=== PATIENT | male | born 1950 | race Caucasian/White ===

== ENCOUNTER 2023-09-11 15:00 | Outpatient (RCR) | payer MEDICARE, OTHER, SELFPAY ==
--- NOTE | 2023-07-21 16:19 | HP.PTEVAL ---
Patient's Visit Information Visit Information Visit Information: SEPIDEH GERARDO is a 72 year old M referred to Physical Therapy by Dr. Nisreen Connelly MD with a diagnosis of BACK PAIN AND LEG WEAKNESS. Date of Evaluation: 07/21/23 Physical Therapist: Amanda Majano, PT, Cert MDT Visit Plan Frequency: 2-3x /Week Duration: 4-6 Weeks Plan: *FALL RISK. WALK PATIENT IN AND OUT OF PT DEPARTMENT. GAIT AND BALANCE TRAINING. POSTURE CORRECTION/STRENGTHENING, INSTRUCTION IN APPROPRIATE BODY MECHANICS AND ACTIVITY MODIFICATIONS. DLS STARTING WITH A NEUTRAL SPINE PROGRESSING ROM TOLERATED. CLARICE LE ROM, STRETCHING AND STRENGTHENING. HEP INSTRUCTION. WORK TOWARD GYM PROGRAM AT [employer] IF SAFE/APPROPRIATE. 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 Present symptoms: CLARICE LE WEAKNESS. LOW BACK PAIN. CLARICE LE PAIN, NUMBNESS AND TINGLING. Present since: ABOUT 8-10 MONTHS Pain Scale: WORSE 3/10, LEAST 0/10 Currently: 0/10 Is it getting better, worse or staying the same: BETTER SINCE SHOT Monday07/19/23. Commenced as a result of: NO APPARENT REASON Symptoms at onset: LOW BACK PAIN Worse: STANDING UP FROM BENDING CAUSES SOME PAIN, PROLONGED STANDING, PROLONGED WALKING, SOMETIMES GETTING UP IN THE MORNING. Better: ADVIL, SITTING DOWN, LYING DOWN, RUBBING BACK Disturbed sleep: NO Previous history/Previous treatment: NO BACK SURGERY. NO PRIOR HISTORY OF BACK PROBLEMS OR TREATMENT. PATIENT REPORTS THIS IS ALL NEW TO HIM. Treatment this episode: ONE SHASHI. PATIENT REPORTS HIS SX'S HAVE NOT BEEN noticeable in his back and legs since the injection but he is still weak. Coughing/sneezing/straining: NEGATIVE Gait: CROOKED, UNBALANCED AND UNSTABLE COMPARED TO WHAT IT USE TO BE . NOT USING ANY ASSISTIVE DEVICES. PATIENT REPORTS HE STUMBLES SOMETIMES AND DOESN'T ALWAYS PICK HIS FEET UP HIGH ENOUGH. Bowel or Bladder Dysfunction: YES BUT CHRONIC AND PATIENT RELATES IT TO HIS PROSTATE ISSUES. Accidents: NO Unexplained weight loss: NO Imaging: RECENT LUMBAR X-RAYS AND MRI AT [facility] - PATIENT REPORTS THEY TOLD HIM HE HAS DDD. PMH/Recent major surgery: PROSTATE CONDITION, HEART CONDITION, CONVULSIVE DISORDER - CONTROLLED BY MEDICATION, A LOT OF SKIN CANCER, BENIGN KIDNEY TUMOR REMOVED. CHRONIC CLARICE LE EDEMA R > L. Objective Objective: Sitting/Standing Posture: POOR. DECREASED LORDOSIS BUT NO RELEVANT LATERAL SHIFT. Active Correction of posture: NE Other Observations: THIS PATIENT AMBULATES INDEP'LY INTO PT WITH UNSTEADY GAIT BUT NO LOB AND NOT USING ANY ASSISTIVE DEVICES. PATIENT IS A FALL RISK AND THIS PT RECOMMENDS AD FOR SAFETY. PATIENT IS RELUCTANT STATING HE ALWAYS HAS SOMETHING TO HOLD ON TO LIKE A GROCERY CART OR HIS WIFES W/C. THIS PT CHALLENGED HIM ABOUT TIMES THAT HE DOESN'T HAVE SOMETHING TO HOLD ON TO AND HE IS STILL RELUCTANT STATING HE DOESN'T FEEL THAT UNSTABLE LIKE HE IS GOING TO FALL. PATIENT IS UNABLE TO SLS ON EITHER LE FOR MORE THAN 1-2 SECONDS WITHOUT UE ASSIST. HE ALSO HAS DECREASED DORSIFLEXION OF CLARICE ANKLES DURING SWING PHASE OF GAIT AND TENDS TO HIKE HIS HIPS. Sensory deficit: CLARICE LE LIGHT TOUCH SENSATION GROSSLY INTACT AND SYMMETRICAL. PATIENT IS WEARING LE COMPRESSION garments AND HAS R LE EDEMA > L. ROM deficit: TIGHT CLARICE HIP FLEXORS, HS'S AND GASTROC SOLEUS COMPLEX'S. Motor deficit: CLARICE LE'S GROSSLY 5/5 WITH MMT'ING INCLUDING DORSIFLEXION IN SITTING. Reflexes: 2/2 CLARICE QUADS AND 1/2 CLARICE ACHILLES. Dural Signs: POSITIVE CLARICE LE'S. Lumbar mvmt loss: flex - MIN ext - MOD R SG - MOD L SG - MOD Core strength: POOR Palpation: MILD LOWER LUMBAR TENDERNESS. SEE STS TEST SCORE BELOW. Balance/Special Test Scores Oswestry Low Back Score: 18 30 Second Chair Rise Test Seconds: 8 Goals Goal 1:: DECREASE C/O LBP AND CLARICE LE WEAKNESS Goal Time Frame: 4-6 Weeks Goal 2:: IMPROVE LIFTING, BENDING, WALKING, SITTING, STANDING, SOCIAL LIFE AND HOMEMAKING FUNCTION. Goal Time Frame: 4-6 Weeks Goal 3:: INSTRUCT IN PROPHYLAXIS Goal Time Frame: 4-6 Weeks Anticipated Interventions Patient/Client Instruction: Educate patient on: Condition, Plan of Care and Risk Factors For the Purpose of:: To improve self management Therapeutic Exercise to Include: Strength training, Balance training, Postural training, Flexibilty training, Gait and locomotor training, Neuromotor development and Dynamic Lumbar Stabilization For the Purpose of:: To decrease pain, To increase ROM, To improve muscle performance and motor function, To increase tolerance to activity/condition/position, To improve ability of physical actions for home/community/work/leisure and To improve gait and locomotor functions Text: Thank you for the opportunity to evaluate your patient. For Medicare and Medicare HMO plans, please review the plan of care and approve it. It will need to be FAXED BACK to us at [phone] for Medicare purposes. For Medicare only, by signing this I certify the plan of care. Please let me know if there are questions or concerns regarding this plan of care. Physician Signature: Date:
--- NOTE | 2023-08-21 16:25 | HP.PTREVAL_ITS ---
Re-Evaluation Intro: Dr. Nisreen Suarez MD, It has been my pleasure to treat SEPIDEH GERARDO over the last 10 visits for BACK PAIN AND LEG WEAKNESS. Please see the progress note below for an update on the physical therapy plan of care! Subjective Subjective: PATIENT REPORTS HE IS SEEING SLOW PROGRESS WITH THERAPY IN TERMS OF PAIN, STRENGTH AND FLEXABILITY AND HE IS WORKING ON WHAT WE SHOW HIM AT HOME. HE STATES HE APPRECIATES THE EFFORT WE HAVE GIVEN TO TRY TO HELP HIM IN PHYSICAL THERAPY. 08/10/[address] SUAREZ: PATIENT REPORTS HE IS GOING TO GET AN INJECTION IN HIS UPPER BACK/NECK AREA FOR THE PAIN HE HAS HAD THERE FOR 6 MONTHS OR MORE ON MONDAY BY DR. SUAREZ. NO MORE LUMBAR INJECTIONS PLANNED YET. PATIENT REPORTS HE CAN STRETCH A LITTLE FURTHER QUICKER IN THERAPY BUT PROGRESS IS SLOW. Objective Objective/Function: PATIENT WAS SEEN TODAY FOR RE-ASSESSMENT OF PROGRESS TOWARD THE SET PT GOALS AND THE NEED FOR FURTHER PHYSICAL THERAPY VS READINESS FOR DISCHARGE. PATIENT IS A GOOD CANDIDATE TO CONTINUE PT BASED ON SLOW PROGRESS BEING MADE AND PATIENT LEARNING WHAT HE CAN DO TO HELP HIMSELF AT HOME. UPON EXAM TODAY IS BALANCE IS STILL UNSTEADY AND HE IS STILL A FALL RISK WITH AD RECOMMENDED BUT REFUSED. OBJECTIVELY WITH TESTING TODAY THERE ARE NO SIGNIFICATANT CHANGES COMPARED TO INITIAL EVAL BUT HE IS MAKING PROGRESS IN TERMS OF LEARNING A HEP AND REPORTING TEMPORARY INCREASED FLEXABILITY AND MOBILITY WITH A LITTLE CARRY OVER. Plan Plan Plan: CONTINUE PT 2-3 TMES A WK X 4-6 WKS X 10 VISITS. *FALL RISK. WALK PATIENT IN AND OUT OF PT DEPARTMENT. GAIT AND BALANCE TRAINING. POSTURE CORRECTION/STRENGTHENING, INSTRUCTION IN APPROPRIATE BODY MECHANICS AND ACTIVITY MODIFICATIONS. DLS STARTING WITH A NEUTRAL SPINE PROGRESSING ROM TOLERATED. CLARICE LE ROM, STRETCHING AND STRENGTHENING. HEP INSTRUCTION. WORK TOWARD GYM PROGRAM AT [employer] IF SAFE/APPROPRIATE. Balance/Gait/Functional tests Balance/Special Test Scores Oswestry Low Back Score: 18 30 Second Chair Rise Test Seconds: 8 Goals Goals Goal 1:: DECREASE C/O LBP AND CLARICE LE WEAKNESS Goal Time Frame: 4-6 Weeks Goal Progress: Progressing Slowly Goal 2:: IMPROVE LIFTING, BENDING, WALKING, SITTING, STANDING, SOCIAL LIFE AND HOMEMAKING FUNCTION. Goal Time Frame: 4-6 Weeks Goal 3:: INSTRUCT IN PROPHYLAXIS Goal Time Frame: 4-6 Weeks Goal Progress: Progressing Anticipated Interventions Anticipated Interventions Patient/Client Instruction: Educate patient on: Condition, Plan of Care and Risk Factors For the Purpose of:: To improve self management Therapeutic Exercise to Include: Strength training, Balance training, Postural training, Flexibilty training, Gait and locomotor training, Neuromotor development and Dynamic Lumbar Stabilization For the Purpose of:: To decrease pain, To increase ROM, To improve muscle performance and motor function, To increase tolerance to activity/condition/position, To improve ability of physical actions for home/community/work/leisure and To improve gait and locomotor functions Re-Evaluation Ending Re-evaluation ending: Please do not hesitate to contact me at [phone] by phone or if you have questions or concerns regarding this new plan of care! Sincerely, Amanda Majano, PT, Cert MDT
== END 2023-09-11 19:00 | disposition home or self-care (01) ==
LOC: PT 15:00
PROVIDERS: PCP Family Medicine Hospice and Palliative Medicine; Referring Provider Anesthesiology Pain Medicine; Visit Provider Anesthesiology Pain Medicine
DX: M54.9 Dorsalgia, unspecified (principal); R29.898 Other symptoms and signs involving the musculoskeletal system
CPT/HCPCS: 97110; 97162; 97164

== ENCOUNTER → 2024-10-01 | Outpatient (CLI) | payer MEDICARE, OTHER, SELFPAY ==
[2024-10-01 18:28] LABS: Anion Gap 6 (5-15); BUN 26 mg/dL (7-18); BUN/Creat Ratio 19.8 RATIO (10-20); Chloride 109 mmol/L (98-107); Creatinine, Serum 1.31 mg/dL (0.70-1.30); EST Glomerular Filtration Rate 57 mL/min (>60); Est Glom Filt Rate - Afr Amer 69 mL/min (>60); Glucose 108 mg/dL (74-106); Magnesium 2.2 mg/dL (1.6-2.6); Potassium 3.9 mmol/L (3.5-5.1); Sodium Level 144 mmol/L (136-145)
[2024-10-01 19:02] LABS: Hemoglobin A1c 6.7 % (3.8-5.6)
--- OUTSIDE RECORDS SUMMARY | 2024-10-01 20:09 | XMS RPT_ITS | CCD ---
Author Organization [facility]iniSyga Care Team Providers Care Embroiderer Name Role Phone STACEY SHEA Unavailable Unavailable MAXIMILIANO PASCUAL Unavailable Unavailable JOCELYNN CASTRO MD Primary Care Physician Maximiliano Pascual MD Primary Care Provider DR VINAYAK WRIGHT DO Primary Care Physician [phone] Maximiliano Pascual MD Primary Care Provider STACEY SHEA Attending Unavailable MAXIMILIANO PASCUAL Primary Care Unavailable STACEY SHEA Attending Unavailable MAXIMILIANO PASCUAL Primary Care Unavailable JAREK DUEK Attending Unavailable MAXIMILIANO PASCUAL Primary Care Unavailable THAIS NICHOLAS Referring Unavail able SELF Referring Unavailable APRIL, INDIGO Cheng Attending Unavailable MAXIMILIANO PASCUAL Primary Care Unavailable YARITZA SPENCER Attending Unavailable MAXIMILIANO PASCUAL Primary Care Unavailable YARITZA SPENCER Referring Unavailable MAXIMILIANO PASCUAL Primary Care Unavailable THAIS NICHOLAS Attending Unavail able MAXIMILIANO PASCUAL Primary Care Unavailable THAIS NICHOLAS Referring Unavail able THAIS NICHOLAS Attending Unavail able MAXIMILIANO PASCUAL Primary Care Unavailable THAIS NICHOLAS Attending Unavail able EDMUNDO PEARL Attending Unavailab le KYLE GUEVARA, DR VINAYAK Sullivan Primary Care Unavailab EDMUNDO Evangelista Attending Unavailab le KYLE GUEVARA, DR VINAYAK Sullivan Primary Care Unavailab STACEY Muller MD Attending Unavailable KYLE GUEVARA, DR VINAYAK Sullivan Primary Care Unavailab EDMUNDO Evangelista Attending Unavailab le KYLE GUEVARA, DR VINAYAK Sullivan Primary Care Unavailab le KYLE GUEVARA, DR VINAYAK Sullivan Attending Unavailab le KYLE DO, DR VINAYAK Sullivan Primary Care Unavailab trent SMITH MD, DR MYRON Hauser Attending Unavailabl e KYLE DO, DR VINAYAK Sullivan Primary Care Unavailab trent SHEA MD, STACEY Solis Attending Unavailable KYLE DO, DR VINAYAK Sullivan Primary Care Unavailab le KYLE DO, DR VINAYAK Sullivan Attending Unavailab le KYLE DO, DR VINAYAK Sullivan Primary Care Unavailab le FISH DIRECTOR OF BANDS-ADMIN ASSISTANT, EDMUNDO Attending Unavailab le KYLE DO, DR VINAYAK Sullivan Primary Care Unavailab le PLUNK DO, ELISEO Attending Unavailable KYLE DO, DR VINAYAK Sullivan Primary Care Unavailab le MIGUEL DIRECTOR OF BANDS-ADMIN ASSISTANT, MOHINI Admitting Unavail able Medications Current Medications Medication Drug Class(es) Dates Sig (Normalized) Sig (Original) acetaminophen 650 mg oral tablet (6 sources) Start: 09-26-2021 acetaminophen Dose : 650 mg = 2 tab(s), Oral, q4h, PRN Pain, scale 1-3, 0 Refill(s) Start Date: 09/26/21 Status: Ordered acetaminophen 500 mg / diphenhydrAMINE hydrochloride 25 mg oral tablet (16 sources) Histamine-1 Receptor Antagonist Start: 10-26-2021 take 1 tablet by mouth once daily at bedtime Tylenol PM Extra Strength oral tablet Dose = 1 tab(s), Oral, qHS, 0 Refill(s) Start Date: 10/26/21 Status: Ordered Alcohol Swabs (20 sources) Start: 09-20-2021 Alcohol Swabs See Instructions, 1 box, # 1 EA, 0 Refill(s), Pharmacy: [facility]/pharmacy #[id number], Prediabetes HgbA1C 6.0, 180.3, cm, 09/08/21 11:17:00 EDT, Height, 103.2, kg, 09/18/21 11:00:00 EDT, Dosing Weight Start Date: 09/20/21 Status: Ordered amiodarone hydrochloride 200 mg oral tablet (9 sources) Antiarrhythmic Start: 11-29-2021 take 1 tablet by mouth once daily amiodarone 200 mg oral tablet See Instructions, TAKE 1 TABLET BY MOUTH EVERY DAY, # 30 tab(s), 6 Refill(s), Pharmacy: [facility] STORE [id number], 180.3, cm, 11/22/21 10:48:00 EST, Height, kg, 11/22/21 10:48:00 EST, Dosing Weight Start Date: 11/29/21 Status: Ordered Start: 09-26-2021 amiodarone 200 mg oral tablet Dose : 200 mg = 1 tab(s), Oral, qDay, # 48 tab(s), 0 Refill(s), [id number], 180.3, cm, 09/08/21 11:17:00 EDT, Height, kg, 09/26/21 9:55:00 EDT, Dosing Weight Start Date: 09/26/21 Status: Ordered amLODIPine 5 mg oral tablet (6 sources) Dihydropyridine Calcium Channel Magnus Start: 07-17-2024 take 1 dose by mouth once daily amLODIPine Dose : 5 mg =, Oral, qDay, 0 Refill(s) Start Date: 07/17/24 Status: Ordered Start: 04-17-2024 amLODIPine 5 m g oral tablet Dose : 5 mg = 1 tab(s), Oral, qDay, # 30 tab(s), 5 Refill(s), [id number], 182.9, cm, 04/17/24 13:56:00 EDT, Height, kg, 04/17/24 13:56:00 EDT, Dosing Weight Start Date: 04/17/24 Status: Ordered ascorbic acid 500 mg oral tablet (1 source) Vitamin C Start: 12-02-2021 Vitamin C 500 mg oral tablet Dose : 500 mg = 1 tab(s), Oral, qDay, 0 Refill(s) Start Date: 12/02/21 Status: Ordered aspirin 81 mg delayed release oral tablet (20 sources) Platelet Aggregation Inhibitor, Nonsteroidal Anti-inflammatory Drug Start: 09-26-2021 aspirin 81 mg ora l delayed release tablet Dose : 81 mg = 1 tab(s), Oral, qDayM, 0 Refill(s) Start Date: 09/26/21 Status: Ordered Start: 09-26-2021 aspirin 81 mg oral delayed release tablet Dose : 81 mg = 1 tab(s), Oral, qDayM, 0 Refill(s) Start Date: 09/26/21 Status: Ordered Comment on above: 81 mg. Take 81 mg by mouth once daily. atorvastatin 40 mg oral tablet (20 sources) HMG-CoA Reductase Inhibitor Start: 1 End: 3 atorvastatin (LIPITOR) 40 mg tablet Take by mouth. 09/26/2021 Active Comment on above: 40 mg. Take 40 mg by mouth once daily. B Complex 50 oral tablet (20 sources) Start: 0 B Complex 50 oral tablet Oral, qDay, 0 Refill(s) Start Date: 07/31/20 Status: Ordered Blood Glucose Test Machine (20 sources) Start: 1 Blood Glucose Test Machine See Instructions, Device as determined by insurance coverage, # 1 EA, 0 Refill(s), [id number], Prediabetes HgbA1C 6.0, 180.3, cm, 09/08/21 11:17:00 EDT, Height, 103.2, kg, 09/18/21 11:00:00 EDT, Dosing Weight Start Date: 09/20/21 Status: Ordered bumetanide 1 mg oral tablet (20 sources) Loop Diuretic Start: 2 take 1 tablet by mouth once daily bumetanide 1 mg oral tablet 1 tab(s), Oral, qDay, # 90 tab(s), 3 Refill(s), [id number], 182.9, cm, 10/04/23 14:04:00 EST, Height, kg, 10/04/23 14:04:00 EST, Dosing Weight Start Date: 12/08/23 Status: Ordered Start: 02-23-2022 take 1 tablet by sherwin th once daily bumetanide 1 mg oral tablet 1 tab(s), Oral, qDay, # 90 tab(s), 1 Refill(s), Pharmacy: [facility] STORE [id number], 182.9, cm, 01/24/22 10:15:00 EST, Height, kg, 01/24/22 10:15:00 EST, Dosing Weight Start Date: 02/23/22 Status: Ordered Start: 12-02-2021 bumetanide 1 m g oral tablet Dose : 1 mg = 1 tab(s), Oral, qDay, 0 Refill(s) Start Date: 12/02/21 Status: Ordered Start: 11-29-2021 take 1 tablet by sherwin th once daily bumetanide 1 mg oral tablet See Instructions, TAKE 1 TABLET BY MOUTH EVERY DAY, # 30 tab(s), 3 Refill(s), Pharmacy: [facility] STORE [id number], 180.3, cm, 11/22/21 10:48:00 EST, Height, kg, 11/22/21 10:48:00 EST, Dosing Weight Start Date: 11/29/21 Status: Ordered Start: 10-13-2021 bumetanide 1 m g oral tablet Dose : 1 mg = 1 tab(s), Oral, Daily, # 30 tab(s), 0 Refill(s), [id number], 210.8, cm, 10/06/21 11:34:00 EST, Height, kg, 10/12/21 13:42:00 EST, Dosing Weight Start Date: 10/13/21 Status: Ordered Start: 10-06-2021 bumetanide 0.5 mg oral tablet Dose : 0.5 mg = 1 tab(s), Oral, qDay, 0 Refill(s) Start Date: 10/06/21 Status: Ordered Start: 07-30-2021 bumetanide 2 m g oral tablet Dose : 2 mg = 1 tab(s), Oral, BID, # 60 tab(s), 3 Refill(s), [id number], 180.3, cm, 07/30/21 13:26:00 EDT, Height, kg, 07/30/21 13:26:00 EDT, Dosing Weight Start Date: 07/30/21 Status: Ordered Comment on above: Take 1 mg by mouth o nce daily. carvedilol 25 mg oral tablet (20 sources) alpha-Adrenergic Magnus, beta-Adrenergic Magnus Start: 09-06-2024 carvedilol 25 mg oral tablet Dose : 25 mg = 1 tab(s), Oral, BID, # 180 tab(s), 0 Refill(s), [id number], 180.3, cm, 09/04/24 23:49:00 EDT, Height, kg, 09/04/24 23:49:00 EDT, Dosing Weight Start Date: 09/06/24 Status: Ordered Start: 10-04-2023 carvedilol 25 mg oral tablet Dose : 25 mg = 1 tab(s), Oral, BID, # 180 tab(s), 3 Refill(s), [id number], 182.9, cm, 10/04/23 14:04:00 EST, Height, kg, 10/04/23 14:04:00 EST, Dosing Weight Start Date: 10/04/23 Status: Ordered Start: 01-13-2023 take 1 tablet by sherwin th twice daily carvedilol 12.5 mg oral tablet 1 tab(s), Oral, BID, # 180 tab(s), 3 Refill(s), Pharmacy: [facility] STORE [id number], 182.9, cm, 10/13/22 10:01:00 EST, Height, kg, 10/13/22 10:01:00 EST, Dosing Weight Start Date: 01/13/23 Status: Ordered Start: 12-02-2021 take 1 tablet by sherwin th twice daily at mealtime carvedilol (COREG) 6.25 mg tablet Take 6.25 mg by mouth two times a day with meals. 12/02/2021 Active Start: 07-30-2021 carvedilol 6.2 5 mg oral tablet Dose : 6.25 mg = 1 tab(s), Oral, BIDM, # 60 tab(s), 3 Refill(s), [id number], 180.3, cm, 07/30/21 13:26:00 EDT, Height, kg, 07/30/21 13:26:00 EDT, Dosing Weight Start Date: 07/30/21 Status: Ordered Comment on above: 6.25 mg. Take 6.25 mg by mout h two times a day with meals. Centrum Silver oral tablet (20 sources) Start: 07-31-2020 take 1 tablet by mouth once daily Centrum Silver oral tablet Dose = 1 tab(s), Oral, qDay, # 30 tab(s), 0 Refill(s) Start Date: 07/31/20 Status: Ordered Cholecalciferol (20 sources) Vitamin D Start: 07-31-2020 Vitamin D (3) 45 units oral capsule qDay, 0 Refill(s) Start Date: 07/31/20 Status: Ordered take 1 capsule by mouth once areli ly Cholecalciferol, Vitamin D3, 50 mcg (2,000 unit) cap Take 1 capsule by mouth once daily. Active take 3 capsules by mouth once da misa Cholecalciferol, Vitamin D3, 50 mcg (2,000 unit) cap Take 3 capsules by mouth once daily. 0 Active Comment on above: Take 3 capsules by m outh once daily. Take 1 capsule by mo uth once daily. CYANOCOBALAMIN, VITAMIN B-12, (VITAMIN B-12 INJECTION) (20 sources) CYANOCOBALAMIN, VITAMIN B-12, (VITAMIN B-12 INJECTION) by INJECTION(UNSPECIFIED PARENTERAL ROUTES) route. Active CYANOCOBALAMIN, VITAMIN B-12, (VITAMIN B-12 INJECTION) by INJECTION(UNSPECIFIED PARENTERAL ROUTES) route. 0 Active Comment on above: by INJECTION(UNSPECI FIED PARENTERAL ROUTES) route. dexamethasone 6 mg oral tablet (1 source) Corticosteroid Start: 09-07-20 End: 09-14-20 dexAMETHasone 6 mg oral tablet Dose : 6 mg = 1 tab(s), Oral, qDay, X 7 day(s), # 7 tab(s), 0 Refill(s), 09/14/24 12:03:00 PM EDT, Pharmacy: [facility]/pharmacy #[id number], 180.3, cm, 09/04/24 23:49:00 EDT, Height, kg, 09/04/24 23:49:00 EDT, Dosing Weight Start Date: 09/07/24 Stop Date: 09/14/24 Status: Ordered ergocalciferol 0.05 mg oral capsule (1 source) Provitamin D2 Compound Start: 09-08-20 ergocalciferol 50 mcg (2000 intl units) oral capsule Dose : 50 mcg = 1 cap(s), Oral, qDay, with food Start Date: 09/08/21 Status: Ordered ezetimibe 10 mg oral tablet (7 sources) Dietary Cholesterol Absorption Inhibitor Start: 08-27-20 Zetia 10 mg oral tablet Dose : 10 mg = 1 tab(s), Oral, qDay, # 90 tab(s), 3 Refill(s), Pharmacy: [facility]/pharmacy #[id number], 180.3, cm, 07/17/24 14:43:00 EDT, Height, kg, 07/17/24 14:43:00 EDT, Dosing Weight Start Date: 08/27/24 Status: Ordered Start: 11-08-2023 Zetia 10 mg or al tablet Dose : 10 mg = 1 tab(s), Oral, qDay, # 90 tab(s), 3 Refill(s), [id number], 182.9, cm, 10/04/23 14:04:00 EST, Height, kg, 10/04/23 14:04:00 EST, Dosing Weight Start Date: 11/08/23 Status: Ordered Start: 10-04-2023 Zetia 10 mg or al tablet Dose : 10 mg = 1 tab(s), Oral, qDay, # 30 tab(s), 2 Refill(s), [id number], 182.9, cm, 10/04/23 14:04:00 EST, Height, kg, 10/04/23 14:04:00 EST, Dosing Weight Start Date: 10/04/23 Status: Ordered fluorouracil 50 mg/ml topical cream (5 sources) Nucleoside Metabolic Inhibitor Start: 04-08-2024 Fluorouracil (EFUDEX ) 5 % cream Indications: AK (actinic keratosis) Apply affected area once daily for 6 days prior to PDT 40 g 04/08/2024 Active furosemide 40 mg oral tablet (3 sources) Loop Diuretic Start: 10-15-2020 furosemide (LA SIX) 40 mg tablet 80 mg. 10/15/2020 Active End: 12-12-2022 take 1 tablet by mouth four times daily furosemide (LASIX) 40 mg tablet Take 40 mg by mouth four times daily. 0 12/12/2022 Discontinued Comment on above: Take 40 mg by mouth four times daily. gabapentin 100 mg oral capsule (7 sources) Anti-epileptic Agent Start: 2022 take 1-3 capsules by mouth three times daily as needed for pain gabapentin 100 mg oral capsule 1-3 CAPSULES THREE TIMES DAILY NEEDED FOR NERVE PAIN Start Date: 10/04/23 Status: Ordered hydroCHLOROthiazide 25 mg oral tablet (20 sources) Thiazide Diuretic Start: 2022 hydroCHLOROthiazide 25 mg oral tablet Dose : 50 mg = 2 tab(s), Oral, qDay, 0 Refill(s) Start Date: 10/04/23 Status: Ordered Start: 05-25-2023 take 2 tablets by mouth once h ydroCHLOROthiazide 25 mg tablet Take 2 tablets by mouth every afternoon. 05/25/2023 Active Comment on above: Take 2 tablets by mo [facility] every afternoon. hydrocortisone 25 mg/ml topical cream (20 sources) Corticosteroid Start: 09-13-2023 hydrocortisone 2.5 % cream Indications: Seborrheic dermatitis Apply to affected skin around nose behind ears twice weekly prn flare 28 g 2 09/13/2023 Active Start: 07-20-2017 End: 09-13-2023 hydrocortisone 2.5 % ointmen t Apply to affected area on face two times daily as needed for 1-2 weeks after PDT 30 g 0 07/20/2017 09/13/2023 Discontinued (Discontinued by Patient) Comment on above: Apply to affected ar ea on face two times daily as needed for 1-2 weeks after PDT Apply to affected sk in around nose behind ears twice weekly prn flare 24 hr isosorbide mononitrate 30 mg extended release oral tablet (15 sources) Nitrate Vasodilator Start: 09-06-2024 isosorbide mononitrate 30 mg oral tablet, extended release Dose : 30 mg = 1 tab(s), Oral, qAM, # 90 tab(s), 0 Refill(s), Pharmacy: [facility]/pharmacy #[id number], 180.3, cm, 09/04/24 23:49:00 EDT, Height, kg, 09/04/24 23:49:00 EDT, Dosing Weight Start Date: 09/06/24 Status: Ordered Start: 11-07-2023 [facility], then take 1 tablet by mouth every twenty-four hours isosorbide mononitrate ER (IMDUR) 30 mg 24 hr tablet Take 30 mg by mouth every morning. 0 12/06/2023 Active Start: 08-16-2021 isosorbide mon onitrate 30 mg oral tablet, extended release Dose : 30 mg = 1 tab(s), Oral, qAM, # 30 tab(s), 5 Refill(s), Pharmacy: [facility]/pharmacy #[id number], 180.3, cm, 07/30/21 13:26:00 EDT, Height, kg, 07/30/21 13:26:00 EDT, Dosing Weight Start Date: 08/16/21 Status: Ordered Comment on above: Take 30 mg by mouth every morning. ketoconazole 20 mg/ml medicated shampoo (20 sources) Azole Antifungal Start: 09-13-2023 ketoconazole (NIZORAL) 2 % shampoo Indications: Seborrheic dermatitis Wash scalp 3 times a week 120 mL 5 09/13/2023 Active Start: 03-01-2017 End: 09-13-2023 ketoconazole (NIZORAL) 2 % s hampoo WASH AFFECTED AREA DAILY NEEDED 120 mL 5 08/30/2019 09/13/2023 Discontinued (Discontinued by Patient) Comment on above: Wash affected area d aily as needed Wash scalp 3 times a week loratadine 10 mg oral tablet (20 sources) Start: 10-04-2023 take 1 tablet by mouth once daily as needed loratadine 10 mg oral tablet TAKE 1 TABLET BY MOUTH EVERY DAY NEEDED Start Date: 10/04/23 Status: Ordered take 1 capsule by mouth once aerli ly loratadine 10 mg cap Take 10 mg by mouth once daily. Active Comment on above: Take 10 mg by mouth once daily. Magnesium (20 sources) Start: 07-31-2020 take 1 mg by mouth once daily Magnesium 250 mg tablet mg = tab(s), Oral, qDay, 0 Refill(s) Start Date: 07/31/20 Status: Ordered take 1 tablet by mouth once florentin y Magnesium 250 mg tab Take 250 mg by mouth once daily. Active take 1 tablet by mouth once florentin y Magnesium 250 mg tab Take 250 mg by mouth once daily. 0 Active Comment on above: Take 250 mg by mouth once daily. magnesium oxide 250 mg oral tablet (16 sources) Start: 07-31-2020 take 1 mg by mouth once daily Magnesium 250 mg tablet mg = tab(s), Oral, qDay, 0 Refill(s) Start Date: 07/31/20 Status: Ordered MULTIVIT &MINERALS/FERROUS FUM (MULTI VITAMIN ORAL) (20 sources) take 1 tablet by mouth once daily MULTIVIT &MINERALS/FERROUS FUM (MULTI VITAMIN ORAL) Take 1 tablet by mouth once daily. Active take 1 tablet by mouth once florentin y MULTIVIT &MINERALS/FERROUS FUM (MULTI VITAMIN ORAL) Take 1 tablet by mouth once daily. 0 Active Comment on above: Take 1 tablet by sherwin once daily. niacinamide 500 mg oral tablet (20 sources) Start: 03-05-20 take 1 tablet by mouth twice daily at mealtime Niacinamide 500 mg tablet TAKE 1 TABLET BY MOUTH TWICE A DAY WITH MEALS 180 tablet 3 03/05/2021 Active Comment on above: TAKE 1 TABLET BY SHERWIN TH TWICE A DAY WITH MEALS nitroglycerin 0.4 mg sublingual tablet (20 sources) Nitrate Vasodilator Start: 08-16-20 nitroglycerin 0.4 mg sublingual tablet 0.4 mg Dose = 1 tab(s), Sublingual, q5min, PRN for chest pain, # 25 tab(s), 1 Refill(s), Pharmacy: [facility]/pharmacy #[id number], 182.9, cm, 10/04/23 14:04:00 EST, Height, kg, 10/04/23 14:04:00 EST, Dosing Weight Start Date: 10/04/23 Status: Ordered Comment on above: 0.4 mg. nitroglycerin 0.4 mg sublingual tablet (10 sources) Start: 08-16-20 nitroglycerin 0.4 mg sublingual tablet 0.4 mg Dose = 1 tab(s), Sublingual, q5min, PRN for chest pain, # 25 tab(s), 1 Refill(s), [id number], 180.3, cm, 07/30/21 13:26:00 EDT, Height, kg, 07/30/21 13:26:00 EDT, Dosing Weight Start Date: 08/16/21 Status: Ordered Potassium (20 sources) take 1 tablet by mouth once daily POTASSIUM (POTASSIMIN ORAL) Take 1 tablet by mouth once daily. Active take 1 tablet by mouth once florentin y POTASSIUM (POTASSIMIN ORAL) Take 1 tablet by mouth once daily. 0 Active Comment on above: Take 1 tablet by sherwin th once daily. potassium chloride 20 meq oral tablet (20 sources) Start: 09-02-2024 Potassium Chloride (Eqv-K-Tab) 20 mEq oral tablet, extended release 1 tab(s), Oral, qDay, # 90 tab(s), 1 Refill(s), Pharmacy: [facility]/pharmacy #[id number], 180.3, cm, 07/17/24 14:43:00 EDT, Height, kg, 07/17/24 14:43:00 EDT, Dosing Weight Start Date: 09/02/24 Status: Ordered Start: 09-04-2023 Potassium Chlo ride (Eqv-K-Tab) 20 mEq oral tablet, extended release 1 tab(s), Oral, qDay, # 90 tab(s), 3 Refill(s), Pharmacy: [facility] STORE [id number], 182.9, cm, 10/13/22 10:01:00 EST, Height, kg, 10/13/22 10:01:00 EST, Dosing Weight Start Date: 09/04/23 Status: Ordered Start: 08-31-2022 Potassium Chlo ride (Eqv-K-Tab) 20 mEq oral tablet, extended release 1 tab(s), Oral, qDay, # 90 tab(s), 3 Refill(s), [id number], 182.9, cm, 03/24/22 9:52:00 EDT, Height, kg, 03/24/22 9:52:00 EDT, Dosing Weight Start Date: 08/31/22 Status: Ordered Start: 05-26-2022 Potassium Chlo ride (Eqv-K-Tab) 20 mEq oral tablet, extended release 1 tab(s), Oral, qDay, # 30 tab(s), 3 Refill(s), Pharmacy: [facility] STORE [id number], 182.9, cm, 03/24/22 9:52:00 EDT, Height, kg, 03/24/22 9:52:00 EDT, Dosing Weight Start Date: 05/26/22 Status: Ordered Start: 12-02-2021 Potassium Chlo ride (Eqv-K-Tab) 20 mEq oral tablet, extended release Dose : 20 mEq = 1 tab(s), Oral, qDay, # 30 tab(s), 3 Refill(s), Pharmacy: [facility]/pharmacy #[id number], 182.9, cm, 12/02/21 13:35:00 EST, Height, kg, 12/02/21 13:35:00 EST, Dosing Weight Start Date: 12/02/21 Status: Ordered Start: 10-26-2021 Potassium Chlo ride (Eqv-K-Tab) 20 mEq oral tablet, extended release Dose : 20 mEq = 1 tab(s), Oral, qDay, # 30 tab(s), 0 Refill(s), [id number], 180.3, cm, 10/26/21 13:29:00 EST, Height, kg, 10/26/21 13:29:00 EST, Dosing Weight Start Date: 10/26/21 Status: Ordered Start: 10-13-2021 Potassium Chlo ride (Eqv-K-Tab) 20 mEq oral tablet, extended release Dose : 20 mEq = 1 tab(s), Oral, qDay, # 30 tab(s), 0 Refill(s), [id number], 210.8, cm, 10/06/21 11:34:00 EST, Height, kg, 10/12/21 13:42:00 EST, Dosing Weight Start Date: 10/13/21 Status: Ordered Start: 10-06-2021 Potassium Chlo ride (Yle-Pjca-Rxw 10) 10 mEq oral tablet, extended release Dose : 10 mEq = 1 tab(s), Oral, qDay, 0 Refill(s) Start Date: 10/06/21 Status: Ordered Start: 07-31-2020 Klor-Con M20 o ral tablet, extended release Dose : 20 mEq = 1 tab(s), Oral, qDay, # 30 tab(s), 0 Refill(s) Start Date: 07/31/20 Status: Ordered pravastatin sodium 40 mg oral tablet (1 source) HMG-CoA Reductase Inhibitor Start: 07-31-2020 pravastatin 40 mg oral tablet Dose : 40 mg = 1 tab(s), Oral, qDay, # 30 tab(s), 0 Refill(s) Start Date: 07/31/20 Status: Ordered primidone 250 mg oral tablet (20 sources) Anti-epileptic Agent Start: 07-31-2020 primidone 250 mg oral tablet Dose : 250 mg = 1 tab(s), Oral, BID, 0 Refill(s) Start Date: 07/31/20 Status: Ordered Comment on above: Take 250 mg by mouth twice daily. tamsulosin hydrochloride 0.4 mg oral capsule (2 sources) alpha-Adrenergic Magnus Start: 07-08-2024 End: 07-08-2025 take 1 capsule by mouth once daily at bedtime tamsulosin (FLOMAX) 0.4 mg Take 1 capsule by mouth daily at bedtime. 30 capsule 11 07/08/2024 07/08/2025 Active telmisartan 80 mg oral tablet (20 sources) Angiotensin 2 Receptor Magnus Start: 2021 take 0.5 tablet by mouth once daily telmisartan 80 mg oral tablet See Instructions, TAKE 1/2 TABLET ONCE DAILY, # 45 tab(s), 3 Refill(s), Pharmacy: [facility] [id number], 180.3, cm, 12/22/21 11:03:00 EST, Height, kg, 12/22/21 11:03:00 EST, Dosing Weight Start Date: 12/27/21 Status: Ordered Start: 10-12-2021 telmisartan 40 mg oral tablet Dose : 40 mg = 1 tab(s), Oral, qDay, # 30 tab(s), 0 Refill(s) Start Date: 10/12/21 Status: Ordered Start: 12-18-2020 End: 12-05-2024 telmisartan 80 mg oral table t Dose : 80 mg = 1 tab(s), Oral, qDay, X 90 day(s), # 90 tab(s), 0 Refill(s), 12/05/24 3:53:00 PM EST, [id number] 180.3, cm, 09/04/24 23:49:00 EDT, Height, kg, 09/04/24 23:49:00 EDT, Dosing Weight Start Date: 09/06/24 Stop Date: 12/05/24 Status: Ordered Comment on above: Take 80 mg by mouth once daily. 80 mg. traMADol hydrochloride 50 mg oral tablet (1 source) Opioid Agonist Start: 09-26-2021 End: 10-03-2021 traMADol 50 mg oral tablet Dose : 50 mg = 1 tab(s), Oral, q6h, PRN Pain, scale 4-10, X 7 day(s), # 24 tab(s), 0 Refill(s), 10/03/21 10:44:00 EST, Pharmacy: [facility]/pharmacy #[id number], Coronary artery disease s/p CABG x4 09/17/21 EF 60-65%, 180.3, cm, 09/08/21 11:17:00 EDT, Height, 102.... Start Date: 09/26/21 Stop Date: 10/03/21 Status: Ordered triamcinolone acetonide 0.001 mg/mg topical ointment (14 sources) Corticosteroid Start: 05-17-2024 triamcinolone acetonide (KENALOG) 0.1 % ointment Apply to red irritated areas, twice a day as needed 30 g 1 05/17/2024 Active Start: 03-30-2021 End: 09-13-2023 triamcinolone acetonide (SHARIF ALOG) 0.1 % cream Indications: Dermatitis Apply to affected skin on left wrist twice a day for 2 weeks 28.4 g 1 03/30/2021 09/13/2023 Discontinued (Discontinued by Patient) Comment on above: Apply to affected sk in on left wrist twice a day for 2 weeks Tylenol PM Extra Strength oral tablet (3 sources) Start: 10-26-2021 take 1 tablet by mouth once daily at bedtime Tylenol PM Extra Strength oral tablet Dose = 1 tab(s), Oral, qHS, 0 Refill(s) Start Date: 10/26/21 Status: Ordered VITAMIN B COMPLEX ORAL (20 sources) take 1 tablet by mouth once daily VITAMIN B COMPLEX ORAL Take 1 tablet by mouth once daily. Active take 1 tablet by mouth once florentin y VITAMIN B COMPLEX ORAL Take 1 tablet by mouth once daily. 0 Active Comment on above: Take 1 tablet by sherwin th once daily. Vitamin C 500 mg oral tablet (16 sources) Start: 12-02-2021 Vitamin C 500 mg oral tablet Dose : 500 mg = 1 tab(s), Oral, qDay, 0 Refill(s) Start Date: 12/02/21 Status: Ordered warfarin sodium 5 mg oral tablet (9 sources) Vitamin K Antagonist Start: 09-26-2021 warfarin 5 mg oral tablet Dose : 7.5 mg = 1.5 tab(s), Oral, qDay, # 30 tab(s), 1 Refill(s), Pharmacy: [facility]/pharmacy #[id number], 180.3, cm, 09/08/21 11:17:00 EDT, Height, kg, 09/26/21 9:55:00 EDT, Dosing Weight Start Date: 09/26/21 Status: Ordered Completed/Discontinued Medications Medication Drug Class(es) Dates Sig (Normalized) Sig (Original) acetaminophen 300 mg / codeine phosphate 30 mg oral tablet (11 sources) Opioid Agonist Start: 09-22-2016 End: 09-13-2023 take 1 tablet by mouth every six hours as needed acetaminophen-codein e (TYLENOL-COD #3) 300-30 mg per tablet Take 1 tablet by mouth every 6 hours as needed. 15 tablet 0 09/22/2016 09/13/2023 Discontinued (Discontinued by Patient) Comment on above: Take 1 tablet by sherwin every 6 hours as needed. aminolevulinate 200 mg/ml topical solution (3 sources) Start: 05-17-2024 End: 05-17-2024 aminolevulinic acid (LEVULAN) 20% topical solution Start: 04-06-2023 End: 05-06-2023 Aminolevulinic Acid HCl 20 % soln 2 Each benzoyl peroxide 50 mg/ml medicated liquid soap (11 sources) Start: 02-02-2016 End: 09-13-2023 Benzoyl Peroxide 5 % external wash Wash affected area one to two times daily as tolerated 1 Bottle 5 02/02/2016 09/13/2023 Discontinued (Discontinued by Patient) Comment on above: Wash affected area o ne to two times daily as tolerated clobetasol propionate 0.0005 mg/mg topical gel (20 sources) Corticosteroid Start: 03-12-2018 End: 09-13-2023 Clobetasol Propionate 0.05 % gel APPLY TO AFFECTED AREA ON SCALP 2 TIMES A DAY NEEDED USE 2 WEEKS ON AND 1 WEEK OFF 60 g 2 08/08/2018 09/13/2023 Discontinued (Discontinued by Patient) Comment on above: APPLY TO AFFECTED AR EA ON SCALP 2 TIMES A DAY NEEDED USE 2 WEEKS ON AND 1 WEEK OFF metOLazone 2.5 mg oral tablet (11 sources) Thiazide-like Diuretic End: 09-13-2023 take 1 tablet by mouth once daily metOLazone (ZAROXOLYN) 2.5 mg tablet Take 2.5 mg by mouth once daily. 0 09/13/2023 Discontinued (Discontinued by Patient) Comment on above: Take 2.5 mg by mouth once daily. mupirocin 0.02 mg/mg topical ointment (11 sources) RNA Synthetase Inhibitor Antibacterial Start: 12-09-2021 End: 09-13-2023 mupirocin (BACTROBAN) 2 % ointment Apply to affected areas twice daily for wound care 30 g 2 12/09/2021 09/13/2023 Discontinued (Discontinued by Patient) Comment on above: Apply to affected ar eas twice daily for wound care tretinoin 0.72257 mg/mg topical gel (11 sources) Retinoid Start: 04-28-2016 End: 09-13-2023 tretinoin (RETIN-A) 0.025 % gel Apply a pea size amount to affected area every other night for 2 weeks then increase to daily as tolerated 45 g 5 04/28/2016 09/13/2023 Discontinued (Discontinued by Patient) Comment on above: Apply a pea size jorge unt to affected area every other night for 2 weeks then increase to daily as tolerated Problems Active Problems Problem Classification Problem Date Documented Da te Episodic/Chronic Acute and unspecified renal failure (1 source) Acute renal failure syndrome; Translations: [Acute kidney failure, unspecified] Onset: 09-18-2021 Episodic Acute posthemorrhagic anemia (1 source) Acute posthemorrhagic anemia; Translations: [Acute posthemorrhagic anemia] Onset: 09-17-2021 Episodic Cancer of prostate (20 sources) Primary malignant neoplasm of prostate; Translations: [Malignant tumor of prostate] Onset: 10-26-2018 Chronic Cardiac and circulatory congenital anomalies (20 sources) Patent foramen ovale; Translations: [Congenital atrial septal defect] Onset: 09-08-2021 02-05-2021 Chronic Cardiac dysrhythmias (20 sources) Paroxysmal atrial fibrillation; Translations: [Atrial fibrillation] Onset: 09-20-2021 Chronic Coronary atherosclerosis and other heart disease (20 sources) Coronary atherosclerosis; Translations: [Atherosclerotic heart disease of [place] coronary artery without angina pectoris] Onset: 09-08-2021 Chronic Diabetes mellitus without complication (1 source) Prediabetes; Translations: [Prediabetes] Onset: 09-15-2021 Episodic Disorders of lipid metabolism (20 sources) Mixed hyperlipidemia; Translations: [Mixed hyperlipidemia] 07-31-2020 Chronic Epilepsy; convulsions (1 source) Epilepsy; Translations: [Epilepsy, unspecified, not intractable, without status epilepticus] Onset: 09-08-2021 Chronic Essential hypertension (20 sources) Essential hypertension; Translations: [Essential (primary) hypertension] Onset: 09-08-2021 07-31-2020 Chronic Genitourinary symptoms and ill-defined conditions (1 source) Delay when starting to pass urine; Translations: [Hesitancy of micturition] Onset: 09-19-2021 Episodic Heart valve disorders (20 sources) Mitral and aortic incompetence; Translations: [Non-rheumatic mitral regurgitation ] Onset: 09-08-2021 02-05-2021 Chronic Hyperplasia of prostate (1 source) Urinary frequency due to benign prostatic hypertrophy; Translations: [Benign prostatic hyperplasia with lower urinary tract symptoms] 07-08-2024 Chronic Malaise and fatigue (1 source) Asthenia; Translations: [Weakness] Onset: 09-05-2024 Episodic Melanomas of skin (3 sources) Malignant melanoma of skin of face; Translations: [Malignant melanoma of unspecified part of face] Onset: 09-08-2021 Chronic Melanomas of skin (3 sources) History of malignant melanoma of the skin; Translations: [Personal history of malignant melanoma of skin] Episodic Other and unspecified benign neoplasm (2 sources) Senile angioma; Translations: [Hemangioma of skin and subcutaneous tissue] Episodic Other and unspecified benign neoplasm (3 sources) Multiple benign melanocytic nevi ; Translations: [Melanocytic nevi, unspecified] Episodic Other and unspecified benign neoplasm (1 source) Skin lesion; Translations: [Hemangioma of skin and subcutaneous tissue] 07-15-2024 Episodic Other circulatory disease (1 source) History of cerebrovascular disease; Translations: [Personal history of other diseases of the circulatory system] Onset: 09-08-2021 Episodic Other connective tissue disease (16 sources) Muscle weakness of limb 12-22-2021 Episodic Other gastrointestinal disorders (1 source) Abnormal feces; Translations: [Other fecal abnormalities] Onset: 09-23-2021 Episodic Other inflammatory condition of skin (1 source) Seborrheic dermatitis; Translations: [Seborrheic dermatitis, unspecified] 09-13-2023 Episodic Other lower respiratory disease (20 sources) Dyspnea; Translations: [Other forms of dyspnea] Onset: 09-05-2024 07-30-2021 Episodic Other lower respiratory disease (14 sources) Dyspnea on exertion 10-13-2022 Episodic Other nutritional; endocrine; and metabolic disorders (1 source) Obesity; Translations: [Obesity, unspecified] Onset: 09-08-2021 Chronic Other screening for suspected conditions (not mental disorders or infectious disease) (20 sources) Cardiovascular stress test abnormal 09-02-2021 Episodic Other skin disorders (4 sources) Seborrheic keratosis; Translations: [Other seborrheic keratosis] Episodic Other skin disorders (3 sources) Lentiginosis; Translations: [Other melanin hyperpigmentation] Episodic Other skin disorders (1 source) Epidermoid cyst; Translations: [Epidermal cyst] Episodic Other skin disorders (1 source) Scar conditions and fibrosis of skin; Translations: [Scar conditions and fibrosis of skin] 04-08-2024 Episodic Peripheral and visceral atherosclerosis (20 sources) Intermittent claudication; Translations: [Peripheral vascular disease] Onset: 09-08-2021 07-30-2021 Chronic Residual codes; unclassified (20 sources) Obstructive sleep apnea syndrome; Translations: [Obstructive sleep apnea (adult) (pediatric)] Onset: 09-08-2021 07-31-2020 Chronic Residual codes; unclassified (20 sources) Bilateral lower limb edema 07-31-2020 Episodic Residual codes; unclassified (2 sources) Localized edema; Translations: [Localized edema] Onset: 09-05-2024 Episodic Residual codes; unclassified (1 source) History of atypical nevus; Translations: [Personal history of other specified conditions] 09-13-2023 Episodic Unclassified (1 source) Unknown / UNK(Unknown) Onset: 10-26-2018 Past or Other Problems Problem Classification Problem Date Documented Da te Episodic/Chronic Neoplasms of unspecified nature or uncertain behavior (5 sources) Neoplasm of skin; Translations: [Neoplasm of unspecified behavior of bone, soft tissue, and skin] Onset: 11-02-2023 Episodic Other aftercare (13 sources) Wound finding; Translations: [Encounter for other specified aftercare] Onset: 06-12-2023 06-12-2023 Episodic Other and unspecified benign neoplasm (20 sources) Melanocytic nevus of skin ; Translations: [Melanocytic nevi, unspecified] Onset: 08-04-2015 08-04-2015 Episodic Other and unspecified benign neoplasm (20 sources) Melanocytic nevus of trunk; Translations: [Melanocytic nevi of trunk] Onset: 02-02-2016 02-02-2016 Episodic Other non-epithelial cancer of skin (20 sources) History of malignant neoplasm of skin excluding melanoma; Translations: [Personal history of other malignant neoplasm of skin] Onset: 08-04-2015 08-04-2015 Episodic Other skin disorders (20 sources) Actinic keratosis; Translations: [Actinic keratosis] Onset: 02-02-2016 02-02-2016 Episodic Other skin disorders (20 sources) Acne vulgaris; Translations: [Acne vulgaris] Onset: 02-02-2016 02-02-2016 Episodic Other skin disorders (2 sources) Actinic keratosis; Translations: [Actinic keratosis] Onset: 02-02-2016 Episodic Other skin disorders (1 source) Scar conditions and fibrosis of skin; Translations: [Scar conditions and fibrosis of skin] Onset: 04-08-2024 Episodic Viral infection (1 source) Disease caused by 2019-nCoV; Translations: [COVID-19] Onset: 09-05-2024 Results Test Name Value Interpretation Reference Range Facility .Auto Diffon 09-06-2024 Basophil, Absolute 0.0 10 3/mcL Normal 0.0-0.2 [facility] Comment on above: Performed By: #### C MP, CRP, MG, CBC, GFR, ANEU, ADIFF, DIMER ####[address] [address] Basophils/100 WBC (Bld) 0.6 % Normal 0.0-2.5 [facility] Comment on above: Performed By: #### C MP, CRP, MG, CBC, GFR, ANEU, ADIFF, DIMER ####[address] [place], [place] [address] Eosinophil, Absolute 0.0 10 3/mcL Normal 0.0-0.7 [facility] Comment on above: Performed By: #### C MP, CRP, MG, CBC, GFR, ANEU, ADIFF, DIMER ####[address] [place], [place] [address] Eosinophils/100 WBC (Bld) 0.4 % Normal 0.0-7.0 [facility] Comment on above: Performed By: #### C MP, CRP, MG, CBC, GFR, ANEU, ADIFF, DIMER ####[address] [place], [place] [address] Lymphocyte, Absolute 0.8 10 3/mcL Low 0.9-4.3 [facility] Comment on above: Performed By: #### C MP, CRP, MG, CBC, GFR, ANEU, ADIFF, DIMER ####[address] [place], [place] [address] Lymphocytes/100 WBC (Bld) 13.5 % Low 20.0-40.0 [facility] Comment on above: Performed By: #### C MP, CRP, MG, CBC, GFR, ANEU, ADIFF, DIMER ####[address] [place], [place] [address] Monocyte, Absolute 0.6 10 3/mcL Normal 0.1-1.4 [facility] Comment on above: Performed By: #### C MP, CRP, MG, CBC, GFR, ANEU, ADIFF, DIMER ####[address] [address] Monocytes/100 WBC (Bld) 11.3 % Normal 2.0-13.0 [facility] Comment on above: Performed By: #### C MP, CRP, MG, CBC, GFR, ANEU, ADIFF, DIMER ####[address] [place], [place] [address] Neutrophils/100 WBC (Bld) 74.2 % Normal 50.0-75.0 [facility] Comment on above: Performed By: #### C MP, CRP, MG, CBC, GFR, ANEU, ADIFF, DIMER ####[address] [address] .GFRon 09-06-2024 GFR 61 ml/min/1.73sqm Normal [facility] Comment on above: Result Comment: GFR Population mean for , Non- Americans Ages 20-29 = 116 mL/min/1.73 sq.m. Ages 30-39 = 107 mL/min/1.73 sq.m. Ages 40-49 = 99 mL/min/1.73 sq.m. Ages 50-59 = 93 mL/min/1.73 sq.m. Ages 60-69 = 85 mL/min/1.73 sq.m. Ages 70+ = 75 mL/min/1.73 sq.m. Chronic Kidney Disease: Less than 60 mL/min/1.73 square meters End Stage Renal Disease: Less than 15 mL/min/1.73 square meters Performed By: #### C BC, GFR, MDW, MG, ADIFF, TROPHS, PBNP, BMP, ANEU #### [address] [address] GFR Non- 50 ml/min/1.73sqm Normal [facility] Comment on above: Result Comment: GFR Population mean for , Non- Americans Ages 20-29 = 116 mL/min/1.73 sq.m. Ages 30-39 = 107 mL/min/1.73 sq.m. Ages 40-49 = 99 mL/min/1.73 sq.m. Ages 50-59 = 93 mL/min/1.73 sq.m. Ages 60-69 = 85 mL/min/1.73 sq.m. Ages 70+ = 75 mL/min/1.73 sq.m. Chronic Kidney Disease: Less than 60 mL/min/1.73 square meters End Stage Renal Disease: Less than 15 mL/min/1.73 square meters Performed By: #### C BC, GFR, MDW, MG, ADIFF, TROPHS, PBNP, BMP, ANEU #### [address] [address] .NEUABSon 09-06-2024 Neutrophil, Absolute 4.2 10 3/mcL Normal 2.3-8.1 [facility] Comment on above: Performed By: #### C MP, CRP, MG, CBC, GFR, ANEU, ADIFF, DIMER ####[address] [address] CBCon 09-06-2024 Erythrocyte distribution width (RBC) [Ratio] 14.6 % Normal 11.5-15.5 [facility] Comment on above: Performed By: #### C MP, CRP, MG, CBC, GFR, ANEU, ADIFF, DIMER ####[place] [id number] [address] Hematocrit (Bld) [Volume fraction] 35.9 % Low 40.0-52.0 [facility] Comment on above: Performed By: #### C MP, CRP, MG, CBC, GFR, ANEU, ADIFF, DIMER ####[address] [place], [place] [address] Hgb 12.2 G/dL Low 13.0-17.5 [facility] Comment on above: Performed By: #### C MP, CRP, MG, CBC, GFR, ANEU, ADIFF, DIMER ####[address] [place], [place] [address] MCH (RBC) [Entitic mass] 32.0 pg Normal 27.0-33.0 [facility] Comment on above: Performed By: #### C MP, CRP, MG, CBC, GFR, ANEU, ADIFF, DIMER ####[place] [id number] MCHC 33.9 G/dL Normal 32.0-36.0 [facility] Comment on above: Performed By: #### C MP, CRP, MG, CBC, GFR, ANEU, ADIFF, DIMER ####[place] [address] [place] [id number] MCV (RBC) [Entitic vol] 94.2 fL Normal 81.0-100.0 [facility] Comment on above: Performed By: #### C MP, CRP, MG, CBC, GFR, ANEU, ADIFF, DIMER ####[address] [address] Platelet 187 10 3/mcL Normal 150-450 [facility] Comment on above: Performed By: #### C MP, CRP, MG, CBC, GFR, ANEU, ADIFF, DIMER ####[address] [place], [place] [address] Platelet mean volume (Bld) [Entitic vol] 8.7 fL Normal 6.4-10.5 [facility] Comment on above: Performed By: #### C MP, CRP, MG, CBC, GFR, ANEU, ADIFF, DIMER ####[address] [address] RBC 3.81 10 6/mcL Low 4.50-6.00 [facility] Comment on above: Performed By: #### C MP, CRP, MG, CBC, GFR, ANEU, ADIFF, DIMER ####[address] [address] WBC 5.7 10 3/mcL Normal 4.5-10.8 [facility] Comment on above: Performed By: #### C MP, CRP, MG, CBC, GFR, ANEU, ADIFF, DIMER ####[address] [address] CMPon 09-06-2024 Albumin Level 3.2 G/dL Low 3.4-4.8 [facility] Comment on above: Performed By: #### C BC, GFR, MDW, MG, ADIFF, TROPHS, PBNP, BMP, ANEU #### [address] [address] Albumin/Globulin [Mass ratio] 1.0 {ratio} Low 1.1-2.5 [facility] Comment on above: Performed By: #### C BC, GFR, MDW, MG, ADIFF, TROPHS, PBNP, BMP, ANEU #### [address] [address] ALP [Catalytic activity/Vol] 89 U/L Normal 40-135 [facility] Comment on above: Performed By: #### C BC, GFR, MDW, MG, ADIFF, TROPHS, PBNP, BMP, ANEU #### [address] [address] ALT [Catalytic activity/Vol] 26 U/L Normal 16-63 [facility] Comment on above: Performed By: #### C BC, GFR, MDW, MG, ADIFF, TROPHS, PBNP, BMP, ANEU #### [address] [address] AST [Catalytic activity/Vol] 15 U/L Normal 10-40 [facility] Comment on above: Performed By: #### C BC, GFR, MDW, MG, ADIFF, TROPHS, PBNP, BMP, ANEU #### [address] [address] Bili Total 0.4 mg/dL Normal 0.2-1.0 [facility] Comment on above: Result Comment: Use of this assay is not recommended for patients undergoing treatment with eltrombopag due to the potential for falsely elevated results. Performed By: #### C BC, GFR, MDW, MG, ADIFF, TROPHS, PBNP, BMP, ANEU #### [place] [address] BUN/Creatinine Ratio 19 ratio Normal 7-27 [facility] Comment on above: Performed By: #### C BC, GFR, MDW, MG, ADIFF, TROPHS, PBNP, BMP, ANEU #### [address] [address] Calcium [Mass/Vol] 9.1 mg/dL Normal 8.4-10.2 [facility] Comment on above: Performed By: #### C BC, GFR, MDW, MG, ADIFF, TROPHS, PBNP, BMP, ANEU #### [address] [address] Chloride [Moles/Vol] 99 mmol/L Normal 98-107 [facility] Comment on above: Performed By: #### C BC, GFR, MDW, MG, ADIFF, TROPHS, PBNP, BMP, ANEU #### [address] [address] CO2 [Moles/Vol] 36 mmol/L High 23-31 [facility] Comment on above: Performed By: #### C BC, GFR, MDW, MG, ADIFF, TROPHS, PBNP, BMP, ANEU #### [address] [address] Creatinine [Mass/Vol] 1.38 mg/dL High 0.70-1.30 [facility] Comment on above: Result Comment: Test ing performed on Siemens Dimension EXL analyzer using a modified kinetic Brandon technique. Performed By: #### C BC, GFR, MDW, MG, ADIFF, TROPHS, PBNP, BMP, ANEU #### [address] [address] Electrolyte Balance 2.0 mEq/L Low 4.0-15.0 [facility] Comment on above: Performed By: #### C BC, GFR, MDW, MG, ADIFF, TROPHS, PBNP, BMP, ANEU #### [address] [address] Globulin 3.2 G/dL Normal [facility] Comment on above: Performed By: #### C BC, GFR, MDW, MG, ADIFF, TROPHS, PBNP, BMP, ANEU #### [address] [address] Glucose [Mass/Vol] 152 mg/dL High 83-110 [facility] Comment on above: Performed By: #### C BC, GFR, MDW, MG, ADIFF, TROPHS, PBNP, BMP, ANEU #### [address] [address] Potassium [Moles/Vol] 4.1 mmol/L Normal 3.5-5.1 [facility] Comment on above: Performed By: #### C BC, GFR, MDW, MG, ADIFF, TROPHS, PBNP, BMP, ANEU #### [address] [address] Sodium [Moles/Vol] 137 mmol/L Normal 136-145 [facility] Comment on above: Performed By: #### C BC, GFR, MDW, MG, ADIFF, TROPHS, PBNP, BMP, ANEU #### [address] [address] Total Protein 6.4 G/dL Normal 6.4-8.2 [facility] Comment on above: Performed By: #### C BC, GFR, MDW, MG, ADIFF, TROPHS, PBNP, BMP, ANEU #### [place] [phone] Urea nitrogen [Mass/Vol] 26 mg/dL High 7-18 [facility] Comment on above: Performed By: #### C BC, GFR, MDW, MG, ADIFF, TROPHS, PBNP, BMP, ANEU #### [place] [id number] CRPon 09-06-2024 C-Reactive Protein 9.9 mg/dL High 0.0-0.3 [facility] Comment on above: Performed By: #### C MP, CRP, MG, CBC, GFR, ANEU, ADIFF, DIMER ####[place] [address] DIMERon 09-06-2024 D-Dimer <200 Normal 0-230 [facility] Comment on above: Result Comment: DDN: Results reported in D-DU ng/mL. Negative for D-dimer. DVT/PE is highly unlikely. Note: False negative results may be seen in patients on anticoagulant therapy. The result of the D-Dimer test should be evaluated in the context of all the clinical and laboratory data available. In those instances where the laboratory result does not agree with the clinical evaluation, additional tests should be performed accordingly. If the D-Dimer result is used to exclude DVT or PE, the recommended cutoff value is less than 230 ng/mL. The D-Dimer result should not be used alone to rule in DVT/PE, but should be used in conjunction with a clinical pretest probability (PTP)assessment model to exclude venous thromboembolism (VTE) in outpatients suspected of deep venous thrombosis (DVT) and pulmonary embolism (PE). Performed By: #### C BC, GFR, MDW, MG, ADIFF, TROPHS, PBNP, BMP, ANEU #### [place] [phone] LABORATORYOrdered By: SYSTEM SYSTEM on 09-06-2024 Albumin BCP dye [Mass/Vol] 3.2 G/dL Low 3.4 - 4.8 G/dL AO ADM SS Albumin/Globulin [Mass ratio] 1.0 {ratio} Low 1.1 - 2.5 ratio AO ADM SS ALP [Catalytic activity/Vol] 89 U/L Normal 40 - 135 U/L AO ADM SS ALT With P-5'-P [Catalytic activity/Vol] 26 U/L Normal 16 - 63 U/L AO ADM SS AST With P-5'-P [Catalytic activity/Vol] 15 U/L Normal 10 - 40 U/L AO ADM SS Basophils (Bld) [#/Vol] 0.0 103/mcL Normal 0.0 - 0.2 10^3/mcL AO Workflow SS Basophils/100 WBC (Bld) 0.6 % Normal 0.0 - 2.5 % AO Workflow SS Bilirubin [Mass/Vol] 0.4 mg/dL Normal 0.2 - 1 .0 mg/dL AO ADM SS Comment on above: Interpretive Data: U se of this assay is not recommended for patients undergoing treatment with eltrombopag due to the potential for falsely elevated results. Calcium [Mass/Vol] 9.1 mg/dL Normal 8.4 - 10. 2 mg/dL AO ADM SS Chloride [Moles/Vol] 99 mmol/L Normal 98 - 10 7 mmol/L AO ADM SS CO2 [Moles/Vol] 36 mmol/L High 23 - 31 mmol/L AO ADM SS Creatinine [Mass/Vol] 1.38 mg/dL High 0.70 - 1.30 mg/dL AO ADM SS Comment on above: Interpretive Data: T esting performed on Siemens Dimension EXL analyzer using a modified kinetic Brandon technique. CRP [Mass/Vol] 9.9 mg/dL High 0.0 - 0.3 mg/dL AO ADM SS Electrolyte Balance 2.0 mEq/L Low 4.0 - 15 .0 mEq/L AO ADM SS Eosinophil, Absolute 0.0 103/mcL Normal 0.0 - 0 .7 10^3/mcL AO Workflow SS Eosinophils/100 WBC (Bld) 0.4 % Normal 0.0 - 7.0 % AO Workflow SS Erythrocyte distribution width (RBC) [Ratio] 14.6 % Normal 11.5 - 15.5 % AO Workflow SS Fibrin D-dimer DDU (PPP) [Mass/Vol] ng/mL D-DU Normal 0 - 230 ng/mL D-DU AO [facility] SS Comment on above: Result Comment: DDN: Results reported in D-DU ng/mL. Negative for D-dimer. DVT/PE is highly unlikely. Note: False negative results may be seen in patients on anticoagulant therapy. Interpretive Data: T he result of the D-Dimer test should be evaluated in the context of all the clinical and laboratory data available. In those instances where the laboratory result does not agree with the clinical evaluation, additional tests should be performed accordingly. If the D-Dimer result is used to exclude DVT or PE, the recommended cutoff value is less than 230 ng/mL. The D-Dimer result should not be used alone to rule in DVT/PE, but should be used in conjunction with a clinical pretest probability (PTP)assessment model to exclude venous thromboembolism (VTE) in outpatients suspected of deep venous thrombosis (DVT) and pulmonary embolism (PE). GFR/1.73 sq M.predicted among blacks MDRD (S/P/Bld) [Vol rate/Area] 61 ml/min/1.73sqm Invalid Interpretation Code AO Chemistry S Comment on above: Interpretive Data: GFR Population mean for , Non- Americans Ages 20-29 = 116 mL/min/1.73 sq.m. Ages 30-39 = 107 mL/min/1.73 sq.m. Ages 40-49 = 99 mL/min/1.73 sq.m. Ages 50-59 = 93 mL/min/1.73 sq.m. Ages 60-69 = 85 mL/min/1.73 sq.m. Ages 70+ = 75 mL/min/1.73 sq.m. Chronic Kidney Disease: Less than 60 mL/min/1.73 square meters End Stage Renal Disease: Less than 15 mL/min/1.73 square meters GFR/1.73 sq M.predicted among non-blacks MDRD (S/P/Bld) [Vol rate/Area] 50 ml/min/1.73sqm Invalid Interpretation Code AO Chemistry S Comment on above: Interpretive Data: GFR Population mean for , Non- Americans Ages 20-29 = 116 mL/min/1.73 sq.m. Ages 30-39 = 107 mL/min/1.73 sq.m. Ages 40-49 = 99 mL/min/1.73 sq.m. Ages 50-59 = 93 mL/min/1.73 sq.m. Ages 60-69 = 85 mL/min/1.73 sq.m. Ages 70+ = 75 mL/min/1.73 sq.m. Chronic Kidney Disease: Less than 60 mL/min/1.73 square meters End Stage Renal Disease: Less than 15 mL/min/1.73 square meters Globulin 3.2 G/dL Invalid Interpretation Code AO ADM SS Glucose [Mass/Vol] 152 mg/dL High 83 - 110 mg/dL AO ADM SS Hematocrit (Bld) [Volume fraction] 35.9 % Low 40.0 - 52.0 % AO Workflow SS Hemoglobin (Bld) [Mass/Vol] 12.2 G/dL Low 13.0 - 17.5 G/dL AO Workflow SS Lymphocytes (Bld) [#/Vol] 0.8 103/mcL Low 0.9 - 4.3 10^3/mcL AO Workflow SS Lymphocytes/100 WBC (Bld) 13.5 % Low 20.0 - 40.0 % AO Workflow SS Magnesium [Mass/Vol] 1.9 mg/dL Normal 1.8 - 2 .4 mg/dL AO ADM SS MCH (RBC) [Entitic mass] 32.0 pg Normal 27.0 - 33.0 pg AO Workflow SS MCHC 33.9 G/dL Normal 32.0 - 36.0 G/dL AO Workflow SS MCV (RBC) [Entitic vol] 94.2 fL Normal 81.0 - 100.0 fL AO Workflow SS Monocytes (Bld) [#/Vol] 0.6 103/mcL Normal 0.1 - 1.4 10^3/mcL AO Workflow SS Monocytes/100 WBC (Bld) 11.3 % Normal 2.0 - 13.0 % AO Workflow SS Neutrophils (Bld) [#/Vol] 4.2 103/mcL Normal 2.3 - 8.1 10^3/mcL AO Workflow SS Neutrophils/100 WBC (Bld) 74.2 % Normal 50.0 - 75.0 % AO Workflow SS Platelet mean volume (Bld) [Entitic vol] 8.7 fL Normal 6.4 - 10.5 fL AO Workflow SS Platelets (Bld) [#/Vol] 187 103/mcL Normal 150 - 450 10^3/mcL AO Workflow SS Potassium [Moles/Vol] 4.1 mmol/L Normal 3.5 - 5.1 mmol/L AO ADM SS Protein [Mass/Vol] 6.4 G/dL Normal 6.4 - 8.2 G/dL AO ADM SS RBC (Bld) [#/Vol] 3.81 106/mcL Low 4.50 - 6.0 0 10^6/mcL AO Workflow SS Sodium [Moles/Vol] 137 mmol/L Normal 136 - 145 mmol/L AO ADM SS Urea nitrogen [Mass/Vol] 26 mg/dL High 7 - 18 mg/dL AO ADM SS Urea nitrogen/Creatinine [Mass ratio] 19 ratio Normal 7 - 27 ratio AO ADM SS WBC (Bld) [#/Vol] 5.7 103/mcL Normal 4.5 - 10.8 10^3/mcL AO Workflow SS MGon 09-06-2024 Magnesium [Mass/Vol] 1.9 mg/dL Normal 1.8-2.4 [facility] Comment on above: Performed By: #### C MP, CRP, MG, CBC, GFR, ANEU, ADIFF, DIMER ####[address] [address] .Auto Diffon 09-04-2024 Basophil, Absolute 0.1 10 3/mcL Normal 0.0-0.2 [facility] Comment on above: Performed By: #### C BC, GFR, MDW, MG, ADIFF, TROPHS, PBNP, BMP, ANEU #### [address] [address] Basophils/100 WBC (Bld) 0.8 % Normal 0.0-2.5 [facility] Comment on above: Performed By: #### C BC, GFR, MDW, MG, ADIFF, TROPHS, PBNP, BMP, ANEU #### [address] [address] Eosinophil, Absolute 0.2 10 3/mcL Normal 0.0-0.7 [facility] Comment on above: Performed By: #### C BC, GFR, MDW, MG, ADIFF, TROPHS, PBNP, BMP, ANEU #### [address] [address] Eosinophils/100 WBC (Bld) 3.1 % Normal 0.0-7.0 [facility] Comment on above: Performed By: #### C BC, GFR, MDW, MG, ADIFF, TROPHS, PBNP, BMP, ANEU #### [address] [address] Lymphocyte, Absolute 0.7 10 3/mcL Low 0.9-4.3 [facility] Comment on above: Performed By: #### C BC, GFR, MDW, MG, ADIFF, TROPHS, PBNP, BMP, ANEU #### [address] [address] Lymphocytes/100 WBC (Bld) 8.9 % Low 20.0-40.0 [facility] Comment on above: Performed By: #### C BC, GFR, MDW, MG, ADIFF, TROPHS, PBNP, BMP, ANEU #### [address] [address] Monocyte, Absolute 1.0 10 3/mcL Normal 0.1-1.4 [facility] Comment on above: Performed By: #### C BC, GFR, MDW, MG, ADIFF, TROPHS, PBNP, BMP, ANEU #### [address] [address] Monocytes/100 WBC (Bld) 13.5 % High 2.0-13.0 [facility] Comment on above: Performed By: #### C BC, GFR, MDW, MG, ADIFF, TROPHS, PBNP, BMP, ANEU #### [address] [address] Neutrophils/100 WBC (Bld) 73.7 % Normal 50.0-75.0 [facility] Comment on above: Performed By: #### C BC, GFR, MDW, MG, ADIFF, TROPHS, PBNP, BMP, ANEU #### [address] [address] .GFRon 09-04-2024 GFR 66 ml/min/1.73sqm Normal [facility] Comment on above: Result Comment: GFR Population mean for , Non- Americans Ages 20-29 = 116 mL/min/1.73 sq.m. Ages 30-39 = 107 mL/min/1.73 sq.m. Ages 40-49 = 99 mL/min/1.73 sq.m. Ages 50-59 = 93 mL/min/1.73 sq.m. Ages 60-69 = 85 mL/min/1.73 sq.m. Ages 70+ = 75 mL/min/1.73 sq.m. Chronic Kidney Disease: Less than 60 mL/min/1.73 square meters End Stage Renal Disease: Less than 15 mL/min/1.73 square meters Performed By: #### C BC, GFR, MDW, MG, ADIFF, TROPHS, PBNP, BMP, ANEU #### [address] [address] GFR Non- 55 ml/min/1.73sqm [facility] Comment on above: Result Comment: GFR Population mean for , Non- Americans Ages 20-29 = 116 mL/min/1.73 sq.m. Ages 30-39 = 107 mL/min/1.73 sq.m. Ages 40-49 = 99 mL/min/1.73 sq.m. Ages 50-59 = 93 mL/min/1.73 sq.m. Ages 60-69 = 85 mL/min/1.73 sq.m. Ages 70+ = 75 mL/min/1.73 sq.m. Chronic Kidney Disease: Less than 60 mL/min/1.73 square meters End Stage Renal Disease: Less than 15 mL/min/1.73 square meters Performed By: #### C BC, GFR, MDW, MG, ADIFF, TROPHS, PBNP, BMP, ANEU #### [address] [address] .MDWon 09-04-2024 Monocyte Distribution Width 23.76 High 0.00-20.00 [facility] Comment on above: Result Comment: For adults in ED, MDW>20.0 may be associated with a higher risk of sepsis during the first 12hrs of hospital admission Performed By: #### C BC, GFR, MDW, MG, ADIFF, TROPHS, PBNP, BMP, ANEU #### [facility] [address], [place] [address] .NEUABSon 09-04-2024 Neutrophil, Absolute 5.5 10 3/mcL Normal 2.3-8.1 [facility] Comment on above: Performed By: #### C BC, GFR, MDW, MG, ADIFF, TROPHS, PBNP, BMP, ANEU #### [facility] [address], [place] [address] .Urinalysis Microscopic (AO) on 09-04-2024 UA RBC 0-[address] [facility] Comment on above: Performed By: #### U AMICAO, UA ####[facility] [place] [address] UA Squam Epithelial None Seen Normal None Seen [facility] Comment on above: Performed By: #### U AMICAO, UA ####[facility] [place], [place] [address] UA WBC None Seen Normal None Seen [facility] Comment on above: Performed By: #### U AMICAO, UA ####[facility] [place], [place] [address] BGon 09-04-2024 Base excess Calc (Bld) [Moles/Vol] 3.8 mmol/L Normal [facility] Comment on above: Performed By: #### B G ####[place] [address] [place], [place] [address] CO2 [Moles/Vol] 28.8 mmol/L Normal 22.0-30.0 [facility] Comment on above: Performed By: #### B G ####[facility] [place], [place] [address] HCO3 (Bld) [Moles/Vol] 27.6 mmol/L Normal 21.0-29.0 [facility] Comment on above: Performed By: #### B G ####[facility] [place] [id number] Oxygen (Bld) [Partial pressure] 55.6 mm[Hg] Low 74.0-108.0 [facility] Comment on above: Performed By: #### B G ####[facility] [place], [place] [address] Oxygen saturation in Blood 90.9 % Low 92.0-96.0 [facility] Comment on above: Performed By: #### B G ####[facility] [place], [place] [address] pCO2 39.0 mmHg Normal 32.0-46.0 [facility] Comment on above: Performed By: #### B G ####[address] [place], [place] [address] pH (Bld) 7.468 [pH] High 7.380-7.460 [facility] Comment on above: Performed By: #### B G ####[address] [address] BMPon 09-04-2024 BUN/Creatinine Ratio 18 ratio Normal 7-27 [facility] Comment on above: Performed By: #### C BC, GFR, MDW, MG, ADIFF, TROPHS, PBNP, BMP, ANEU #### [address] [address] Calcium [Mass/Vol] 9.0 mg/dL Normal 8.4-10.2 [facility] Comment on above: Performed By: #### C BC, GFR, MDW, MG, ADIFF, TROPHS, PBNP, BMP, ANEU #### [address] [address] Chloride [Moles/Vol] 100 mmol/L Normal 98-107 [facility] Comment on above: Performed By: #### C BC, GFR, MDW, MG, ADIFF, TROPHS, PBNP, BMP, ANEU #### [address] [address] CO2 [Moles/Vol] 30 mmol/L Normal 23-31 [facility] Comment on above: Performed By: #### C BC, GFR, MDW, MG, ADIFF, TROPHS, PBNP, BMP, ANEU #### [address] [address] Creatinine [Mass/Vol] 1.28 mg/dL Normal 0.70-1.30 [facility] Comment on above: Result Comment: Test ing performed on Siemens Dimension EXL analyzer using a modified kinetic Brandon technique. Performed By: #### C BC, GFR, MDW, MG, ADIFF, TROPHS, PBNP, BMP, ANEU #### [address] [address] Electrolyte Balance 8.0 mEq/L Normal 4.0-15.0 [facility] Comment on above: Performed By: #### C BC, GFR, MDW, MG, ADIFF, TROPHS, PBNP, BMP, ANEU #### [place] [id number] Glucose [Mass/Vol] 140 mg/dL High 83-110 [facility] Comment on above: Performed By: #### C BC, GFR, MDW, MG, ADIFF, TROPHS, PBNP, BMP, ANEU #### [address] [address] Potassium [Moles/Vol] 3.7 mmol/L Normal 3.5-5.1 [facility] Comment on above: Performed By: #### C BC, GFR, MDW, MG, ADIFF, TROPHS, PBNP, BMP, ANEU #### [address] [address] Sodium [Moles/Vol] 138 mmol/L Normal 136-145 [facility] Comment on above: Performed By: #### C BC, GFR, MDW, MG, ADIFF, TROPHS, PBNP, BMP, ANEU #### [address] [address] Urea nitrogen [Mass/Vol] 23 mg/dL High 7-18 [facility] Comment on above: Performed By: #### C BC, GFR, MDW, MG, ADIFF, TROPHS, PBNP, BMP, ANEU #### [address] [address] CBCon 09-04-2024 Erythrocyte distribution width (RBC) [Ratio] 15.1 % Normal 11.5-15.5 [facility] Comment on above: Performed By: #### C BC, GFR, MDW, MG, ADIFF, TROPHS, PBNP, BMP, ANEU #### [place] [address] Hematocrit (Bld) [Volume fraction] 39.2 % Low 40.0-52.0 [facility] Comment on above: Performed By: #### C BC, GFR, MDW, MG, ADIFF, TROPHS, PBNP, BMP, ANEU #### [place] [address] Hgb 13.1 G/dL Normal 13.0-17.5 [facility] Comment on above: Performed By: #### C BC, GFR, MDW, MG, ADIFF, TROPHS, PBNP, BMP, ANEU #### [place] [address] MCH (RBC) [Entitic mass] 32.0 pg Normal 27.0-33.0 [facility] Comment on above: Performed By: #### C BC, GFR, MDW, MG, ADIFF, TROPHS, PBNP, BMP, ANEU #### [address] [address] MCHC 33.4 G/dL Normal 32.0-36.0 [facility] Comment on above: Performed By: #### C BC, GFR, MDW, MG, ADIFF, TROPHS, PBNP, BMP, ANEU #### [place] [address] MCV (RBC) [Entitic vol] 95.8 fL Normal 81.0-100.0 [facility] Comment on above: Performed By: #### C BC, GFR, MDW, MG, ADIFF, TROPHS, PBNP, BMP, ANEU #### [place] [address] Platelet 185 10 3/mcL Normal 150-450 [facility] Comment on above: Performed By: #### C BC, GFR, MDW, MG, ADIFF, TROPHS, PBNP, BMP, ANEU #### [address] [address] Platelet mean volume (Bld) [Entitic vol] 8.6 fL Normal 6.4-10.5 [facility] Comment on above: Performed By: #### C BC, GFR, MDW, MG, ADIFF, TROPHS, PBNP, BMP, ANEU #### [address] [address] RBC 4.09 10 6/mcL Low 4.50-6.00 [facility] Comment on above: Performed By: #### C BC, GFR, MDW, MG, ADIFF, TROPHS, PBNP, BMP, ANEU #### [address] [address] WBC 7.5 10 3/mcL Normal 4.5-10.8 [facility] Comment on above: Performed By: #### C BC, GFR, MDW, MG, ADIFF, TROPHS, PBNP, BMP, ANEU #### [address] [address] [address] HEAD OR BRAIN W/O CONTRAS Ton 09-04-2024 CT HEAD OR BRAIN W/O CONTRAST ORIGINAL EXAMINATION: CT OF THE HEAD WITHOUT CONTRAST 09/04/2024 9:57 pm TECHNIQUE: CT of the head was performed without the administration of intravenous contrast. Automated exposure control, iterative reconstruction, and/or weight based adjustment of the mA/kV was utilized to reduce the radiation dose to as low as reasonably achievable. COMPARISON: None. HISTORY: ORDERING SYSTEM PROVIDED HISTORY: Reason for Exam: Altered mental status FINDINGS: BRAIN/VENTRICLES: There is no acute intracranial hemorrhage, mass effect or midline shift. No abnormal extra-axial fluid collection. The coombs-white differentiation is maintained without evidence of an acute infarct. There is no evidence of hydrocephalus. There are nonspecific hypoattenuating foci in the subcortical and periventricular white matter that most likely represent chronic microangiopathic ischemic changes in a patient of this age. Parenchymal volume loss. ORBITS: The visualized portion of the orbits demonstrate no acute abnormality. SINUSES: The visualized paranasal sinuses and mastoid air cells demonstrate no acute abnormality. SOFT TISSUES/SKULL: No acute abnormality of the visualized skull. IMPRESSION: No acute intracranial abnormality. Interpreted by: Jarek Berrios Preliminary Report By: Jarek Berrios Electronically signed By Jarek Berrios Dictated Date: 09/04/2024 10:02:05 PM Prelim Date: 09/04/2024 10:08:58 PM Sign Date: 09/04/2024 10:08:58 PM Ordering Provider: OLVIN PISANO Normal [facility] CVFLURVoprasanth 09-04-2024 FLU A PCR Negative Normal Negative [facility] Comment on above: Performed By: #### C VFLURV ####[place] [address] FLU B PCR Negative Normal Negative [facility] Comment on above: Performed By: #### C VFLURV ####[place] [address] RSV PCR Negative Normal Negative [facility] Comment on above: Performed By: #### C VFLURV ####[place] [address] SARS-CoV-2 (COVID-19) RNA LUTHER+probe Ql (Unsp spec) Positive Abnormal Negative [facility] Comment on above: Result Comment: Resu lts from the Xpert Xpress CoV-2/Flu/RSV plus test should be correlated with the clinical history, epidemiological data, and other data available to the clinical evaluating the patient. Performance of the Xpert Xpress CoV-2/Flu/RSV plus test has only been established in nasopharyngeal swab specimen. Erroneous test results might occur from improper specimen collection, failure to follow the recommended sample collection, handling and storage procedures, technical error, or sample mix-up. False negative results may occur if a virus is present at a level below the analytical limit of detection. Viral nucleic acid may persist in vivo, independent of virus viability. Detection of analyte target(s) does not imply that the corresponding virus(es) are infectious or are the causative agents for clinical symptoms. Recent patient exposure to FluMist or other live attenuated influenza vaccines may cause inaccurate positive results. Performed By: #### C VFLURV ####[address] [place], [place] [address] LABORATORYOrdered By: Puja Irby on 09-04-2024 Base Excess 3.8 mmol/L Invalid Interpretation Code AO Rapid Comm SS CO2 [Moles/Vol] 28.8 mmol/L Normal 22.0 - 30.0 mmol/L AO Rapid Comm SS HCO3 (Bld) [Moles/Vol] 27.6 mmol/L Normal 21.0 - 29.0 mmol/L AO Rapid Comm SS Oxygen (Bld) [Partial pressure] 55.6 mm[Hg] Low 74.0 - 108.0 mm Hg AO Rapid Comm SS pCO2 39.0 mm[Hg] Normal 32.0 - 46.0 mm Hg AO Rapid Comm SS pH (Bld) 7.468 [pH] High 7.380 - 7.460 AO Rapid Comm SS FLUAV RNA LUTHER+probe Ql (Resp) Negative (09/04/24 9:24 PM) Normal Negative AO Auto Urine SS FLUBV RNA LUTHER+probe Ql (Resp) Negative (09/04/24 9:24 PM) Normal Negative AO Auto Urine SS RSV RNA LUTHER+probe Ql (Resp) Negative (09/04/24 9:24 PM) Normal Negative AO Auto Urine SS SARS-CoV-2 (COVID-19) RNA LUTHER+probe Ql (Resp) Positive 9 *ABN* (09/04/24 9:24 PM) Invalid Interpretation Code Negative AO Auto Urine SS Comment on above: Interpretive Data: R esults from the Xpert Xpress CoV-2/Flu/RSV plus test should be correlated with the clinical history, epidemiological data, and other data available to the clinical evaluating the patient. Performance of the Xpert Xpress CoV-2/Flu/RSV plus test has only been established in nasopharyngeal swab specimen. Erroneous test results might occur from improper specimen collection, failure to follow the recommended sample collection, handling and storage procedures, technical error, or sample mix-up. False negative results may occur if a virus is present at a level below the analytical limit of detection. Viral nucleic acid may persist in vivo, independent of virus viability. Detection of analyte target(s) does not imply that the corresponding virus(es) are infectious or are the causative agents for clinical symptoms. Recent patient exposure to FluMist or other live attenuated influenza vaccines may cause inaccurate positive results. LABORATORYOrdered By: Machelle Galvez on 09-04-2024 Appearance (U) Clear (09/04/24 9:24 PM) Normal Clear AO Auto Urine SS Bilirubin Ql (U) Negative (09/04/24 9:24 PM) Normal Negative AO Auto Urine SS Color (U) Yellow (09/04/24 9:24 PM) Normal AO Auto Urine SS Glucose Test strip (U) [Mass/Vol] Negative Normal Negative AO Auto Urine SS Hemoglobin Auto test strip (U) [Mass/Vol] Trace *ABN* (09/04/24 9:24 PM) Invalid Interpretation Code Negative AO Auto Urine SS Ketones Ql (U) Negative Normal Negative AO Auto Ur ine SS UA Leuk Est Negative (09/04/24 9:24 PM) Normal Negative AO Auto Urine SS UA Nitrite Negative (09/04/24 9:24 PM) Normal Negative AO Auto Urine SS UA pH 6.0 (09/04/24 9:24 PM) Normal 5.0 - 8.0 AO Auto Urine SS UA Protein 30 mg/dL Normal Negative AO Auto Urine SS UA RBC 0-5 /HPF Invalid Interpretation Code None Seen AO Auto Urine SS UA Spec Grav >=1.030 *ABN* (09/04/24 9:24 PM) Invalid Interpretation Code 1.015-1.025 AO Auto Urine SS UA Specimen Type Void (09/04/24 9:24 PM) Normal AO Auto Urine SS UA Squam Epithelial None Seen /HPF Normal None Seen A O Auto Urine SS UA Urobilinogen 0.2 E.U./dL Normal 0.2-1.0 AO Auto Urine SS WBC LM.HPF (Urine sed) [#/Area] None Seen /HPF Normal None Seen AO Auto Urine SS LABORATORYOrdered By: SYSTEM SYSTEM on 09-04-2024 Basophils (Bld) [#/Vol] 0.1 103/mcL Normal 0.0 - 0.2 10^3/mcL AO Workflow SS Basophils/100 WBC (Bld) 0.8 % Normal 0.0 - 2.5 % AO Workflow SS Calcium [Mass/Vol] 9.0 mg/dL Normal 8.4 - 10. 2 mg/dL AO ADM SS Chloride [Moles/Vol] 100 mmol/L Normal 98 - 10 7 mmol/L AO ADM SS CO2 [Moles/Vol] 30 mmol/L Normal 23 - 31 mmol/L AO ADM SS Creatinine [Mass/Vol] 1.28 mg/dL Normal 0.70 - 1.30 mg/dL AO ADM SS Comment on above: Interpretive Data: T esting performed on Siemens Dimension EXL analyzer using a modified kinetic Brandon technique. Electrolyte Balance 8.0 mEq/L Normal 4.0 - 15 .0 mEq/L AO ADM SS Eosinophil, Absolute 0.2 103/mcL Normal 0.0 - 0 .7 10^3/mcL AO Workflow SS Eosinophils/100 WBC (Bld) 3.1 % Normal 0.0 - 7.0 % AO Workflow SS Erythrocyte distribution width (RBC) [Ratio] 15.1 % Normal 11.5 - 15.5 % AO Workflow SS GFR/1.73 sq M.predicted among blacks MDRD (S/P/Bld) [Vol rate/Area] 66 ml/min/1.73sqm Invalid Interpretation Code AO Chemistry S Comment on above: Interpretive Data: GFR Population mean for , Non- Americans Ages 20-29 = 116 mL/min/1.73 sq.m. Ages 30-39 = 107 mL/min/1.73 sq.m. Ages 40-49 = 99 mL/min/1.73 sq.m. Ages 50-59 = 93 mL/min/1.73 sq.m. Ages 60-69 = 85 mL/min/1.73 sq.m. Ages 70+ = 75 mL/min/1.73 sq.m. Chronic Kidney Disease: Less than 60 mL/min/1.73 square meters End Stage Renal Disease: Less than 15 mL/min/1.73 square meters GFR/1.73 sq M.predicted among non-blacks MDRD (S/P/Bld) [Vol rate/Area] 55 ml/min/1.73sqm Invalid Interpretation Code AO Chemistry S Comment on above: Interpretive Data: GFR Population mean for , Non- Americans Ages 20-29 = 116 mL/min/1.73 sq.m. Ages 30-39 = 107 mL/min/1.73 sq.m. Ages 40-49 = 99 mL/min/1.73 sq.m. Ages 50-59 = 93 mL/min/1.73 sq.m. Ages 60-69 = 85 mL/min/1.73 sq.m. Ages 70+ = 75 mL/min/1.73 sq.m. Chronic Kidney Disease: Less than 60 mL/min/1.73 square meters End Stage Renal Disease: Less than 15 mL/min/1.73 square meters Glucose [Mass/Vol] 140 mg/dL High 83 - 110 mg/dL AO ADM SS Hematocrit (Bld) [Volume fraction] 39.2 % Low 40.0 - 52.0 % AO Workflow SS Hemoglobin (Bld) [Mass/Vol] 13.1 G/dL Normal 13.0 - 17.5 G/dL AO Workflow SS Lymphocytes (Bld) [#/Vol] 0.7 103/mcL Low 0.9 - 4.3 10^3/mcL AO Workflow SS Lymphocytes/100 WBC (Bld) 8.9 % Low 20.0 - 40.0 % AO Workflow SS Magnesium [Mass/Vol] 1.9 mg/dL Normal 1.8 - 2 .4 mg/dL AO ADM SS MCH (RBC) [Entitic mass] 32.0 pg Normal 27.0 - 33.0 pg AO Workflow SS MCHC 33.4 G/dL Normal 32.0 - 36.0 G/dL AO Workflow SS MCV (RBC) [Entitic vol] 95.8 fL Normal 81.0 - 100.0 fL AO Workflow SS Monocyte distribution width Auto (Bld) [Entitic vol] 23.76 1 High 0.00 - 20.00 AO Workflow SS Comment on above: Result Comment: For adults in ED, MDW>20.0 may be associated with a higher risk of sepsis during the first 12hrs of hospital admission Monocytes (Bld) [#/Vol] 1.0 103/mcL Normal 0.1 - 1.4 10^3/mcL AO Workflow SS Monocytes/100 WBC (Bld) 13.5 % High 2.0 - 13.0 % AO Workflow SS Natriuretic peptide.B prohormone N-Terminal [Mass/Vol] 823 pg/mL High 0 - 450 pg/mL AO ADM SS Comment on above: Interpretive Data: N T-proBNP results of less than 300 pg/mL effectively rules out acute congestive heart failure with 99% negative predictive value. Neutrophils (Bld) [#/Vol] 5.5 103/mcL Normal 2.3 - 8.1 10^3/mcL AO Workflow SS Neutrophils/100 WBC (Bld) 73.7 % Normal 50.0 - 75.0 % AO Workflow SS Platelet mean volume (Bld) [Entitic vol] 8.6 fL Normal 6.4 - 10.5 fL AO Workflow SS Platelets (Bld) [#/Vol] 185 103/mcL Normal 150 - 450 10^3/mcL AO Workflow SS Potassium [Moles/Vol] 3.7 mmol/L Normal 3.5 - 5.1 mmol/L AO ADM SS RBC (Bld) [#/Vol] 4.09 106/mcL Low 4.50 - 6.0 0 10^6/mcL AO Workflow SS Sodium [Moles/Vol] 138 mmol/L Normal 136 - 145 mmol/L AO ADM SS Troponin I.cardiac DL <= 0.01 ng/mL [Mass/Vol] 33 ng/L Normal 0 - 76 ng/L AO ADM SS Comment on above: Interpretive Data: H igh Sensitive Troponin I Reference Ranges: Female: 0-51 ng/L Male: 0-76 ng/L Testing performed on [employer] using a homogeneous sandwich chemiluminescent immunoassay based on Flipiture technology. Urea nitrogen [Mass/Vol] 23 mg/dL High 7 - 18 mg/dL AO ADM SS Urea nitrogen/Creatinine [Mass ratio] 18 ratio Normal 7 - 27 ratio AO ADM SS WBC (Bld) [#/Vol] 7.5 103/mcL Normal 4.5 - 10.8 10^3/mcL AO Workflow SS MGon 09-04-2024 Magnesium [Mass/Vol] 1.9 mg/dL Normal 1.8-2.4 [facility] Comment on above: Performed By: #### C BC, GFR, MDW, MG, ADIFF, TROPHS, PBNP, BMP, ANEU #### [facility] [address], [place] [address] No Panel Informationon 09-04 Microscopic examination of blood, culture Culture has been received in lab and is no growth to date. Routine cultures are held for 5 days. [facility] PBNPon 09-04-2024 Natriuretic peptide B (Bld) [Mass/Vol] 823 pg/mL High 0-450 [facility] Comment on above: Result Comment: NT-p roBNP results of less than 300 pg/mL effectively rules out acute congestive heart failure with 99% negative predictive value. Performed By: #### C ANTHONY, GFR, W, MG, ADIFF, TROPHS, PBNP, BMP, ANEU #### [address], [place] [address] TROPHSon 09-04-2024 High Sensitivity Troponin I 33 ng/L Normal 0-76 [facility] Comment on above: Result Comment: High Sensitive Troponin I Reference Ranges: Female: 0-51 ng/L Male: 0-76 ng/L Testing performed on [employer] using a homogeneous sandwich chemiluminescent immunoassay based on Flipiture technology. Performed By: #### C ANTHONY, GFR, RESHMA, MG, ADIFF, TROPHS, PBNP, BMP, ANEU ####[address] [place], [place] [address] UAon 09-04-2024 Color (U) Yellow Normal [facility] Comment on above: Performed By: #### U AMICAO, UA ####[address] [place], [place] [address] Glucose (U) [Mass/Vol] Negative Normal Negative [facility] Comment on above: Performed By: #### U AMICAO, UA ####[address] [place], [place] [address] Ketones Ql (U) Negative Normal Negative [facility] Comment on above: Performed By: #### U AMICAO, UA ####[address] [place], [place] [address] UA Appear Clear Normal Clear [facility] Comment on above: Performed By: #### U AMICAO, UA ####[address] [place], [place] [address] UA Blood Trace Abnormal Negative [facility] Comment on above: Performed By: #### U AMICAO, UA ####[address] [place], [place] [address] UA Leuk Est Negative Normal Negative [facility] Comment on above: Performed By: #### U AMICAO, UA ####[address] [place], [place] [address] UA Nitrite Negative Normal Negative [facility] Comment on above: Performed By: #### U AMICAO, UA ####[address] [place], [place] [address] UA pH 6.0 Normal 5.0 - 8.0 [facility] Comment on above: Performed By: #### U AMICAO, UA ####[address] [place] [id number] UA Protein 30 mg/dL Normal Negative [facility] Comment on above: Performed By: #### U AMICAO, UA ####[address] [place] [address] UA Spec Grav >=1.030 Abnormal 1.015-1.025 [facility] [facility] Comment on above: Performed By: #### U AMICAO, UA ####[address] [place] [address] UA Specimen Type Void Normal [facility] Comment on above: Performed By: #### U AMICAO, UA ####[address] [place] [address] UA Urobilinogen 0.2 E.U./dL Normal 0.2-1.0 [facility] Comment on above: Performed By: #### U AMICAO, UA ####[address] [place] [address] Urobilinogen (U) [Mass/Vol] Negative Normal Negative [facility] Comment on above: Performed By: #### U AMICAO, UA ####[address] [place] [id number] XR CHEST 2 VIEWSon XR CHEST 2 VIEWS ORIGINAL EXAMINATION: TWO XRAY VIEWS OF THE CHEST 09/04/2024 9:47 pm COMPARISON: Chest x-ray 12/02/2021 HISTORY: ORDERING SYSTEM PROVIDED HISTORY: Reason for Exam: SOB/Cough/Fever FINDINGS: Cardiomediastinal contours stable. Prior sternotomy. Hypoventilatory changes. Bibasilar streaky opacity/atelectasis. No pneumothorax or pleural effusion. No acute osseous abnormality. IMPRESSION: Suboptimal exam due to patient body habitus. Hypoventilatory changes. Bibasilar streaky opacity/atelectasis. I have personally reviewed the images of this examination and agree with the resident's findings and interpretation. Interpreted by: Jarek Berrios Preliminary Report By: Alex Vidal Electronically signed By Jarek Berrios Dictated Date: 09/04/2024 9:50:31 PM Prelim Date: 09/04/2024 9:52:06 PM Sign Date: 09/04/2024 10:11:42 PM Ordering Provider: OLVIN PISANO [facility] XR HIP BILATERAL W/PELVIS VA NIMUM 5 VIEWSon 07-24-2024 XR HIP BILATERAL W/PELVIS MINIMUM 5 VIEWS ORIGINAL EXAMINATION: ONE XRAY VIEW OF THE PELVIS AND TWO XRAY VIEWS OF EACH OF THE BILATERAL HIPS 07/23/2024 2:30 pm COMPARISON: Bilateral hip x-rays on 01/30/2023 HISTORY: ORDERING SYSTEM PROVIDED HISTORY: Reason for Exam: . Bilateral hip pain. Numbness in bilateral legs. FINDINGS: The pelvic ring is intact with no pelvic fracture or aggressive osseous lesion. Sacroiliac joints and pubic symphysis are normal. Both hips show mild narrowing of the joint space and mild acetabular spur formation. The femoral heads are normal in contour. There is no evidence of avascular necrosis. Trochanteric region is unremarkable. There is no fracture. IMPRESSION: Mild osteoarthritis of both hips. Interpreted by: Han Avina MD Preliminary Report By: Han Avina MD Electronically signed By Han Avina MD Dictated Date: 07/24/2024 3:22:00 AM Prelim Date: 07/24/2024 3:25:18 AM Sign Date: 07/24/2024 3:25:18 AM Ordering Provider: VINAYAK WRIGHT [facility] ([place]) CNOVon 07-15-2024 CNOV Office Visit (DERMIN ) SEPIDEH GARDINER ([id number]) 1950 M Date Time Provider Department 07/15/24 3:15 PM INDIGO YOST During your visit today, we recorded the following information about you: Cole Levin MA 07/15/2024 3:09 PM Signed Patient instructions: Avoid sun exposure Recommend protection with broad band UVA/UVB sunscreen spf 30+ daily Recommend UV protective clothing/hats Oral photoprotective antioxidants discussed if applicable ([employer]) Avoid tanning and tanning bed use Recommend UV protective sunglasses Use sunscreen on lips and ears Follow up as directed AprilIndigo APRN.CNP 07/15/2024 3:24 PM Signed EST PATIENT Last visit: 05/17/2024 Dr. Jarek Barillas Chief Complaint: 3 month s/p PDT and FBSE History of Present Ilness: Sepideh Gardiner is a 73 year old male presents today for 3 month s/p PDT and FBSE No areas of concern No other concerns today Pertinent Past Medical History: -Personal history of skin cancer: Yes. BCC: >10 at body locations: BCC Left lateral forehead 11/02/2023 BCC Left medial cheek 11/02/2023 BCC Left denominational 09/13/2023 BCC Right cheek 03/21/2023 BCC Right anterior lower neck 03/21/2023 BCC Left anterior neck 03/15/2023 BCC Right postauricular 07/23/2021 BCC Left anterior neck 07/23/2021 BCC Right mid frontal scalp 04/06/2021 BCC Right denominational 04/06/2021 BCC Right nasal ala 01/20/2020 BCC Right temporal scalp above ear 01/20/2020 BCC Left occipital scalp 01/20/2020 BCC Right temporal scalp 09/19/2019 BCC Right upper cutaneous lip 09/19/2019 BCC Nasal tip 08/29/2019 BCC Left forehead 07/11/2019 BCC Right denominational 07/11/2019 BCC Right parietal scalp 07/11/2019 BCC Left upper back 03/19/2019 BCC Left anterior temporal scalp 03/19/2019 BCC Left posterior temporal scalp 03/19/2019 BCC Central forehead 03/12/2019 BCC Left chin 03/12/2019 BCC Right cheek near ala crease 09/05/2017 BCC Right glabella 11/03/2016 BCC Left side of chin 09/22/2016 BCC Right cheek 08/30/2016 BCC Right frontal scalp 08/30/2016 BCC Left forehead 08/30/2016 BCC Left superior antihelix 08/30/2016 BCC Right conchal bowl 08/04/2015 BCC Right nasal ala 01/26/2015 BCC Right scalp s/p excision 08/08/1991 BCC Right scalp inferior s/p excision 08/08/1991 SCC: None at body locations: Melanoma: 2 at body locations: Melanoma in situ - Right chest 03/2021 Melanoma in situ- Left superior shoulder 02/2023- WLE 04/18 - Mohs Atypical moles excised: 3 ATN Left posterior shoulder (mild) 09/13/2023 ATN Right upper abdomen (mild) 09/13/2023 ATN Right chest Atypical junctional lentiginous nevus with mild melanocytic dysplasia and melanoderma. 03/15/2023 ATN Right mid back Atypical compound nevus with mild melanocytic dysplasia and melanoderma 03/15/2023 ATN Right medial heel Atypical junctional nevus with mild melanocytic dysplasia, markedly pigmented 07/23/2021 ATN Right central upper back Atypical junctional nevus with moderate melanocytic dysplasia 03/06/2018 ATN Right lower chest Atypical junctional nevus with moderate melanocytic dysplasia s/p excision 08/08/1991 -Personal history of skin disease: No -History of organ transplant/immunosuppr essed: No -History of atypical moles: Yes -Pacemaker or defibrillator: No Specialty Problems Dermatology Problems Benign nevus of skin History of Mohs micrographic surgery for skin cancer Acne vulgaris Actinic keratosis Melanocytic nevi of trunk Basal cell carcinoma (BCC) of left cheek Basal cell carcinoma (BCC) of left forehead Pertinent Family medical history: History of melanoma: No Review of Systems: Constitutional: Denies fever, chills, night sweats, unintentional weight loss. Skin per HPI. No other new/concerning skin growth. Physical Exam: General: well appearing, of stated age, in no acute distress Neurology: alert and oriented times three Psychiatry: normal affect and speech Hernandez skin type: II A skin exam was done of the scalp, face including eyelids and lips, ears, neck, chest, back, abdomen, bilateral upper extremities including digits, bilateral lower extremities and digits, buttocks, nails, except genitals Skin exam normal with the exception of: Well healed scars with no evidence of recurrence Few scattered brown stuck on papules and plaques on the head, trunk and extremities Regular and symmetric brown macules and papules on the head, trunk and extremities Scattered reticulated light bailey macules in sun distribution Scattered small easley red papules throughout Assessment and Plan: 1. History of melanoma and non non melanoma skin cancer - No evidence of recurrence on exam. Continued monitoring. Regular skin exams discussed given increased risk of subsequent cutaneous malignancies. 2. Solar lentigines, Multiple benign nevi, Easley angiomas, Seborrheic Keratoses, Reassurance o (more content not included)... Normal [facility] BLADDER SCANon 07-08-2024 7 ml [facility] UA DIP, URINE (POC)on 2023 BILIRUBIN UA (POCT) Negative Negative [facility] CLARITY UA (POCT) Clear [facility] COLOR UA (POCT) Yellow [facility] GLUCOSE UA (POCT) Negative Negative mg/dL [facility] Hemoglobin Ql (U) Negative Negative [facility] Interpretation and review of laboratory results Abnormal [facility] KETONE UA (POCT) Negative Negative mg/dL [facility] LEUKOCYTES UA (POCT) Negative Negative [facility] NITRITE UA (POCT) Negative Negative [facility] PH UA (POCT) 6.0 4.5 - 8.0 [facility] Protein Ql (U) 30 mg/dL Abnormal Negative [facility] SPECIFIC GRAVITY UA (POCT) 1.025 1.005 - 1.030 [facility] UROBILINOGEN UA (POCT) 0.2 Normal E.U./dL [facility] Location:[facility] [place], [address] [place] [address], [address] [place] [address] POINT OF CARE [facility] LABORATORYOrdered By: SYSTEM SYSTEM on 06-17-2024 Prostate specific Ag [Mass/Vol] 8.26 ng/mL High 0.00 - 4.00 ng/mL AO ADM SS PSAon 06-17-2024 Prostate Specific Antigen 8.26 ng/mL High 0.00-4.00 [facility] ([place]) Comment on above: Performed By: #### P ####[address] [place], [place] [address] CNOVon 05-17-2024 CNOV Office Visit (DERMMN ) SEPIDEH GARDINER ([id number]) 1950 M Date Time Provider Department 05/17/24 10:40 AM JAREK BARILLAS V DERMMN During your visit today, we recorded the following information about you: Jarek Barillas V, MD 05/17/2024 12:47 PM Signed PHOTODYNAMIC THERAPY CLINIC NOTE (Definition of PDT: a treatment in which a drug is used to target skin lesions, followed by activation with light) First time PDT: No Referred by: Dr. Thais Brand Chief complaint: AK Body site to be treated today: Full face and ears Type of PDT at this visit: Blue light Combination pretreatment done prior to today?s visit: Did 5-FU daily for 6 days; last application this morning at 6:30 AM Past treatments for Actinic Keratoses: Cryotherapy, 5-FU, and Blue PDT (last one in 2013) Total number of AK treatments: >10 Did you apply topical retinoid cream, or take doxycycline, in the week before this visit: No (If yes, then discuss increased risk of phototoxicity, may want to postpone) History of facial HSV: No (If yes, then prescribe Acyclovir or Valacyclovir prophylaxis) SKIN CANCER HISTORY BCC: >10 at body locations: BCC Left lateral forehead 11/02/2023 BCC Left medial cheek 11/02/2023 BCC Left denominational 09/13/2023 BCC Right cheek 03/21/2023 BCC Right anterior lower neck 03/21/2023 BCC Left anterior neck 03/15/2023 BCC Right postauricular 07/23/2021 BCC Left anterior neck 07/23/2021 BCC Right mid frontal scalp 04/06/2021 BCC Right denominational 04/06/2021 BCC Right nasal ala 01/20/2020 BCC Right temporal scalp above ear 01/20/2020 BCC Left occipital scalp 01/20/2020 BCC Right temporal scalp 09/19/2019 BCC Right upper cutaneous lip 09/19/2019 BCC Nasal tip 08/29/2019 BCC Left forehead 07/11/2019 BCC Right denominational 07/11/2019 BCC Right parietal scalp 07/11/2019 BCC Left upper back 03/19/2019 BCC Left anterior temporal scalp 03/19/2019 BCC Left posterior temporal scalp 03/19/2019 BCC Central forehead 03/12/2019 BCC Left chin 03/12/2019 BCC Right cheek near ala crease 09/05/2017 BCC Right glabella 11/03/2016 BCC Left side of chin 09/22/2016 BCC Right cheek 08/30/2016 BCC Right frontal scalp 08/30/2016 BCC Left forehead 08/30/2016 BCC Left superior antihelix 08/30/2016 BCC Right conchal bowl 08/04/2015 BCC Right nasal ala 01/26/2015 BCC Right scalp s/p excision 08/08/1991 BCC Right scalp inferior s/p excision 08/08/1991 SCC: None at body locations: Melanoma: 2 at body locations: Melanoma in situ - Right chest 03/2021 Melanoma in situ- Left superior shoulder 02/2023- WLE 04/18 - Mohs Atypical moles excised: 3 ATN Left posterior shoulder (mild) 09/13/2023 ATN Right upper abdomen (mild) 09/13/2023 ATN Right chest Atypical junctional lentiginous nevus with mild melanocytic dysplasia and melanoderma. 03/15/2023 ATN Right mid back Atypical compound nevus with mild melanocytic dysplasia and melanoderma 03/15/2023 ATN Right medial heel Atypical junctional nevus with mild melanocytic dysplasia, markedly pigmented 07/23/2021 ATN Right central upper back Atypical junctional nevus with moderate melanocytic dysplasia 03/06/2018 ATN Right lower chest Atypical junctional nevus with moderate melanocytic dysplasia s/p excision 08/08/1991 Family history of skin cancer: none SUN EXPOSURE HISTORY Brief description of sun exposure: As a child spent a lot of time in the sun; had UV light treatments for acne in the 1960's Do you currently use sunscreen: Yes History of transplantation: None Immunosuppressive and skin-cancer promoting medications being taken: None History of lymphoma in remission: No MEDICATIONS Current Outpatient Medications on File Prior to Visit Medication Sig Fluorouracil (EFUDEX) 5 % cream Apply affected area once daily for 6 days prior to PDT nitroglycerin sublingual (NITROQUICK) 0.4 mg SL tablet 0.4 mg. isosorbide mononitrate ER (IMDUR) 30 mg 24 hr tablet Take 30 mg by mouth every morning. ketoconazole (NIZORAL) 2 % shampoo Wash scalp 3 times a week hydrocortisone 2.5 % cream Apply to affected skin around nose behind ears twice weekly prn flare hydroCHLOROthiazide 25 mg tablet Take 2 tablets by mouth every afternoon. carvedilol (COREG) 6.25 mg tablet Take 6.25 mg by mouth two times a day with meals. telmisartan (MICARDIS) 80 mg tablet Take 80 mg by mouth once daily. loratadine 10 mg cap Take 10 mg by mouth once daily. aspirin, enteric coated (ASPIRIN, ENTERIC COATED) 81 mg EC tablet Take 81 mg by mouth once daily. bumetanide (BUMEX) 1 mg tablet Take 1 mg by mouth once daily. Niacinamide 500 mg tablet TAKE 1 TABLET BY MOUTH TWICE A DAY WITH MEALS CYANOCOBALAMIN, VITAMIN B-12, (VITAMIN B-12 INJECTION) by INJECTION(UNSPECIFIED PARENTERAL ROUTES) route. Cholecalciferol, Vitamin D3, 50 mcg (2,000 unit) cap Take 1 capsule by mouth once daily. Magnesium 250 mg tab Take 250 mg b (more content not included)... Normal [facility] .Auto Diffon 05-01-2024 Basophil, Absolute 0.0 10 3/mcL Normal 0.0-0.2 [facility] ([place]) Comment on above: Performed By: #### A 1C, ADIFF, CBC, CMP, LIPID, GFR, ANEU #### [place] [id number] [place], [place] [address] Basophils/100 WBC (Bld) 0.8 % Normal 0.0-2.5 [facility] ([place]) Comment on above: Performed By: #### A 1C, ADIFF, CBC, CMP, LIPID, GFR, ANEU #### [address] [address] Eosinophil, Absolute 0.6 10 3/mcL High 0.0-0.4 [facility] ([place]) Comment on above: Performed By: #### A 1C, ADIFF, CBC, CMP, LIPID, GFR, ANEU #### [address] [address] Eosinophils/100 WBC (Bld) 10.1 % High 0.0-7.0 [facility] ([place]) Comment on above: Performed By: #### A 1C, ADIFF, CBC, CMP, LIPID, GFR, ANEU #### [address] [address] Lymphocyte, Absolute 1.4 10 3/mcL Normal 0.8-3.9 [facility] ([place] Comment on above: Performed By: #### A 1C, ADIFF, CBC, CMP, LIPID, GFR, ANEU #### [address] [address] Lymphocytes/100 WBC (Bld) 23.5 % Normal 10.0-50.0 [facility] ([place]) Comment on above: Performed By: #### A 1C, ADIFF, CBC, CMP, LIPID, GFR, ANEU #### [address] [address] Monocyte, Absolute 0.6 10 3/mcL Normal 0.2-1.0 [facility] ([place]) Comment on above: Performed By: #### A 1C, ADIFF, CBC, CMP, LIPID, GFR, ANEU #### [address] [address] Monocytes/100 WBC (Bld) 9.3 % Normal 1.7-13.0 [facility] ([place]) Comment on above: Performed By: #### A 1C, ADIFF, CBC, CMP, LIPID, GFR, ANEU #### [address] [address] Neutrophils/100 WBC (Bld) 56.3 % Normal 37.0-80.0 [facility] ([place]) Comment on above: Performed By: #### A 1C, ADIFF, CBC, CMP, LIPID, GFR, ANEU #### [address] [address] .GFRon 05-01-2024 GFR 65 ml/min/1.73sqm Normal [facility] ([place]) Comment on above: Result Comment: GFR Population mean for , Non- Americans Ages 20-29 = 116 mL/min/1.73 sq.m. Ages 30-39 = 107 mL/min/1.73 sq.m. Ages 40-49 = 99 mL/min/1.73 sq.m. Ages 50-59 = 93 mL/min/1.73 sq.m. Ages 60-69 = 85 mL/min/1.73 sq.m. Ages 70+ = 75 mL/min/1.73 sq.m. Chronic Kidney Disease: Less than 60 mL/min/1.73 square meters End Stage Renal Disease: Less than 15 mL/min/1.73 square meters Performed By: #### A 1C, ADIFF, CBC, CMP, LIPID, GFR, ANEU #### [address] [address] GFR Non- 54 ml/min/1.73sqm Normal [facility] ([place]) Comment on above: Result Comment: GFR Population mean for , Non- Americans Ages 20-29 = 116 mL/min/1.73 sq.m. Ages 30-39 = 107 mL/min/1.73 sq.m. Ages 40-49 = 99 mL/min/1.73 sq.m. Ages 50-59 = 93 mL/min/1.73 sq.m. Ages 60-69 = 85 mL/min/1.73 sq.m. Ages 70+ = 75 mL/min/1.73 sq.m. Chronic Kidney Disease: Less than 60 mL/min/1.73 square meters End Stage Renal Disease: Less than 15 mL/min/1.73 square meters Performed By: #### A 1C, ADIFF, CBC, CMP, LIPID, GFR, ANEU #### [address] [address] .NEUABSon 05-01-2024 Neutrophil, Absolute 3.4 10 3/mcL Normal 2.9-6.2 [facility] ([place]) Comment on above: Performed By: #### A 1C, ADIFF, CBC, CMP, LIPID, GFR, ANEU #### [address] [address] A1Con 05-01-2024 HbA1c (Bld) [Mass fraction] 6.4 % Normal 4.3-6.4 [facility] ([place]) Comment on above: Performed By: #### A 1C, ADIFF, CBC, CMP, LIPID, GFR, ANEU #### [place] [address] CBCon 05-01-2024 Erythrocyte distribution width (RBC) [Ratio] 15.0 % High 11.5-14.5 [facility] ([place]) Comment on above: Performed By: #### A 1C, ADIFF, CBC, CMP, LIPID, GFR, ANEU #### [place] [address] Hematocrit (Bld) [Volume fraction] 37.2 % Low 42.0-52.0 [facility] ([place]) Comment on above: Performed By: #### A 1C, ADIFF, CBC, CMP, LIPID, GFR, ANEU #### [place] [address] Hgb 12.5 G/dL Low 14.0-18.0 [facility] ([place]) Comment on above: Performed By: #### A 1C, ADIFF, CBC, CMP, LIPID, GFR, ANEU #### [place] [address] MCH (RBC) [Entitic mass] 31.7 pg High 27.0-31.2 [facility] ([place]) Comment on above: Performed By: #### A 1C, ADIFF, CBC, CMP, LIPID, GFR, ANEU #### [place] [address] MCHC 33.5 G/dL Normal 31.8-35.4 [facility] ([place]) Comment on above: Performed By: #### A 1C, ADIFF, CBC, CMP, LIPID, GFR, ANEU #### [address] [address] MCV (RBC) [Entitic vol] 94.6 fL High 80.0-94.0 [facility] ([place]) Comment on above: Performed By: #### A 1C, ADIFF, CBC, CMP, LIPID, GFR, ANEU #### [address] [address] Platelet 219 10 3/mcL Normal 130-400 [facility] ([place]) Comment on above: Performed By: #### A 1C, ADIFF, CBC, CMP, LIPID, GFR, ANEU #### [address] [address] Platelet mean volume (Bld) [Entitic vol] 8.9 fL Normal 7.4-10.4 [facility] ([place]) Comment on above: Performed By: #### A 1C, ADIFF, CBC, CMP, LIPID, GFR, ANEU #### [address] [address] RBC 3.93 10 6/mcL Low 4.04-6.13 [facility] ([place]) Comment on above: Performed By: #### A 1C, ADIFF, CBC, CMP, LIPID, GFR, ANEU #### [address] [address] WBC 6.0 10 3/mcL Normal 4.6-10.8 [facility] ([place]) Comment on above: Performed By: #### A 1C, ADIFF, CBC, CMP, LIPID, GFR, ANEU #### [address] [address] CMPon 05-01-2024 Albumin Level 3.1 G/dL Low 3.4-4.8 [facility] ([place]) Comment on above: Performed By: #### A 1C, ADIFF, CBC, CMP, LIPID, GFR, ANEU #### [address] [address] Albumin/Globulin [Mass ratio] 1.0 {ratio} Low 1.1-2.5 [facility] ([place]) Comment on above: Performed By: #### A 1C, ADIFF, CBC, CMP, LIPID, GFR, ANEU #### [address] [address] ALP [Catalytic activity/Vol] 77 U/L Normal 40-135 [facility] ([place]) Comment on above: Performed By: #### A 1C, ADIFF, CBC, CMP, LIPID, GFR, ANEU #### [address] [address] ALT [Catalytic activity/Vol] 23 U/L Normal 16-63 [facility] ([place]) Comment on above: Performed By: #### A 1C, ADIFF, CBC, CMP, LIPID, GFR, ANEU #### [address] [address] AST [Catalytic activity/Vol] 11 U/L Normal 10-40 [facility] ([place]) Comment on above: Performed By: #### A 1C, ADIFF, CBC, CMP, LIPID, GFR, ANEU #### [address] [address] Bili Total 0.3 mg/dL Normal 0.2-1.0 [facility] ([place]) Comment on above: Result Comment: Use of this assay is not recommended for patients undergoing treatment with eltrombopag due to the potential for falsely elevated results. Performed By: #### A 1C, ADIFF, CBC, CMP, LIPID, GFR, ANEU #### [address] [address] BUN/Creatinine Ratio 21 ratio Normal 7-27 [facility] ([place]) Comment on above: Performed By: #### A 1C, ADIFF, CBC, CMP, LIPID, GFR, ANEU #### [address] [address] Calcium [Mass/Vol] 8.2 mg/dL Low 8.4-10.2 [facility] ([place]) Comment on above: Performed By: #### A 1C, ADIFF, CBC, CMP, LIPID, GFR, ANEU #### [address] [address] Chloride [Moles/Vol] 108 mmol/L High 98-107 [facility] ([place]) Comment on above: Performed By: #### A 1C, ADIFF, CBC, CMP, LIPID, GFR, ANEU #### [address] [address] CO2 [Moles/Vol] 32 mmol/L High 23-31 [facility] ([place]) Comment on above: Performed By: #### A 1C, ADIFF, CBC, CMP, LIPID, GFR, ANEU #### [address] [address] Creatinine [Mass/Vol] 1.30 mg/dL Normal 0.70-1.30 [facility] ([place]) Comment on above: Performed By: #### A 1C, ADIFF, CBC, CMP, LIPID, GFR, ANEU #### [address] [address] Electrolyte Balance 6.0 mEq/L Normal 4.0-15.0 [facility] ([place]) Comment on above: Performed By: #### A 1C, ADIFF, CBC, CMP, LIPID, GFR, ANEU #### [address] [address] Globulin 3.1 G/dL Normal [facility] ([place]) Comment on above: Performed By: #### A 1C, ADIFF, CBC, CMP, LIPID, GFR, ANEU #### [address] [address] Glucose [Mass/Vol] 127 mg/dL High 83-110 [facility] ([place]) Comment on above: Performed By: #### A 1C, ADIFF, CBC, CMP, LIPID, GFR, ANEU #### [address] [address] Potassium [Moles/Vol] 4.1 mmol/L Normal 3.5-5.1 [facility] ([place]) Comment on above: Performed By: #### A 1C, ADIFF, CBC, CMP, LIPID, GFR, ANEU #### [address] [address] Sodium [Moles/Vol] 146 mmol/L High 136-145 [facility] ([place]) Comment on above: Performed By: #### A 1C, ADIFF, CBC, CMP, LIPID, GFR, ANEU #### [place] [place], [place] [address] Total Protein 6.2 G/dL Low 6.4-8.2 [facility] ([place]) Comment on above: Performed By: #### A 1C, ADIFF, CBC, CMP, LIPID, GFR, ANEU #### [place] [address] [place], [place] [address] Urea nitrogen [Mass/Vol] 27 mg/dL High 7-18 [facility] ([place]) Comment on above: Performed By: #### A 1C, ADIFF, CBC, CMP, LIPID, GFR, ANEU #### [place] [place], [place] [address] LABORATORYOrdered By: SYSTEM SYSTEM on 05-01-2024 Albumin BCP dye [Mass/Vol] 3.1 G/dL Low 3.4 - 4.8 G/dL AO ADM SS Albumin/Globulin [Mass ratio] 1.0 {ratio} Low 1.1 - 2.5 ratio AO ADM SS ALP [Catalytic activity/Vol] 77 U/L Normal 40 - 135 U/L AO ADM SS ALT With P-5'-P [Catalytic activity/Vol] 23 U/L Normal 16 - 63 U/L AO ADM SS AST With P-5'-P [Catalytic activity/Vol] 11 U/L Normal 10 - 40 U/L AO ADM SS Basophil, Absolute 0.0 103/mcL Normal 0.0 - 0.2 10^3/mcL AO Workflow SS Basophils/100 WBC (Bld) 0.8 % Normal 0.0 - 2.5 % AO Workflow SS Bilirubin [Mass/Vol] 0.3 mg/dL Normal 0.2 - 1 .0 mg/dL AO ADM SS Comment on above: Interpretive Data: U se of this assay is not recommended for patients undergoing treatment with eltrombopag due to the potential for falsely elevated results. Calcium [Mass/Vol] 8.2 mg/dL Low 8.4 - 10. 2 mg/dL AO ADM SS Chloride [Moles/Vol] 108 mmol/L High 98 - 10 7 mmol/L AO ADM SS CO2 [Moles/Vol] 32 mmol/L High 23 - 31 mmol/L AO ADM SS Creatinine [Mass/Vol] 1.30 mg/dL Normal 0.70 - 1.30 mg/dL AO ADM SS Electrolyte Balance 6.0 mEq/L Normal 4.0 - 15 .0 mEq/L AO ADM SS Eosinophil, Absolute 0.6 103/mcL High 0.0 - 0 .4 10^3/mcL AO Workflow SS Eosinophils/100 WBC (Bld) 10.1 % High 0.0 - 7.0 % AO Workflow SS Erythrocyte distribution width (RBC) [Ratio] 15.0 % High 11.5 - 14.5 % AO Workflow SS GFR/1.73 sq M.predicted among blacks MDRD (S/P/Bld) [Vol rate/Area] 65 ml/min/1.73sqm Invalid Interpretation Code AO Chemistry S Comment on above: Interpretive Data: GFR Population mean for , Non- Americans Ages 20-29 = 116 mL/min/1.73 sq.m. Ages 30-39 = 107 mL/min/1.73 sq.m. Ages 40-49 = 99 mL/min/1.73 sq.m. Ages 50-59 = 93 mL/min/1.73 sq.m. Ages 60-69 = 85 mL/min/1.73 sq.m. Ages 70+ = 75 mL/min/1.73 sq.m. Chronic Kidney Disease: Less than 60 mL/min/1.73 square meters End Stage Renal Disease: Less than 15 mL/min/1.73 square meters GFR/1.73 sq M.predicted among non-blacks MDRD (S/P/Bld) [Vol rate/Area] 54 ml/min/1.73sqm Invalid Interpretation Code AO Chemistry S Comment on above: Interpretive Data: GFR Population mean for , Non- Americans Ages 20-29 = 116 mL/min/1.73 sq.m. Ages 30-39 = 107 mL/min/1.73 sq.m. Ages 40-49 = 99 mL/min/1.73 sq.m. Ages 50-59 = 93 mL/min/1.73 sq.m. Ages 60-69 = 85 mL/min/1.73 sq.m. Ages 70+ = 75 mL/min/1.73 sq.m. Chronic Kidney Disease: Less than 60 mL/min/1.73 square meters End Stage Renal Disease: Less than 15 mL/min/1.73 square meters Globulin 3.1 G/dL Invalid Interpretation Code AO ADM SS Glucose [Mass/Vol] 127 mg/dL High 83 - 110 mg/dL AO ADM SS HbA1c (Bld) [Mass fraction] 6.4 % Normal 4.3 - 6.4 % AO ADM SS Hematocrit (Bld) [Volume fraction] 37.2 % Low 42.0 - 52.0 % AO Workflow SS Hemoglobin (Bld) [Mass/Vol] 12.5 G/dL Low 14.0 - 18.0 G/dL AO Workflow SS Lymphocyte, Absolute 1.4 103/mcL Normal 0.8 - 3 .9 10^3/mcL AO Workflow SS Lymphocytes/100 WBC (Bld) 23.5 % Normal 10.0 - 50.0 % AO Workflow SS MCH (RBC) [Entitic mass] 31.7 pg High 27.0 - 31.2 pg AO Workflow SS MCHC 33.5 G/dL Normal 31.8 - 35.4 G/dL AO Workflow SS MCV (RBC) [Entitic vol] 94.6 fL High 80.0 - 94.0 fL AO Workflow SS Monocyte, Absolute 0.6 103/mcL Normal 0.2 - 1.0 10^3/mcL AO Workflow SS Monocytes/100 WBC (Bld) 9.3 % Normal 1.7 - 13.0 % AO Workflow SS Neutrophil, Absolute 3.4 103/mcL Normal 2.9 - 6 .2 10^3/mcL AO Workflow SS Neutrophils/100 WBC (Bld) 56.3 % Normal 37.0 - 80.0 % AO Workflow SS Platelet mean volume (Bld) [Entitic vol] 8.9 fL Normal 7.4 - 10.4 fL AO Workflow SS Platelets (Bld) [#/Vol] 219 103/mcL Normal 130 - 400 10^3/mcL AO Workflow SS Potassium [Moles/Vol] 4.1 mmol/L Normal 3.5 - 5.1 mmol/L AO ADM SS Protein [Mass/Vol] 6.2 G/dL Low 6.4 - 8.2 G/dL AO ADM SS RBC (Bld) [#/Vol] 3.93 106/mcL Low 4.04 - 6.1 3 10^6/mcL AO Workflow SS Sodium [Moles/Vol] 146 mmol/L High 136 - 145 mmol/L AO ADM SS Urea nitrogen [Mass/Vol] 27 mg/dL High 7 - 18 mg/dL AO ADM SS Urea nitrogen/Creatinine [Mass ratio] 21 ratio Normal 7 - 27 ratio AO ADM SS WBC (Bld) [#/Vol] 6.0 103/mcL Normal 4.6 - 10.8 10^3/mcL AO Workflow SS LABORATORYOrdered By: Cindy Avila on 05-01-2024 Cholesterol [Mass/Vol] 211 mg/dL High 0 - 200 mg/dL AO ADM SS Comment on above: Interpretive Data: C holesterol Reference Interval: Less than 200 Desirable 200-239 Borderline high risk 240 and above High risk Cholesterol in HDL [Mass/Vol] 57 mg/dL Normal 40 - 60 mg/dL AO ADM SS Cholesterol in LDL [Mass/Vol] 125 mg/dL Normal 0 - 130 mg/dL AO ADM SS Triglyceride [Mass/Vol] 146 mg/dL Normal 0 - 150 mg/dL AO ADM SS Comment on above: Interpretive Data: T riglyceride Reference Interval: Less than 150 Normal 150-199 Borderline high risk 200-499 High risk 500 or higher Very high risk LIPIDon 05-01-2024 Cholesterol [Mass/Vol] 211 mg/dL High 0-200 [facility] ([place]) Comment on above: Result Comment: Chol esterol Reference Interval: Less than 200 Desirable 200-239 Borderline high risk 240 and above High risk Performed By: #### A 1C, ADIFF, CBC, CMP, LIPID, GFR, ANEU #### [address] [place], [place] [address] Cholesterol in HDL [Mass/Vol] 57 mg/dL Normal 40-60 [facility] ([place]) Comment on above: Performed By: #### A 1C, ADIFF, CBC, CMP, LIPID, GFR, ANEU #### [id number] [place], [place] [address] Cholesterol in LDL [Mass/Vol] 125 mg/dL Normal 0-130 [facility] ([place]) Comment on above: Performed By: #### A 1C, ADIFF, CBC, CMP, LIPID, GFR, ANEU #### [address] [place], [place] [address] Triglyceride [Mass/Vol] 146 mg/dL Normal 0-150 [facility] ([place]) Comment on above: Result Comment: Trig lyceride Reference Interval: Less than 150 Normal 150-199 Borderline high risk 200-499 High risk 500 or higher Very high risk Performed By: #### A 1C, ADIFF, CBC, CMP, LIPID, GFR, ANEU #### [address] [place], [place] [address] Maynor 04-16-2024 [facility] SEPIDEH GARDINER ([id number]) 1950 M Date Time Provider Department 04/16/24 THAIS NICHOLAS During your visit today, we recorded the following information about you: Florina Morrow 04/16/2024 11:52 AM Signed Mailed pt after visit summary instructions for PDT and his upcoming appointments Allergies As of Date: 04/16/2024 (No Known Allergies) Date Reviewed: 02/26/2024 Reviewed by: Smith Elder, RN - Fully Assessed Reason for Visit: instructions for pdt /appointments [Other] Prescriptions as of 04/16/2024 - Fluorouracil (EFUDEX) 5 % cream Apply affected area once daily for 6 days prior to PDT - nitroglycerin sublingual (NITROQUICK) 0.4 mg SL tablet 0.4 mg. - isosorbide mononitrate ER (IMDUR) 30 mg 24 hr tablet Take 30 mg by mouth every morning. - ketoconazole (NIZORAL) 2 % shampoo Wash scalp 3 times a week - hydrocortisone 2.5 % cream Apply to affected skin around nose behind ears twice weekly prn flare - hydroCHLOROthiazide 25 mg tablet Take 2 tablets by mouth every afternoon. - carvedilol (COREG) 6.25 mg tablet Take 6.25 mg by mouth two times a day with meals. - telmisartan (MICARDIS) 80 mg tablet Take 80 mg by mouth once daily. - loratadine 10 mg cap Take 10 mg by mouth once daily. - aspirin, enteric coated (ASPIRIN, ENTERIC COATED) 81 mg EC tablet Take 81 mg by mouth once daily. - bumetanide (BUMEX) 1 mg tablet Take 1 mg by mouth once daily. - Niacinamide 500 mg tablet TAKE 1 TABLET BY MOUTH TWICE A DAY WITH MEALS - CYANOCOBALAMIN, VITAMIN B-12, (VITAMIN B-12 INJECTION) by INJECTION(UNSPECIFIED PARENTERAL ROUTES) route. - Cholecalciferol, Vitamin D3, 50 mcg (2,000 unit) cap Take 1 capsule by mouth once daily. - Magnesium 250 mg tab Take 250 mg by mouth once daily. - VITAMIN B COMPLEX ORAL Take 1 tablet by mouth once daily. - MULTIVIT ANDMINERALS/FERROUS FUM (MULTI VITAMIN ORAL) Take 1 tablet by mouth once daily. - telmisartan (MICARDIS) 80 mg tablet Take 80 mg by mouth once daily. - primidone (MYSOLINE) 250 mg tablet Take 250 mg by mouth twice daily. - POTASSIUM (POTASSIMIN ORAL) Take 1 tablet by mouth once daily. Problem List As Of Date 04/16/2024 Noted Resolved Benign nevus of skin [D22.9] 08/04/2015 History of Mohs micrographic surgery for skin c*08/04/2015 Actinic keratosis [L57.0] 02/02/2016 Acne vulgaris [L70.0] 02/02/2016 Melanocytic nevi of trunk [D22.5] 02/02/2016 Prostate cancer (HCC) [C61] Visit for wound check [Z51.89] 06/12/2023 Basal cell carcinoma (BCC) of left cheek [C44.3*03/01/2024 Basal cell carcinoma (BCC) of left forehead [C4*03/01/2024 Encounter Status:Closed by FLORINA MORROW on 04/16/24 [facility] CNOVon 02-26-2024 CNOV Office Visit (DERBMN ) DEXTER SEPIDEH BURCIAGA ([id number]) 1950 M Date Time Provider Department 02/26/24 11:00 AM THAIS NICHOLAS During your visit today, we recorded the following information about you: Pulse Blood pressure 67/minute 165/83 Thais Nicholas MD 03/01/2024 11:31 AM Signed MOHS MICROGRAPHIC OPERATIVE REPORT SERVICE DATE: 02/23/2024 SERVICE TIME: 1100 LOCATION: [place] [address] REFERRING PROVIDER: Thais Brand [address] [place] [address] PROCEDURE START TIME: 1100 PROCEDURE END TIME: 1405 SURGEON: Dr. Thais Porter FELLOW: Dr. Eneida Landrum REGISTERED NURSE: Rox Elder Ramsay ANTICOAGULANTS: ASA IMPLANTED DEVICES: None ANTIBIOTIC PROPHYLAXIS: Not required TRANSPLANT PATIENT: No PHOTOS: Photos taken VERIFICATION OF PROCEDURE: Procedure to be Performed: Mohs Surgery Patient Verified By: Name, Medical Record Number, and Date of Site(s) Confirmed: Patient confirmed site from image in the EMR. Patient used mirror(s) to identify site(s). Patient pointed to site(s). Patient identified site in photo(s) taken during consult or preprocedure then signed photo. Patient verbalized agreement of surgical site(s). Site(s) Marked: Provider marking the site with patient involvement. Provider physically marking the site on or near incision site, with persistent marker, and remains visible once patient prepped. Relevant documentation, images, implants or special equipment present: Yes SIGN IN COMMUNICATION: Completed Time Out: Team Confirms the Correct Patient, Correct Procedure, Correct Site(s) and Site Marked, Correct Position (if applicable). Time: 1100 Affirmation of Time Out: Yes Sign out Discussion: Completed UNIVERSAL PROTOCOL / SAFETY CHECKLIST Procedure to be Performed: MOHS SURGERY Sign In: A Moment of CARE was completed. Personnel directly involved with the procedure wore the appropriate PPE (Personal Protective Equipment). Patient/Surrogate Stated/Verified: PATIENT VERIFIED(optional for EMERGENT procedures): Patient name, Date of , Relevant allergies, and The intended procedure Time Out Communication: Intended patient and procedure match the source documents. Consent documented and matches the intended procedure. Relevant labs, photos, and/or imaging studies have been reviewed. Correct side/site marked and visible. Medications required for procedure verified. Fire risk assessed and interventions discussed. No implant(s) inserted. Sign Out: SIGN OUT (optional for EMERGENT procedures): All specimen containers correctly labeled. All instruments, equipment, possible retained foreign bodies accounted for. Post-procedure follow-up management communicated and Plan of Care Visit completed when applicable. Nafisa Taylor RN LESION #1 Preoperative Diagnosis: BCC Nodular of the left medial cheek Tumor Type: Primary Path Report Available at Bedside: Inside pathology report # [id number] Pre-op Size: 0.6 cm - 1 cm, (0.4 cm X 0.7 cm) Lymphadenopathy: None Indication for Mohs: Anatomic Location where lesion is prone to recur, Proven difficulty with skin cancers, Type of tumor, Ill-defined borders, and Prior radiated skin Location: Area H: (Mask Areas of the Face - Includes Central Face, Eyelids, Inner/Outer [place], Eyebrows, Nose, Chin, Lips, Ears, Periauricular Skin and Episcopalian) Preparation: Chlorhexidine LAYER A The patient was positioned, prepped with alcohol and draped in the usual manner. Anesthesia was obtained with local infiltration. The clinically apparent tumor was then debulked with a curette. A 1-2 mm rim of tissue was marked circumferentially around the defect. The area thus outlined was excised deep to the subcutis. Hemostasis was achieved with electrocautery. The specimen was oriented, subdivided into 2 sections, A1-A2, chromacoded and submitted for horizontal frozen sections. The patient tolerated the procedure well and no complications were noted. Upon review of the horizontal frozen sections for Layer A, residual superficial BCC was identified in pieces A1. A1 positive. Depth of Invasion:epidermis. A2 negative. SUPERFICIAL BASAL CELL CARCINOMA: Arising from the epidermis and superficial hair follicles are small, superficial, multicentric buds of basaloid keratinocytes. The cells have scant cytoplasm and round dark nuclei. Mitotic figures and apoptotic bodies are evident. The nuclei at the periphery of the islands have a palisaded arrangement. The islands are associated with a fibromyxoid stroma and there is cleft formation between some of the islands and stroma. LAYER B A 1-2 mm rim of tissue was marked to encompass the positive margins noted in the frozen section. The area (more content not included)... Normal [facility] SEPIDEH GARDINER ([id number]) 1950 M Date Time Provider Department 02/26/24 THAIS NICHOLAS During your visit today, we recorded the following information about you: Smith Elder RN 02/26/2024 3:18 PM Signed Called patient to inform of 6 week follow up visit on [facility]'s schedule on 04/08 at 1600 (virtual). Patient stated understanding and requested information of appointment sent to him. See [employer] message. Smith Elder RN February 26, 2024 3:15 PM Allergies As of Date: 02/26/2024 (No Known Allergies) Date Reviewed: 02/26/2024 Reviewed by: Smith Elder, DESIREE - Fully Assessed Prescriptions as of 02/26/2024 - nitroglycerin sublingual (NITROQUICK) 0.4 mg SL tablet 0.4 mg. - isosorbide mononitrate ER (IMDUR) 30 mg 24 hr tablet Take 30 mg by mouth every morning. - ketoconazole (NIZORAL) 2 % shampoo Wash scalp 3 times a week - hydrocortisone 2.5 % cream Apply to affected skin around nose behind ears twice weekly prn flare - hydroCHLOROthiazide 25 mg tablet Take 2 tablets by mouth every afternoon. - carvedilol (COREG) 6.25 mg tablet Take 6.25 mg by mouth two times a day with meals. - telmisartan (MICARDIS) 80 mg tablet Take 80 mg by mouth once daily. - loratadine 10 mg cap Take 10 mg by mouth once daily. - aspirin, enteric coated (ASPIRIN, ENTERIC COATED) 81 mg EC tablet Take 81 mg by mouth once daily. - bumetanide (BUMEX) 1 mg tablet Take 1 mg by mouth once daily. - Niacinamide 500 mg tablet TAKE 1 TABLET BY MOUTH TWICE A DAY WITH MEALS - CYANOCOBALAMIN, VITAMIN B-12, (VITAMIN B-12 INJECTION) by INJECTION(UNSPECIFIED PARENTERAL ROUTES) route. - Cholecalciferol, Vitamin D3, 50 mcg (2,000 unit) cap Take 1 capsule by mouth once daily. - Magnesium 250 mg tab Take 250 mg by mouth once daily. - VITAMIN B COMPLEX ORAL Take 1 tablet by mouth once daily. - MULTIVIT ANDMINERALS/FERROUS FUM (MULTI VITAMIN ORAL) Take 1 tablet by mouth once daily. - telmisartan (MICARDIS) 80 mg tablet Take 80 mg by mouth once daily. - primidone (MYSOLINE) 250 mg tablet Take 250 mg by mouth twice daily. - POTASSIUM (POTASSIMIN ORAL) Take 1 tablet by mouth once daily. Problem List As Of Date 02/26/2024 Noted Resolved Benign nevus of skin [D22.9] 08/04/2015 History of Mohs micrographic surgery for skin c*08/04/2015 Actinic keratosis [L57.0] 02/02/2016 Acne vulgaris [L70.0] 02/02/2016 Melanocytic nevi of trunk [D22.5] 02/02/2016 Prostate cancer (HCC) [C61] Visit for wound check [Z51.89] 06/12/2023 Encounter Status:Closed by SMITH ELDER on 02/26/24 [facility] Raquel 01-01-2024 VJOV Office Visit ([place] ) SEPIDEH GARDINER ([id number]) 1950 M Date Time Provider Department 01/01/24 3:30 PM STACEY SHEA During your visit today, we recorded the following information about you: Respiration Weight Height 18/minute 71.7 kg 1.829 m Stacey hSea MD 01/01/2024 3:21 PM Signed ESTABLISHED PATIENT OFFICE VISIT F/u CaP. He is having psiatic problems. Moderate LUTS (IPSS 12/3) PSA unchanged at 6.71 LAB RESULTS Creatinine Date Value Ref Range Status 06/12/2015 1.12 0.70 - 1.40 mg/dL Final No results found for: PSA , PSASC GLUCOSE UA (POCT) (mg/dL) Date Value 01/01/2024 Negative BILIRUBIN UA (POCT) (no units) Date Value 01/01/2024 Negative KETONE UA (POCT) (mg/dL) Date Value 01/01/2024 Negative SPECIFIC GRAVITY UA (POCT) (no units) Date Value 01/01/2024 1.025 HEMOGLOBIN/BLOOD UA (POCT) (no units) Date Value 01/01/2024 Negative PH UA (POCT) (no units) Date Value 01/01/2024 5.5 PROTEIN UA (POCT) (mg/dL) Date Value 01/01/2024 Negative UROBILINOGEN UA (POCT) (E.U./dL) Date Value 01/01/2024 0.2 NITRITE UA (POCT) (no units) Date Value 01/01/2024 Negative LEUKOCYTES UA (POCT) (no units) Date Value 01/01/2024 Negative COLOR UA (POCT) (no units) Date Value 01/01/2024 Yellow CLARITY UA (POCT) (no units) Date Value 01/01/2024 Clear ] ALLERGIES No Known Allergies MEDICATIONS: nitroglycerin sublingual (NITROQUICK) 0.4 mg SL tablet 0.4 mg. isosorbide mononitrate ER (IMDUR) 30 mg 24 hr tablet Take 30 mg by mouth every morning. ketoconazole (NIZORAL) 2 % shampoo Wash scalp 3 times a week hydrocortisone 2.5 % cream Apply to affected skin around nose behind ears twice weekly prn flare hydroCHLOROthiazide 25 mg tablet Take 2 tablets by mouth every afternoon. carvedilol (COREG) 6.25 mg tablet Take 6.25 mg by mouth two times a day with meals. telmisartan (MICARDIS) 80 mg tablet Take 80 mg by mouth once daily. loratadine 10 mg cap Take 10 mg by mouth once daily. aspirin, enteric coated (ASPIRIN, ENTERIC COATED) 81 mg EC tablet Take 81 mg by mouth once daily. bumetanide (BUMEX) 1 mg tablet Take 1 mg by mouth once daily. Niacinamide 500 mg tablet TAKE 1 TABLET BY MOUTH TWICE A DAY WITH MEALS CYANOCOBALAMIN, VITAMIN B-12, (VITAMIN B-12 INJECTION) by INJECTION(UNSPECIFIED PARENTERAL ROUTES) route. Cholecalciferol, Vitamin D3, 50 mcg (2,000 unit) cap Take 1 capsule by mouth once daily. Magnesium 250 mg tab Take 250 mg by mouth once daily. VITAMIN B COMPLEX ORAL Take 1 tablet by mouth once daily. MULTIVIT ANDMINERALS/FERROUS FUM (MULTI VITAMIN ORAL) Take 1 tablet by mouth once daily. telmisartan (MICARDIS) 80 mg tablet Take 80 mg by mouth once daily. primidone (MYSOLINE) 250 mg tablet Take 250 mg by mouth twice daily. POTASSIUM (POTASSIMIN ORAL) Take 1 tablet by mouth once daily. REVIEW OF SYSTEMS GENERAL:no unintentional weight loss, malaise or fevers. NEUROLOGIC: pt is alert and oriented GASTROINTESTINAL: No nausea, vomiting, or diarrhea GENITOURINARY: See HPI MUSCULOSKELETAL: see HPI SKIN: Negative for lesions, rash, and itching. ACTIVE PROBLEM LIST Benign Nevus of Skin History of Mohs Micrographic Surgery for Skin Cancer Actinic Keratosis Acne Vulgaris Melanocytic Nevi of Trunk Prostate Cancer (Hcc) Visit for Wound Check HISTORIES PAST MEDICAL HISTORY Diagnosis Date Basal cell carcinoma Convulsive disorder (HCC) Edema HTN (hypertension) Prostate cancer (HCC) PAST SURGICAL HISTORY Procedure Laterality Date OTHER MOhs for basal cell ca. TONSILLECTOMY HX No family history on file. SOCIAL HISTORY Social History Tobacco Use Smoking status: Former Packs/day: 1 Types: Cigarettes Quit date: 11/27/1978 Years since quittin.1 Smokeless tobacco: Never Substance Use Topics Alcohol use: Not Currently Drug use: Never PHYSICAL EXAMINATION General appearance: Well appearing, alert, in no acute distress, well-hydrated, well nourished Psych Alert and oriented to person, place and time Cardiac: no peripheral edema Pulmonary: normal respiratory effort Genitourinary: MALE EXAM: NO KAYLENE today ASSESSMENT/PLAN: 1. Prostate cancer (HCC) - ICD9: 185, ICD10: C61 T1C ; GG! CaP. He has been on . I will switch to watchful waiting. - BLADDER SCAN - PSA/PROSTSPECAG DIAG Stacey Shea MD Allergies As of Date: 01/01/2024 (No Known Allergies) Date Reviewed: 01/01/2024 Reviewed by: Carmen Corona LPN - Fully Assessed Reason for Visit: Prostate Cancer [590] Cmt: PSA 6.71 on 12/20/23 PVR 23 ml Currently taking prednisone Primary Visit Diagnosis:Prostate cancer (HCC) [C61] Order(s):BLADDER SCAN [3390227] Order #: [id number] UA DIP, URINE (POC) [[id number]] Order #: [id number]. #:[id number] PSA/PROSTSPECAG DIAG [SQPSA] Order #: [id number] (more content not included)... Normal [facility] LABORATORYOrdered By: SYSTEM SYSTEM on 12-20-2023 Prostate specific Ag [Mass/Vol] 6.71 ng/mL High 0.00 - 4.00 ng/mL AO ADM SS PSAon 12-20-2023 Prostate Specific Antigen 6.71 ng/mL High 0.00-4.00 [facility] ([place]) Comment on above: Performed By: #### P #### [address] [address] [facility] SEPIDEH GARDINER ([id number]) 1950 M Date Time Provider Department 11/08/23 THAIS NICHOLAS DSFREJ During your visit today, we recorded the following information about you: Thais Nicholas MD 11/08/2023 1:39 PM Signed A. Skin, left lateral forehead, shave biopsy: - Basal cell carcinoma, nodular and micronodular types. 3 points B. Skin, left medial cheek, shave biopsy: - Basal cell carcinoma, nodular type. 2 points Mohs order placed. 2 separate appointments please. Patient made aware through . MD Evette Ibanez Beverly 11/08/2023 1:42 PM Signed LV for pt to call and schedule. Mandy Alas 11/08/2023 1:48 PM Signed Sepideh is scheduled- he wanted [facility] only. Mandy Alas 01/30/2024 7:31 AM Signed LVM and sent mychart for pt to accept 02/25 for second area. Mandy Alas 01/30/2024 8:26 AM Signed Pt has a lot going on right now - his is in a fdc and about to undergo some heart surgery and he's not feeling too good-rescheduled for next available 02/25 and 03/11 at . Allergies As of Date: 11/08/2023 (No Known Allergies) Date Reviewed: 11/02/2023 Reviewed by: Jody Baca, DESIREE - Fully Assessed Primary Visit Diagnosis:Basal cell carcinoma (BCC) of skin of other part of face [C44.319] Order(s):SHELBI [[id number]] Order #: [id number]: 1 FUTURE Prescriptions as of 01/30/2024 - nitroglycerin sublingual (NITROQUICK) 0.4 mg SL tablet 0.4 mg. - isosorbide mononitrate ER (IMDUR) 30 mg 24 hr tablet Take 30 mg by mouth every morning. - ketoconazole (NIZORAL) 2 % shampoo Wash scalp 3 times a week - hydrocortisone 2.5 % cream Apply to affected skin around nose behind ears twice weekly prn flare - hydroCHLOROthiazide 25 mg tablet Take 2 tablets by mouth every afternoon. - carvedilol (COREG) 6.25 mg tablet Take 6.25 mg by mouth two times a day with meals. - telmisartan (MICARDIS) 80 mg tablet Take 80 mg by mouth once daily. - loratadine 10 mg cap Take 10 mg by mouth once daily. - aspirin, enteric coated (ASPIRIN, ENTERIC COATED) 81 mg EC tablet Take 81 mg by mouth once daily. - bumetanide (BUMEX) 1 mg tablet Take 1 mg by mouth once daily. - Niacinamide 500 mg tablet TAKE 1 TABLET BY MOUTH TWICE A DAY WITH MEALS - CYANOCOBALAMIN, VITAMIN B-12, (VITAMIN B-12 INJECTION) by INJECTION(UNSPECIFIED PARENTERAL ROUTES) route. - Cholecalciferol, Vitamin D3, 50 mcg (2,000 unit) cap Take 1 capsule by mouth once daily. - Magnesium 250 mg tab Take 250 mg by mouth once daily. - VITAMIN B COMPLEX ORAL Take 1 tablet by mouth once daily. - MULTIVIT ANDMINERALS/FERROUS FUM (MULTI VITAMIN ORAL) Take 1 tablet by mouth once daily. - telmisartan (MICARDIS) 80 mg tablet Take 80 mg by mouth once daily. - primidone (MYSOLINE) 250 mg tablet Take 250 mg by mouth twice daily. - POTASSIUM (POTASSIMIN ORAL) Take 1 tablet by mouth once daily. Problem List As Of Date 11/08/2023 Noted Resolved Benign nevus of skin [D22.9] 08/04/2015 History of Mohs micrographic surgery for skin c*08/04/2015 Actinic keratosis [L57.0] 02/02/2016 Acne vulgaris [L70.0] 02/02/2016 Melanocytic nevi of trunk [D22.5] 02/02/2016 Prostate cancer (HCC) [C61] Visit for wound check [Z51.89] 06/12/2023 Encounter Status:Closed by THAIS BRAND on 11/08/23 Normal [facility] MYOCARDIAL SPECT STRESS/R ESTon 11-07-2023 [place] MYOCARDIAL SPECT STRESS/REST ORIGINAL NM MYOCARDIAL SPECT STRESS/REST CLINICAL STATEMENT: CAD, cardiomyopathy TECHNIQUE: Lexiscan dose:0.4 mg Radiopharmaceutical (stress): Tc-99m Sestamibi Dose:30.4 mCi Radiopharmaceutical (rest): Tc-99m Sestamibi Dose:10.4 mCi SPECT acquisition and processing Reconstruction and reorientation of SPECT images into short axis, vertical and horizontal long axis planes Quantitative LVEF assessment COMPARISON:2020 REPORT: Post stress myocardial perfusion images shows moderate perfusion defect apical -mid lateral steele, mid anterior/anteroseptal steele; mild defect at inferior wall Resting images showed relatively uniform perfusion LVEF 38% with apical, inferior and septal wall hypokinesis, diffuse reduced thickening TID 1.19 IMPRESSION: Positive for moderate severity ischemia LAD territory; can not rule out inferior infarct/hibernation LVEF 38% focal wall motion abnormality dilated LV 242ml Interpreted By: Obed Carlson Preliminary Report By: Obed Carlson Electronically Signed By: Obed Carlson Dictated Date: 11/07/2023 8:46:44 AM Prelim Date: 11/07/2023 8:46:44 AM Sign Date: 11/07/2023 8:53:41 AM Ordering Provider:Edmundo Barrett [facility] ([place]) SURGICAL PATHOLOGYon Case Report Surgical Pathology Report Case: [id number] Authorizing Provider: Thais Nicholas, Collected: 11/02/2023 11:24 AM Ordering Location: Dermatology Received: 11/02/2023 08:45 PM Pathologist: Diandra Cason MD Specimens: A) - SKIN SHAVE BIOPSY, A) Left lateral forehead, r/o NMSC B) - SKIN SHAVE BIOPSY, B) Left medial cheek, r/o NMSC [facility] Clinical History n/a [facility] FINAL DIAGNOSIS A. Skin, left latera l forehead, shave biopsy: - Basal cell carcinoma, nodular and micronodular types. B. Skin, left medial cheek, shave biopsy: - Basal cell carcinoma, nodular type. MPP/BEENA/chandan 11/03/2023 [facility] Gross Description A. SKIN SHAVE BIOPSY Received in formalin is a 0.8 x 0.4 x 0.1 cm shave of skin. On the skin surface there is a 0.8 cm bailey-white to brown, slightly elevated area. The specimen is bisected. Totally submitted in one cassette. B. SKIN SHAVE BIOPSY Received in formalin is a 0.9 x 0.3 x 0.1 cm shave of skin. On the skin surface there is a 0.9 cm bailey-brown, slightly elevated area. The specimen is bisected. Totally submitted in one cassette. Gross examination performed at [facility], [address] [place], [place] [address] [address] KK November 02, 2023 11:50 PM [facility] Performing Lab Diagnostic interpretation performed at [facility], [address] [place], [place] [address]IA# [id number] Hand Potter: Reese Gaona M.D. [facility] CNOVon 11-02-2023 CNOV Office Visit (DERBMN ) SEPIDEH GARDINER ([id number]) 1950 M Date Time Provider Department 11/02/23 9:30 AM THAIS NICHOLAS During your visit today, we recorded the following information about you: Pulse Blood pressure 64/minute 163/85 Thais Nicholas MD 11/06/2023 4:00 PM Signed [facility] MICROGRAPHIC OPERATIVE REPORT SERVICE DATE: 11/02/2023 SERVICE TIME: 9:30 LOCATION: [place] [address] REFERRING PROVIDER: Yaritza Spencer (Fay) [address] [place] [address] PROCEDURE START TIME: 929 PROCEDURE END TIME: 1145 SURGEON: Dr. Thais Porter FELLOW: Dr. Jody Saunders REGISTERED NURSE: Óscar Baca Coyle ANTICOAGULANTS: None IMPLANTED DEVICES: Heart wires but not connected ANTIBIOTIC PROPHYLAXIS: Not required TRANSPLANT PATIENT: No PHOTOS: Photos taken VERIFICATION OF PROCEDURE: Procedure to be Performed: [facility] Patient Verified By: Name and Date of Site(s) Confirmed: Patient confirmed site from image in the EMR. Patient used mirror(s) to identify site(s). Patient pointed to site(s). Patient verbalized agreement of surgical site(s). Site(s) Marked: Provider marking the site with patient involvement. Provider physically marking the site on or near incision site, with persistent marker, and remains visible once patient prepped. Relevant documentation, images, implants or special equipment present: Yes SIGN IN COMMUNICATION: Completed Time Out: Team Confirms the Correct Patient, Correct Procedure, Correct Site(s) and Site Marked, Correct Position (if applicable). Time: 0945 Affirmation of Time Out: Yes Sign out Discussion: Completed UNIVERSAL PROTOCOL / SAFETY CHECKLIST Procedure to be Performed: Mohs Surgery Sign In: A Moment of CARE was completed. Personnel directly involved with the procedure wore the appropriate PPE (Personal Protective Equipment). Patient/Surrogate Stated/Verified: PATIENT VERIFIED(optional for EMERGENT procedures): Patient name, Date of , Relevant allergies, and The intended procedure Time Out Communication: Intended patient and procedure match the source documents. Consent documented and matches the intended procedure. Sign Out: SIGN OUT (optional for EMERGENT procedures): All specimen containers correctly labeled. All instruments, equipment, possible retained foreign bodies accounted for. Post-procedure follow-up management communicated and Plan of Care Visit completed when applicable. LESION #1 Preoperative Diagnosis: BCC Nodular of the left denominational Tumor Type: Primary Path Report Available at Bedside: Inside pathology report # [id number] Pre-op Size: 0.6 cm - 1 cm, (0.7 cm X 0.7 cm) Lymphadenopathy: None Indication for Mohs: Anatomic Location where lesion is prone to recur, Proven difficulty with skin cancers, Type of tumor, Age of patient, and Ill-defined borders Location: Area H: (Mask Areas of the Face - Includes Central Face, Eyelids, Inner/Outer [place], Eyebrows, Nose, Chin, Lips, Ears, Periauricular Skin and Episcopalian) Preparation: Povidone-iodine LAYER A The patient was positioned, prepped with alcohol and draped in the usual manner. Anesthesia was obtained with local infiltration. The clinically apparent tumor was then debulked with a curette. A 1-2 mm rim of tissue was marked circumferentially around the defect. The area thus outlined was excised deep to the subcutis. Hemostasis was achieved with electrocautery. The specimen was oriented, subdivided into 2 sections (A1-A2), chromacoded and submitted for horizontal frozen sections. The patient tolerated the procedure well and no complications were noted. Upon review of the horizontal frozen sections for Layer A, residual superficial BCC was identified in pieces B2. A1 negative. Depth of Invasion:epidermis Perineural invasion: No LVI: No . SUPERFICIAL BASAL CELL CARCINOMA: Arising from the epidermis and superficial hair follicles are small, superficial, multicentric buds of basaloid keratinocytes. The cells have scant cytoplasm and round dark nuclei. Mitotic figures and apoptotic bodies are evident. The nuclei at the periphery of the islands have a palisaded arrangement. The islands are associated with a fibromyxoid stroma and there is cleft formation between some of the islands and stroma. LAYER B A 1-2 mm rim of tissue was marked to encompass the positive margins noted in the frozen section. The area thus outlined was excised deep to the subcutis. Hemostasis was achieved with electrocautery. The specimen was oriented, subdivided into 1 sections (B1), chromacoded and submitted for horizontal frozen sections. The patient tolerated the procedure well and no complications were noted. Upon review of the horizonta (more content not included)... [facility] SURGICAL PATHOLOGYon 023 CASE REPORT [facility] Comment on above: Order Comment: Speci men Type: TISSUE SPECIMENOrdering Facility: [facility] Address: [address] [place] [address] Result Comment: Surg ical Pathology Report Case: [id number] Authorizing Provider: Thais Nicholas, Collected: 11/02/2023 11:24 AM Ordering Location: Dermatology Received: 11/02/2023 08:45 PM Pathologist: Diandra Cason MD Specimens: A) - SKIN SHAVE BIOPSY, A) Left lateral forehead, r/o NMSC B) - SKIN SHAVE BIOPSY, B) Left medial cheek, r/o NMSC Performed By: #### S ####[facility] LABIA [id number] [place] [address] [place] CLINICAL HISTORY n/a Normal [facility] Comment on above: Order Comment: Speci men Type: TISSUE SPECIMENOrdering Facility: [facility] Address: [address] [place] [address] Performed By: #### S ####[facility] LABCLIA [id number] [place] [address] [place] FINAL DIAGNOSIS [facility] Comment on above: Order Comment: Speci men Type: TISSUE SPECIMENOrdering Facility: [facility] Address: [address] [place] [address] Result Comment: A. S kin, left lateral forehead, shave biopsy: - Basal cell carcinoma, nodular and micronodular types. B. Skin, left medial cheek, shave biopsy: - Basal cell carcinoma, nodular type. KAUSHIK/BEENA/chandan 11/03/2023 Performed By: #### S ####[facility] LABCLIA [id number] [address] OF [facility] FINAL PERFORMING LAB Normal [facility] Comment on above: Order Comment: Speci men Type: TISSUE SPECIMENOrdering Facility: [facility] Address: [address] [place] [address] Result Comment: Diag nostic interpretation performed at [facility], [address] [place] [address] CLIA# [id number] Hand Potter: Reese Gaona M.D. Performed By: #### S ####[facility] LABCLIA [id number] [address] OF [facility] GROSS DESCRIPTION Normal [facility] Comment on above: Order Comment: Speci men Type: TISSUE SPECIMENOrdering Facility: [facility] Address: [address] [place] [address] Result Comment: A. S KIN SHAVE BIOPSY Received in formalin is a 0.8 x 0.4 x 0.1 cm shave of skin. On the skin surface there is a 0.8 cm bailey-white to brown, slightly elevated area. The specimen is bisected. Totally submitted in one cassette. B. SKIN SHAVE BIOPSY Received in formalin is a 0.9 x 0.3 x 0.1 cm shave of skin. On the skin surface there is a 0.9 cm bailey-brown, slightly elevated area. The specimen is bisected. Totally submitted in one cassette. Gross examination performed at [facility], [address] November 02, 2023 11:50 PM Performed By: #### S ####[facility] GLENN [id number] [address] [place] Maynor 09-15-2023 CNPN Telephone (DERMIN) DEXTER BURCIAGASEPIDEH R ([id number]) 1950 M Date Time Provider Department 09/15/23 YARITZA SPENCER During your visit today, we recorded the following information about you: Yaritza Spencer MD 09/15/2023 4:40 PM Signed Biopsies on left posterior shoulder and left upper abdomen were mildly atypical moles-no further treatment is recommended for these at this time Biopsy on left denominational was a BCC-patient will be referred for Mohs for this order placed please continue sun protection and monitoring MD Yaya Parra Isabel, RN 09/19/2023 12:01 PM Signed Called patient regarding biopsy results and to discuss Mohs surgery expectations/instructi ons. Patient voiced understanding and would like to proceed. Routed to Mohs schedulers to set up appointment time. Soft hold Main on 11/[address] Porter at 9:30 am. PROCEDURE AND TIME REQUIRED Mohs Micrographic surgery: AUC: 8 Mohs surgery preoperative scoring for BCC and SCC (for scheduling): Lesion 1 1. Where is the lesion located? Other location (1 points) A. Skin, left denominational, shave biopsy: - Basal cell carcinoma, nodular type. 2. Is the lesion a recurrent tumor?Unknown (0 points) 3. Does the tumor have an aggressive histologic subtype? (micronodular or infiltrative BCC, moderate or poorly differentiated SCC) No (0 points) 4. Lesion size 1 x 1 cm 1-2 cm (1 point) Total Points for Lesion: 2 If 2 lesions are close together and done on the same day add 1 point. Total points: 2 If score is 3 or higher, schedule in AM Mohs slots only If score is 5 or higher, please hold 2 Mohs surgery slots For every 4 additional points hold an additional slot If the lesion has 6 or greater number of pieces please schedule at location where 2 histotechs are located. Please include total points in the appointment visit notes. Derm time required: one slot , AM, and PM Approved by: Norma Javier RN Schedule with: First Available Location: Pt preference Photos in Get Images Allergies As of Date: 09/15/2023 (No Known Allergies) Date Reviewed: 09/13/2023 Reviewed by: Yaritza Spencer MD - Fully Assessed Reason for Visit: Pathology Report [1244] Primary Visit Diagnosis:Basal cell carcinoma of face [C44.310] Order(s):MOHS [[id number]] Order #: [id number]: 1 FUTURE Prescriptions as of 09/19/2023 - ketoconazole (NIZORAL) 2 % shampoo Wash scalp 3 times a week - hydrocortisone 2.5 % cream Apply to affected skin around nose behind ears twice weekly prn flare - hydroCHLOROthiazide 25 mg tablet Take 2 tablets by mouth every afternoon. - carvedilol (COREG) 6.25 mg tablet Take 6.25 mg by mouth two times a day with meals. - telmisartan (MICARDIS) 80 mg tablet Take 80 mg by mouth once daily. - loratadine 10 mg cap Take 10 mg by mouth once daily. - aspirin, enteric coated (ASPIRIN, ENTERIC COATED) 81 mg EC tablet Take 81 mg by mouth once daily. - bumetanide (BUMEX) 1 mg tablet Take 1 mg by mouth once daily. - Niacinamide 500 mg tablet TAKE 1 TABLET BY MOUTH TWICE A DAY WITH MEALS - CYANOCOBALAMIN, VITAMIN B-12, (VITAMIN B-12 INJECTION) by INJECTION(UNSPECIFIED PARENTERAL ROUTES) route. - Cholecalciferol, Vitamin D3, 50 mcg (2,000 unit) cap Take 1 capsule by mouth once daily. - Magnesium 250 mg tab Take 250 mg by mouth once daily. - VITAMIN B COMPLEX ORAL Take 1 tablet by mouth once daily. - MULTIVIT ANDMINERALS/FERROUS FUM (MULTI VITAMIN ORAL) Take 1 tablet by mouth once daily. - telmisartan (MICARDIS) 80 mg tablet Take 80 mg by mouth once daily. - primidone (MYSOLINE) 250 mg tablet Take 250 mg by mouth twice daily. - POTASSIUM (POTASSIMIN ORAL) Take 1 tablet by mouth once daily. Problem List As Of Date 09/15/2023 Noted Resolved Benign nevus of skin [D22.9] 08/04/2015 History of Mohs micrographic surgery for skin c*08/04/2015 Actinic keratosis [L57.0] 02/02/2016 Acne vulgaris [L70.0] 02/02/2016 Melanocytic nevi of trunk [D22.5] 02/02/2016 Prostate cancer (HCC) [C61] Visit for wound check [Z51.89] 06/12/2023 Encounter Status:Closed by YARITZA SPENCER on 09/15/23 [facility] CNOVon 09-13-2023 CNOV Office Visit (DERMIN ) SEPIDEH GARDINER ([id number]) 1950 M Date Time Provider Department 09/13/23 2:15 PM YARITZA SPENCER During your visit today, we recorded the following information about you: Yaritza Spencer MD 09/13/2023 3:39 PM Addendum CHIEF COMPLAINT: Patient presents with: Full Body Skin Check Last Dermatology Visit: [facility] - Dr Porter on REFERRAL: self RELEVANT DERMATOLOGY HISTORY: RELEVANT DERMATOLOGY HISTORY: Personal Hx of skin cancer: Yes basal cell CA/scc-- mostly bcc-right nasal ala, right temporal scalp, left occipital scalp, right upper cutaneous lip, nasal tip, left forehead, right denominational, right parietal scalp, left upper back, left anterior temporal scalp, left posterior temporal scalp, central forehead, left chin, right cheek, right glabella, left chin, right frontal scalp, left forehead, left superior helix, right conchal bowl BCC-Right denominational BCC-Right mid frontal scalp BCC-Right postauricular BCC-Left anterior neck BCC- R cheek - Mohs BCC- R anterior lower neck - Mohs Melanoma in situ - r chest 03/2021 Melanoma in situ- 02/2023- WLE 04/18 - Mohs Personal Hx of atypical moles: yes Family Hx of malignant melanoma: no Antibiotics before dental or other procedures: yes Artificial joints: no Pacemaker: no Anticoagulants: ASA DERMATOLOGY PROGRESS NOTE HISTORY: Sepideh Gardiner is a 72 year old male who presents with CC/HPI: Chief Complaint FBSE Location Whole body Duration years Timing constant Severity mild Quality As above Modifying Factors: Top of scalp bumpy and sides of face with scabing and bleeding. Pt wears a CPAP machine. 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 TONSILLECTOMY HX MEDICATIONS: Current Outpatient Medications Medication Sig hydroCHLOROthiazide 25 mg tablet Take 2 tablets by mouth every afternoon. atorvastatin (LIPITOR) 40 mg tablet 40 mg. carvedilol (COREG) 6.25 mg tablet 6.25 mg. telmisartan (MICARDIS) 80 mg tablet 80 mg. loratadine 10 mg cap Take 10 mg by mouth once daily. aspirin, enteric coated (ASPIRIN, ENTERIC COATED) 81 mg EC tablet 81 mg. bumetanide (BUMEX) 1 mg tablet mupirocin (BACTROBAN) 2 % ointment Apply to affected areas twice daily for wound care triamcinolone acetonide (KENALOG) 0.1 % cream Apply to affected skin on left wrist twice a day for 2 weeks Niacinamide 500 mg tablet TAKE 1 TABLET BY MOUTH TWICE A DAY WITH MEALS ketoconazole (NIZORAL) 2 % shampoo WASH AFFECTED AREA DAILY NEEDED Clobetasol Propionate 0.05 % gel APPLY TO AFFECTED AREA ON SCALP 2 TIMES A DAY NEEDED USE 2 WEEKS ON AND 1 WEEK OFF Clobetasol Propionate 0.05 % gel APPLY TO AFFECTED AREA ON SCALP 2 TIMES A DAY NEEDED USE 2 WEEKS ON AND 1 WEEK OFF hydrocortisone 2.5 % ointment Apply to affected area on face two times daily as needed for 1-2 weeks after PDT ketoconazole (NIZORAL) 2 % shampoo Wash affected area daily as needed (Patient not taking: Reported on 06/12/2023) acetaminophen-codeine (TYLENOL-COD #3) 300-30 mg per tablet Take 1 tablet by mouth every 6 hours as needed. (Patient not taking: Reported on 06/12/2023) tretinoin (RETIN-A) 0.025 % gel Apply a pea size amount to affected area every other night for 2 weeks then increase to daily as tolerated CYANOCOBALAMIN, VITAMIN B-12, (VITAMIN B-12 INJECTION) by INJECTION(UNSPECIFIED PARENTERAL ROUTES) route. Benzoyl Peroxide 5 % external wash Wash affected area one to two times daily as tolerated Cholecalciferol, Vitamin D3, 50 mcg (2,000 unit) cap Take 3 capsules by mouth once daily. Magnesium 250 mg tab Take 250 mg by mouth once daily. VITAMIN B COMPLEX ORAL Take 1 tablet by mouth once daily. MULTIVIT ANDMINERALS/FERROUS FUM (MULTI VITAMIN ORAL) Take 1 tablet by mouth once daily. telmisartan (MICARDIS) 80 mg tablet Take 80 mg by mouth once daily. primidone (MYSOLINE) 250 mg tablet Take 250 mg by mouth twice daily. metOLazone (ZAROXOLYN) 2.5 mg tablet Take 2.5 mg by mouth once daily. POTASSIUM (POTASSIMIN ORAL) Take 1 tablet by mouth once daily. No current facility-administered medications for this visit. ALLERGIES: reviewed Patient has no known allergies. 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 No dyspnea, chest pain, abdominal pain, dysuria. All other revi (more content not included)... [facility] SURGICAL PATHOLOGYon 023 CASE REPORT [facility] Comment on above: Order Comment: Speci men Type: TISSUE SPECIMENOrdering Facility: [facility] Address: [address] [place] [address] [place], [place] [address] Result Comment: Surg [facility] Pathology Report Case: [id number] Authorizing Provider: Yaritza Spencer MD Collected: 09/13/2023 04:19 PM Ordering Location: Dermatology Received: 09/13/2023 10:19 PM Pathologist: Bonnie Gan MD Specimens: A) - SKIN SHAVE BIOPSY, A) left denominational B) - SKIN SHAVE BIOPSY, B) left posterior shoulder C) - SKIN SHAVE BIOPSY, C) right upper abdomen Performed By: #### S ####[facility] LABCLIA [id number] [place] [address] [place] CLINICAL HISTORY A) r/o BCC B-C) r/o AN [facility] Comment on above: Order Comment: Speci men Type: TISSUE SPECIMENOrdering Facility: [facility] Address: [address] [place] [address] Performed By: #### S ####[facility] LABCLIA [id number] [address] FINAL DIAGNOSIS [facility] Comment on above: Order Comment: Speci men Type: TISSUE SPECIMENOrdering Facility: [facility] Address: [address] [place] [address] Result Comment: A. S kin, left denominational, shave biopsy: - Basal cell carcinoma, nodular type. B. Skin, left posterior shoulder, shave biopsy: - Atypical compound nevus with mild melanocytic dysplasia. C. Skin, right upper abdomen, shave biopsy: - Atypical compound nevus with mild melanocytic dysplasia. LiangK/DF/mm/09/15/2023 Performed By: #### S ####[facility] LABCLIA [id number] [address] [place] FINAL PERFORMING LAB Normal [facility] Comment on above: Order Comment: Speci men Type: TISSUE SPECIMENOrdering Facility: [facility] Address: [address] [place] [address] Result Comment: Diag nostic interpretation performed at [facility], [facility] [place] [address] CLIA# [id number] Hand Potter: Reese Gaona M.D. Performed By: #### S ####[facility] [id number] [place] [address] [place] GROSS DESCRIPTION Normal [facility] Comment on above: Order Comment: Speci men Type: TISSUE SPECIMENOrdering Facility: [facility] Address: [address] [place] [address] Result Comment: A. S KIN SHAVE BIOPSY Received in formalin is a 0.7 x 0.4 x 0.1 cm shave of skin. On the skin surface there is a 0.2 cm red-brown, slightly elevated area. The specimen is bisected. Totally submitted in one cassette. B. SKIN SHAVE BIOPSY Received in formalin is a 0.9 x 0.7 x 0.1 cm shave of skin. On the skin surface there is a 0.5 cm brown, flat area. The specimen is bisected. Totally submitted in one cassette. C. SKIN SHAVE BIOPSY Received in formalin is a 0.9 x 0.5 x 0.1 cm shave of skin. On the skin surface there is a 0.5 cm brown, flat area. The specimen is bisected. Totally submitted in one cassette. [facility] September 14, 2023 8:34 AM Gross examination performed at [facility], [facility] [place] [address] Performed By: #### S ####[facility] [id number] [place] [address] [place] XR SHOULDER MINIMUM 2 VIEWS RIGHTon 09-01-2023 XR SHOULDER MINIMUM 2 VIEWS RIGHT ORIGINAL EXAMINATION: 4 XRAY VIEWS OF THE RIGHT SHOULDER 09/01/2023 6:00 pm COMPARISON: Chest x-ray 12/02/2021 HISTORY: ORDERING SYSTEM PROVIDED HISTORY: Reason for Exam: possible FB deltoid FINDINGS: No acute fracture or dislocation. No radiopaque foreign body. Vcau-rt-[id number] degenerative changes of the chronic thickened glenohumeral joints. Right hemithorax is unremarkable. Artifact from overlying or blankets is noted. IMPRESSION: No acute osseous abnormality. No radiopaque foreign body. I have personally reviewed the images of this examination and agree with the resident's findings and interpretation. Interpreted by: Adolfo Drake Preliminary Report By: Alex Vidal Electronically signed By Adolfo Drake Dictated Date: 09/01/2023 6:17:44 PM Prelim Date: 09/01/2023 6:19:11 PM Sign Date: 09/01/2023 6:38:40 PM Ordering Provider: MYRON SMITH [facility] ([place]) LABORATORYOrdered By: SYSTEM SYSTEM on 06-07-2023 Prostate specific Ag [Mass/Vol] 6.15 ng/mL Invalid Interpretation Code 0.00 - 4.00 ng/mL AO ADM SS Calcium [Mass/Vol] 9.0 mg/dL Invalid Interpretation Code 8.4 - 10.2 mg/dL AO ADM SS Chloride [Moles/Vol] 105 mmol/L Invalid Interpretation Code 98 - 107 mmol/L AO ADM SS CO2 [Moles/Vol] 32 mmol/L Invalid Interpretation Code 23 - 31 mmol/L AO ADM SS Creatinine [Mass/Vol] 1.24 mg/dL Invalid Interpretation Code 0.70 - 1.30 mg/dL AO ADM SS Electrolyte Balance 6.0 mEq/L Invalid Interpretation Code 4.0 - 15.0 mEq/L AO ADM SS GFR/1.73 sq M.predicted among blacks MDRD (S/P/Bld) [Vol rate/Area] 69 ml/min/1.73sqm Invalid Interpretation Code AO Chemistry S GFR/1.73 sq M.predicted among non-blacks MDRD (S/P/Bld) [Vol rate/Area] 57 ml/min/1.73sqm Invalid Interpretation Code AO Chemistry S Glucose [Mass/Vol] 105 mg/dL Invalid Interpretation Code 83 - 110 mg/dL AO ADM SS Potassium [Moles/Vol] 3.7 mmol/L Invalid Interpretation Code 3.5 - 5.1 mmol/L AO ADM SS Sodium [Moles/Vol] 143 mmol/L Invalid Interpretation Code 136 - 145 mmol/L AO ADM SS Urea nitrogen [Mass/Vol] 27 mg/dL Invalid Interpretation Code 7 - 18 mg/dL AO ADM SS Urea nitrogen/Creatinine [Mass ratio] 22 ratio Invalid Interpretation Code 7 - 27 ratio AO ADM SS LABORATORYOrdered By: SYSTEM SYSTEM on 01-30-2023 Albumin BCP dye [Mass/Vol] 3.6 G/dL Invalid Interpretation Code 3.4 - 4.8 G/dL AO ADM SS Albumin/Globulin [Mass ratio] 1.2 {ratio} Invalid Interpretation Code 1.1 - 2.5 ratio AO ADM SS ALP [Catalytic activity/Vol] 74 U/L Invalid Interpretation Code 40 - 135 U/L AO ADM SS ALT With P-5'-P [Catalytic activity/Vol] 21 U/L Invalid Interpretation Code 16 - 63 U/L AO ADM SS AST With P-5'-P [Catalytic activity/Vol] 17 U/L Invalid Interpretation Code 10 - 40 U/L AO ADM SS Bilirubin [Mass/Vol] 0.2 mg/dL Invalid Interpretation Code 0.2 - 1.0 mg/dL AO ADM SS Calcium [Mass/Vol] 8.7 mg/dL Invalid Interpretation Code 8.4 - 10.2 mg/dL AO ADM SS Chloride [Moles/Vol] 106 mmol/L Invalid Interpretation Code 98 - 107 mmol/L AO ADM SS CO2 [Moles/Vol] 32 mmol/L Invalid Interpretation Code 23 - 31 mmol/L AO ADM SS Cobalamin (Vitamin B12) [Mass/Vol] 244 pg/mL Invalid Interpretation Code 211 - 911 pg/mL AH ADM SS Creatinine [Mass/Vol] 1.12 mg/dL Invalid Interpretation Code 0.70 - 1.30 mg/dL AO ADM SS Electrolyte Balance 7.0 mEq/L Invalid Interpretation Code 4.0 - 15.0 mEq/L AO ADM SS GFR 78 ml/min/1.73sqm Invalid Interpretation Code AO Chemistry S GFR Non- 64 ml/min/1.73sqm Invalid Interpretation Code AO Chemistry S Globulin 2.9 G/dL Invalid Interpretation Code AO ADM SS Glucose [Mass/Vol] 109 mg/dL Invalid Interpretation Code 83 - 110 mg/dL AO ADM SS HbA1c (Bld) [Mass fraction] 6.0 % Invalid Interpretation Code 4.3 - 6.4 % AO ADM SS Potassium [Moles/Vol] 4.4 mmol/L Invalid Interpretation Code 3.5 - 5.1 mmol/L AO ADM SS Protein [Mass/Vol] 6.5 G/dL Invalid Interpretation Code 6.4 - 8.2 G/dL AO ADM SS Sodium [Moles/Vol] 145 mmol/L Invalid Interpretation Code 136 - 145 mmol/L AO ADM SS TSH Qn 1.48 m[IU]/L Invalid Interpretation Code 0.36 - 3.74 mcIU/mL AO ADM SS Urea nitrogen [Mass/Vol] 15 mg/dL Invalid Interpretation Code 7 - 18 mg/dL AO ADM SS Urea nitrogen/Creatinine [Mass ratio] 13 ratio Invalid Interpretation Code 7 - 27 ratio AO ADM SS LABORATORYOrdered By: Cindy Avila on 01-30-2023 Basophil, Absolute 0.1 103/mcL Invalid Interpretation Code 0.0 - 0.2 10^3/mcL AO Workflow SS Basophils/100 WBC (Bld) 0.8 % Invalid Interpretation Code 0.0 - 2.5 % AO Workflow SS Eosinophil, Absolute 0.3 103/mcL Invalid Interpretation Code 0.0 - 0.4 10^3/mcL AO Workflow SS Eosinophils/100 WBC (Bld) 4.1 % Invalid Interpretation Code 0.0 - 7.0 % AO Workflow SS Erythrocyte distribution width (RBC) [Ratio] 14.6 % Invalid Interpretation Code 11.5 - 14.5 % AO Workflow SS Hematocrit (Bld) [Volume fraction] 42.4 % Invalid Interpretation Code 42.0 - 52.0 % AO Workflow SS Hemoglobin (Bld) [Mass/Vol] 14.1 G/dL Invalid Interpretation Code 14.0 - 18.0 G/dL AO Workflow SS Lymphocyte, Absolute 1.4 103/mcL Invalid Interpretation Code 0.8 - 3.9 10^3/mcL AO Workflow SS Lymphocytes/100 WBC (Bld) 18.3 % Invalid Interpretation Code 10.0 - 50.0 % AO Workflow SS MCH (RBC) [Entitic mass] 30.5 pg Invalid Interpretation Code 27.0 - 31.2 pg AO Workflow SS MCHC 33.4 G/dL Invalid Interpretation Code 31.8 - 35.4 G/dL AO Workflow SS MCV (RBC) [Entitic vol] 91.5 fL Invalid Interpretation Code 80.0 - 94.0 fL AO Workflow SS Monocyte, Absolute 0.8 103/mcL Invalid Interpretation Code 0.2 - 1.0 10^3/mcL AO Workflow SS Monocytes/100 WBC (Bld) 10.1 % Invalid Interpretation Code 1.7 - 13.0 % AO Workflow SS Neutrophil, Absolute 5.2 103/mcL Invalid Interpretation Code 2.9 - 6.2 10^3/mcL AO Workflow SS Neutrophils/100 WBC (Bld) 66.7 % Invalid Interpretation Code 37.0 - 80.0 % AO Workflow SS Platelet mean volume (Bld) [Entitic vol] 8.9 fL Invalid Interpretation Code 7.4 - 10.4 fL AO Workflow SS Platelets (Bld) [#/Vol] 235 103/mcL Invalid Interpretation Code 130 - 400 10^3/mcL AO Workflow SS RBC (Bld) [#/Vol] 4.63 106/mcL Invalid Interpretation Code 4.04 - 6.13 10^6/mcL AO Workflow SS WBC (Bld) [#/Vol] 7.8 103/mcL Invalid Interpretation Code 4.6 - 10.8 10^3/mcL AO Workflow SS LABORATORYOrdered By: Asia Desouza on 01-30-2023 Cholesterol [Mass/Vol] 238 mg/dL Invalid Interpretation Code 0 - 200 mg/dL AO ADM SS Cholesterol in HDL [Mass/Vol] 76 mg/dL Invalid Interpretation Code 40 - 60 mg/dL AO ADM SS Cholesterol in LDL [Mass/Vol] 142 mg/dL Invalid Interpretation Code 0 - 130 mg/dL AO ADM SS Triglyceride [Mass/Vol] 100 mg/dL Invalid Interpretation Code 0 - 150 mg/dL AO ADM SS UA DIP, URINE (POC)on 2022 BILIRUBIN UA (POCT) Negative Negative [facility] CLARITY UA (POCT) Clear [facility] COLOR UA (POCT) Yellow [facility] GLUCOSE UA (POCT) Negative Negative mg/dL [facility] HEMOGLOBIN/BLOOD UA (POCT) Trace-intact Abnormal Negative [facility] KETONE UA (POCT) Trace Negative mg/dL [facility] LEUKOCYTES UA (POCT) Negative Negative [facility] NITRITE UA (POCT) Negative Negative [facility] PH UA (POCT) 5.5 4.5 - 8.0 [facility] Protein Ql (U) 100 mg/dL Abnormal Negative mg/dL [facility] SPECIFIC GRAVITY UA (POCT) >=1.030 1.005 - 1.030 [facility] UROBILINOGEN UA (POCT) 0.2 E.U./dL Normal E.U./dL [facility] LABORATORYOrdered By: SYSTEM SYSTEM on 12-05-2022 Prostate specific Ag [Mass/Vol] 8.83 ng/mL Invalid Interpretation Code 0.00 - 4.00 ng/mL AO ADM SS LABORATORYOrdered By: Asia Desouza on 10-13-2022 Albumin BCP dye [Mass/Vol] 3.7 G/dL Invalid Interpretation Code 3.4 - 4.8 G/dL AO ADM SS Albumin/Globulin [Mass ratio] 1.3 {ratio} Invalid Interpretation Code 1.1 - 2.5 ratio AO ADM SS ALP [Catalytic activity/Vol] 67 U/L Invalid Interpretation Code 40 - 135 U/L AO ADM SS ALT With P-5'-P [Catalytic activity/Vol] 22 U/L Invalid Interpretation Code 16 - 63 U/L AO ADM SS AST With P-5'-P [Catalytic activity/Vol] 16 U/L Invalid Interpretation Code 10 - 40 U/L AO ADM SS Bilirubin [Mass/Vol] 0.3 mg/dL Invalid Interpretation Code 0.2 - 1.0 mg/dL AO ADM SS Calcium [Mass/Vol] 9.1 mg/dL Invalid Interpretation Code 8.4 - 10.2 mg/dL AO ADM SS Chloride [Moles/Vol] 105 mmol/L Invalid Interpretation Code 98 - 107 mmol/L AO ADM SS Cholesterol [Mass/Vol] 175 mg/dL Invalid Interpretation Code 0 - 200 mg/dL AO ADM SS Cholesterol in HDL [Mass/Vol] 77 mg/dL Invalid Interpretation Code 40 - 60 mg/dL AO ADM SS Cholesterol in LDL [Mass/Vol] 74 mg/dL Invalid Interpretation Code 0 - 130 mg/dL AO ADM SS CO2 [Moles/Vol] 31 mmol/L Invalid Interpretation Code 23 - 31 mmol/L AO ADM SS Creatinine [Mass/Vol] 1.09 mg/dL Invalid Interpretation Code 0.70 - 1.30 mg/dL AO ADM SS Electrolyte Balance 6.0 mEq/L Invalid Interpretation Code 4.0 - 15.0 mEq/L AO ADM SS Globulin 2.9 G/dL Invalid Interpretation Code AO ADM SS Glucose [Mass/Vol] 103 mg/dL Invalid Interpretation Code 83 - 110 mg/dL AO ADM SS Magnesium [Mass/Vol] 2.1 mg/dL Invalid Interpretation Code 1.8 - 2.4 mg/dL AO ADM SS Natriuretic peptide.B prohormone N-Terminal [Mass/Vol] 842 pg/mL Invalid Interpretation Code 0 - 125 pg/mL AO ADM SS Potassium [Moles/Vol] 4.4 mmol/L Invalid Interpretation Code 3.5 - 5.1 mmol/L AO ADM SS Protein [Mass/Vol] 6.6 G/dL Invalid Interpretation Code 6.4 - 8.2 G/dL AO ADM SS Sodium [Moles/Vol] 142 mmol/L Invalid Interpretation Code 136 - 145 mmol/L AO ADM SS Triglyceride [Mass/Vol] 121 mg/dL Invalid Interpretation Code 0 - 150 mg/dL AO ADM SS Urea nitrogen [Mass/Vol] 20 mg/dL Invalid Interpretation Code 7 - 18 mg/dL AO ADM SS Urea nitrogen/Creatinine [Mass ratio] 18 ratio Invalid Interpretation Code 7 - 27 ratio AO ADM SS LABORATORYOrdered By: SYSTEM SYSTEM on 10-13-2022 GFR 80 ml/min/1.73sqm Invalid Interpretation Code AO Chemistry S GFR Non- 66 ml/min/1.73sqm Invalid Interpretation Code AO Chemistry S LABORATORYOrdered By: Mily Obrien on 06-08-2022 Albumin BCP dye [Mass/Vol] 3.6 G/dL Invalid Interpretation Code 3.4 - 4.8 G/dL AO ADM SS Albumin/Globulin [Mass ratio] 1.2 {ratio} Invalid Interpretation Code 1.1 - 2.5 ratio AO ADM SS ALP [Catalytic activity/Vol] 65 U/L Invalid Interpretation Code 40 - 135 U/L AO ADM SS ALT With P-5'-P [Catalytic activity/Vol] 20 U/L Invalid Interpretation Code 16 - 63 U/L AO ADM SS AST With P-5'-P [Catalytic activity/Vol] 8 U/L Invalid Interpretation Code 10 - 40 U/L AO ADM SS Basophil, Absolute 0.1 103/mcL Invalid Interpretation Code 0.0 - 0.2 10^3/mcL AO Workflow SS Basophils/100 WBC (Bld) 0.7 % Invalid Interpretation Code 0.0 - 2.5 % AO Workflow SS Bilirubin [Mass/Vol] 0.3 mg/dL Invalid Interpretation Code 0.2 - 1.0 mg/dL AO ADM SS Calcium [Mass/Vol] 8.7 mg/dL Invalid Interpretation Code 8.4 - 10.2 mg/dL AO ADM SS Chloride [Moles/Vol] 105 mmol/L Invalid Interpretation Code 98 - 107 mmol/L AO ADM SS CO2 [Moles/Vol] 29 mmol/L Invalid Interpretation Code 23 - 31 mmol/L AO ADM SS Creatinine [Mass/Vol] 1.17 mg/dL Invalid Interpretation Code 0.70 - 1.30 mg/dL AO ADM SS Electrolyte Balance 5.0 mEq/L Invalid Interpretation Code 4.0 - 15.0 mEq/L AO ADM SS Eosinophil, Absolute 0.6 103/mcL Invalid Interpretation Code 0.0 - 0.4 10^3/mcL AO Workflow SS Eosinophils/100 WBC (Bld) 8.4 % Invalid Interpretation Code 0.0 - 7.0 % AO Workflow SS Erythrocyte distribution width (RBC) [Ratio] 15.6 % Invalid Interpretation Code 11.5 - 14.5 % AO Workflow SS Globulin 2.9 G/dL Invalid Interpretation Code AO ADM SS Glucose [Mass/Vol] 99 mg/dL Invalid Interpretation Code 83 - 110 mg/dL AO ADM SS Hematocrit (Bld) [Volume fraction] 40.0 % Invalid Interpretation Code 42.0 - 52.0 % AO Workflow SS Hemoglobin (Bld) [Mass/Vol] 13.4 G/dL Invalid Interpretation Code 14.0 - 18.0 G/dL AO Workflow SS Lymphocyte, Absolute 1.5 103/mcL Invalid Interpretation Code 0.8 - 3.9 10^3/mcL AO Workflow SS Lymphocytes/100 WBC (Bld) 20.8 % Invalid Interpretation Code 10.0 - 50.0 % AO Workflow SS MCH (RBC) [Entitic mass] 29.5 pg Invalid Interpretation Code 27.0 - 31.2 pg AO Workflow SS MCHC 33.4 G/dL Invalid Interpretation Code 31.8 - 35.4 G/dL AO Workflow SS MCV (RBC) [Entitic vol] 88.4 fL Invalid Interpretation Code 80.0 - 94.0 fL AO Workflow SS Monocyte, Absolute 0.7 103/mcL Invalid Interpretation Code 0.2 - 1.0 10^3/mcL AO Workflow SS Monocytes/100 WBC (Bld) 9.1 % Invalid Interpretation Code 1.7 - 13.0 % AO Workflow SS Neutrophil, Absolute 4.5 103/mcL Invalid Interpretation Code 2.9 - 6.2 10^3/mcL AO Workflow SS Neutrophils/100 WBC (Bld) 61.0 % Invalid Interpretation Code 37.0 - 80.0 % AO Workflow SS Platelet mean volume (Bld) [Entitic vol] 8.6 fL Invalid Interpretation Code 7.4 - 10.4 fL AO Workflow SS Platelets (Bld) [#/Vol] 231 103/mcL Invalid Interpretation Code 130 - 400 10^3/mcL AO Workflow SS Potassium [Moles/Vol] 3.9 mmol/L Invalid Interpretation Code 3.5 - 5.1 mmol/L AO ADM SS Protein [Mass/Vol] 6.5 G/dL Invalid Interpretation Code 6.4 - 8.2 G/dL AO ADM SS RBC (Bld) [#/Vol] 4.52 106/mcL Invalid Interpretation Code 4.04 - 6.13 10^6/mcL AO Workflow SS Sodium [Moles/Vol] 139 mmol/L Invalid Interpretation Code 136 - 145 mmol/L AO ADM SS TSH Qn 2.37 m[IU]/L Invalid Interpretation Code 0.36 - 3.74 mcIU/mL AO ADM SS Urea nitrogen [Mass/Vol] 13 mg/dL Invalid Interpretation Code 7 - 18 mg/dL AO ADM SS Urea nitrogen/Creatinine [Mass ratio] 11 ratio Invalid Interpretation Code 7 - 27 ratio AO ADM SS WBC 7.3 103/mcL Invalid Interpretation Code 4.6 - 10.8 10^3/mcL AO Workflow SS Prostate specific Ag [Mass/Vol] 6.18 ng/mL Invalid Interpretation Code 0.00 - 4.00 ng/mL AO ADM SS LABORATORYOrdered By: SYSTEM SYSTEM on 06-08-2022 GFR 74 ml/min/1.73sqm Invalid Interpretation Code AO Chemistry S GFR Non- 61 ml/min/1.73sqm Invalid Interpretation Code AO Chemistry S Monocyte distribution width Auto (Bld) [Entitic vol] Not Performed 1 *NA* (06/08/22 8:26 AM) Invalid Interpretation Code 0.00 - 20.00 AO Hematology S Comment on above: Result Comment: MDW testing performed only on adult ER patients between the ages of 18-89 years. LABORATORYOrdered By: Bruce Jordan on 11-30-2021 Calcium [Mass/Vol] 8.6 mg/dL Invalid Interpretation Code 8.4 - 10.2 mg/dL AO ADM SS Chloride [Moles/Vol] 109 mmol/L Invalid Interpretation Code 98 - 107 mmol/L AO ADM SS CO2 [Moles/Vol] 29 mmol/L Invalid Interpretation Code 23 - 31 mmol/L AO ADM SS Creatinine [Mass/Vol] 0.98 mg/dL Invalid Interpretation Code 0.70 - 1.30 mg/dL AO ADM SS Electrolyte Balance 9.0 mEq/L Invalid Interpretation Code AO ADM SS Glucose [Mass/Vol] 109 mg/dL Invalid Interpretation Code 83 - 110 mg/dL AO ADM SS Potassium [Moles/Vol] 4.4 mmol/L Invalid Interpretation Code 3.5 - 5.1 mmol/L AO ADM SS Sodium [Moles/Vol] 147 mmol/L Invalid Interpretation Code 136 - 145 mmol/L AO ADM SS Urea nitrogen [Mass/Vol] 18 mg/dL Invalid Interpretation Code 7 - 18 mg/dL AO ADM SS Urea nitrogen/Creatinine [Mass ratio] 18 ratio Invalid Interpretation Code 7 - 27 ratio AO ADM SS Prostate specific Ag [Mass/Vol] 8.69 ng/mL Invalid Interpretation Code 0.00 - 4.00 ng/mL AO ADM SS LABORATORYOrdered By: SYSTEM SYSTEM on 11-30-2021 GFR 91 ml/min/1.73sqm Invalid Interpretation Code AO Chemistry S GFR Non- 75 ml/min/1.73sqm Invalid Interpretation Code AO Chemistry S LABORATORYOrdered By: Mily Obrien on 10-23-2021 Basophil, Absolute 0.10 103/mcL Invalid Interpretation Code 0.00 - 0.19 10^3/mcL AO Auto Heme SS Basophils/100 WBC (Bld) 1.0 % Invalid Interpretation Code 0.0 - 2.5 % AO Auto Heme SS Calcium [Mass/Vol] 8.8 mg/dL Invalid Interpretation Code 8.4 - 10.2 mg/dL AO ADM SS Chloride [Moles/Vol] 106 mmol/L Invalid Interpretation Code 98 - 107 mmol/L AO ADM SS CO2 [Moles/Vol] 30 mmol/L Invalid Interpretation Code 23 - 31 mmol/L AO ADM SS Creatinine [Mass/Vol] 1.28 mg/dL Invalid Interpretation Code 0.70 - 1.30 mg/dL AO ADM SS Electrolyte Balance 9.0 mEq/L Invalid Interpretation Code AO ADM SS Eosinophil, Absolute 0.60 103/mcL Invalid Interpretation Code 0.00 - 0.40 10^3/mcL AO Auto Heme SS Eosinophils/100 WBC (Bld) 8.9 % Invalid Interpretation Code 0.0 - 7.0 % AO Auto Heme SS Erythrocyte distribution width (RBC) [Ratio] 15.4 % Invalid Interpretation Code 11.5 - 14.5 % AO Auto Heme SS Glucose [Mass/Vol] 128 mg/dL Invalid Interpretation Code 83 - 110 mg/dL AO ADM SS Hematocrit (Bld) [Volume fraction] 35.6 % Invalid Interpretation Code 42.0 - 52.0 % AO Auto Heme SS Hemoglobin (Bld) [Mass/Vol] 11.6 G/dL Invalid Interpretation Code 14.0 - 18.0 G/dL AO Auto Heme SS INR Coag (PPP) [Relative time] 1.3 {INR} Invalid Interpretation Code 0.9 - 1.2 ratio AO Coag SS Lymphocyte, Absolute 1.20 103/mcL Invalid Interpretation Code 0.77 - 3.85 10^3/mcL AO Auto Heme SS Lymphocytes/100 WBC (Bld) 18.3 % Invalid Interpretation Code 10.0 - 50.0 % AO Auto Heme SS MCH (RBC) [Entitic mass] 29.6 pg Invalid Interpretation Code 27.0 - 31.2 pg AO Auto Heme SS MCHC (RBC) [Mass/Vol] 32.6 G/dL Invalid Interpretation Code 31.8 - 35.4 G/dL AO Auto Heme SS MCV (RBC) [Entitic vol] 91.0 fL Invalid Interpretation Code 80.0 - 94.0 fL AO Auto Heme SS Monocyte, Absolute 0.60 103/mcL Invalid Interpretation Code 0.15 - 1.00 10^3/mcL AO Auto Heme SS Monocytes/100 WBC (Bld) 8.9 % Invalid Interpretation Code 1.7 - 13.0 % AO Auto Heme SS Neutrophil, Absolute 4.10 103/mcL Invalid Interpretation Code 2.85 - 6.16 10^3/mcL AO Auto Heme SS Neutrophils/100 WBC (Bld) 62.9 % Invalid Interpretation Code 37.0 - 80.0 % AO Auto Heme SS Platelet mean volume (Bld) [Entitic vol] 8.2 fL Invalid Interpretation Code 7.4 - 10.4 fL AO Auto Heme SS Platelets (Bld) [#/Vol] 395 103/mcL Invalid Interpretation Code 130 - 400 10^3/mcL AO Auto Heme SS Potassium [Moles/Vol] 4.2 mmol/L Invalid Interpretation Code 3.5 - 5.1 mmol/L AO ADM SS PT Coag (PPP) [Time] 14.7 s Invalid Interpretation Code 9.7 - 14.3 seconds AO Coag SS RBC (Bld) [#/Vol] 3.91 106/mcL Invalid Interpretation Code 4.04 - 6.13 10^6/mcL AO Auto Heme SS Sodium [Moles/Vol] 145 mmol/L Invalid Interpretation Code 136 - 145 mmol/L AO ADM SS Urea nitrogen [Mass/Vol] 9 mg/dL Invalid Interpretation Code 7 - 18 mg/dL AO ADM SS Urea nitrogen/Creatinine [Mass ratio] 7 ratio Invalid Interpretation Code 7 - 27 ratio AO ADM SS WBC (Bld) [#/Vol] 6.50 103/mcL Invalid Interpretation Code 4.60 - 10.80 10^3/mcL AO Auto Heme SS LABORATORYOrdered By: SYSTEM SYSTEM on 10-23-2021 GFR 67 ml/min/1.73sqm Invalid Interpretation Code AO Chemistry S GFR Non- 55 ml/min/1.73sqm Invalid Interpretation Code AO Chemistry S LABORATORYOrdered By: Bruce Jordan on 10-12-2021 Calcium [Mass/Vol] 8.9 mg/dL Invalid Interpretation Code 8.4 - 10.2 mg/dL AO ADM SS Chloride [Moles/Vol] 106 mmol/L Invalid Interpretation Code 98 - 107 mmol/L AO ADM SS CO2 [Moles/Vol] 28 mmol/L Invalid Interpretation Code 23 - 31 mmol/L AO ADM SS Creatinine [Mass/Vol] 1.16 mg/dL Invalid Interpretation Code 0.70 - 1.30 mg/dL AO ADM SS Electrolyte Balance 10.0 mEq/L Invalid Interpretation Code AO ADM SS Glucose [Mass/Vol] 98 mg/dL Invalid Interpretation Code 83 - 110 mg/dL AO ADM SS Natriuretic peptide.B prohormone N-Terminal [Mass/Vol] 446 pg/mL Invalid Interpretation Code 0 - 125 pg/mL AO ADM SS Potassium [Moles/Vol] 4.4 mmol/L Invalid Interpretation Code 3.5 - 5.1 mmol/L AO ADM SS Sodium [Moles/Vol] 144 mmol/L Invalid Interpretation Code 136 - 145 mmol/L AO ADM SS Urea nitrogen [Mass/Vol] 10 mg/dL Invalid Interpretation Code 7 - 18 mg/dL AO ADM SS Urea nitrogen/Creatinine [Mass ratio] 9 ratio Invalid Interpretation Code 7 - 27 ratio AO ADM SS LABORATORYOrdered By: [employer] SYSTEM on 11-16-2021 GFR 75 ml/min/1.73sqm Invalid Interpretation Code AO Chemistry S GFR Non- 62 ml/min/1.73sqm Invalid Interpretation Code AO Chemistry S LABORATORYOrdered By: Bruce Jordan on 10-04-2021 Calcium [Mass/Vol] 8.3 mg/dL Invalid Interpretation Code 8.4 - 10.2 mg/dL AO ADM SS Chloride [Moles/Vol] 107 mmol/L Invalid Interpretation Code 98 - 107 mmol/L AO ADM SS CO2 [Moles/Vol] 27 mmol/L Invalid Interpretation Code 23 - 31 mmol/L AO ADM SS Creatinine [Mass/Vol] 1.32 mg/dL Invalid Interpretation Code 0.70 - 1.30 mg/dL AO ADM SS Electrolyte Balance 8.0 mEq/L Invalid Interpretation Code AO ADM SS Glucose [Mass/Vol] 102 mg/dL Invalid Interpretation Code 83 - 110 mg/dL AO ADM SS Potassium [Moles/Vol] 4.3 mmol/L Invalid Interpretation Code 3.5 - 5.1 mmol/L AO ADM SS Sodium [Moles/Vol] 142 mmol/L Invalid Interpretation Code 136 - 145 mmol/L AO ADM SS Urea nitrogen [Mass/Vol] 10 mg/dL Invalid Interpretation Code 7 - 18 mg/dL AO ADM SS Urea nitrogen/Creatinine [Mass ratio] 8 ratio Invalid Interpretation Code 7 - 27 ratio AO ADM SS LABORATORYOrdered By: SYSTEM SYSTEM on 10-04-2021 GFR 65 ml/min/1.73sqm Invalid Interpretation Code AO Chemistry S GFR Non- 53 ml/min/1.73sqm Invalid Interpretation Code AO Chemistry S LABORATORYOrdered By: [employer] SYSTEM on 09-30-2021 Calcium [Mass/Vol] 8.6 mg/dL Invalid Interpretation Code 8.7 - 10.4 mg/dL AH ADM SS Chloride [Moles/Vol] 111 mmol/L Invalid Interpretation Code 98 - 110 mEq/L AH ADM SS CO2 [Moles/Vol] 28 mmol/L Invalid Interpretation Code 22 - 32 mEq/L AH ADM SS Creatinine [Mass/Vol] 1.47 mg/dL Invalid Interpretation Code 0.60 - 1.40 mg/dL AH ADM SS Electrolyte Balance 7.0 mEq/L Invalid Interpretation Code 4.0 - 15.0 mEq/L AH ADM SS GFR/1.73 sq M.predicted among blacks MDRD (S/P/Bld) [Vol rate/Area] 57 ml/min/1.73sqm Invalid Interpretation Code Chemistry S GFR/1.73 sq M.predicted among non-blacks MDRD (S/P/Bld) [Vol rate/Area] 47 ml/min/1.73sqm Invalid Interpretation Code Chemistry S Glucose [Mass/Vol] 106 mg/dL Invalid Interpretation Code 82 - 115 mg/dL ADM SS Potassium [Moles/Vol] 4.1 mmol/L Invalid Interpretation Code 3.5 - 5.0 mEq/L AH ADM SS Comment on above: Result Comment: Spec imen slightly hemolyzed. Sodium [Moles/Vol] 146 mmol/L Invalid Interpretation Code 136 - 145 mEq/L ADM SS Urea nitrogen [Mass/Vol] 18.0 mg/dL Invalid Interpretation Code 8.0 - 22.0 mg/dL ADM SS Urea nitrogen/Creatinine [Mass ratio] 12.2 ratio Invalid Interpretation Code 10.0 - 22.0 ratio ADM SS LABORATORYOrdered By: Humera Xavier on 09-26-2021 Glucose [Mass/Vol] 111 mg/dL Invalid Interpretation Code 82 - 115 mg/dL [facility] Glucose [Mass/Vol] 105 mg/dL Invalid Interpretation Code 82 - 115 mg/dL [facility] LABORATORYOrdered By: SYSTEM SYSTEM on 09-26-2021 Basophils (Bld) [#/Vol] 0.10 103/mcL Invalid Interpretation Code 0.00 - 0.27 10^3/mcL Remisol SS Basophils/100 WBC (Bld) 0.7 % Invalid Interpretation Code 0.0 - 2.5 % Remisol SS Eosinophils (Bld) [#/Vol] 0.50 103/mcL Invalid Interpretation Code 0.00 - 0.65 10^3/mcL Remisol SS Eosinophils/100 WBC (Bld) 5.9 % Invalid Interpretation Code 0.0 - 6.0 % AH Remisol SS Erythrocyte distribution width (RBC) [Ratio] 15.4 % Invalid Interpretation Code 11.5 - 15.5 % AH Remisol SS Hematocrit (Bld) [Volume fraction] 26.2 % Invalid Interpretation Code 40.0 - 52.0 % AH Remisol SS Hemoglobin (Bld) [Mass/Vol] 8.8 G/dL Invalid Interpretation Code 13.0 - 17.5 G/dL AH Remisol SS Lymphocytes (Bld) [#/Vol] 0.90 103/mcL Invalid Interpretation Code 0.90 - 4.32 10^3/mcL AH Remisol SS Lymphocytes/100 WBC (Bld) 11.2 % Invalid Interpretation Code 20.0 - 40.0 % AH Remisol SS MCH (RBC) [Entitic mass] 31.3 pg Invalid Interpretation Code 27.0 - 33.0 pg AH Remisol SS MCHC (RBC) [Mass/Vol] 33.6 G/dL Invalid Interpretation Code 32.0 - 36.0 G/dL AH Remisol SS MCV (RBC) [Entitic vol] 93.1 fL Invalid Interpretation Code 81.0 - 100.0 fL AH Remisol SS Monocytes (Bld) [#/Vol] 0.60 103/mcL Invalid Interpretation Code 0.09 - 1.40 10^3/mcL AH Remisol SS Monocytes/100 WBC (Bld) 6.9 % Invalid Interpretation Code 2.0 - 13.0 % AH Remisol SS Neutrophils (Bld) [#/Vol] 6.10 103/mcL Invalid Interpretation Code 2.25 - 8.10 10^3/mcL AH Remisol SS Neutrophils/100 WBC (Bld) 75.3 % Invalid Interpretation Code 50.0 - 75.0 % AH Remisol SS Platelet mean volume (Bld) [Entitic vol] 8.0 fL Invalid Interpretation Code 6.4 - 10.5 fL AH Remisol SS Platelets (Bld) [#/Vol] 354 103/mcL Invalid Interpretation Code 150 - 450 10^3/mcL AH Remisol SS RBC (Bld) [#/Vol] 2.81 106/mcL Invalid Interpretation Code 4.50 - 6.00 10^6/mcL AH Remisol SS WBC (Bld) [#/Vol] 8.10 103/mcL Invalid Interpretation Code 4.50 - 10.80 10^3/mcL AH Remisol SS LABORATORYOrdered By: Brandy Reece on 09-26-2021 INR Coag (PPP) [Relative time] 1.6 {INR} Invalid Interpretation Code AH Auto Coag SS PT Coag (PPP) [Time] 19.1 s Invalid Interpretation Code 9.0 - 14.8 seconds AH Auto Coag SS LABORATORYOrdered By: Pablo Ramirez on 09-25-2021 Blood Glucose Testing Reason Routine (09/25/21 9:10 PM) [facility] Glucose [Mass/Vol] 141 mg/dL Invalid Interpretation Code 82 - 115 mg/dL [facility] Blood Glucose Testing Reason Routine (09/25/21 4:32 PM) [facility] LABORATORYOrdered By: Aspen Maldonado on 09-25-2021 Blood Glucose Testing Reason Routine (09/25/21 11:30 AM) [facility] LABORATORYOrdered By: [employer] on 09-25-2021 Basophils (Bld) [#/Vol] 0.10 103/mcL Invalid Interpretation Code 0.00 - 0.27 10^3/mcL AH Remisol SS Basophils/100 WBC (Bld) 0.5 % Invalid Interpretation Code 0.0 - 2.5 % AH Remisol SS Eosinophils (Bld) [#/Vol] 0.60 103/mcL Invalid Interpretation Code 0.00 - 0.65 10^3/mcL AH Remisol SS Eosinophils/100 WBC (Bld) 6.1 % Invalid Interpretation Code 0.0 - 6.0 % AH Remisol SS Erythrocyte distribution width (RBC) [Ratio] 15.4 % Invalid Interpretation Code 11.5 - 15.5 % AH Remisol SS Hematocrit (Bld) [Volume fraction] 27.9 % Invalid Interpretation Code 40.0 - 52.0 % AH Remisol SS Hemoglobin (Bld) [Mass/Vol] 9.3 G/dL Invalid Interpretation Code 13.0 - 17.5 G/dL AH Remisol SS Lymphocytes (Bld) [#/Vol] 1.00 103/mcL Invalid Interpretation Code 0.90 - 4.32 10^3/mcL AH Remisol SS Lymphocytes/100 WBC (Bld) 9.7 % Invalid Interpretation Code 20.0 - 40.0 % AH Remisol SS MCH (RBC) [Entitic mass] 30.8 pg Invalid Interpretation Code 27.0 - 33.0 pg AH Remisol SS MCHC (RBC) [Mass/Vol] 33.3 G/dL Invalid Interpretation Code 32.0 - 36.0 G/dL AH Remisol SS MCV (RBC) [Entitic vol] 92.4 fL Invalid Interpretation Code 81.0 - 100.0 fL AH Remisol SS Monocytes (Bld) [#/Vol] 0.80 103/mcL Invalid Interpretation Code 0.09 - 1.40 10^3/mcL AH Remisol SS Monocytes/100 WBC (Bld) 7.3 % Invalid Interpretation Code 2.0 - 13.0 % AH Remisol SS Neutrophils (Bld) [#/Vol] 8.20 103/mcL Invalid Interpretation Code 2.25 - 8.10 10^3/mcL AH Remisol SS Neutrophils/100 WBC (Bld) 76.4 % Invalid Interpretation Code 50.0 - 75.0 % AH Remisol SS Platelet mean volume (Bld) [Entitic vol] 8.0 fL Invalid Interpretation Code 6.4 - 10.5 fL AH Remisol SS Platelets (Bld) [#/Vol] 384 103/mcL Invalid Interpretation Code 150 - 450 10^3/mcL AH Remisol SS RBC (Bld) [#/Vol] 3.02 106/mcL Invalid Interpretation Code 4.50 - 6.00 10^6/mcL AH Remisol SS WBC (Bld) [#/Vol] 10.70 103/mcL Invalid Interpretation Code 4.50 - 10.80 10^3/mcL AH Remisol SS LABORATORYOrdered By: Brandy Reece on 09-25-2021 INR Coag (PPP) [Relative time] 1.1 {INR} Invalid Interpretation Code AH Auto Coag SS PT Coag (PPP) [Time] 13.3 s Invalid Interpretation Code 9.0 - 14.8 seconds AH Auto Coag SS LABORATORYOrdered By: SYSTEM SYSTEM on 09-24-2021 Base excess Calc (BldMV) [Moles/Vol] 4.0 mEq/L Invalid Interpretation Code 4.0 - 15.0 mEq/L AH ADM SS Basophils (Bld) [#/Vol] 0.00 103/mcL Invalid Interpretation Code 0.00 - 0.27 10^3/mcL AH Remisol SS Basophils/100 WBC (Bld) 0.3 % Invalid Interpretation Code 0.0 - 2.5 % AH Remisol SS Calcium [Mass/Vol] 8.3 mg/dL Invalid Interpretation Code 8.4 - 10.1 mg/dL AH ADM SS Chloride [Moles/Vol] 110 mmol/L Invalid Interpretation Code 98 - 110 mEq/L AH ADM SS CO2 [Moles/Vol] 30 mmol/L Invalid Interpretation Code 22 - 32 mEq/L AH ADM SS Creatinine [Mass/Vol] 1.17 mg/dL Invalid Interpretation Code 0.60 - 1.40 mg/dL AH ADM SS Eosinophils (Bld) [#/Vol] 0.30 103/mcL Invalid Interpretation Code 0.00 - 0.65 10^3/mcL AH Remisol SS Eosinophils/100 WBC (Bld) 2.5 % Invalid Interpretation Code 0.0 - 6.0 % AH Remisol SS Erythrocyte distribution width (RBC) [Ratio] 15.4 % Invalid Interpretation Code 11.5 - 15.5 % AH Remisol SS GFR/1.73 sq M.predicted among blacks MDRD (S/P/Bld) [Vol rate/Area] ml/min/1.73sqm Invalid Interpretation Code AH ADM SS GFR/1.73 sq M.predicted among non-blacks MDRD (S/P/Bld) [Vol rate/Area] ml/min/1.73sqm Invalid Interpretation Code AH ADM SS Glucose [Mass/Vol] 138 mg/dL Invalid Interpretation Code 82 - 115 mg/dL AH ADM SS Hematocrit (Bld) [Volume fraction] 25.6 % Invalid Interpretation Code 40.0 - 52.0 % AH Remisol SS Hemoglobin (Bld) [Mass/Vol] 8.7 G/dL Invalid Interpretation Code 13.0 - 17.5 G/dL AH Remisol SS Lymphocytes (Bld) [#/Vol] 0.90 103/mcL Invalid Interpretation Code 0.90 - 4.32 10^3/mcL AH Remisol SS Lymphocytes/100 WBC (Bld) 8.0 % Invalid Interpretation Code 20.0 - 40.0 % AH Remisol SS MCH (RBC) [Entitic mass] 31.2 pg Invalid Interpretation Code 27.0 - 33.0 pg AH Remisol SS MCHC (RBC) [Mass/Vol] 34.0 G/dL Invalid Interpretation Code 32.0 - 36.0 G/dL AH Remisol SS MCV (RBC) [Entitic vol] 91.9 fL Invalid Interpretation Code 81.0 - 100.0 fL AH Remisol SS Monocytes (Bld) [#/Vol] 0.80 103/mcL Invalid Interpretation Code 0.09 - 1.40 10^3/mcL AH Remisol SS Monocytes/100 WBC (Bld) 6.9 % Invalid Interpretation Code 2.0 - 13.0 % AH Remisol SS Neutrophils (Bld) [#/Vol] 9.20 103/mcL Invalid Interpretation Code 2.25 - 8.10 10^3/mcL AH Remisol SS Neutrophils/100 WBC (Bld) 82.3 % Invalid Interpretation Code 50.0 - 75.0 % AH Remisol SS Platelet mean volume (Bld) [Entitic vol] 8.0 fL Invalid Interpretation Code 6.4 - 10.5 fL AH Remisol SS Platelets (Bld) [#/Vol] 320 103/mcL Invalid Interpretation Code 150 - 450 10^3/mcL AH Remisol SS Potassium [Moles/Vol] 3.6 mmol/L Invalid Interpretation Code 3.5 - 5.0 mEq/L AH ADM SS RBC (Bld) [#/Vol] 2.78 106/mcL Invalid Interpretation Code 4.50 - 6.00 10^6/mcL AH Remisol SS Sodium [Moles/Vol] 144 mmol/L Invalid Interpretation Code 136 - 145 mEq/L AH ADM SS Urea nitrogen [Mass/Vol] 25.0 mg/dL Invalid Interpretation Code 8.0 - 22.0 mg/dL AH ADM SS Urea nitrogen/Creatinine [Mass ratio] 21.4 ratio Invalid Interpretation Code 10.0 - 22.0 ratio AH ADM SS WBC (Bld) [#/Vol] 11.10 103/mcL Invalid Interpretation Code 4.50 - 10.80 10^3/mcL AH Remisol SS LABORATORYOrdered By: Mohini Mckenzie on 09-24-2021 INR Coag (PPP) [Relative time] 1.2 {INR} Invalid Interpretation Code AH Auto Coag SS PT Coag (PPP) [Time] 14.1 s Invalid Interpretation Code 9.0 - 14.8 seconds AH Auto Coag SS LABORATORYOrdered By: SYSTEM SYSTEM on 10-28-2021 Base excess Calc (BldMV) [Moles/Vol] 4.0 mEq/L Invalid Interpretation Code 4.0 - 15.0 mEq/L AH ADM SS Calcium [Mass/Vol] 8.7 mg/dL Invalid Interpretation Code 8.4 - 10.1 mg/dL AH ADM SS Chloride [Moles/Vol] 112 mmol/L Invalid Interpretation Code 98 - 110 mEq/L ADM SS CO2 [Moles/Vol] 29 mmol/L Invalid Interpretation Code 22 - 32 mEq/L ADM SS Creatinine [Mass/Vol] 1.31 mg/dL Invalid Interpretation Code 0.60 - 1.40 mg/dL AH ADM SS GFR/1.73 sq M.predicted among blacks MDRD (S/P/Bld) [Vol rate/Area] ml/min/1.73sqm Invalid Interpretation Code AH ADM SS GFR/1.73 sq M.predicted among non-blacks MDRD (S/P/Bld) [Vol rate/Area] 54 ml/min/1.73sqm Invalid Interpretation Code ADM SS Glucose [Mass/Vol] 128 mg/dL Invalid Interpretation Code 82 - 115 mg/dL ADM SS Potassium [Moles/Vol] 4.0 mmol/L Invalid Interpretation Code 3.5 - 5.0 mEq/L ADM SS Sodium [Moles/Vol] 145 mmol/L Invalid Interpretation Code 136 - 145 mEq/L ADM SS Urea nitrogen [Mass/Vol] 29.0 mg/dL Invalid Interpretation Code 8.0 - 22.0 mg/dL ADM SS Urea nitrogen/Creatinine [Mass ratio] 22.1 ratio Invalid Interpretation Code 10.0 - 22.0 ratio AH ADM SS LABORATORYOrdered By: SYSTEM SYSTEM on 09-22-2021 Base excess Calc (BldMV) [Moles/Vol] 4.0 mEq/L Invalid Interpretation Code 4.0 - 15.0 mEq/L ADM SS Calcium [Mass/Vol] 8.8 mg/dL Invalid Interpretation Code 8.4 - 10.1 mg/dL ADM SS Chloride [Moles/Vol] 110 mmol/L Invalid Interpretation Code 98 - 110 mEq/L ADM SS CO2 [Moles/Vol] 29 mmol/L Invalid Interpretation Code 22 - 32 mEq/L ADM SS Creatinine [Mass/Vol] 1.32 mg/dL Invalid Interpretation Code 0.60 - 1.40 mg/dL AH ADM SS GFR/1.73 sq M.predicted among blacks MDRD (S/P/Bld) [Vol rate/Area] ml/min/1.73sqm Invalid Interpretation Code AH ADM SS GFR/1.73 sq M.predicted among non-blacks MDRD (S/P/Bld) [Vol rate/Area] 53 ml/min/1.73sqm Invalid Interpretation Code AH ADM SS Glucose [Mass/Vol] 137 mg/dL Invalid Interpretation Code 82 - 115 mg/dL AH ADM SS Potassium [Moles/Vol] 4.3 mmol/L Invalid Interpretation Code 3.5 - 5.0 mEq/L AH ADM SS Sodium [Moles/Vol] 143 mmol/L Invalid Interpretation Code 136 - 145 mEq/L AH ADM SS Urea nitrogen [Mass/Vol] 32.0 mg/dL Invalid Interpretation Code 8.0 - 22.0 mg/dL AH ADM SS Urea nitrogen/Creatinine [Mass ratio] 24.2 ratio Invalid Interpretation Code 10.0 - 22.0 ratio AH ADM SS LABORATORYOrdered By: Cathryn Akers on 09-21-2021 Hemoglobin.gastrointe stinal 8th specimen Ql (Stl) Positive *ABN* (09/21/21 1:32 PM) Invalid Interpretation Code Negative AH Manual Urine SS LABORATORYOrdered By: Marleen Mcdonald on 09-20-2021 Blood Glucose Interventions Administered agent to decrease blood sugar (09/20/21 11:00 AM) [facility] LABORATORYOrdered By: Fely Payton on 09-20-2021 ABO and Rh group Nom (Bld) Blood group O Rh(D) positive Invalid Interpretation Code AH BB Auto SS Blood group antibody screen Ql NEG (09/20/21 10:14 AM) Invalid Interpretation Code AH BB Auto SS RBC Product Ready RBC Ready for Pickup (09/20/21 9:28 AM) Invalid Interpretation Code AH BB Manual SS LABORATORYOrdered By: Patreon SYSTEM on 09-18-2021 Albumin [Mass/Vol] 3.3 G/dL Invalid Interpretation Code 3.2 - 4.8 G/dL AH ADM SS Albumin/Globulin [Mass ratio] 1.5 {ratio} Invalid Interpretation Code 0.9 - 1.6 ratio AH ADM SS ALP [Catalytic activity/Vol] 41 U/L Invalid Interpretation Code 38 - 126 U/L ADM SS ALT [Catalytic activity/Vol] 26 U/L Invalid Interpretation Code 12 - 55 U/L ADM SS AST [Catalytic activity/Vol] 22 U/L Invalid Interpretation Code 8 - 34 U/L ADM SS Bilirubin [Mass/Vol] 0.3 mg/dL Invalid Interpretation Code 0.2 - 1.2 mg/dL ADM SS Globulin (S) [Mass/Vol] 2.2 G/dL Invalid Interpretation Code 1.5 - 3.8 G/dL ADM SS Protein [Mass/Vol] 5.5 G/dL Invalid Interpretation Code 6.0 - 8.5 G/dL ADM SS LABORATORYOrdered By: Lavern Savage on 09-18-2021 Barometric Pressure 711 mm[Hg] Invalid Interpretation Code Auto Chem SS Base excess Calc (Bld) [Moles/Vol] 2.0 mmol/L Invalid Interpretation Code Auto Chem SS CO2 (Bld) [Partial pressure] 38.2 mm[Hg] Invalid Interpretation Code 32.0 - 46.0 mm Hg AH Auto Chem SS CO2 [Moles/Vol] 27.2 mmol/L Invalid Interpretation Code 22.0 - 30.0 mmol/L AH Auto Chem SS HCO3 (Bld) [Moles/Vol] 26.0 mmol/L Invalid Interpretation Code 21.0 - 29.0 mmol/L AH Auto Chem SS Oxygen (Bld) [Partial pressure] 114.6 mm[Hg] Invalid Interpretation Code 74.0 - 108.0 mm Hg AH Auto Chem SS pH (Bld) 7.451 [pH] Invalid Interpretation Code 7.380 - 7.460 Auto Chem SS LABORATORYOrdered By: Bambi Farr on 09-17-2021 Barometric Pressure 732 mm[Hg] Invalid Interpretation Code AH Auto Chem SS Base excess Calc (Bld) [Moles/Vol] 1.6 mmol/L Invalid Interpretation Code AH Auto Chem SS CO2 (Bld) [Partial pressure] 41.4 mm[Hg] Invalid Interpretation Code 32.0 - 46.0 mm Hg AH Auto Chem SS CO2 [Moles/Vol] 27.5 mmol/L Invalid Interpretation Code 22.0 - 30.0 mmol/L AH Auto Chem SS HCO3 (Bld) [Moles/Vol] 26.3 mmol/L Invalid Interpretation Code 21.0 - 29.0 mmol/L AH Auto Chem SS Oxygen (Bld) [Partial pressure] 103.1 mm[Hg] Invalid Interpretation Code 74.0 - 108.0 mm Hg AH Auto Chem SS pH (Bld) 7.420 [pH] Invalid Interpretation Code 7.380 - 7.460 AH Auto Chem SS Barometric Pressure 712 mm[Hg] Invalid Interpretation Code AH Auto Chem SS Base excess Calc (Bld) [Moles/Vol] 1.8 mmol/L Invalid Interpretation Code AH Auto Chem SS CO2 (Bld) [Partial pressure] 38.3 mm[Hg] Invalid Interpretation Code 32.0 - 46.0 mm Hg AH Auto Chem SS CO2 [Moles/Vol] 27.1 mmol/L Invalid Interpretation Code 22.0 - 30.0 mmol/L AH Auto Chem SS HCO3 (Bld) [Moles/Vol] 25.9 mmol/L Invalid Interpretation Code 21.0 - 29.0 mmol/L AH Auto Chem SS Oxygen (Bld) [Partial pressure] 111.4 mm[Hg] Invalid Interpretation Code 74.0 - 108.0 mm Hg AH Auto Chem SS pH (Bld) 7.448 [pH] Invalid Interpretation Code 7.380 - 7.460 AH Auto Chem SS LABORATORYOrdered By: Marleen Mcdonald on 09-17-2021 Blood Glucose Interventions Administered agent to decrease blood sugar (09/17/21 6:00 PM) [facility] Blood Glucose Interventions Administered agent to decrease blood sugar (09/17/21 4:00 PM) [facility] LABORATORYOrdered By: Jairo Pedro on 09-17-2021 aPTT Coag (PPP) [Time] 27.7 s Invalid Interpretation Code 25.0 - 35.0 seconds AH Auto Coag SS Fibrinogen Coag (PPP) [Mass/Vol] 374 mg/dL Invalid Interpretation Code 250 - 550 mg/dL AH Auto Coag SS Heparin dose (APTT) None Invalid Interpretation Code AH Auto Coag SS LABORATORYOrdered By: Sue Ayon on 09-17-2021 Calcium.ionized (Bld) [Mass/Vol] 1.17 mmol/L Invalid Interpretation Code 1.12 - 1.32 mmol/L AH Auto Chem SS LABORATORYOrdered By: SYSTEM SYSTEM on 09-17-2021 Magnesium [Mass/Vol] 3.0 mg/dL Invalid Interpretation Code 1.6 - 2.4 mg/dL ADM SS Phosphate [Mass/Vol] 2.6 mg/dL Invalid Interpretation Code 2.4 - 5.1 mg/dL ADM SS Base excess Calc (Bld) [Moles/Vol] -0.5000 mmol/L Invalid Interpretation Code Rapid Comm SS Calcium.ionized (Bld) [Mass/Vol] 1.22 mmol/L Invalid Interpretation Code 1.12 - 1.32 mmol/L Rapid Comm SS Chloride [Moles/Vol] 101 mmol/L Invalid Interpretation Code 98 - 110 mEq/L Rapid Comm SS CO2 (Bld) [Partial pressure] 36.5 mm[Hg] Invalid Interpretation Code 32.0 - 46.0 mm Hg Rapid Comm SS CO2 [Moles/Vol] 24.6 mmol/L Invalid Interpretation Code 22.0 - 30.0 mmol/L Rapid Comm SS Glucose [Mass/Vol] 180 mg/dL Invalid Interpretation Code 82 - 115 mg/dL Rapid Comm SS HCO3 (Bld) [Moles/Vol] 23.5 mmol/L Invalid Interpretation Code 21.0 - 29.0 mmol/L Rapid Comm SS Hematocrit (Bld) [Volume fraction] 33.0 % Invalid Interpretation Code 42.0 - 52.0 % Rapid Comm SS Hemoglobin (Bld) [Mass/Vol] 11.2 G/dL Invalid Interpretation Code 13.0 - 17.5 G/dL Rapid Comm SS Oxygen (Bld) [Partial pressure] 81.4 mm[Hg] Invalid Interpretation Code 74.0 - 108.0 mm Hg Rapid Comm SS pH (Bld) 7.427 [pH] Invalid Interpretation Code 7.380 - 7.460 Rapid Comm SS Potassium [Moles/Vol] 4.2 mmol/L Invalid Interpretation Code 3.5 - 5.0 mEq/L Rapid Comm SS Sodium [Moles/Vol] 132 mmol/L Invalid Interpretation Code 136 - 145 mEq/L Rapid Comm SS Base excess Calc (Bld) [Moles/Vol] 0.4 mmol/L Invalid Interpretation Code Rapid Comm SS Calcium.ionized (Bld) [Mass/Vol] 1.03 mmol/L Invalid Interpretation Code 1.12 - 1.32 mmol/L Rapid Comm SS Chloride [Moles/Vol] 99 mmol/L Invalid Interpretation Code 98 - 110 mEq/L Rapid Comm SS CO2 (Bld) [Partial pressure] 36.6 mm[Hg] Invalid Interpretation Code 32.0 - 46.0 mm Hg Rapid Comm SS CO2 [Moles/Vol] 25.5 mmol/L Invalid Interpretation Code 22.0 - 30.0 mmol/L Rapid Comm SS Glucose [Mass/Vol] 194 mg/dL Invalid Interpretation Code 82 - 115 mg/dL Rapid Comm SS HCO3 (Bld) [Moles/Vol] 24.4 mmol/L Invalid Interpretation Code 21.0 - 29.0 mmol/L Rapid Comm SS Hematocrit (Bld) [Volume fraction] 30.0 % Invalid Interpretation Code 42.0 - 52.0 % Rapid Comm SS Hemoglobin (Bld) [Mass/Vol] 10.2 G/dL Invalid Interpretation Code 13.0 - 17.5 G/dL Rapid Comm SS Oxygen (Bld) [Partial pressure] 379.5 mm[Hg] Invalid Interpretation Code 74.0 - 108.0 mm Hg Rapid Comm SS pH (Bld) 7.441 [pH] Invalid Interpretation Code 7.380 - 7.460 Rapid Comm SS Potassium [Moles/Vol] 5.0 mmol/L Invalid Interpretation Code 3.5 - 5.0 mEq/L Rapid Comm SS Sodium [Moles/Vol] 133 mmol/L Invalid Interpretation Code 136 - 145 mEq/L Rapid Comm SS Base excess Calc (Bld) [Moles/Vol] 1.1 mmol/L Invalid Interpretation Code Rapid Comm SS Calcium.ionized (Bld) [Mass/Vol] 1.04 mmol/L Invalid Interpretation Code 1.12 - 1.32 mmol/L Rapid Comm SS Chloride [Moles/Vol] 99 mmol/L Invalid Interpretation Code 98 - 110 mEq/L Rapid Comm SS CO2 (Bld) [Partial pressure] 33.8 mm[Hg] Invalid Interpretation Code 32.0 - 46.0 mm Hg Rapid Comm SS CO2 [Moles/Vol] 25.4 mmol/L Invalid Interpretation Code 22.0 - 30.0 mmol/L Rapid Comm SS Glucose [Mass/Vol] 181 mg/dL Invalid Interpretation Code 82 - 115 mg/dL Rapid Comm SS HCO3 (Bld) [Moles/Vol] 24.4 mmol/L Invalid Interpretation Code 21.0 - 29.0 mmol/L Rapid Comm SS Hematocrit (Bld) [Volume fraction] 31.0 % Invalid Interpretation Code 42.0 - 52.0 % Rapid Comm SS Hemoglobin (Bld) [Mass/Vol] 10.4 G/dL Invalid Interpretation Code 13.0 - 17.5 G/dL Rapid Comm SS Oxygen (Bld) [Partial pressure] 257.3 mm[Hg] Invalid Interpretation Code 74.0 - 108.0 mm Hg Rapid Comm SS pH (Bld) 7.476 [pH] Invalid Interpretation Code 7.380 - 7.460 Rapid Comm SS Potassium [Moles/Vol] 4.9 mmol/L Invalid Interpretation Code 3.5 - 5.0 mEq/L Rapid Comm SS Sodium [Moles/Vol] 130 mmol/L Invalid Interpretation Code 136 - 145 mEq/L Rapid Comm SS Magnesium [Mass/Vol] 2.4 mg/dL Invalid Interpretation Code 1.6 - 2.4 mg/dL ADM SS LABORATORYOrdered By: Lo Leger on 09-17-2021 Platelet Product Ready Platelet Ready for Pickup (09/17/21 5:38 AM) Invalid Interpretation Code BB Manual SS LABORATORYOrdered By: Brandy Reece on 09-17-2021 aPTT Coag (PPP) [Time] 41.9 s Invalid Interpretation Code 25.0 - 35.0 seconds Auto Coag SS Heparin dose (APTT) Heparin IV (09/17/21 5:16 AM) Invalid Interpretation Code AH Auto Coag SS LABORATORYOrdered By: Nirav Wang on 09-16-2021 RBC Product Ready RBC Ready for Pickup (09/16/21 2:00 PM) Invalid Interpretation Code BB Manual SS LABORATORYOrdered By: Brandy Reece on 09-16-2021 aPTT Coag (PPP) [Time] 61.6 s Invalid Interpretation Code 25.0 - 35.0 seconds AH Auto Coag SS Heparin dose (APTT) Heparin IV (09/16/21 4:20 AM) Invalid Interpretation Code AH Auto Coag SS LABORATORYOrdered By: Patreon SYSTEM on 09-16-2021 Magnesium [Mass/Vol] 2.2 mg/dL Invalid Interpretation Code 1.6 - 2.4 mg/dL ADM SS LABORATORYOrdered By: mOari Bautista on 09-15-2021 ABO and Rh group Nom (Bld) Blood group O Rh(D) positive Invalid Interpretation Code AH BB Auto SS Blood group antibody screen Ql NEG (09/15/21 10:46 AM) Invalid Interpretation Code AH BB Auto SS LABORATORYOrdered By: Yaquelin Perez on 09-15-2021 RBC Product Ready RBC Ready for Pickup (09/15/21 9:34 AM) Invalid Interpretation Code AH BB Manual SS LABORATORYOrdered By: Lo Leger on 09-10-2021 Platelet Product Ready Platelet Ready for Pickup (09/10/21 5:09 AM) Invalid Interpretation Code AH BB Manual SS LABORATORYOrdered By: Nirav Wang on 09-09-2021 ABO and Rh group Nom (Bld) Blood group O Rh(D) positive Invalid Interpretation Code AH BB Auto SS Blood group antibody screen Ql NEG (09/09/21 4:48 PM) Invalid Interpretation Code AH BB Auto SS LABORATORYOrdered By: [employer] on 09-09-2021 Albumin BCP dye [Mass/Vol] 3.4 G/dL Invalid Interpretation Code 3.2 - 4.8 G/dL AH ADM SS Albumin/Globulin [Mass ratio] 1.2 {ratio} Invalid Interpretation Code 0.9 - 1.6 ratio AH ADM SS ALP [Catalytic activity/Vol] 64 U/L Invalid Interpretation Code 38 - 126 U/L AH ADM SS ALT No additional P-5'-P [Catalytic activity/Vol] 27 U/L Invalid Interpretation Code 12 - 55 U/L AH ADM SS AST [Catalytic activity/Vol] 20 U/L Invalid Interpretation Code 8 - 34 U/L AH ADM SS Bilirubin [Mass/Vol] 0.40 mg/dL Invalid Interpretation Code 0.20 - 1.20 mg/dL AH ADM SS Globulin 2.8 G/dL Invalid Interpretation Code 1.5 - 3.8 G/dL AH ADM SS HbA1c (Bld) [Mass fraction] 6.0 % Invalid Interpretation Code 4.0 - 6.0 % AH Auto Chem SS Protein [Mass/Vol] 6.2 G/dL Invalid Interpretation Code 5.7 - 8.2 G/dL AH ADM SS TSH Qn 1.253 mIU/mL Invalid Interpretation Code 0.550 - 4.780 mIU/mL AH ADM SS LABORATORYOrdered By: Carmen Rush on 09-09-2021 Cholesterol [Mass/Vol] 191 mg/dL Invalid Interpretation Code 50 - 199 mg/dL AH ADM SS Cholesterol in HDL [Mass/Vol] 47 mg/dL Invalid Interpretation Code 40 - 59 mg/dL AH ADM SS Cholesterol in LDL [Mass/Vol] 104 mg/dL Invalid Interpretation Code 0 - 129 mg/dL AH ADM SS Triglyceride [Mass/Vol] 198 mg/dL Invalid Interpretation Code 3 - 149 mg/dL AH ADM SS LABORATORYOrdered By: Asad Andrade on 09-08-2021 Appearance (U) Lucretia *ABN* (09/08/21 4:53 PM) Invalid Interpretation Code Clear AH Auto Urine SS Bacteria LM.HPF (Urine sed) [#/Area] Trace /HPF Invalid Interpretation Code Negative/HPF AH Auto Urine SS Bilirubin Ql (U) Negative (09/08/21 4:53 PM) Invalid Interpretation Code Neg-Trace AH Auto Urine SS Color (U) Yellow (09/08/21 4:53 PM) Invalid Interpretation Code AH Auto Urine SS Crystals.amorphous LM.HPF (Urine sed) [#/Area] 1 /[HPF] Invalid Interpretation Code AH Auto Urine SS Glucose Test strip (U) [Mass/Vol] Negative Invalid Interpretation Code Negativemg/d L AH Auto Urine SS Hemoglobin Auto test strip (U) [Mass/Vol] Negative (09/08/21 4:53 PM) Invalid Interpretation Code Neg-Trace AH Auto Urine SS Ketones Ql (U) Negative Invalid Interpretation Code Neg-Tracemg/ dL AH Auto Urine SS UA Leuk Est Negative (09/08/21 4:53 PM) Invalid Interpretation Code Negative AH Auto Urine SS UA Nitrite Negative (09/08/21 4:53 PM) Invalid Interpretation Code Negative AH Auto Urine SS UA pH >=8.5 *ABN* (09/08/21 4:53 PM) Invalid Interpretation Code 5.0 - 8.0 AH Auto Urine SS UA Protein Trace mg/dL Invalid Interpretation Code Negativemg/d L AH Auto Urine SS UA RBC Rare /HPF Invalid Interpretation Code 0-2/HPF AH Auto Urine SS UA Spec Grav >=1.030 *ABN* (09/08/21 4:53 PM) Invalid Interpretation Code 1.006-1.029 AH Auto Urine SS UA Specimen Type Clean Catch (09/08/21 4:53 PM) Invalid Interpretation Code AH Auto Urine SS UA Squam Epithelial Negative Invalid Interpretation Code 0-20/HPF AH Auto Urine SS UA Urobilinogen 0.2 E.U./dL Invalid Interpretation Code 0.2-1.0E.U./ dL AH Auto Urine SS WBC LM.HPF (Urine sed) [#/Area] Rare /HPF Invalid Interpretation Code 0-5/HPF AH Auto Urine SS LABORATORYOrdered By: Xochitl Prieto on 09-08-2021 Date of Onset [id number] Invalid Interpretation Code AH Auto Viro/Sero SS Employed in Healthcare No (09/08/21 4:53 PM) Invalid Interpretation Code AH Auto Viro/Sero SS First Test Yes (09/08/21 4:53 PM) Invalid Interpretation Code AH Auto Viro/Sero SS Hospitalized Yes (09/08/21 4:53 PM) Invalid Interpretation Code AH Auto Viro/Sero SS ICU No (09/08/21 4:53 PM) Invalid Interpretation Code AH Auto Viro/Sero SS Not (09/08/21 4:53 PM) Invalid Interpretation Code AH Auto Viro/Sero SS Resides in Congregate Care Setting No (09/08/21 4:53 PM) Invalid Interpretation Code AH Auto Viro/Sero SS SARS-CoV-2 (COVID-19) RNA LUTHER+probe Ql (Unsp spec) Negative 1 (09/08/21 4:53 PM) Invalid Interpretation Code Negative AH Auto Viro/Sero SS Comment on above: Result Comment: Note s [id number] Symptomatic as Defined by CDC No (09/08/21 4:53 PM) Invalid Interpretation Code AH Auto Viro/Sero SS LABORATORYOrdered By: Georgina Ramos on 09-06-2021 Basophil, Absolute 0.00 103/mcL Invalid Interpretation Code 0.00 - 0.19 10^3/mcL AO Auto Heme SS Basophils/100 WBC (Bld) 0.5 % Invalid Interpretation Code 0.0 - 2.5 % AO Auto Heme SS Eosinophil, Absolute 0.30 103/mcL Invalid Interpretation Code 0.00 - 0.40 10^3/mcL AO Auto Heme SS Eosinophils/100 WBC (Bld) 3.7 % Invalid Interpretation Code 0.0 - 7.0 % AO Auto Heme SS Erythrocyte distribution width (RBC) [Ratio] 14.5 % Invalid Interpretation Code 11.5 - 14.5 % AO Auto Heme SS Hematocrit (Bld) [Volume fraction] 39.6 % Invalid Interpretation Code 42.0 - 52.0 % AO Auto Heme SS Hemoglobin (Bld) [Mass/Vol] 13.6 G/dL Invalid Interpretation Code 14.0 - 18.0 G/dL AO Auto Heme SS Lymphocyte, Absolute 1.50 103/mcL Invalid Interpretation Code 0.77 - 3.85 10^3/mcL AO Auto Heme SS Lymphocytes/100 WBC (Bld) 21.6 % Invalid Interpretation Code 10.0 - 50.0 % AO Auto Heme SS MCH (RBC) [Entitic mass] 32.2 pg Invalid Interpretation Code 27.0 - 31.2 pg AO Auto Heme SS MCHC (RBC) [Mass/Vol] 34.3 G/dL Invalid Interpretation Code 31.8 - 35.4 G/dL AO Auto Heme SS MCV (RBC) [Entitic vol] 93.8 fL Invalid Interpretation Code 80.0 - 94.0 fL AO Auto Heme SS Monocyte, Absolute 0.60 103/mcL Invalid Interpretation Code 0.15 - 1.00 10^3/mcL AO Auto Heme SS Monocytes/100 WBC (Bld) 8.6 % Invalid Interpretation Code 1.7 - 13.0 % AO Auto Heme SS Neutrophil, Absolute 4.50 103/mcL Invalid Interpretation Code 2.85 - 6.16 10^3/mcL AO Auto Heme SS Neutrophils/100 WBC (Bld) 65.6 % Invalid Interpretation Code 37.0 - 80.0 % AO Auto Heme SS Platelet mean volume (Bld) [Entitic vol] 8.6 fL Invalid Interpretation Code 7.4 - 10.4 fL AO Auto Heme SS Platelets (Bld) [#/Vol] 273 103/mcL Invalid Interpretation Code 130 - 400 10^3/mcL AO Auto Heme SS RBC (Bld) [#/Vol] 4.22 106/mcL Invalid Interpretation Code 4.04 - 6.13 10^6/mcL AO Auto Heme SS WBC (Bld) [#/Vol] 6.80 103/mcL Invalid Interpretation Code 4.60 - 10.80 10^3/mcL AO Auto Heme SS LABORATORYOrdered By: Bruce Jordan on 09-06-2021 Calcium [Mass/Vol] 8.7 mg/dL Invalid Interpretation Code 8.4 - 10.2 mg/dL AO ADM SS Chloride [Moles/Vol] 104 mmol/L Invalid Interpretation Code 98 - 107 mmol/L AO ADM SS CO2 [Moles/Vol] 31 mmol/L Invalid Interpretation Code 23 - 31 mmol/L AO ADM SS Creatinine [Mass/Vol] 1.26 mg/dL Invalid Interpretation Code 0.70 - 1.30 mg/dL AO ADM SS Electrolyte Balance 8.0 mEq/L Invalid Interpretation Code AO ADM SS Glucose [Mass/Vol] 112 mg/dL Invalid Interpretation Code 83 - 110 mg/dL AO ADM SS INR Coag (PPP) [Relative time] 0.9 {INR} Invalid Interpretation Code 0.9 - 1.2 ratio AO Coag SS Potassium [Moles/Vol] 3.9 mmol/L Invalid Interpretation Code 3.5 - 5.1 mmol/L AO ADM SS PT Coag (PPP) [Time] 10.3 s Invalid Interpretation Code 9.7 - 14.3 seconds AO Coag SS Sodium [Moles/Vol] 143 mmol/L Invalid Interpretation Code 136 - 145 mmol/L AO ADM SS Urea nitrogen [Mass/Vol] 14 mg/dL Invalid Interpretation Code 7 - 18 mg/dL AO ADM SS Urea nitrogen/Creatinine [Mass ratio] 11 ratio Invalid Interpretation Code 7 - 27 ratio AO ADM SS LABORATORYOrdered By: SYSTEM SYSTEM on 09-06-2021 GFR 68 ml/min/1.73sqm Invalid Interpretation Code AO Chemistry S GFR Non- 56 ml/min/1.73sqm Invalid Interpretation Code AO Chemistry S MRI PELVIS W/WO CONTRASTon 1 12-26-2017 MRI PELVIS W/WO CONTRAST Performed at [facility] APPROVED BY: Matheus Chawla MD MRI PELVIS WITHOUT AND WITH CONTRAST (MULTIPARAMETRIC PROSTATE MRI): ... CLINICAL HISTORY: 67-year-old man with elevated PSA.Previous biopsy: 07/2018. PSA: Not known.Prior therapy: None. COMPARISON: None TECHNIQUE: Multiparametric MRI of the prostate and pelvis performed on a 3T ([employer]) scanner utilizing phase pelvic coil. Sequences obtained: Sagittal, axial and coronal high resolution T2-WI with small [id number];Axial diffusion weighted images with multiple B-values and creation of ADC-maps;Dynamic contrast enhanced T1-weighted images through the prostate were also obtained before, during and after the administration of intravenous gadolinium. Subsequently, larger field of view 3D T1 weighted axial images were obtained through the pelvis.Prostate dimension, volume and pharmacokinetics were obtained using a semi-automated software ([employer]). CONTRAST: IV: 18 cc of Gadolinium contrast media (Dotare[employer]). RESULT: Prostate: Dimensions: 6.2 x 6.0 x 5.2 cm corresponding to a volume of approximately 82.5 cc. Peripheral zone: No focal lesions to suggest clinically significant neoplasm. Slight scarring noted in the left posterior peripheral zone at the base. PIRADS 2 Transition zone: Hypertrophic nodularity of the transition zone impressing into the bladder base. No radiographic evidence to suggest clinically significant prostate neoplasm.PIRADS 2 Central zone: No significant additional findings. Neurovascular bundle: Intact. Seminal vesicles: Intact. Adjacent Organ Involvement: None.. Lymphadenopathy: No pelvic lymphadenopathy. Other Findings: None. IMPRESSIO N: No radiographic findings to suggest clinically significant prostate neoplasm. No lesions targeted for fusion biopsy. Number of targets created for MR/US fusion biopsy: Peripheral zone: 0Transition zone: 0Central zone: 0 Targets were numbered in order of level of suspicion for clinically significant prostate cancer ([place] score 3 + 4 or higher). PI-RADS assessment categories:PI-RADS 1: Clinically significant cancer is highly unlikelyPI-RADS 2: Clinically significant cancer is unlikelyPI-RADS 3: Clinically significant cancer is equivocalPI-RADS 4: Clinically significant cancer is likelyPI-RADS 5: Clinically significant cancer is highly likely (V.) Normal [facility] No Panel Information [facility] Vital Signs Date Time Vital Sign Value Performing Clinician Facility 09-06-2024 12:25-0400 Body temperature 98.06 [degF] MOHINI RIVERA DIRECTOR OF [employer]lexpo [facility] 09-06-2024 12:25-0400 Diastolic Blood Pressure Non-Invasive 79 mm[Hg] MOHINI RIVERA DIRECTOR OF BANDS-ADMIN ASSISTANT [facility] 09-06-2024 12:25-0400 Heart rate 76 /min MOHINI RIVERA DIRECTOR OF [employer] [facility] 09-06-2024 12:25-0400 Reason For Taking VItal Signs MOHINI RIVERA DIRECTOR OF BANDS-ADMIN ASSISTANT [facility] 09-06-2024 12:25-0400 Respiratory rate 18 /min MOHINI RIVERA DIRECTOR OF BANDS-ADMIN ASSISTANT [facility] 09-06-2024 12:25-0400 Systolic Blood Pressure Non-Invasive 156 mm[Hg] MOHINI RIVERA DIRECTOR OF BANDS-ADMIN ASSISTANT [facility] 09-06-2024 06:54-0400 Body temperature 98.06 [degF] MOHINI RIVERA DIRECTOR OF BANDS-ADMIN ASSISTANT [facility] 09-06-2024 06:54-0400 Diastolic Blood Pressure Non-Invasive 84 mm[Hg] MOHINI RIVERA DIRECTOR OF BANDS-ADMIN ASSISTANT [facility] 09-06-2024 06:54-0400 Heart rate 61 /min MOHINI RIVERA DIRECTOR OF BANDS-ADMIN ASSISTANT [facility] 09-06-2024 06:54-0400 Reason For Taking VItal Signs MOHINI RIVERA DIRECTOR OF BANDS-ADMIN ASSISTANT [facility] 09-06-2024 06:54-0400 Respiratory rate 18 /min MOHINI RIVERA DIRECTOR OF BANDS-ADMIN ASSISTANT [facility] 09-06-2024 06:54-0400 Systolic Blood Pressure Non-Invasive 181 mm[Hg] MOHINI RIVERA DIRECTOR OF BANDS-ADMIN ASSISTANT [facility] 09-06-2024 03:01-0400 Body temperature 98.06 [degF] MOHINI RIVERA DIRECTOR OF BANDS-ADMIN ASSISTANT [facility] 09-06-2024 03:01-0400 Diastolic Blood Pressure Non-Invasive 79 mm[Hg] MOHINI MIGUEL DIRECTOR OF BANDS-ADMIN ASSISTANT [facility] 09-06-2024 03:01-0400 Heart rate 65 /min MOHINI RIVERA DIRECTOR OF BANDS-ADMIN ASSISTANT [facility] 09-06-2024 03:01-0400 Reason For Taking VItal Signs MOHINI RIVERA DIRECTOR OF BANDS-ADMIN ASSISTANT [facility] 09-06-2024 03:01-0400 Respiratory rate 18 /min MOHINI RIVERA DIRECTOR OF BANDS-ADMIN ASSISTANT [facility] 09-06-2024 03:01-0400 Systolic Blood Pressure Non-Invasive 170 mm[Hg] MOHINI RIVERA DIRECTOR OF BANDS-ADMIN ASSISTANT [facility] 09-05-2024 20:57-0400 Blood Pressure Location MOHINI RIVERA DIRECTOR OF BANDS-ADMIN ASSISTANT [facility] 09-05-2024 20:57-0400 Blood Pressure Method MOHINI RIVERA DIRECTOR OF BANDS-ADMIN ASSISTANT [facility] 09-05-2024 20:50-0400 Blood Pressure Location MOHINI RIVERA DIRECTOR OF BANDS-ADMIN ASSISTANT [facility] 09-05-2024 20:50-0400 Blood Pressure Method MOHINI RIVERA DIRECTOR OF BANDS-ADMIN ASSISTANT [facility] 09-05-2024 19:13-0400 Heart rate 73 /min MOHINI RIVERA DIRECTOR OF BANDS-ADMIN ASSISTANT [facility] 09-05-2024 17:10-0400 Heart rate 75 /min MOHINI RIVERA DIRECTOR OF BANDS-ADMIN ASSISTANT [facility] 09-05-2024 11:35-0400 Heart rate 68 /min MOHINI RIVERA DIRECTOR OF BANDS-ADMIN ASSISTANT [facility] 09-04-2024 23:49-0400 Body height 180.3 cm MOHINI RIVERA DIRECTOR OF BANDS-ADMIN ASSISTANT [facility] 09-04-2024 23:49-0400 Body weight 114.8 kg MOHINI RIVERA DIRECTOR OF BANDS-ADMIN ASSISTANT [facility] 09-04-2024 23:49-0400 Body weight 35.31 kg/m2 MOHINI RIVERA DIRECTOR OF BANDS-ADMIN ASSISTANT [facility] 09-04-2024 21:26-0400 SaO2% (BldA) [Mass fraction] 90.9 % MOHINI RIVERA DIRECTOR OF BANDS-ADMIN ASSISTANT [facility] 09-04-2024 20:59-0400 Body height 180.3 cm MOHINI RIVERA APRN-ADMIN ASSISTANT [facility] 09-04-2024 20:59-0400 Body weight 113.6 kg MOHINI RIVERA APRN-ADMIN ASSISTANT [facility] 02-26-2024 10:53-0400 Diastolic blood pressure 83 mm[Hg] Thais Porter MD Work Phone: [facility] 02-26-2024 10:53-0400 Heart rate 67 /min Thais Porter MD Work Phone: [facility] 02-26-2024 10:53-0400 Systolic blood pressure 165 mm[Hg] Thais Porter MD Work Phone: [facility] 11-02-2023 09:18-0500 Diastolic blood pressure 85 mm[Hg] Thais Porter MD Work Phone: [facility] 11-02-2023 09:18-0500 Heart rate 64 /min Thais Porter MD Work Phone: [facility] 11-02-2023 09:18-0500 Systolic blood pressure 163 mm[Hg] Thais Porter MD Work Phone: [facility] 06-12-2023 13:31-0400 Body height 182.9 cm Stacey Shea MD Work Phone: [facility] 04-06-2023 08:00-0400 Diastolic blood pressure 80 mm[Hg] Thais Porter MD Work Phone: [facility] 04-06-2023 08:00-0400 Heart rate 73 /min Thais Porter MD Work Phone: [facility] 04-06-2023 08:00-0400 Systolic blood pressure 173 mm[Hg] Thais Porter MD Work Phone: [facility] 12-12-2022 08:18-0500 Body height 182.9 cm Stacey Shea MD Work Phone: [facility] 12-12-2022 08:18-0500 Body weight 108.86 kg Stacey Shea MD Work Phone: [facility] 12-12-2022 08:18-0500 Diastolic blood pressure 76 mm[Hg] Stacey Shea MD Work Phone: [facility] 12-12-2022 08:18-0500 Systolic blood pressure 134 mm[Hg] Stacey Shea MD Work Phone: [facility] 09-26-2021 11:34-0400 Body temperature 97.52 [degF] OSCAR REYES MD [facility] 09-26-2021 11:34-0400 Diastolic Blood Pressure NBP 93 1 OSCAR REYES MD [facility] 09-26-2021 11:34-0400 Heart rate 75 /min OSCAR REYES MD [facility] 09-26-2021 11:34-0400 Mean blood pressure 101 mm[Hg] OSCAR REYES MD [facility] 09-26-2021 11:34-0400 Reason For Taking VItal Signs OSCAR REYES MD [facility] 09-26-2021 11:34-0400 Respiratory rate 18 /min OSCAR REYES MD [facility] 09-26-2021 11:34-0400 Systolic Blood Pressure NBP 125 1 OSCAR REYES MD [facility] 09-26-2021 07:00-0400 Body temperature 97.88 [degF] OSCAR REYES MD [facility] 09-26-2021 07:00-0400 Body weight 102.2 kg OSCAR REYES MD [facility] 09-26-2021 07:00-0400 Diastolic Blood Pressure NBP 78 1 OSCAR REYES MD [facility] 09-26-2021 07:00-0400 Heart rate 65 /min OSCAR REYES MD [facility] 09-26-2021 07:00-0400 Mean blood pressure 93 mm[Hg] OSCAR REYES MD [facility] 09-26-2021 07:00-0400 Reason For Taking VItal Signs OSCAR REYES MD [facility] 09-26-2021 07:00-0400 Respiratory rate 16 /min OSCAR REYES MD [facility] 09-26-2021 07:00-0400 Systolic Blood Pressure NBP 131 1 OSCAR REYES MD [facility] 09-26-2021 04:00-0400 Body temperature 98.42 [degF] OSCAR REYES MD [facility] 09-26-2021 04:00-0400 Diastolic Blood Pressure NBP 72 1 OSCAR REYES MD [facility] 09-26-2021 04:00-0400 Heart rate 69 /min OSCAR REYES MD [facility] 09-26-2021 04:00-0400 Mean blood pressure 83 mm[Hg] OSCAR REYES MD [facility] 09-26-2021 04:00-0400 Reason For Taking VItal Signs OSCAR REYES MD [facility] 09-26-2021 04:00-0400 Systolic Blood Pressure NBP 120 1 OSCAR REYES MD [facility] 09-25-2021 12:33-0400 Diastolic blood pressure 62 mm[Hg] OSCAR REYES MD [facility] 09-25-2021 12:33-0400 Mean blood pressure 79 mm[Hg] OSCAR REYES MD [facility] 09-25-2021 12:33-0400 Systolic blood pressure 114 mm[Hg] OSCAR REYES MD [facility] 09-25-2021 07:34-0400 Body weight 101.3 kg OSCAR REYES MD [facility] 09-24-2021 12:43-0400 Diastolic blood pressure 71 mm[Hg] OSCAR REYES MD [facility] 09-24-2021 12:43-0400 Mean blood pressure 87 mm[Hg] OSCAR REYES MD [facility] 09-24-2021 12:43-0400 Systolic blood pressure 118 mm[Hg] OSCAR REYES MD [facility] 09-24-2021 12:05-0400 Body temperature 97.34 [degF] SOCAR REYES MD [facility] 09-24-2021 11:50-0400 Body temperature 97.52 [degF] OSCAR REYES MD [facility] 09-24-2021 08:52-0400 Diastolic blood pressure 69 mm[Hg] OSCAR REYES MD [facility] 09-24-2021 08:52-0400 Mean blood pressure 90 mm[Hg] OSCAR REYES MD [facility] 09-24-2021 08:52-0400 Systolic blood pressure 133 mm[Hg] OSCAR REYES MD [facility] 09-23-2021 12:07-0400 Heart rate 124 /min OSCAR REYES MD [facility] 09-22-2021 04:34-0400 Heart rate 136 /min OSCAR REYES MD [facility] 09-20-2021 19:48-0400 Heart rate 135 /min OSCAR REYES MD [facility] 09-20-2021 19:08-0400 Signs/Symptoms Transfusion Reaction OSCAR REYES MD [facility] 09-20-2021 18:08-0400 Heart rate 136 /min OSCAR REYES MD [facility] 09-20-2021 18:07-0400 Signs/Symptoms Transfusion Reaction No OSCAR REYES MD [facility] 09-20-2021 17:16-0400 Signs/Symptoms Transfusion Reaction OSCAR REYES MD [facility] 09-20-2021 14:48-0400 Heart rate 134 /min OSCAR REYES MD [facility] 09-18-2021 10:59-0400 Body weight 103.2 kg OSCAR REYES MD [facility] 10-23-2021 10:59-0400 Diastolic blood pressure 46 mm[Hg] OSCAR REYES MD [facility] 09-18-2021 10:59-0400 Mean blood pressure 66 mm[Hg] OSCAR REYES MD [facility] 09-18-2021 10:59-0400 Systolic blood pressure 102 mm[Hg] OSCAR REYES MD [facility] 09-18-2021 10:30-0400 Diastolic blood pressure 49 mm[Hg] OSCAR REYES MD [facility] 09-18-2021 10:30-0400 Mean blood pressure 66 mm[Hg] OSCAR REYES MD [facility] 09-18-2021 10:30-0400 Systolic blood pressure 96 mm[Hg] OSCAR REYES MD [facility] 09-18-2021 10:00-0400 Mean blood pressure 65 mm[Hg] OSCAR REYES MD [facility] 09-18-2021 10:00-0400 Systolic blood pressure 95 mm[Hg] OSCAR REYES MD [facility] 09-18-2021 03:30-0400 SaO2% (BldA) [Mass fraction] 98.5 % OSCAR REYES MD [facility] 09-17-2021 20:28-0400 SaO2% (BldA) [Mass fraction] 97.9 % OSCAR REYES MD [facility] 09-17-2021 18:39-0400 SaO2% (BldA) [Mass fraction] 98.0 % OSCAR REYES MD [facility] 09-17-2021 12:30-0400 Body temperature 99.46 [degF] OSCAR REYES MD [facility] 09-17-2021 12:25-0400 Body temperature 99.57 [degF] OSCAR REYES MD [facility] 09-17-2021 12:20-0400 Body temperature 99.64 [degF] OSCAR REYES MD [facility] 09-17-2021 12:20-0400 Body temperature 99.12 [degF] OSCAR REYES MD [facility] 09-17-2021 12:15-0400 Body temperature 99.28 [degF] OSCAR REYES MD [facility] 09-17-2021 12:10-0400 Body temperature 99.43 [degF] OSCAR REYES MD [facility] 09-17-2021 12:06-0400 SaO2% (BldA) [Mass fraction] 95.0 % OSCAR REYES MD [facility] 09-17-2021 11:28-0400 SaO2% (BldA) [Mass fraction] 98.9 % OSCAR REYES MD [facility] 09-17-2021 11:03-0400 SaO2% (BldA) [Mass fraction] 98.7 % OSCAR REYES MD [facility] 09-08-2021 22:32-0400 Body temperature 97.16 [degF] OSCAR REYES MD [facility] 09-08-2021 11:17-0400 Body height 180.3 cm OSCAR REYES MD [facility] 09-08-2021 11:17-0400 Body weight 32.3 kg/m2 OSCAR REYES MD [facility] 09-08-2021 07:10-0400 Body height 180.3 cm OSCAR REYES MD [facility] 09-08-2021 07:10-0400 Body temperature 97.16 [degF] OSCAR REYES MD [facility] 09-08-2021 07:10-0400 Body weight 32.3 kg/m2 OSCAR REYES MD [facility] 09-08-2021 07:10-0400 diastolic 92 mm[Hg] OSCAR REYES MD [facility] 09-08-2021 07:10-0400 Heart rate 64 /min OSCAR REYES MD [facility] 09-08-2021 07:10-0400 systolic 179 mm[Hg] OSCAR REYES MD [facility] Encounters Encounter Date Encounter Type Care Provider Facility Start: 09-04-2024 End: 09-06-2024 Evaluation and management of inpatient MOHINI RIVERA DIRECTOR OF BANDS-ADMIN ASSISTANT [facility] Start: 07-23-2024 End: 07-23-[address] VINAYAK WRIGHT DO Facility:[facility] Start: 07-23-2024 End: 07-23-[address] VINAYAK WRIGHT DO [facility] Start: 07-15-2024 End: 07-15-2024 ambulatory SELF Facility:[facility] Start: 07-15-2024 End: 07-15-2024 Patient encounter procedure Indigo Yost DIRECTOR OF BANDS.ADMIN ASSISTANT Work Phone: Dermatology Comment on above: Lentigines (Primary Dx); Multiple benign nevi; Angioma of skin; Seborrheic keratoses; Hx of nonmelanoma skin cancer; History of melanoma in situ Start: 07-08-2024 End: 07-08-2024 Patient encounter procedure Stacey Shea MD Work Phone: Urology Comment on above: Prostate cancer (HCC ) (Primary Dx); Benign prostatic hyperplasia with urinary frequency Start: 07-08-2024 End: 07-08-2024 ambulatory STACEY SHEA Facility:[id number] Start: 06-17-2024 End: 06-17-2024 ambulatory STACEY SHEA MD Facility:[facility] Start: 06-17-2024 End: 06-17-2024 Patient encounter procedure STACEY SHEA MD [facility] Start: 05-17-2024 End: 05-17-2024 Patient encounter procedure Jarek Barillas MD Work Phone: Dermatology Comment on above: Actinic keratosis (P rimary Dx) Start: 05-17-2024 End: 05-17-2024 ambulatory JAREK BARILLAS V Facility:[facility] Start: 05-01-2024 End: 05-01-[address] VINAYAK WRIGHT DO Facility:[facility] Start: 05-01-2024 End: 05-01-2024 Patient encounter procedure EDMUNDO BARRETT DIRECTOR OF BANDS-ADMIN ASSISTANT [facility] Start: 04-16-2024 Telephone encounter Thais Porter MD Work Phone: Dermatology Comment on above: instructions for pdt /appointments Start: 04-08-2024 End: 04-08-2024 ambulatory Thais Porter MD Work Phone: Dermatology Comment on above: AK (actinic keratosi s) (Primary Dx); Scar conditions and fibrosis of skin; Actinic keratosis Start: 04-08-2024 End: 04-08-2024 Telemedicine consultation with patient Thais Porter MD Work Phone: Dermatology Start: 04-08-2024 End: 04-08-2024 ambulatory MAXIMILIANO PASCUAL Facility:[facility] Start: 02-26-2024 E-mail encounter fro m caregiver Thais Porter MD Work Phone: [facility] Start: 02-26-2024 Follow-up encounter Thais Porter MD Work Phone: Dermatology Comment on above: 6 week virtual follo w up s/p Mohs Start: 02-26-2024 Telephone encounter Thais Porter MD Work Phone: Dermatology Start: 02-26-2024 End: 02-26-2024 Patient encounter procedure Thais Porter MD Work Phone: Dermatology Comment on above: Basal cell carcinoma (BCC) of left cheek (Primary Dx); Basal cell carcinoma (BCC) of left forehead Start: 02-26-2024 End: 02-26-2024 ambulatory MAXIMILIANO PASCUAL Facility:[facility] Start: 01-01-2024 End: 01-01-2024 ambulatory STACEY SHEA Facility:[id number] Start: 12-20-2023 End: 12-20-2023 ambulatory STACEY SHEA MD Facility:[facility] Start: 12-20-2023 End: 12-20-2023 Patient encounter procedure STACEY SHEA MD [facility] Start: 11-08-2023 Telephone encounter Thais Porter MD Work Phone: Dermatology Start: 11-06-2023 End: 11-06-2023 ambulatory EDMUNDO BARRETT DIRECTOR OF BANDS-ADMIN ASSISTANT Facility:[facility] Start: 11-06-2023 End: 11-06-2023 Patient encounter procedure EDMUNDO BARRETT DIRECTOR OF BANDS-ADMIN ASSISTANT [facility] Start: 11-02-2023 End: 11-02-2023 Patient encounter procedure Thais Porter MD Work Phone: Dermatology Comment on above: Basal cell carcinoma of left denominational region (Primary Dx); Neoplasm of uncertain behavior of skin Start: 11-02-2023 End: 11-02-2023 ambulatory YARITZA SPENCER Facility:[facility] Start: 10-23-2023 ambulatory EDMUNDO BARRETT DIRECTOR OF BANDS-ADMIN ASSISTANT F acility:A Start: 10-11-2023 End: 10-11-2023 ambulatory EDMUNDO BARRETT DIRECTOR OF BANDS-ADMIN ASSISTANT Facility:[facility] Start: 09-15-2023 Telephone encounter Yaritza Spencer MD Work Phone: Dermatology Comment on above: Pathology Report Start: 09-13-2023 End: 09-13-2023 ambulatory YARITZA SPENCER Facility:[facility] Start: 09-13-2023 End: 09-13-2023 Patient encounter procedure Yaritza Spencer MD Work Phone: Dermatology Comment on above: Seborrheic dermatiti s (Primary Dx); Skin neoplasm; Seborrheic keratosis; Easley angioma; Lentigines; Multiple benign nevi; Hx of malignant melanoma; Hx of nonmelanoma skin cancer; Hx of atypical nevus Start: 09-01-2023 End: 09-01-2023 Emergency department patient visit DR MYRON SMITH MD Facility:[facility] Start: 06-12-2023 End: 06-12-2023 Patient encounter procedure Stacey Shea MD Work Phone: Urology Comment on above: Prostate cancer (HCC ) (Primary Dx) Start: 06-09-2023 End: 06-09-[address] VINAYAK WRIGHT DO [facility] Start: 06-07-2023 End: 06-07-2023 Patient encounter procedure STACEY SHEA MD [facility] Start: 06-06-2023 Telephone encounter Stacey Shea MD Work Phone: Urology Comment on above: Orders Start: 04-06-2023 End: 04-06-2023 Patient encounter procedure Thais Porter MD Work Phone: Dermatology Comment on above: 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); Basal cell carcinoma (BCC) of left side of neck; Basal cell carcinoma (BCC) of right side of neck; Actinic keratosis; Seborrheic keratosis Start: 03-23-2023 Telephone encounter Yaritza Spencer MD Work Phone: Dermatology Comment on above: SKIN CANCER (And yayo anoma) Opened In Error Start: 03-21-2023 End: 03-21-2023 Patient encounter procedure Yaritza Spencer MD Work Phone: Dermatology Comment on above: EIC (epidermal inclu elisabeth cyst) (Primary Dx); Skin neoplasm; Basal cell carcinoma (BCC) of skin of neck Start: 03-20-2023 Telephone encounter Yaritza Spencer MD Work Phone: Dermatology Comment on above: Pathology Report SKIN CANCER Start: 03-15-2023 End: 03-15-2023 Patient encounter procedure Yaritza Spencer MD Work Phone: Dermatology Comment on above: Seborrheic keratosis (Primary Dx); Eas[place] angioma; Lentigines; Multiple benign nevi; Actinic keratosis; Skin neoplasm; Personal history of skin cancer; Personal history of malignant melanoma of skin Start: 03-06-2023 End: 03-06-[address] VINAYAK WRIGHT [facility] Start: 01-30-2023 End: 01-30-[address] VINAYAK WRIGHT [facility] Start: 12-12-2022 End: 12-12-2022 Patient encounter procedure Stacey Shea MD Work Phone: Urology Comment on above: Prostate cancer (HCC ) (Primary Dx) Start: 12-05-2022 End: 12-05-2022 Patient encounter procedure STACEY SHEA MD [facility] Start: 10-13-2022 End: 10-13-2022 Patient encounter procedure MODESTA MONTGOMERY DIRECTOR OF BANDS-ADMIN ASSISTANT [facility] Start: 06-08-2022 End: 06-08-2022 Patient encounter procedure JOCELYNN CASTRO MD [facility] Start: 12-02-2021 End: 12-02-2021 Patient encounter procedure KAITLIN MENDENHALL DIRECTOR OF BANDS-ADMIN ASSISTANT [facility] Start: 11-30-2021 End: 11-30-2021 Patient encounter procedure KAITLIN MENDENHALL DIRECTOR OF BANDS-ADMIN ASSISTANT [facility] Start: 10-23-2021 End: 10-23-2021 Patient encounter procedure EDMUNDO BARRETT DIRECTOR OF BANDS-ADMIN ASSISTANT [facility] Start: 10-12-2021 End: 10-12-2021 Patient encounter procedure EDMUNDO BARRETT DIRECTOR OF BANDS-ADMIN ASSISTANT [facility] Start: 10-04-2021 End: 10-04-2021 Patient encounter procedure KAITLIN MENDENHALL DIRECTOR OF BANDS-ADMIN ASSISTANT [facility] Start: 09-30-2021 End: 09-30-2021 Patient encounter procedure KAITLIN MENDENHALL DIRECTOR OF BANDS-ADMIN ASSISTANT [facility] Start: 09-30-2021 End: 09-30-2021 Patient encounter procedure KAITLIN MENDENHALL DIRECTOR OF BANDS-ADMIN ASSISTANT [facility] Start: 09-08-2021 End: 09-26-2021 Evaluation and management of inpatient OSCAR REYES MD [facility] Start: 09-06-2021 End: 09-06-2021 Patient encounter procedure EDMUNDO BARRETT DIRECTOR OF BANDS-ADMIN ASSISTANT [facility] Start: 10-26-2018 End: 10-27-2018 Patient encounter procedure STACEY SHEA Facility:[facility] Procedures Date Procedure Procedure Detail Performing Clinician Start: 07-08-2024 Urnls dip stick/tabl et rgnt auto w/o microscopy Stacey Shea MD Work Phone: Start: 07-08-2024 BLADDER SCAN Stacey Shea MD Work Phone: Start: 11-02-2023 SURGICAL PATHOLOGY Augustinei kailash Porter MD Work Phone: Start: 06-12-2023 BLADDER SCAN Stacey Shea MD Work Phone: Start: 12-12-2022 BLADDER SCAN Stacey Shea MD Work Phone: Start: 12-12-2022 Urnls dip stick/tabl et rgnt auto w/o microscopy Stacey Shea MD Work Phone: Start: 09-24-2021 [facility] Stacey bloom MD Work Phone: Start: 09-16-2021 Transesophageal echocardiography KAITLIN MENDENHALL DIRECTOR OF [employer] Comment on above: Summary: 1. Left ventricle: The cavity size is normal. Wall thickness is normal. Systolic function is normal. The estimated ejection fraction is 60-65%. 2. Aortic valve: There is mild to moderate, 1-2+ regurgitation, with a single jet directed eccentrically in the LVOT and towards the mitral anterior leaflet. 3. Systemic arteries: Mild atherosclerosis of the descending aorta. 4. Mitral valve: There is mild, 1+ regurgitation, directed centrally. 5. Ascending aorta: The ascending aorta is mildly dilated and 40.0 mm diameter. 6. Aortic root: The aortic root is mildly dilated and 37.0 mm diameter. 7. Left atrium: The atrium is mildly dilated. There is no evidence of a thrombus in the atrial cavity or appendage. No spontaneous echo contrast is observed. 8. Right atrium: There is no evidence of a thrombus in the atrial cavity or appendage. 9. Atrial septum: No defect or patent foramen ovale is identified. Start: 09-09-2021 Echocardiography KAITLIN FONSECA [facility]oggie Security SystemsADMIN ASSISTANT Comment on above: Summary: 1. Procedure narrative: Image quality was poor. The study was technically limited due to poor acoustic window availability and body habitus. Intravenous contrast Definity was administered to opacify the LV. 2. Left ventricle: The cavity size is normal. Wall thickness is mildly increased. Systolic function is normal. The estimated ejection fraction is 55-60%. Dyskinesis of the distal septal myocardium. Grade I diastolic dysfunction. 3. Aortic valve: The valve is trileaflet. The leaflets are mildly thickened. There is mild to moderate, 1-2+ regurgitation. 4. Mitral valve: There is mild, 1+ regurgitation. 5. Left atrium: The atrium is mildly dilated. 6. Pulmonic valve: There is trivial regurgitation. 7. Tricuspid valve: There is trivial regurgitation. Start: 09-08-2021 Cardiac catheterization OSCAR REYES MD Start: 08-27-2021 Coronary artery bypa ss graft operation planned EDMUNDO BARRETT DIRECTOR OF BANDS-ADMIN ASSISTANT Kidney structure (sharlene dy structure) EDMUNDO BARRETT DIRECTOR OF BANDS-ADMIN ASSISTANT Skin structure (body structure) EDMUNDO BARRETT DIRECTOR OF BANDS-ADMIN ASSISTANT Comment on above: basil cell skin surg jenifer Plan of Treatment Date Care Activity Detail Author Start: 01-20-2025 End: 01-20-2025 Patient encounter procedure 01/20/2025 3:30 PM EST Office Visit Urology [address] [place] [address] Stacey Shea MD [address] [place] [address] 6 month follow up - PSA prior Urology Comment on above: 6 month follow up - PSA prior Start: 01-08-2025 End: 04-09-2025 Prostate specific Ag [Mass/volume] in Serum or Plasma PROSTATE-SPECIFIC ANTIGEN DIAGNOSTIC Lab Routine Prostate cancer (HCC) Expected: 01/08/2025 (Approximate), Expires: 04/09/2025 [facility] Work Phone: Comment on above: Expected: 01/08/2025 (Approximate), Expires: 04/09/2025 Start: 10-18-2024 End: 10-18-2024 Patient encounter procedure 10/18/2024 2:45 PM EST Office Visit Dermatology [address] [place] [address] April, Indigo Cheng APRN.ADMIN ASSISTANT [address] [place] [address] Follow-Up Dermatology Comment on above: Follow-Up Start: 07-28-2024 Influenza vaccination C [facility] Start: 07-15-2024 End: 07-15-2024 Patient encounter procedure Dermatology Comment on above: 3 month s/p PDT Start: 07-08-2024 End: 07-08-2024 Patient encounter procedure 07/08/2024 3:30 PM EDT Office Visit Urology [address] [place] [address] Stacey Shea MD [address] [place] [address] 6 month follow up - PSA prior Urology Comment on above: 6 month follow up - PSA prior Start: 05-06-2024 End: 05-06-2024 Patient encounter procedure 05/06/2024 10:00 AM EDT Office Visit Dermatology [address] [address] Jarek Barillas V, MD [address] [place] [address] Blue (Painless) PDT: will require a single 60 minute time slot. Dermatology Comment on above: Blue (Painless) PDT: will require a single 60 minute time slot. Start: 12-13-2023 End: 02-12-2024 Prostate specific Ag [Mass/volume] in Serum or Plasma PSA/PROSTSPECAG DIAG Lab Routine Prostate cancer (HCC) Expected: 12/13/2023, Expires: 02/12/2024 [facility] Work Phone: Comment on above: Expected: 12/13/2023 , Expires: 02/12/2024 Start: 11-27-2023 Advance Directive Discussion Advance Directive Discussion [facility] Start: 11-27-2023 Behavioral Health Screening Behavioral Health Screening [facility] Start: 11-27-2023 Depression Assessment Depression Ass essment [facility] Start: 07-28-2023 Covid-19 Vaccine () Covid-19 Vaccine () [facility] Start: 07-28-2023 Influenza vaccination C [facility] Start: 06-06-2023 End: 08-06-2023 Prostate specific Ag [Mass/volume] in Serum or Plasma PSA/PROSTSPECAG DIAG Lab Routine Prostate cancer (HCC) Expected: 06/06/2023, Expires: 08/06/2023 [facility] Work Phone: Comment on above: Expected: 06/06/2023 , Expires: 08/06/2023 Start: 12-12-2022 End: 02-11-2023 Prostate specific Ag [Mass/volume] in Serum or Plasma PSA/PROSTSPECAG DIAG Lab Routine Prostate cancer (HCC) Expected: 12/12/2022, Expires: 02/11/2023 [facility] Work Phone: Comment on above: Expected: 12/12/2022 , Expires: 02/11/2023 Start: 11-27-2022 ADVANCE DIRECTIVE DISCUSSION ADVANCE DIRECTIVE DISCUSSION [facility] Start: 11-27-2022 DEPRESSION ASSESSMENT DEPRESSION ASS ESSMENT [facility] Start: 09-24-2022 Colonoscopy COLONOSCOPY [facility] Start: 09-24-2022 COLORECTAL CANCER SCREENING COLORECTAL CANCER SCREENING [facility] Start: 07-28-2022 Influenza vaccination INFLUENZA (#1) [facility] Start: 04-26-2021 COVID-19 VACCINE (3 - Booster for Moderna series) COVID-19 VACCINE (3 - Booster for Moderna series) [facility] Start: 04-26-2021 COVID-19 VACCINE (3 - Moderna series) COVID-19 VACCINE (3 - Moderna series) [facility] Start: 06-12-2018 DIABETES SCREEN DIABETES SCREEN [facility] Start: 06-12-2018 Diabetes Screening Diabetes Screenin g [facility] Start: 2013 Pneumococcal Vaccine : 65+ (1 - PCV) Pneumococcal Vaccine: 65+ (1 - PCV) [facility] Start: 2013 Pneumococcal Vaccine : 65+ (1 of 1 - PCV) Pneumococcal Vaccine: 65+ (1 of 1 - PCV) [facility] Start: 2013 PNEUMOCOCCAL: 65+ (1 - PCV) PNEUMOCOCCAL: 65+ (1 - PCV) [facility] Start: 2008 RSV Vaccine (1 - 1-d ose 60+ series) RSV Vaccine (1 - 1-dose 60+ series) [facility] Start: 1998 SHINGRIX VACCINE (1 of 2) SHINGRIX VACCINE (1 of 2) [facility] Start: 1993 COLOGUARD (FIT-DNA) COLOGUARD (FIT-D NA) [facility] Start: 1993 Colonoscopy COLONOSCOPY [facility] Start: 1993 COLORECTAL CANCER SCREENING COLORECTAL CANCER SCREENING [facility] Start: [address] [facility]: 1993 FECAL OCCULT BLOOD FECAL OCCULT BLOO D [facility] Start: 1993 Screening for malign ant neoplasm of colon [facility] Start: 1993 SIGMOIDOSCOPY SIGMOIDOSCOPY [facility] Start: 1983 Lipid 1996 panel - Serum or Plasma Lipid Screening [facility] Start: 1983 Lipid panel Lipid Screening [facility] Start: 1983 LIPID SCREEN LIPID SCREEN [facility] Start: 1967 Urine microalbumin profile [facility] Start: 1966 Anxiety Screening Anxiety Screening [facility] Start: 1966 Depression Screening Depression Scre ening [facility] Start: 1966 HEPATITIS C SCREENING HEPATITIS C [facility] Start: 1966 Hepatitis C screening Hepatitis C [facility] Start: 1948 ABDOMINAL AORTIC ANEURYSM SCREENING ABDOMINAL AORTIC ANEURYSM SCREENING [facility] Start: 1948 Abdominal aortic aneurysm screening Abdominal Aortic Aneurysm Screening [facility] Pdt dstr prmlg les s kn illum/activj per day PHOTODYNAMIC TX SKIN LESION Procedures Routine Actinic keratosis Ordered: 04/06/2023 [facility] Work Phone: Comment on above: Ordered: 04/06/2023 PHOTODYNAMIC THERAPY PHOTODYNAMI C THERAPY Procedures Routine AK (actinic keratosis) Ordered: 04/08/2024 [facility] Work Phone: Comment on above: Ordered: 04/08/2024 SURGICAL PATHOLOGY SURGICAL PATH OLOGY Lab Routine Skin neoplasm 03/15/2023 4:13 PM EDT [facility] Work Phone: SURGICAL PATHOLOGY SURGICAL PATH OLOGY Lab Routine Skin neoplasm 03/21/2023 3:18 PM EDT [facility] Work Phone: SURGICAL PATHOLOGY SURGICAL PATH OLOGY Lab Routine 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) 04/06/2023 9:14 AM EDT [facility] Work Phone: SURGICAL PATHOLOGY SURGICAL PATH OLOGY Lab Routine Skin neoplasm 09/13/2023 4:19 PM EDT [facility] Work Phone: [facility] Immunizations Immunization Date Immunization Notes Care Provider Fa cility 03-01-2021 COVID-19, mRNA, LNP- S, PF, 100 mcg/ 0.5 mL dose; Translations: [Moderna COVID-19 Vaccine] EDMUNDO BARRETT DIRECTOR OF BANDS-ADMIN ASSISTANT [facility] 02-01-2021 COVID-19, mRNA, LNP- S, PF, 100 mcg/ 0.5 mL dose; Translations: [Moderna COVID-19 Vaccine] EDMUNDO BARRETT DIRECTOR OF BANDS-ADMIN ASSISTANT [facility] Payers Date Payer Category Payer Unknown MMO MMO MEDICARE SUPPLEMENT [id number] 2022-Present [phone] [address] [place] [address] Indemnity [id number] 2022 Medicare [id number] 2015 Medicare MEDICARE MEDICAR E A AND B [id number] 2015-Present [phone] [address] [address] [place] [address] Medicare [id number] 2015 Medicare [id number] 1948 Unknown [id number] 1948 Unknown [id number] 1948 Unknown [id number] 1948 Unknown [id number] 1948 Unknown [id number] 1948 Unknown [id number] 1948 Unknown [id number] 1948 Unknown [id number] 1948 Unknown [id number] 1948 Unknown [id number] 1948 Unknown [id number] Unknown [id number] Social History Date Type Detail Facility Start: 07-31-2020 End: 12-12-2022 Ex-smoker (finding) [facility] Sex Assigned At [facility] End: 11-27-1978 History of tobacco use Current smoker [facility] End: 11-27-1978 History of tobacco use Cigarette Smoker [facility] Start: 12-12-2022 End: 04-06-2023 Cigarettes smoked current (pack per day) - Reported 1 [facility] Start: 12-12-2022 Tobacco use and exposure Smokeless tobacco non-user [facility] Start: 12-12-2022 End: 04-13-2023 Alcohol intake Not Asked [facility] Start: 1950 Sex Assigned At Not on file C [facility] Start: 04-06-2023 End: 04-13-2023 Tobacco use panel [facility] National Score (1-10 0), lower number is lower risk 64 [facility] Start: 06-12-2023 End: 02-26-2024 Alcohol intake Ex-drinker (finding) [facility] Medical Equipment Procedure Code Equipment Code Equipment Origin al Text Equipment Identifier Dates Blood Glucose Te st Strips Start: 09-20-2021 Lancets Start: 09-20-[address] Start: 09-20-2021 Lancets Start: 09-20-[address] Start: 09-20-2021 Lancets Start: 09-20-[address]ps Start: 09-20-2021 Lancets Start: 09-20-[address]ps Start: 09-20-2021 Lancets Start: 09-20-[address]ps Start: 09-20-2021 Lancets Start: 09-20-[address]ps Start: 09-20-2021 Lancets Start: 09-20-[address]ps Start: 09-20-2021 Lancets Start: 09-20-[address] Start: 09-20-2021 Lancets Start: 09-20-2021 See Instructions , Testing blood glucose QD and PRN. 1 bottle of 100 strips, # 1 EA, 0 Refill(s), Pharmacy: [facility]/pharmacy #[id number], Prediabetes HgbA1C 6.0, 180.3, cm, 09/08/21 11:17:00 EDT, Height, 103.2, kg, 09/18/21 11:00:00 EDT, Dosing Weight Start: 09-20-2021 See Instructions , Testing blood glucose QD and PRN.1 box, # 1 EA, 0 Refill(s), Pharmacy: [facility]/pharmacy #[id number], Prediabetes HgbA1C 6.0, 180.3, cm, 09/08/21 11:17:00 EDT, Height, 103.2, kg, 09/18/21 11:00:00 EDT, Dosing Weight Start: 09-20-2021 See Instructions , Testing blood glucose QD and PRN. 1 bottle of 100 strips, # 1 EA, 0 Refill(s), Pharmacy: [facility]/pharmacy #[id number], Prediabetes HgbA1C 6.0, 180.3, cm, 09/08/21 11:17:00 EDT, Height, 103.2, kg, 09/18/21 11:00:00 EDT, Dosing Weight Start: 09-20-2021 See Instructions , Testing blood glucose QD and PRN.1 box, # 1 EA, 0 Refill(s), Pharmacy: [facility]/pharmacy #[id number], Prediabetes HgbA1C 6.0, 180.3, cm, 09/08/21 11:17:00 EDT, Height, 103.2, kg, 09/18/21 11:00:00 EDT, Dosing Weight Start: 09-20-2021 See Instructions , Testing blood glucose QD and PRN. 1 bottle of 100 strips, # 1 EA, 0 Refill(s), Pharmacy: [facility]/pharmacy #[id number], Prediabetes HgbA1C 6.0, 180.3, cm, 09/08/21 11:17:00 EDT, Height, 103.2, kg, 09/18/21 11:00:00 EDT, Dosing Weight Start: 09-20-2021 See Instructions , Testing blood glucose QD and PRN.1 box, # 1 EA, 0 Refill(s), Pharmacy: [facility]/pharmacy #[id number], Prediabetes HgbA1C 6.0, 180.3, cm, 09/08/21 11:17:00 EDT, Height, 103.2, kg, 09/18/21 11:00:00 EDT, Dosing Weight Start: 09-20-2021 See Instructions , Testing blood glucose QD and PRN. 1 bottle of 100 strips, # 1 EA, 0 Refill(s), Pharmacy: [facility]/pharmacy #[id number], Prediabetes HgbA1C 6.0, 180.3, cm, 09/08/21 11:17:00 EDT, Height, 103.2, kg, 09/18/21 11:00:00 EDT, Dosing Weight Start: 09-20-2021 See Instructions , Testing blood glucose QD and PRN.1 box, # 1 EA, 0 Refill(s), Pharmacy: [facility]/pharmacy #[id number], Prediabetes HgbA1C 6.0, 180.3, cm, 09/08/21 11:17:00 EDT, Height, 103.2, kg, 09/18/21 11:00:00 EDT, Dosing Weight Start: 09-20-2021 See Instructions , Testing blood glucose QD and PRN. 1 bottle of 100 strips, # 1 EA, 0 Refill(s), Pharmacy: [facility]/pharmacy #[id number], Prediabetes HgbA1C 6.0, 180.3, cm, 09/08/21 11:17:00 EDT, Height, 103.2, kg, 09/18/21 11:00:00 EDT, Dosing Weight Start: 09-20-2021 See Instructions , Testing blood glucose QD and PRN.1 box, # 1 EA, 0 Refill(s), [id number] Prediabetes HgbA1C 6.0, 180.3, cm, 09/08/21 11:17:00 EDT, Height, 103.2, kg, 09/18/21 11:00:00 EDT, Dosing Weight Start: 09-20-2021 See Instructions , Testing blood glucose QD and PRN. 1 bottle of 100 strips, # 1 EA, 0 Refill(s), [id number] Prediabetes HgbA1C 6.0, 180.3, cm, 09/08/21 11:17:00 EDT, Height, 103.2, kg, 09/18/21 11:00:00 EDT, Dosing Weight Start: 09-20-2021 See Instructions , Testing blood glucose QD and PRN.1 box, # 1 EA, 0 Refill(s), Pharmacy: [facility]/pharmacy #[id number], Prediabetes HgbA1C 6.0, 180.3, cm, 09/08/21 11:17:00 EDT, Height, 103.2, kg, 09/18/21 11:00:00 EDT, Dosing Weight Start: 09-20-2021 See Instructions , Testing blood glucose QD and PRN. 1 bottle of 100 strips, # 1 EA, 0 Refill(s), [id number], Prediabetes HgbA1C 6.0, 180.3, cm, 09/08/21 11:17:00 EDT, Height, 103.2, kg, 09/18/21 11:00:00 EDT, Dosing Weight Start: 09-20-2021 See Instructions , Testing blood glucose QD and PRN.1 box, # 1 EA, 0 Refill(s), Pharmacy: [facility]/pharmacy #[id number], Prediabetes HgbA1C 6.0, 180.3, cm, 09/08/21 11:17:00 EDT, Height, 103.2, kg, 09/18/21 11:00:00 EDT, Dosing Weight Start: 09-20-2021 See Instructions , Testing blood glucose QD and PRN. 1 bottle of 100 strips, # 1 EA, 0 Refill(s), Pharmacy: [facility]/pharmacy #[id number], Prediabetes HgbA1C 6.0, 180.3, cm, 09/08/21 11:17:00 EDT, Height, 103.2, kg, 09/18/21 11:00:00 EDT, Dosing Weight Start: 09-20-2021 See Instructions , Testing blood glucose QD and PRN.1 box, # 1 EA, 0 Refill(s), Pharmacy: [facility]/pharmacy #[id number], Prediabetes HgbA1C 6.0, 180.3, cm, 09/08/21 11:17:00 EDT, Height, 103.2, kg, 09/18/21 11:00:00 EDT, Dosing Weight Start: 09-20-2021 See Instructions , Testing blood glucose QD and PRN. 1 bottle of 100 strips, # 1 EA, 0 Refill(s), Pharmacy: [facility]/pharmacy #[id number], Prediabetes HgbA1C 6.0, 180.3, cm, 09/08/21 11:17:00 EDT, Height, 103.2, kg, 09/18/21 11:00:00 EDT, Dosing Weight Start: 09-20-2021 See Instructions , Testing blood glucose QD and PRN.1 box, # 1 EA, 0 Refill(s), Pharmacy: [facility]/pharmacy #[id number], Prediabetes HgbA1C 6.0, 180.3, cm, 09/08/21 11:17:00 EDT, Height, 103.2, kg, 09/18/21 11:00:00 EDT, Dosing Weight Start: 09-20-2021 See Instructions , Testing blood glucose QD and PRN. 1 bottle of 100 strips, # 1 EA, 0 Refill(s), Pharmacy: [facility]/pharmacy #[id number], Prediabetes HgbA1C 6.0, 180.3, cm, 09/08/21 11:17:00 EDT, Height, 103.2, kg, 09/18/21 11:00:00 EDT, Dosing Weight Start: 09-20-2021 See Instructions , Testing blood glucose QD and PRN.1 box, # 1 EA, 0 Refill(s), Pharmacy: [facility]/pharmacy #[id number], Prediabetes HgbA1C 6.0, 180.3, cm, 09/08/21 11:17:00 EDT, Height, 103.2, kg, 09/18/21 11:00:00 EDT, Dosing Weight Start: 09-20-2021 See Instructions , Testing blood glucose QD and PRN. 1 bottle of 100 strips, # 1 EA, 0 Refill(s), Pharmacy: [facility]/pharmacy #4605, Prediabetes HgbA1C 6.0, 180.3, cm, 09/08/21 11:17:00 EDT, Height, 103.2, kg, 09/18/21 11:00:00 EDT, Dosing Weight Start: 09-20-2021 See Instructions , Testing blood glucose QD and PRN.1 box, # 1 EA, 0 Refill(s), Pharmacy: [facility]/pharmacy #[id number], Prediabetes HgbA1C 6.0, 180.3, cm, 09/08/21 11:17:00 EDT, Height, 103.2, kg, 09/18/21 11:00:00 EDT, Dosing Weight Start: 09-20-2021 See Instructions , Testing blood glucose QD and PRN. 1 bottle of 100 strips, # 1 EA, 0 Refill(s), Pharmacy: [facility]/pharmacy #4605, Prediabetes HgbA1C 6.0, 180.3, cm, 09/08/21 11:17:00 EDT, Height, 103.2, kg, 09/18/21 11:00:00 EDT, Dosing Weight Start: 09-20-2021 See Instructions , Testing blood glucose QD and PRN.1 box, # 1 EA, 0 Refill(s), Pharmacy: [facility]/pharmacy #[id number], Prediabetes HgbA1C 6.0, 180.3, cm, 09/08/21 11:17:00 EDT, Height, 103.2, kg, 09/18/21 11:00:00 EDT, Dosing Weight Start: 09-20-2021 See Instructions , Testing blood glucose QD and PRN. 1 bottle of 100 strips, # 1 EA, 0 Refill(s), Pharmacy: [facility]/pharmacy #4605, Prediabetes HgbA1C 6.0, 180.3, cm, 09/08/21 11:17:00 EDT, Height, 103.2, kg, 09/18/21 11:00:00 EDT, Dosing Weight Start: 09-20-2021 See Instructions , Testing blood glucose QD and PRN.1 box, # 1 EA, 0 Refill(s), Pharmacy: [facility]/pharmacy #[id number], Prediabetes HgbA1C 6.0, 180.3, cm, 09/08/21 11:17:00 EDT, Height, 103.2, kg, 09/18/21 11:00:00 EDT, Dosing Weight Start: 09-20-2021 See Instructions , Testing blood glucose QD and PRN. 1 bottle of 100 strips, # 1 EA, 0 Refill(s), Pharmacy: [facility]/pharmacy #[id number], Prediabetes HgbA1C 6.0, 180.3, cm, 09/08/21 11:17:00 EDT, Height, 103.2, kg, 09/18/21 11:00:00 EDT, Dosing Weight Start: 09-20-2021 See Instructions , Testing blood glucose QD and PRN.1 box, # 1 EA, 0 Refill(s), Pharmacy: [facility]/pharmacy #[id number], Prediabetes HgbA1C 6.0, 180.3, cm, 09/08/21 11:17:00 EDT, Height, 103.2, kg, 09/18/21 11:00:00 EDT, Dosing Weight Start: 09-20-2021 See Instructions , Testing blood glucose QD and PRN. 1 bottle of 100 strips, # 1 EA, 0 Refill(s), Pharmacy: [facility]/pharmacy #[id number], Prediabetes HgbA1C 6.0, 180.3, cm, 09/08/21 11:17:00 EDT, Height, 103.2, kg, 09/18/21 11:00:00 EDT, Dosing Weight Start: 09-20-2021 See Instructions , Testing blood glucose QD and PRN.1 box, # 1 EA, 0 Refill(s), Pharmacy: [facility]/pharmacy #[id number], Prediabetes HgbA1C 6.0, 180.3, cm, 09/08/21 11:17:00 EDT, Height, 103.2, kg, 09/18/21 11:00:00 EDT, Dosing Weight Start: 09-20-2021 See Instructions , Testing blood glucose QD and PRN. 1 bottle of 100 strips, # 1 EA, 0 Refill(s), Pharmacy: [facility]/pharmacy #[id number], Prediabetes HgbA1C 6.0, 180.3, cm, 09/08/21 11:17:00 EDT, Height, 103.2, kg, 09/18/21 11:00:00 EDT, Dosing Weight Start: 09-20-2021 See Instructions , Testing blood glucose QD and PRN.1 box, # 1 EA, 0 Refill(s), Pharmacy: [facility]/pharmacy #[id number], Prediabetes HgbA1C 6.0, 180.3, cm, 09/08/21 11:17:00 EDT, Height, 103.2, kg, 09/18/21 11:00:00 EDT, Dosing Weight Start: 09-20-2021 Functional Status Date Assessment Result Facility 09-06-2024 Functional Status Sequential Com pression Device bilateral knee high applied/on [facility] 09-06-2024 Functional Status Single level home [facility] 09-06-2024 Functional Status [facility] 09-06-2024 Functional Status Repositions self [facility] 09-06-2024 Functional Status [facility] 09-06-2024 Functional Status [facility] 09-06-2024 Functional Status Room check performed [facility] 09-05-2024 [facility] Functional Status IND [facility] 09-05-2024 Functional Status [facility] Status [facility] 09-04-2024 Functional Status Other: padded o2 tubing [facility] 09-04-2024 Functional Status [facility] Mental Status Date Assessment Result Facility 09-06-2024 Mental Status Oriented x 4 [facility] 09-05-2024 Mental Status [facility] 09-05-2024 Mental Status [facility] Clinical Notes 09-08-2021 to 09-10-2024 Note Date & Type Note Facility 09-10-2024 Note . MICRO - Microbiology PROCEDURE: Blood Culture (bacterial) [*1] SOURCE: Blood BODY SITE: COLLECTED DATE/TIME: 09/04/2024 21:24 EDT RECEIVED DATE/TIME: 09/05/2024 14:39 EDT START DATE/TIME: 09/05/2024 14:39 EDT FREE TEXT SOURCE: FINAL REPORTS Final Report [] Verified Date/Time/Personnel: 09/10/2024 14:59 EDT Blood Culture: No Growth at 5 days. PRELIMINARY REPORTS Preliminary Report [] Verified Date/Time/Personnel: 09/05/2024 16:00 EDT Culture has been received in lab and is no growth to date. Routine cultures are held for 5 days. Performing Locations *1: This test was performed at: [facility], [address] [place] [address], [id number] , [facility] 09-10-2024 Note . MICRO - Microbiology PROCEDURE: Blood Culture (bacterial) [*1] SOURCE: Blood BODY SITE: COLLECTED DATE/TIME: 09/04/2024 21:24 EDT RECEIVED DATE/TIME: 09/05/2024 14:39 EDT START DATE/TIME: 09/05/2024 14:39 EDT FREE TEXT SOURCE: FINAL REPORTS Final Report [] Verified Date/Time/Personnel: 09/10/2024 14:59 EDT Blood Culture: No Growth at 5 days. PRELIMINARY REPORTS Preliminary Report [] Verified Date/Time/Personnel: 09/05/2024 16:00 EDT Culture has been received in lab and is no growth to date. Routine cultures are held for 5 days. Performing Locations *1: This test was performed at: [facility], [address] [place] [address], [facility] , [facility] 09-06-2024 Hospital Discharge instructions Patient Education 09/06/2024 14:17:49 Weakness Weakness Weakness is a lack of strength. You may feel weak all over your body (generalized), or you may feel weak in one specific part of your body (focal). Common causes of weakness include: Infection and immune system disorders. Physical exhaustion. Internal bleeding or other blood loss that results in a lack of red blood cells (anemia). Dehydration. An imbalance in mineral (electrolyte) levels, such as potassium. Heart disease, circulation problems, or stroke. Other causes include: Some medicines or cancer treatment. Stress, anxiety, or depression. Nervous system disorders. Thyroid disorders. Loss of muscle strength because of age or inactivity. Poor sleep quality or sleep disorders. The cause of your weakness may not be known. Some causes of weakness can be serious, so it is important to see your health care provider. Follow these instructions at home: Activity Rest as needed. Try to get enough sleep. Most adults need 7 8 hours of quality sleep each night. Talk to your health care provider about how much sleep you need each night. Do exercises, such as arm curls and leg raises, for 30 minutes at least 2 days a week or as told by your health care provider. This helps build muscle strength. Consider working with a physical therapist or seeing eye dog trainer who can develop an exercise plan to help you gain muscle strength. General instructions Take psex-yaj-ncmkgut and prescription medicines only as told by your health care provider. Eat a healthy, well-balanced diet. This includes: ?Proteins to build muscles, such as lean meats and fish. ?Fresh fruits and vegetables. ?Carbohydrates to boost energy, such as whole grains. Drink enough fluid to keep your urine pale yellow. Keep all follow-up visits as told by your health care provider. This is important. Contact a health care provider if your weakness: Does not improve or gets worse. Affects your ability to think clearly. Affects your ability to do your normal daily activities. Get help right away if you: Develop sudden weakness, especially on one side of your face or body. Have chest pain. Have trouble breathing or shortness of breath. Have problems with your vision. Have trouble talking or swallowing. Have trouble standing or walking. Are light-headed or lose consciousness. Summary Weakness is a lack of strength. You may feel weak all over your body or just in one specific part of your body. Weakness can be caused by a variety of things. In some cases, the cause may be unknown. Rest as needed, and try to get enough sleep. Most adults need 7 8 hours of quality sleep each night. Eat a healthy, well-balanced diet. This information is not intended to replace advice given to you by your health care provider. Make sure you discuss any questions you have with your health care provider. Document Released: 11/13/2006 Document Revised: 06/19/2019 Document Reviewed: 06/19/2019 [employer] Patient Education 2020 [employer]. 09/06/2024 14:17:32 COVID-19 Frequently Asked Questions COVID-19 Frequently Asked Questions COVID-19 (coronavirus disease) is an infection that is caused by a large family of viruses. Some viruses cause illness in people and others cause illness in animals like camels, cats, and bats. In some cases, the viruses that cause illness in animals can spread to humans. Where did the coronavirus come from? In October 2019, [place] told the World Health Organization (WHO) of several cases of lung disease (human respiratory illness). These cases were linked to an open seafood and livestock market in the city of [facility]. The link to the seafood and livestock market suggests that the virus may have spread from animals to humans. However, since that first outbreak in October, the virus has also been shown to spread from person to person. What is the name of the disease and the virus? Disease name Early on, this disease was called novel coronavirus. This is because scientists determined that the disease was caused by a new (novel) respiratory virus. The World Health Organization (WHO) has now named the disease COVID-19, or coronavirus disease. Virus name The virus that causes the disease is called severe acute respiratory syndrome coronavirus 2 (SARS-CoV-2). More information on disease and virus naming World Health Organization (WHO): www.who.int/emergencies/diseases/n ehuv-ghofwzykdlx-6221/technical-gu idance/uypedb-twv-aftpytssqnw-dise ase-(covid-2019)-ieg-rje-rshrk-misael t-causes-it Who is at risk for complications from coronavirus disease? Some people may be at higher risk for complications from coronavirus disease. This includes older adults and people who have chronic diseases, such as heart disease, diabetes, and lung disease. If you are at higher risk for complications, take these extra precautions: Avoid close contact with people who are sick or have a fever or cough. Stay at least 3 6 ft (1 2 m) away from them, if possible. Wash your hands often with soap and water for at least 20 seconds. Avoid touching your face, mouth, nose, or eyes. Keep supplies on hand at home, such as food, medicine, and cleaning supplies. Stay home as much as possible. Avoid social gatherings and travel. How does coronavirus disease spread? The virus that causes coronavirus disease spreads easily from person to person (is contagious). There are also cases of community-spread disease. This means the disease has spread to: People who have no known contact with other infected people. People who have not traveled to areas where there are known cases. It appears to spread from one person to another through droplets from coughing or sneezing. Can I get the virus from touching surfaces or objects? There is still a lot that we do not know about the virus that causes coronavirus disease. Scientists are basing a lot of information on what they know about similar viruses, such as: Viruses cannot generally survive on surfaces for long. They need a human body (host) to survive. It is more likely that the virus is spread by close contact with people who are sick (direct contact), such as through: ?Shaking hands or hugging. ?Breathing in respiratory droplets that travel through the air. This can happen when an infected person coughs or sneezes on or near other people. It is less likely that the virus is spread when a person touches a surface or object that has the virus on it (indirect contact). The virus may be able to enter the body if the person touches a surface or object and then touches his or her face, eyes, nose, or mouth. Can a person spread the virus without having symptoms of the disease? It may be possible for the virus to spread before a person has symptoms of the disease, but this is most likely not the main way the virus is spreading. It is more likely for the virus to spread by being in close contact with people who are sick and breathing in the respiratory droplets of a sick person's cough or sneeze. What are the symptoms of coronavirus disease? Symptoms vary from person to person and can range from mild to severe. Symptoms may include: Fever. Cough. Tiredness, weakness, or fatigue. Fast breathing or feeling short of breath. These symptoms can appear anywhere from 2 to 14 days after you have been exposed to the virus. If you develop symptoms, call your health care provider. People with severe symptoms may need hospital care. If I am exposed to the virus, how long does it take before symptoms start? Symptoms of coronavirus disease may appear anywhere from 2 to 14 days after a person has been exposed to the virus. If you develop symptoms, call your health care provider. Should I be tested for this virus? Your health care provider will decide whether to test you based on your symptoms, history of exposure, and your risk factors. How does a health care provider test for this virus? Health care providers will collect samples to send for testing. Samples may include: Taking a swab of fluid from the nose. Taking fluid from the lungs by having you cough up mucus (sputum) into a sterile cup. Taking a blood sample. Taking a stool or urine sample. Is there a treatment or vaccine for this virus? Currently, there is no vaccine to prevent coronavirus disease. Also, there are no medicines like antibiotics or antivirals to treat the virus. A person who becomes sick is given supportive care, which means rest and fluids. A person may also relieve his or her symptoms by using frek-qrw-qdhrpfa medicines that treat sneezing, coughing, and runny nose. These are the same medicines that a person takes for the common cold. If you develop symptoms, call your health care provider. People with severe symptoms may need hospital care. What can I do to protect myself and my family from this virus? You can protect yourself and your family by taking the same actions that you would take to prevent the spread of other viruses. Take the following actions: Wash your hands often with soap and water for at least 20 seconds. If soap and water are not available, use alcohol-based hand livestock rancher. Avoid touching your face, mouth, nose, or eyes. Cough or sneeze into a tissue, sleeve, or elbow. Do not cough or sneeze into your hand or the air. ?If you cough or sneeze into a tissue, throw it away immediately and wash your hands. Disinfect objects and surfaces that you frequently touch every day. Avoid close contact with people who are sick or have a fever or cough. Stay at least 3 6 ft (1 2 m) away from them, if possible. Stay home if you are sick, except to get medical care. Call your health care provider before you get medical care. Make sure your vaccines are up to date. Ask your health care provider what vaccines you need. What should I do if I need to travel? Follow travel recommendations from your local health authority, the CDC, and WHO. Travel information and advice Centers for Disease Control and Prevention (CDC): www.cdc.gov/coronavirus/2019-ncov/ travelers/index.html World Health Organization (WHO): www.who.int/emergencies/diseases/n bfde-hrohbuecgwo-6382/travel-advic e Know the risks and take action to protect your health You are at higher risk of getting coronavirus disease if you are traveling to areas with an outbreak or if you are exposed to travelers from areas with an outbreak. Wash your hands often and practice good hygiene to lower the risk of catching or spreading the virus. What should I do if I am sick? General instructions to stop the spread of infection Wash your hands often with soap and water for at least 20 seconds. If soap and water are not available, use alcohol-based hand livestock rancher. Cough or sneeze into a tissue, sleeve, or elbow. Do not cough or sneeze into your hand or the air. If you cough or sneeze into a tissue, throw it away immediately and wash your hands. Stay home unless you must get medical care. Call your health care provider or local health authority before you get medical care. Avoid public areas. Do not take public transportation, if possible. If you can, wear a mask if you must go out of the house or if you are in close contact with someone who is not sick. Keep your home clean Disinfect objects and surfaces that are frequently touched every day. This may include: ?Counters and tables. ?Doorknobs and light switches. ?Sinks and faucets. ?Electronics such as phones, remote controls, keyboards, computers, and tablets. Wash dishes in hot, soapy water or use a factory worker. Air-dry your dishes. Wash laundry in hot water. Prevent infecting other household members Let healthy household members care for children and pets, if possible. If you have to care for children or pets, wash your hands often and wear a mask. Sleep in a different bedroom or bed, if possible. Do not share personal items, such as razors, toothbrushes, deodorant, tai, brushes, towels, and washcloths. Where to find more information Centers for Disease Control and Prevention (CDC) Information and news updates: www.cdc.gov/coronavirus/2019-ncov World Health Organization (WHO) Information and news updates: www.who.int/emergencies/diseases/n asfh-cccnnmlkwgh-6185 Coronavirus health topic: www.who.int/health-topics/coronavi fabi Questions and answers on COVID-19: www.who.int/news-room/q-a-detail/q -a-coronaviruses Global tracker: who.[employer] (AAP) Information for families: www.healthychildren.org/Liberian/he alth-issues/conditions/chest-lungs /Pages/1022-Nsvyh-Jllzslvcbbp.aspx The coronavirus situation is changing rapidly. Check your local health authority website or the CDC and WHO websites for updates and news. When should I contact a health care provider? Contact your health care provider if you have symptoms of an infection, such as fever or cough, and you: ?Have been near anyone who is known to have coronavirus disease. ?Have come into contact with a person who is suspected to have coronavirus disease. ?Have traveled outside of the country. When should I get emergency medical care? Get help right away by calling your local emergency services (911 in the [place] if you have: ?Trouble breathing. ?Pain or pressure in your chest. ?Confusion. ?Blue-tinged lips and fingernails. ?Difficulty waking from sleep. ?Symptoms that get worse. Let the emergency medical personnel know if you think you have coronavirus disease. Summary A new respiratory virus is spreading from person to person and causing COVID-19 (coronavirus disease). The virus that causes COVID-19 appears to spread easily. It spreads from one person to another through droplets from coughing or sneezing. Older adults and those with chronic diseases are at higher risk of disease. If you are at higher risk for complications, take extra precautions. There is currently no vaccine to prevent coronavirus disease. There are no medicines, such as antibiotics or antivirals, to treat the virus. You can protect yourself and your family by washing your hands often, avoiding touching your face, and covering your coughs and sneezes. This information is not intended to replace advice given to you by your health care provider. Make sure you discuss any questions you have with your health care provider. Document Released: 03/10/2020 Document Revised: 03/10/2020 Document Reviewed: 03/10/2020 [employer] Patient Education 2020 [employer] 09/06/2024 14:17:31 COVID-19 COVID-19 COVID-19 is a respiratory infection that is caused by a virus called severe acute respiratory syndrome coronavirus 2 (SARS-CoV-2). The disease is also known as coronavirus disease or novel coronavirus. In some people, the virus may not cause any symptoms. In others, it may cause a serious infection. The infection can get worse quickly and can lead to complications, such as: Pneumonia, or infection of the lungs. Acute respiratory distress syndrome or ARDS. This is fluid build-up in the lungs. Acute respiratory failure. This is a condition in which there is not enough oxygen passing from the lungs to the body. Sepsis or septic shock. This is a serious bodily reaction to an infection. Blood clotting problems. Secondary infections due to bacteria or fungus. The virus that causes COVID-19 is contagious. This means that it can spread from person to person through droplets from coughs and sneezes (respiratory secretions). What are the causes? This illness is caused by a virus. You may catch the virus by: Breathing in droplets from an infected person's cough or sneeze. Touching something, like a table or a doorknob, that was exposed to the virus (contaminated) and then touching your mouth, nose, or eyes. What increases the risk? Risk for infection You are more likely to be infected with this virus if you: Live in or travel to an area with a COVID-19 outbreak. Come in contact with a sick person who recently traveled to an area with a COVID-19 outbreak. Provide care for or live with a person who is infected with COVID-19. Risk for serious illness You are more likely to become seriously ill from the virus if you: Are 65 years of age or older. Have a long-term disease that lowers your body's ability to fight infection (immunocompromised). Live in a fdc or long-term care facility. Have a long-term (chronic) disease such as: ?Chronic lung disease, including chronic obstructive pulmonary disease or asthma ?Heart disease. ?Diabetes. ?Chronic kidney disease. ?Liver disease. Are obese. What are the signs or symptoms? Symptoms of this condition can range from mild to severe. Symptoms may appear any time from 2 to 14 days after being exposed to the virus. They include: A fever. A cough. Difficulty breathing. Chills. Muscle pains. A sore throat. Loss of taste or smell. Some people may also have stomach problems, such as nausea, vomiting, or diarrhea. Other people may not have any symptoms of COVID-19. How is this diagnosed? This condition may be diagnosed based on: Your signs and symptoms, especially if: ?You live in an area with a COVID-19 outbreak. ?You recently traveled to or from an area where the virus is common. ?You provide care for or live with a person who was diagnosed with COVID-19. A physical exam. Lab tests, which may include: ?A nasal swab to take a sample of fluid from your nose. ?A throat swab to take a sample of fluid from your throat. ?A sample of mucus from your lungs (sputum). ?Blood tests. Imaging tests, which may include, X-rays, CT scan, or ultrasound. How is this treated? At present, there is no medicine to treat COVID-19. Medicines that treat other diseases are being used on a trial basis to see if they are effective against COVID-19. Your health care provider will talk with you about ways to treat your symptoms. For most people, the infection is mild and can be managed at home with rest, fluids, and mmcf-nsv-mpguygo medicines. Treatment for a serious infection usually takes places in a hospital intensive care unit (ICU). It may include one or more of the following treatments. These treatments are given until your symptoms improve. Receiving fluids and medicines through an IV. Supplemental oxygen. Extra oxygen is given through a tube in the nose, a face mask, or a pinedo. Positioning you to lie on your stomach (prone position). This makes it easier for oxygen to get into the lungs. Continuous positive airway pressure (CPAP) or bi-level positive airway pressure (BPAP) machine. This treatment uses mild air pressure to keep the airways open. A tube that is connected to a motor delivers oxygen to the body. Ventilator. This treatment moves air into and out of the lungs by using a tube that is placed in your windpipe. Tracheostomy. This is a procedure to create a hole in the neck so that a breathing tube can be inserted. Extracorporeal membrane oxygenation (ECMO). This procedure gives the lungs a chance to recover by taking over the functions of the heart and lungs. It supplies oxygen to the body and removes carbon dioxide. Follow these instructions at home: Lifestyle If you are sick, stay home except to get medical care. Your health care provider will tell you how long to stay home. Call your health care provider before you go for medical care. Rest at home as told by your health care provider. Do not use any products that contain nicotine or tobacco, such as cigarettes, e-cigarettes, and chewing tobacco. If you need help quitting, ask your health care provider. Return to your normal activities as told by your health care provider. Ask your health care provider what activities are safe for you. General instructions Take vtgk-uus-nubhppx and prescription medicines only as told by your health care provider. Drink enough fluid to keep your urine pale yellow. Keep all follow-up visits as told by your health care provider. This is important. How is this prevented? There is no vaccine to help prevent COVID-19 infection. However, there are steps you can take to protect yourself and others from this virus. To protect yourself: Do not travel to areas where COVID-19 is a risk. The areas where COVID-19 is reported change often. To identify high-risk areas and travel restrictions, check the [facility] travel website: wwwnc.cdc.gov/travel/notices If you live in, or must travel to, an area where COVID-19 is a risk, take precautions to avoid infection. ?Stay away from people who are sick. ?Wash your hands often with soap and water for 20 seconds. If soap and water are not available, use an alcohol-based hand livestock rancher. ?Avoid touching your mouth, face, eyes, or nose. ?Avoid going out in public, follow guidance from your state and local health authorities. ?If you must go out in public, wear a cloth face covering or face mask. ?Disinfect objects and surfaces that are frequently touched every day. This may include: ?Counters and tables. ?Doorknobs and light switches. ?Sinks and faucets. ?Electronics, such as phones, remote controls, keyboards, computers, and tablets. To protect others: If you have symptoms of COVID-19, take steps to prevent the virus from spreading to others. If you think you have a COVID-19 infection, contact your health care provider right away. Tell your health care team that you think you may have a COVID-19 infection. Stay home. Leave your house only to seek medical care. Do not use public transport. Do not travel while you are sick. Wash your hands often with soap and water for 20 seconds. If soap and water are not available, use alcohol-based hand livestock rancher. Stay away from other members of your household. Let healthy household members care for children and pets, if possible. If you have to care for children or pets, wash your hands often and wear a mask. If possible, stay in your own room, separate from others. Use a different bathroom. Make sure that all people in your household wash their hands well and often. Cough or sneeze into a tissue or your sleeve or elbow. Do not cough or sneeze into your hand or into the air. Wear a cloth face covering or face mask. Where to find more information Centers for Disease Control and Prevention: www.cdc.gov/coronavirus/2019-ncov/ index.html World Health Organization: www.who.int/health-topics/coronavi fabi Contact a health care provider if: You live in or have traveled to an area where COVID-19 is a risk and you have symptoms of the infection. You have had contact with someone who has COVID-19 and you have symptoms of the infection. Get help right away if: You have trouble breathing. You have pain or pressure in your chest. You have confusion. You have bluish lips and fingernails. You have difficulty waking from sleep. You have symptoms that get worse. These symptoms may represent a serious problem that is an emergency. Do not wait to see if the symptoms will go away. Get medical help right away. Call your local emergency services (911 in the [place] Do not drive yourself to the hospital. Let the emergency medical personnel know if you think you have COVID-19. Summary COVID-19 is a respiratory infection that is caused by a virus. It is also known as coronavirus disease or novel coronavirus. It can cause serious infections, such as pneumonia, acute respiratory distress syndrome, acute respiratory failure, or sepsis. The virus that causes COVID-19 is contagious. This means that it can spread from person to person through droplets from coughs and sneezes. You are more likely to develop a serious illness if you are 65 years of age or older, have a weak immunity, live in a fdc, or have chronic disease. There is no medicine to treat COVID-19. Your health care provider will talk with you about ways to treat your symptoms. Take steps to protect yourself and others from infection. Wash your hands often and disinfect objects and surfaces that are frequently touched every day. Stay away from people who are sick and wear a mask if you are sick. This information is not intended to replace advice given to you by your health care provider. Make sure you discuss any questions you have with your health care provider. Document Released: 12/19/2019 Document Revised: 04/09/2020 Document Reviewed: 12/19/2019 Elsevier Patient Education 2020 [employer] Follow Up Care 09/04/2024 20:43:13 With:VINAYAK WRIGHT DO Address: [address] [place] [id number]- When:3-5 days Comments:Please call to schedule your post-hospital follow-up appointment. [facility] 09-06-2024 Note Discharge Instructions Thank you for allowing [facility] to assist you with your healthcare needs. The following is important discharge information regarding your hospital visit. Your Care Team VINAYAK WRIGHT RACHEL APRN-CNP Your Diagnosis Coronary artery disease s/p CABG x3 09/17/21 COVID-19 Edema of both lower extremities Essential hypertension Exertional dyspnea Weakness What to do next Instructions From Your Doctor You were admitted for COVID 19 infection. You were treated with an antiviral medication called remdesivir. You are also treated with a steroid called dexamethasone. You will continue to take dexamethasone for an additional 6 days starting on 09/07/2024. This has been called to your pharmacy. You had a little bit of an alteration in your kidney function. Your diuretics were held today. You may resume those tomorrow. Please plan to have your labs checked within the next 4 to 5 days. Please plan to follow-up with your PCP. Scheduled Follow-Up Appointments Appointment Type When With Where Contact Information StatusCV OV 01/28/2025 02:30 PM EST EDMUNDO BARRETT [facility] Confirmed Follow Up Appointments Follow Up with VINAYAK WRIGHT DO When:Within 3-5 days Where:[address] [place] [address]- Additional Information: Please call to schedule your post-hospital follow-up appointment. The Following Activity and Diet Have Been Ordered for You Discharge Activity - Ordered -- Resume your pre-hospitalization activity, 09/06/24 12:09:00 EDT Discharge Diet - Ordered -- No changes were made to your diet during your hospital stay. Please resume your pre hospitalization diet on discharge., 09/06/24 12:09:00 EDT The Following Treatments Have Been Ordered for You Discharge Labs Discharge Outpatient Labwork - Ordered -- BMP, Mild renal insufficency, 09/06/24 12:09:00 EDT Discharge Radiology No qualifying data available. Other Therapies No qualifying data available. Post Acute Orders No qualifying data available. Someone Will Contact You Regarding These Home Health Referrals No home referrals have been ordered for you. No one will call you. Allergies NKA Medications Please ask your primary doctor or pharmacist before taking any other medication not listed, including over the counter drugs, herbal medications, vitamins and or supplements as they may interact with your home medications. What How Much When Why Instructions Last Dose New dexAMETHasone (dexAMETHasone 6 mg oral tablet) 1 tab(s) by mouth Once a day Duration: 7 Days Pickup at [facility]/pharmacy #[id number] Unchanged acetaminophen-diphenhydramine (Tylenol PM Extra Strength oral tablet) 1 tab(s) by mouth Daily at bedtime Unchanged ascorbic acid (Vitamin C 500 mg oral tablet) 1 tab(s) by mouth Once a day Unchanged aspirin (aspirin 81 mg oral delayed release tablet) 1 tab(s) by mouth Once a day with a meal Unchanged bumetanide (bumetanide 1 mg oral tablet) 1 tab(s) by mouth Once a day Unchanged carvedilol (carvedilol 25 mg oral tablet) 1 tab(s) by mouth Two (2) times a day Unchanged cholecalciferol (Vitamin D (3) 45 units oral capsule) Once a day Unchanged DME (Alcohol Swabs) See instructions Prediabetes HgbA1C 6.0 1 box Unchanged DME (Blood Glucose Test Machine) See instructions Prediabetes HgbA1C 6.0 Device as determined by insurance coverage Unchanged DME (Blood Glucose Test Strips) See instructions Prediabetes HgbA1C 6.0 Testing blood glucose QD and PRN. 1 bottle of 100 strips Unchanged DME (Lancets) See instructions Prediabetes HgbA1C 6.0 Testing blood glucose QD and PRN.1 box Unchanged ezetimibe (Zetia 10 mg oral tablet) 1 tab(s) by mouth Once a day Unchanged gabapentin (gabapentin 100 mg oral capsule) 1-3 CAPSULES THREE TIMES DAILY NEEDED FOR NERVE PAIN Unchanged hydroCHLOROthiazide (hydroCHLOROthiazide 25 mg oral tablet) 2 tab(s) by mouth Once a day Unchanged isosorbide mononitrate (isosorbide mononitrate 30 mg oral tablet, extended release) 1 tab(s) by mouth Once a day (in the morning) Unchanged loratadine (loratadine 10 mg oral tablet) TAKE 1 TABLET BY MOUTH EVERY DAY NEEDED Unchanged magnesium oxide (Magnesium 250 mg tablet) by mouth Once a day Unchanged multivitamin (B Complex 50 oral tablet) by mouth Once a day Unchanged multivitamin with minerals (Centrum Silver oral tablet) 1 tab(s) by mouth Once a day Unchanged nitroGLYcerin (nitroglycerin 0.4 mg sublingual tablet) 1 tab(s) under the tongue Every 5 minutes as needed for for chest pain Unchanged potassium chloride (Potassium Chloride (Eqv-K-Tab) 20 mEq oral tablet, extended release) 1 tab(s) by mouth Once a day Unchanged primidone (primidone 250 mg oral tablet) 1 tab(s) by mouth Two (2) times a day Unchanged telmisartan (telmisartan 80 mg oral tablet) 1 tab(s) by mouth Once a day Duration: 90 Days Pharmacy Information [facility]/pharmacy #[id number]: [address], [place] [id number] [phone] What How Much When Comments Stop Taking amLODIPine 5 Milligram by mouth Once a day Please take this list to your next doctor s visit. Bring all medications you take, including over the counter medications, herbals and other supplements with you to your doctor s visit. Patients and families are reminded to discard old lists and to update any records with all medication providers or retail pharmacies. Medication Leaflets dexamethasone (oral) (dex a METH a sone) Dexabliss 11-Day Dose Pack, DexAMETHasone Intensol, Dxevo 11-Day Dose Pack, Hemady, HiDex 6-Day Taper Package, TaperDex 12-Day, TaperDex 6-Day, TaperDex 7-Day, Zcort 7-Day What is the most important information I should know about dexamethasone? You should not use this medicine if you have a fungal infection anywhere in your body. Tell your doctor about all your medical conditions, and all the medicines you are using. There are many other diseases that can be affected by steroid use, and many other medicines that can interact with steroids. What is dexamethasone? There are many brands and forms of dexamethasone available. Not all brands are listed on this leaflet. Dexamethasone is a steroid that prevents the release of substances in the body that cause inflammation. Dexamethasone is used to treat many different conditions such as allergic disorders, skin conditions, ulcerative colitis, arthritis, lupus, psoriasis, or breathing disorders. Dexamethasone may also be used for purposes not listed in this medication guide. What should I discuss with my healthcare provider before taking dexamethasone? You should not use dexamethasone if you are allergic to it, or if you have: a fungal infection anywhere in your body. Tell your doctor if you have ever had: liver disease (such as cirrhosis); kidney disease; a thyroid disorder; malaria; tuberculosis; osteoporosis; a muscle disorder such as myasthenia gravis; diabetes (steroid medicine may increase glucose levels in your blood or urine); glaucoma or cataracts; herpes infection of the eyes; stomach ulcers, ulcerative colitis, diverticulitis, inflammatory bowel disease; depression or mental illness; congestive heart failure; or high blood pressure. Steroid medication affects your immune system. You may get infections more easily. Steroids can also worsen or reactivate an infection you've already had. Tell your doctor about any illness or infection you have had within the past several weeks. It is not known whether this medicine will harm an unborn baby. Tell your doctor if you are . You should not breastfeed while using dexamethasone. How should I take dexamethasone? Follow all directions on your prescription label and read all medication guides or instruction sheets. Your doctor may occasionally change your dose. Use the medicine exactly as directed. Your dose needs may change due to surgery, illness, stress, or a medical emergency. Tell your doctor about any such situation that affects you. This medicine can affect the results of certain medical tests. Tell any doctor who treats you that you are using dexamethasone. Do not stop using dexamethasone suddenly, or you could have unpleasant withdrawal symptoms. Ask your doctor how to safely stop using this medicine. In case of emergency, wear or carry medical identification to let others know you use dexamethasone. Store at room temperature away from moisture and heat. What happens if I miss a dose? Call your doctor for instructions if you miss a dose of dexamethasone. What happens if I overdose? Seek emergency medical attention or call the Poison Help line at . An overdose of dexamethasone is not expected to produce life threatening symptoms. long-term use of high doses can lead to thinning skin, easy bruising, changes in body fat (especially in your face, neck, back, and waist), increased acne or facial hair, menstrual problems, impotence, or loss of interest in sex. What should I avoid while taking dexamethasone? Avoid being near people who are sick or have infections. Call your doctor for preventive treatment if you are exposed to chickenpox or measles. These conditions can be serious or even fatal in people who are using steroid medicine. Avoid drinking alcohol while you are taking dexamethasone. Do not receive a 'live' vaccine while using dexamethasone. The vaccine may not work as well during this time, and may not fully protect you from disease. Live vaccines include measles, mumps, rubella (MMR), polio, rotavirus, typhoid, yellow fever, varicella (chickenpox), and zoster (shingles). What are the possible side effects of dexamethasone? Get emergency medical help if you have signs of an allergic reaction: hives; difficulty breathing; swelling of your face, lips, tongue, or throat. Call your doctor at once if you have: muscle tightness, weakness, or limp feeling; blurred vision, tunnel vision, eye pain, or seeing halos around lights; shortness of breath (even with mild exertion), swelling, rapid weight gain; severe depression, unusual thoughts or behavior; a seizure (convulsions); bloody or tarry stools, coughing up blood; fast or slow heart rate, weak pulse; pancreatitis--severe pain in your upper stomach spreading to your back, nausea and vomiting; low potassium level--leg cramps, constipation, irregular heartbeats, fluttering in your chest, increased thirst or urination, numbness or tingling; or increased blood pressure--severe headache, blurred vision, pounding in your neck or ears, anxiety, nosebleed. Dexamethasone can affect growth in children. Tell your doctor if your child is not growing at a normal rate while using this medicine. Common side effects may include: fluid retention (swelling in your hands or ankles); increased appetite; mood changes, trouble sleeping; skin rash, bruising or discoloration; acne, increased sweating, increased hair growth; headache, dizziness; nausea, vomiting, upset stomach; changes in your menstrual periods; or changes in the shape or location of body fat (especially in your arms, legs, face, neck, breasts, and waist). This is not a complete list of side effects and others may occur. Call your doctor for medical advice about side effects. You may report side effects to FDA at 3-520-GTV-8486. What other drugs will affect dexamethasone? Sometimes it is not safe to use certain medications at the same time. Some drugs can affect your blood levels of other drugs you take, which may increase side effects or make the medications less effective. Tell your doctor about all your current medicines. Many drugs can affect dexamethasone, especially: an antibiotic or antifungal medicine; control pills or hormone replacement therapy; insulin or diabetes medications you take by mouth; medicine to treat dementia or Parkinson's disease; a blood thinner--warfarin, Coumadin, Jantoven; or NSAIDs (nonsteroidal anti-inflammatory drugs)--aspirin, ibuprofen (Advil, Motrin), naproxen (Aleve), celecoxib, diclofenac, indomethacin, meloxicam, and others. This list is not complete and many other drugs may affect dexamethasone. This includes prescription and vcxa-qtn-isnayny medicines, vitamins, and herbal products. Not all possible drug interactions are listed here. Where can I get more information? Your pharmacist can provide more information about dexamethasone. Remember, keep this and all other medicines out of the reach of children, never share your medicines with others, and use this medication only for the indication prescribed. Every effort has been made to ensure that the information provided by [employer]') is accurate, up-to-date, and complete, but no guarantee is made to that effect. Drug information contained herein may be time sensitive. [employer] information has been compiled for use by healthcare practitioners and consumers in the [place] and therefore [employer] does not warrant that uses outside of the [place] are appropriate, unless specifically indicated otherwise. [employer] drug information does not endorse drugs, diagnose patients or recommend therapy. [employer] drug information is an informational resource designed to assist licensed healthcare practitioners in caring for their patients and/or to serve consumers viewing this service as a supplement to, and not a substitute for, the expertise, skill, knowledge and judgment of healthcare practitioners. The absence of a warning for a given drug or drug combination in no way should be construed to indicate that the drug or drug combination is safe, effective or appropriate for any given patient. [employer] does not assume any responsibility for any aspect of healthcare administered with the aid of information [employer] provides. The information contained herein is not intended to cover all possible uses, directions, precautions, warnings, drug interactions, allergic reactions, or adverse effects. If you have questions about the drugs you are taking, check with your doctor, nurse or pharmacist. Copyright 0729-3694 [employer] Version: 10.. Revision Date: 06/30/2023. Education Materials Weakness Weakness is a lack of strength. You may feel weak all over your body (generalized), or you may feel weak in one specific part of your body (focal). Common causes of weakness include: Infection and immune system disorders. Physical exhaustion. Internal bleeding or other blood loss that results in a lack of red blood cells (anemia). Dehydration. An imbalance in mineral (electrolyte) levels, such as potassium. Heart disease, circulation problems, or stroke. Other causes include: Some medicines or cancer treatment. Stress, anxiety, or depression. Nervous system disorders. Thyroid disorders. Loss of muscle strength because of age or inactivity. Poor sleep quality or sleep disorders. The cause of your weakness may not be known. Some causes of weakness can be serious, so it is important to see your health care provider. Follow these instructions at home: Activity Rest as needed. Try to get enough sleep. Most adults need 7 8 hours of quality sleep each night. Talk to your health care provider about how much sleep you need each night. Do exercises, such as arm curls and leg raises, for 30 minutes at least 2 days a week or as told by your health care provider. This helps build muscle strength. Consider working with a physical therapist or seeing eye dog trainer who can develop an exercise plan to help you gain muscle strength. General instructions Take rxpa-jer-jbuymrl and prescription medicines only as told by your health care provider. Eat a healthy, well-balanced diet. This includes: ? Proteins to build muscles, such as lean meats and fish. ? Fresh fruits and vegetables. ? Carbohydrates to boost energy, such as whole grains. Drink enough fluid to keep your urine pale yellow. Keep all follow-up visits as told by your health care provider. This is important. Contact a health care provider if your weakness: Does not improve or gets worse. Affects your ability to think clearly. Affects your ability to do your normal daily activities. Get help right away if you: Develop sudden weakness, especially on one side of your face or body. Have chest pain. Have trouble breathing or shortness of breath. Have problems with your vision. Have trouble talking or swallowing. Have trouble standing or walking. Are light-headed or lose consciousness. Summary Weakness is a lack of strength. You may feel weak all over your body or just in one specific part of your body. Weakness can be caused by a variety of things. In some cases, the cause may be unknown. Rest as needed, and try to get enough sleep. Most adults need 7 8 hours of quality sleep each night. Eat a healthy, well-balanced diet. This information is not intended to replace advice given to you by your health care provider. Make sure you discuss any questions you have with your health care provider. Document Released: 11/13/2006 Document Revised: 06/19/2019 Document Reviewed: 06/19/2019 [employer] Patient Education 2020 [employer]. COVID-19 Frequently Asked Questions COVID-19 (coronavirus disease) is an infection that is caused by a large family of viruses. Some viruses cause illness in people and others cause illness in animals like camels, cats, and bats. In some cases, the viruses that cause illness in animals can spread to humans. Where did the coronavirus come from? In October 2019, [place] told the World Health Organization (WHO) of several cases of lung disease (human respiratory illness). These cases were linked to an open seafood and livestock market in the [facility]. The link to the seafood and livestock market suggests that the virus may have spread from animals to humans. However, since that first outbreak in October, the virus has also been shown to spread from person to person. What is the name of the disease and the virus? Disease name Early on, this disease was called novel coronavirus. This is because scientists determined that the disease was caused by a new (novel) respiratory virus. The World Health Organization (WHO) has now named the disease COVID-19, or coronavirus disease. Virus name The virus that causes the disease is called severe acute respiratory syndrome coronavirus 2 (SARS-CoV-2). More information on disease and virus naming World Health Organization (WHO): www.who.int/emergencies/diseases/n rqhj-zrtzejdajrv-6195/technical-gu idance/zjgvyo-mah-cvxxrujmpnk-dise ase-(covid-2019)-wdl-iox-uibub-misael t-causes-it Who is at risk for complications from coronavirus disease? Some people may be at higher risk for complications from coronavirus disease. This includes older adults and people who have chronic diseases, such as heart disease, diabetes, and lung disease. If you are at higher risk for complications, take these extra precautions: Avoid close contact with people who are sick or have a fever or cough. Stay at least 3 6 ft (1 2 m) away from them, if possible. Wash your hands often with soap and water for at least 20 seconds. Avoid touching your face, mouth, nose, or eyes. Keep supplies on hand at home, such as food, medicine, and cleaning supplies. Stay home as much as possible. Avoid social gatherings and travel. How does coronavirus disease spread? The virus that causes coronavirus disease spreads easily from person to person (is contagious). There are also cases of community-spread disease. This means the disease has spread to: People who have no known contact with other infected people. People who have not traveled to areas where there are known cases. It appears to spread from one person to another through droplets from coughing or sneezing. Can I get the virus from touching surfaces or objects? There is still a lot that we do not know about the virus that causes coronavirus disease. Scientists are basing a lot of information on what they know about similar viruses, such as: Viruses cannot generally survive on surfaces for long. They need a human body (host) to survive. It is more likely that the virus is spread by close contact with people who are sick (direct contact), such as through: ? Shaking hands or hugging. ? Breathing in respiratory droplets that travel through the air. This can happen when an infected person coughs or sneezes on or near other people. It is less likely that the virus is spread when a person touches a surface or object that has the virus on it (indirect contact). The virus may be able to enter the body if the person touches a surface or object and then touches his or her face, eyes, nose, or mouth. Can a person spread the virus without having symptoms of the disease? It may be possible for the virus to spread before a person has symptoms of the disease, but this is most likely not the main way the virus is spreading. It is more likely for the virus to spread by being in close contact with people who are sick and breathing in the respiratory droplets of a sick person's cough or sneeze. What are the symptoms of coronavirus disease? Symptoms vary from person to person and can range from mild to severe. Symptoms may include: Fever. Cough. Tiredness, weakness, or fatigue. Fast breathing or feeling short of breath. These symptoms can appear anywhere from 2 to 14 days after you have been exposed to the virus. If you develop symptoms, call your health care provider. People with severe symptoms may need hospital care. If I am exposed to the virus, how long does it take before symptoms start? Symptoms of coronavirus disease may appear anywhere from 2 to 14 days after a person has been exposed to the virus. If you develop symptoms, call your health care provider. Should I be tested for this virus? Your health care provider will decide whether to test you based on your symptoms, history of exposure, and your risk factors. How does a health care provider test for this virus? Health care providers will collect samples to send for testing. Samples may include: Taking a swab of fluid from the nose. Taking fluid from the lungs by having you cough up mucus (sputum) into a sterile cup. Taking a blood sample. Taking a stool or urine sample. Is there a treatment or vaccine for this virus? Currently, there is no vaccine to prevent coronavirus disease. Also, there are no medicines like antibiotics or antivirals to treat the virus. A person who becomes sick is given supportive care, which means rest and fluids. A person may also relieve his or her symptoms by using rjlj-mgd-jdxcixa medicines that treat sneezing, coughing, and runny nose. These are the same medicines that a person takes for the common cold. If you develop symptoms, call your health care provider. People with severe symptoms may need hospital care. What can I do to protect myself and my family from this virus? You can protect yourself and your family by taking the same actions that you would take to prevent the spread of other viruses. Take the following actions: Wash your hands often with soap and water for at least 20 seconds. If soap and water are not available, use alcohol-based hand livestock rancher. Avoid touching your face, mouth, nose, or eyes. Cough or sneeze into a tissue, sleeve, or elbow. Do not cough or sneeze into your hand or the air. ? If you cough or sneeze into a tissue, throw it away immediately and wash your hands. Disinfect objects and surfaces that you frequently touch every day. Avoid close contact with people who are sick or have a fever or cough. Stay at least 3 6 ft (1 2 m) away from them, if possible. Stay home if you are sick, except to get medical care. Call your health care provider before you get medical care. Make sure your vaccines are up to date. Ask your health care provider what vaccines you need. What should I do if I need to travel? Follow travel recommendations from your local health authority, the CDC, and WHO. Travel information and advice Centers for Disease Control and Prevention (CDC): www.cdc.gov/coronavirus/2019-ncov/ travelers/index.html World Health Organization (WHO): www.who.int/emergencies/diseases/n lyio-arlmtcpuflx-9323/travel-advic e Know the risks and take action to protect your health You are at higher risk of getting coronavirus disease if you are traveling to areas with an outbreak or if you are exposed to travelers from areas with an outbreak. Wash your hands often and practice good hygiene to lower the risk of catching or spreading the virus. What should I do if I am sick? General instructions to stop the spread of infection Wash your hands often with soap and water for at least 20 seconds. If soap and water are not available, use alcohol-based hand livestock rancher. Cough or sneeze into a tissue, sleeve, or elbow. Do not cough or sneeze into your hand or the air. If you cough or sneeze into a tissue, throw it away immediately and wash your hands. Stay home unless you must get medical care. Call your health care provider or local health authority before you get medical care. Avoid public areas. Do not take public transportation, if possible. If you can, wear a mask if you must go out of the house or if you are in close contact with someone who is not sick. Keep your home clean Disinfect objects and surfaces that are frequently touched every day. This may include: ? Counters and tables. ? Doorknobs and light switches. ? Sinks and faucets. ? Electronics such as phones, remote controls, keyboards, computers, and tablets. Wash dishes in hot, soapy water or use a factory worker. Air-dry your dishes. Wash laundry in hot water. Prevent infecting other household members Let healthy household members care for children and pets, if possible. If you have to care for children or pets, wash your hands often and wear a mask. Sleep in a different bedroom or bed, if possible. Do not share personal items, such as razors, toothbrushes, deodorant, tai, brushes, towels, and washcloths. Where to find more information Centers for Disease Control and Prevention (CDC) Information and news updates: www.cdc.gov/coronavirus/2019-ncov World Health Organization (WHO) Information and news updates: www.who.int/emergencies/diseases/n eyci-xrpltyrbprz-1635 Coronavirus health topic: www.who.int/health-topics/coronavi fabi Questions and answers on COVID-19: www.who.int/news-room/q-a-detail/q -a-coronaviruses Global tracker: [employer] (AAP) Information for families: www.healthychildren.org/Liberian/he alth-issues/conditions/chest-lungs /Pages/1553-Myuid-Aenllcmnnhm.aspx The coronavirus situation is changing rapidly. Check your local health authority website or the CDC and WHO websites for updates and news. When should I contact a health care provider? Contact your health care provider if you have symptoms of an infection, such as fever or cough, and you: ? Have been near anyone who is known to have coronavirus disease. ? Have come into contact with a person who is suspected to have coronavirus disease. ? Have traveled outside of the country. When should I get emergency medical care? Get help right away by calling your local emergency services (911 in the [place] if you have: ? Trouble breathing. ? Pain or pressure in your chest. ? Confusion. ? Blue-tinged lips and fingernails. ? Difficulty waking from sleep. ? Symptoms that get worse. Let the emergency medical personnel know if you think you have coronavirus disease. Summary A new respiratory virus is spreading from person to person and causing COVID-19 (coronavirus disease). The virus that causes COVID-19 appears to spread easily. It spreads from one person to another through droplets from coughing or sneezing. Older adults and those with chronic diseases are at higher risk of disease. If you are at higher risk for complications, take extra precautions. There is currently no vaccine to prevent coronavirus disease. There are no medicines, such as antibiotics or antivirals, to treat the virus. You can protect yourself and your family by washing your hands often, avoiding touching your face, and covering your coughs and sneezes. This information is not intended to replace advice given to you by your health care provider. Make sure you discuss any questions you have with your health care provider. Document Released: 03/10/2020 Document Revised: 03/10/2020 Document Reviewed: 03/10/2020 [employer] Patient Education 2019 [employer]. COVID-19 COVID-19 is a respiratory infection that is caused by a virus called severe acute respiratory syndrome coronavirus 2 (SARS-CoV-2). The disease is also known as coronavirus disease or novel coronavirus. In some people, the virus may not cause any symptoms. In others, it may cause a serious infection. The infection can get worse quickly and can lead to complications, such as: Pneumonia, or infection of the lungs. Acute respiratory distress syndrome or ARDS. This is fluid build-up in the lungs. Acute respiratory failure. This is a condition in which there is not enough oxygen passing from the lungs to the body. Sepsis or septic shock. This is a serious bodily reaction to an infection. Blood clotting problems. Secondary infections due to bacteria or fungus. The virus that causes COVID-19 is contagious. This means that it can spread from person to person through droplets from coughs and sneezes (respiratory secretions). What are the causes? This illness is caused by a virus. You may catch the virus by: Breathing in droplets from an infected person's cough or sneeze. Touching something, like a table or a doorknob, that was exposed to the virus (contaminated) and then touching your mouth, nose, or eyes. What increases the risk? Risk for infection You are more likely to be infected with this virus if you: Live in or travel to an area with a COVID-19 outbreak. Come in contact with a sick person who recently traveled to an area with a COVID-19 outbreak. Provide care for or live with a person who is infected with COVID-19. Risk for serious illness You are more likely to become seriously ill from the virus if you: Are 65 years of age or older. Have a long-term disease that lowers your body's ability to fight infection (immunocompromised). Live in a fdc or long-term care facility. Have a long-term (chronic) disease such as: ? Chronic lung disease, including chronic obstructive pulmonary disease or asthma ? Heart disease. ? Diabetes. ? Chronic kidney disease. ? Liver disease. Are obese. What are the signs or symptoms? Symptoms of this condition can range from mild to severe. Symptoms may appear any time from 2 to 14 days after being exposed to the virus. They include: A fever. A cough. Difficulty breathing. Chills. Muscle pains. A sore throat. Loss of taste or smell. Some people may also have stomach problems, such as nausea, vomiting, or diarrhea. Other people may not have any symptoms of COVID-19. How is this diagnosed? This condition may be diagnosed based on: Your signs and symptoms, especially if: ? You live in an area with a COVID-19 outbreak. ? You recently traveled to or from an area where the virus is common. ? You provide care for or live with a person who was diagnosed with COVID-19. A physical exam. Lab tests, which may include: ? A nasal swab to take a sample of fluid from your nose. ? A throat swab to take a sample of fluid from your throat. ? A sample of mucus from your lungs (sputum). ? Blood tests. Imaging tests, which may include, X-rays, CT scan, or ultrasound. How is this treated? At present, there is no medicine to treat COVID-19. Medicines that treat other diseases are being used on a trial basis to see if they are effective against COVID-19. Your health care provider will talk with you about ways to treat your symptoms. For most people, the infection is mild and can be managed at home with rest, fluids, and aedc-oak-lfdmpie medicines. Treatment for a serious infection usually takes places in a hospital intensive care unit (ICU). It may include one or more of the following treatments. These treatments are given until your symptoms improve. Receiving fluids and medicines through an IV. Supplemental oxygen. Extra oxygen is given through a tube in the nose, a face mask, or a pinedo. Positioning you to lie on your stomach (prone position). This makes it easier for oxygen to get into the lungs. Continuous positive airway pressure (CPAP) or bi-level positive airway pressure (BPAP) machine. This treatment uses mild air pressure to keep the airways open. A tube that is connected to a motor delivers oxygen to the body. Ventilator. This treatment moves air into and out of the lungs by using a tube that is placed in your windpipe. Tracheostomy. This is a procedure to create a hole in the neck so that a breathing tube can be inserted. Extracorporeal membrane oxygenation (ECMO). This procedure gives the lungs a chance to recover by taking over the functions of the heart and lungs. It supplies oxygen to the body and removes carbon dioxide. Follow these instructions at home: Lifestyle If you are sick, stay home except to get medical care. Your health care provider will tell you how long to stay home. Call your health care provider before you go for medical care. Rest at home as told by your health care provider. Do not use any products that contain nicotine or tobacco, such as cigarettes, e-cigarettes, and chewing tobacco. If you need help quitting, ask your health care provider. Return to your normal activities as told by your health care provider. Ask your health care provider what activities are safe for you. General instructions Take dxww-yck-hmqckja and prescription medicines only as told by your health care provider. Drink enough fluid to keep your urine pale yellow. Keep all follow-up visits as told by your health care provider. This is important. How is this prevented? There is no vaccine to help prevent COVID-19 infection. However, there are steps you can take to protect yourself and others from this virus. To protect yourself: Do not travel to areas where COVID-19 is a risk. The areas where COVID-19 is reported change often. To identify high-risk areas and travel restrictions, check the CDC travel website: wwwnc.cdc.gov/travel/notices If you live in, or must travel to, an area where COVID-19 is a risk, take precautions to avoid infection. ? Stay away from people who are sick. ? Wash your hands often with soap and water for 20 seconds. If soap and water are not available, use an alcohol-based hand livestock rancher. ? Avoid touching your mouth, face, eyes, or nose. ? Avoid going out in public, follow guidance from your state and local health authorities. ? If you must go out in public, wear a cloth face covering or face mask. ? Disinfect objects and surfaces that are frequently touched every day. This may include: ? Counters and tables. ? Doorknobs and light switches. ? Sinks and faucets. ? Electronics, such as phones, remote controls, keyboards, computers, and tablets. To protect others: If you have symptoms of COVID-19, take steps to prevent the virus from spreading to others. If you think you have a COVID-19 infection, contact your health care provider right away. Tell your health care team that you think you may have a COVID-19 infection. Stay home. Leave your house only to seek medical care. Do not use public transport. Do not travel while you are sick. Wash your hands often with soap and water for 20 seconds. If soap and water are not available, use alcohol-based hand livestock rancher. Stay away from other members of your household. Let healthy household members care for children and pets, if possible. If you have to care for children or pets, wash your hands often and wear a mask. If possible, stay in your own room, separate from others. Use a different bathroom. Make sure that all people in your household wash their hands well and often. Cough or sneeze into a tissue or your sleeve or elbow. Do not cough or sneeze into your hand or into the air. Wear a cloth face covering or face mask. Where to find more information Centers for Disease Control and Prevention: www.cdc.gov/coronavirus/2019-ncov/ index.html World Health Organization: www.who.int/health-topics/coronavi fabi Contact a health care provider if: You live in or have traveled to an area where COVID-19 is a risk and you have symptoms of the infection. You have had contact with someone who has COVID-19 and you have symptoms of the infection. Get help right away if: You have trouble breathing. You have pain or pressure in your chest. You have confusion. You have bluish lips and fingernails. You have difficulty waking from sleep. You have symptoms that get worse. These symptoms may represent a serious problem that is an emergency. Do not wait to see if the symptoms will go away. Get medical help right away. Call your local emergency services (911 in the [place] Do not drive yourself to the hospital. Let the emergency medical personnel know if you think you have COVID-19. Summary COVID-19 is a respiratory infection that is caused by a virus. It is also known as coronavirus disease or novel coronavirus. It can cause serious infections, such as pneumonia, acute respiratory distress syndrome, acute respiratory failure, or sepsis. The virus that causes COVID-19 is contagious. This means that it can spread from person to person through droplets from coughs and sneezes. You are more likely to develop a serious illness if you are 65 years of age or older, have a weak immunity, live in a fdc, or have chronic disease. There is no medicine to treat COVID-19. Your health care provider will talk with you about ways to treat your symptoms. Take steps to protect yourself and others from infection. Wash your hands often and disinfect objects and surfaces that are frequently touched every day. Stay away from people who are sick and wear a mask if you are sick. This information is not intended to replace advice given to you by your health care provider. Make sure you discuss any questions you have with your health care provider. Document Released: 12/19/2019 Document Revised: 04/09/2020 Document Reviewed: 12/19/2019 [employer] Patient Education 2020 [employer]. Additional Information VACCINATE! IT SAVES LIVES! Members of the community who have not yet received the COVID-19 vaccine and would like to receive it can visit one of [facility] vaccine clinics. There are many vaccine clinic locations within the [facility]. For locations and available times, please visit https://gettheshot.coronavirus.[place].gov/. It is important to note that some COVID mobile vaccine clinics are held outdoors and may be canceled in rainy or stormy conditions. To learn more about pediatric vaccinations (ages 5-11), we invite you to visit the [facility] webpage. https://www.[facility].org/pag es/2844-Wsiwo-Dyxkzdhxvje-Frequent qw-Gbblr-Sufhqxmfi.html To learn more about the COVID-19 vaccine, we invite you to visit the CDC website for a list of frequently asked questions.https://www.cdc.gov/yoly navirus/2019-ncov/vaccines/faq.htm [employer] Patient Portal Access Instructions: Stay connected with your healthcare team and access your personal medical information anytime with the [employer] Patient Portal. Please follow the directions below to create your [facility] account: 1.Access the email account you provided upon registration to the hospital/physician off (more content not included)... [facility] 09-05-2024 manager information Note Made several attempts to assess patient via phone (due to COVID isolation precautions); no answer. Will attempt to follow-up tomorrow. Digitally Signed by Deepak Montes on 09/05/2024 03:20 PM [facility] 09-05-2024 Note Date of Service 09/05/2024 Chief Complaint sudden onset weakness and dfficulty breathing, per EMS pts family said his pulse ox was 88% on room air at home, pt wears 2L O2 at home at night time they applied 2L O2 and pulse ox was up tp 94% when squad arrived, fell today onto hands and knees, History of Present Illness 73-year-old male with past medical history significant for hypertension, CAD s/p CABG x 3, HLD, MV/AV regurgitation, BRENT on CPAP, HFmrEF(40-45%), seizure disorder, prostate cancer, arthritis, obesity, weakness BLE, frequent falls. Patient presented to [facility] emergency department on 09/04/2024 via EMS for dyspnea, generalized weakness. In the emergency department he had a low-grade temperature, hypertensive with adequate oxygenation on room air. He does use oxygen as needed at home up to 2 L via nasal cannula. No leukocytosis. ABG unremarkable. Specific gravity greater than 1.030. BMP unremarkable. BNP 823. COVID-positive. X-ray chest shows hypoventilatory changes. Streaky bibasilar opacities/atelectasis. CT head showed no acute abnormality. He was given Lasix 40 mg IV as well as remdesivir and subsequently admitted. Overnight he continued to have fevers. This morning he is febrile at 38.3. Vital signs stable. On exam today, No dizziness. Admits headache. Denies chest pain, palpitations. Admits cough with sputum production. Denies N/V/D/C. No melena/hematochezia. No dysuria or hematuria. No new paresthesias. Review of Systems GEN: Appears chronically ill EYES: No conjunctival erythema, drainage. EOMI EARS: Hearing grossly intact. NOSE: No nasal discharge. THROAT: Oral cavity and pharynx pink and moist. CHEST: Normal S1 and S2. Rhythm is regular. Diminished ABD: Positive bowel sounds x 4 quads. Soft, nondistended, nontender. EXT: No significant deformity or joint abnormality. Peripheral pulses intact. NEURO: Sensation grossly intact SKIN: Skin color normal PSYCH: The mental examination revealed the patient was alert and oriented x 4 Physical Exam Vitals and Measurements T: 38.3 C (Oral) TMIN: 36.4 C (Oral) TMAX: 38.3 C (Oral) HR: 82 (Monitored) RR: 16 BP: 157/94 SpO2: 94% HT: 180.3 cm WT: 114.8 kg BMI: 35.31 Weight Dosing Weight: 114.8 kg (09/04/24) Dosing Weight: 113.6 kg (09/04/24) Lab Results 09/04 21:24 WBC: 7.5 Hgb: 13.1 Hct: 39.2 L Platelet: 185 Neutrophil %: 73.7 Glucose Level: 140 H Sodium Level: 138 Potassium Level: 3.7 BUN: 23 H Creatinine Lvl (s): 1.28 Imaging Results and Diagnostics CT Head or Brain w/o Contrast Result Date: September 04, 2024 Verified By: JAREK BERRIOS MD CLINICAL STATEMENT: IMPRESSION: No acute intracranial abnormality. XR Chest 2 Views Result Date: September 04, 2024 Verified By: JAREK BERRIOS MD CLINICAL STATEMENT: IMPRESSION: Suboptimal exam due to patient body habitus. Hypoventilatory changes.Bibasilar streaky opacity/atelectasis. I have personally reviewed the images of this examination and agree with theresident's findings and interpretation. Assessment/Plan 1. COVID-19 2. Weakness 3. Essential hypertension 4. Exertional dyspnea 5. Coronary artery disease s/p CABG x3 09/17/21 6. Edema of both lower extremities COVID 19 remdesivir and dexamethasone. Attempt to wean to room air when able. Encourage incentive spirometer hourly. Patient is clearing secretions. Weakness there is an element of chronicity. Consult PT and OT. HTN- SBP goal 140 or less. Continue home antihypertensives. Exertional dyspnea chronic. Patient uses as needed oxygen. CAD continue aspirin, statin, beta-magnus BLE edema chronic. DVT prophylaxis: Subcutaneous heparin Code Status: Full code Plan of care discussed with patient. All questions answered. Patient verbalizes understanding is agreeable to plan of care. This dictation was performed using voice recognition software and may include grammatical and/or spelling errors. Problem List/Past Medical History Ongoing Abnormal stress test Afib Claudication Coronary artery disease s/p CABG x3 09/17/21 Edema of both lower extremities Essential hypertension Exertional dyspnea Hyperlipemia, mixed Leg weakness Mitral and aortic valve regurgitation BRENT (obstructive sleep apnea) PFO (patent foramen ovale) SOB (shortness of breath) Procedure/Surgical History CABG (Coronary artery bypass grafting) planned: 08/2021 Transesophageal echocardiography: 09/16/21 Echocardiogram: 09/09/21 Cardiac catheterization: 09/08/21 Kidney Skin Medications Home Medications (23) Active Alcohol Swabs See Instructions amLODIPine 5 mg, Oral, qDay aspirin 81 mg oral delayed release tablet 81 mg = 1 tab(s), Oral, qDayM B Complex 50 oral tablet , Oral, qDay Blood Glucose Test Machine See Instructions Blood Glucose Test Strips See Instructions bumetanide 1 mg oral tablet 1 tab(s), Oral, qDay carvedilol 25 mg oral tablet 25 mg = 1 tab(s), Oral, BID Centrum Silver oral tablet 1 tab(s), Oral, qDay gabapentin 100 mg oral capsule hydroCHLOROthiazide 25 mg oral tablet 50 mg = 2 tab(s), Oral, qDay isosorbide mononitrate 30 mg oral tablet, extended release 30 mg = 1 tab(s), Oral, qAM Lancets See Instructions loratadine 10 mg oral tablet Magnesium 250 mg tablet , Oral, qDay nitroglycerin 0.4 mg sublingual tablet 0.4 mg = 1 tab(s), PRN, Sublingual, q5min Potassium Chloride (Eqv-K-Tab) 20 mEq oral tablet, extended release 1 tab(s), Oral, qDay primidone 250 mg oral tablet 250 mg = 1 tab(s), Oral, BID telmisartan 80 mg oral tablet 80 mg = 1 tab(s), Oral, qDay Tylenol PM Extra Strength oral tablet 1 tab(s), Oral, qHS Vitamin C 500 mg oral tablet 500 mg = 1 tab(s), Oral, qDay Vitamin D (3) 45 units oral capsule , qDay Zetia 10 mg oral tablet 10 mg = 1 tab(s), Oral, qDay Allergies NKA Social History Alcohol Use: Never., 07/31/2020 Employment/School Status: Employed., 11/22/2021 Home/Environment Living situation: Home/Independent., 09/08/2021 Nutrition/Health Caffeine intake amount: None., 07/31/2020 Sexual Self described orientation: Straight or heterosexual., 09/08/2021 Substance Abuse Use: Never., 09/08/2021 Tobacco Nicotine Use: Former smoker, quit more than 30 days ago., 07/31/2020 Family History Cancer: Mother and Father. Health Status Family Member(s) Immunizations SARS-CoV-2 (COVID-19) mRNA-1273 vaccine: 100 mcg (03/01/21) SARS-CoV-2 (COVID-19) mRNA-1273 vaccine: 100 mcg (02/01/21) Code Status Code Status - Ordered -- 09/04/24 22:33:00 EDT, Full Code, Constant Order Digitally Signed by DEEPAK GOLDBERG on 09/05/2024 02:01 PM [facility] 09-05-2024 Evaluation + Plan note Extrac mayela from: Title:History and Physical Author:DEEPAK GOLDBERG Date:09/05/24 1. COVID-19 2. Weakness 3. Essential hypertension 4. Exertional dyspnea 5. Coronary artery disease s/p CABG x3 09/17/21 6. Edema of both lower extremities COVID 19 remdesivir and dexamethasone. Attempt to wean to room air when able. Encourage incentive spirometer hourly. Patient is clearing secretions. Weakness there is an element of chronicity. Consult PT and OT. HTN- SBP goal 140 or less. Continue home antihypertensives. Exertional dyspnea chronic. Patient uses as needed oxygen. CAD continue aspirin, statin, beta-magnus BLE edema chronic. DVT prophylaxis: Subcutaneous heparin Code Status: Full code Plan of care discussed with patient. All questions answered. Patient verbalizes understanding is agreeable to plan of care. This dictation was performed using voice recognition software and may include grammatical and/or spelling errors. Future Appointments Appointment Date:01/28/2025 02:30:00 PM Scheduled Provider:EDMUNDO BARRETT Location:[facility] Appointment Type:CV OV Future Scheduled Tests Laboratory* Complete Blood Count 04/17/24 * Lipid Profile 04/17/24 * Complete Metabolic Panel 04/17/24 [facility] 10-09-2024 Note ORIGINAL EXAMINATION: CT OF THE HEAD WITHOUT CONTRAST 09/04/2024 9:57 pm TECHNIQUE: CT of the head was performed without the administration of intravenous contrast. Automated exposure control, iterative reconstruction, and/or weight based adjustment of the mA/kV was utilized to reduce the radiation dose to as low as reasonably achievable. COMPARISON: None. HISTORY: ORDERING SYSTEM PROVIDED HISTORY: Reason for Exam: Altered mental status FINDINGS: BRAIN/VENTRICLES: There is no acute intracranial hemorrhage, mass effect or midline shift. No abnormal extra-axial fluid collection. The coombs-white differentiation is maintained without evidence of an acute infarct. There is no evidence of hydrocephalus. There are nonspecific hypoattenuating foci in the subcortical and periventricular white matter that most likely represent chronic microangiopathic ischemic changes in a patient of this age. Parenchymal volume loss. ORBITS: The visualized portion of the orbits demonstrate no acute abnormality. SINUSES: The visualized paranasal sinuses and mastoid air cells demonstrate no acute abnormality. SOFT TISSUES/SKULL: No acute abnormality of the visualized skull. IMPRESSION: No acute intracranial abnormality. Interpreted by: Jarek Berrios Preliminary Report By: Jarek Berrios Electronically signed By Jarek Berrios Dictated Date: 09/04/2024 10:02:05 PM Prelim Date: 09/04/2024 10:08:58 PM Sign Date: 09/04/2024 10:08:58 PM Ordering Provider: [facility]10-09-2024 Note ORIGINAL EXAMINATION: TWO XRAY VIEWS OF THE CHEST 09/04/2024 9:47 pm COMPARISON: Chest x-ray 12/02/2021 HISTORY: ORDERING SYSTEM PROVIDED HISTORY: Reason for Exam: SOB/Cough/Fever FINDINGS: Cardiomediastinal contours stable. Prior sternotomy. Hypoventilatory changes. Bibasilar streaky opacity/atelectasis. No pneumothorax or pleural effusion. No acute osseous abnormality. IMPRESSION: Suboptimal exam due to patient body habitus. Hypoventilatory changes. Bibasilar streaky opacity/atelectasis. I have personally reviewed the images of this examination and agree with the resident's findings and interpretation. Interpreted by: Jarek Berrios Preliminary Report By: Alex Vidal Electronically signed By Jarek Berrios Dictated Date: 09/04/2024 9:50:31 PM Prelim Date: 09/04/2024 9:52:06 PM Sign Date: 09/04/2024 10:11:42 PM [facility] NoteSinus rhythm Probable left atrial enlargement Left bundle branch block Electronic Signature: MD OLVIN PISANO MD 09/04/2024 21:37:40[facility] 08-19-2024 NoteHNO ID: [id number] Author: INDIGO YOST APRN.ADMIN ASSISTANT Service: ? Author Type: Nurse Practitioner Type: Progress Notes Filed: 07/15/2024 15:24 Note Text: EST PATIENT Last visit: 05/17/2024 Dr. Jarek Barillas Chief Complaint: 3 month s/p PDT and FBSE History of Present Ilness: Sepideh Gardiner is a 73 year old male presents today for 3 month s/p PDT and FBSE No areas of concern No other concerns today Pertinent Past Medical History: -Personal history of skin cancer: Yes. BCC: >10 at body locations: BCC Left lateral forehead 11/02/2023 BCC Left medial cheek 11/02/2023 BCC Left denominational 09/13/2023 BCC Right cheek 03/21/2023 BCC Right anterior lower neck 03/21/2023 BCC Left anterior neck 03/15/2023 BCC Right postauricular 07/23/2021 BCC Left anterior neck 07/23/2021 BCC Right mid frontal scalp 04/06/2021 BCC Right denominational 04/06/2021 BCC Right nasal ala 01/20/2020 BCC Right temporal scalp above ear 01/20/2020 BCC Left occipital scalp 01/20/2020 BCC Right temporal scalp 09/19/2019 BCC Right upper cutaneous lip 09/19/2019 BCC Nasal tip 08/29/2019 BCC Left forehead 07/11/2019 BCC Right denominational 07/11/2019 BCC Right parietal scalp 07/11/2019 BCC Left upper back 03/19/2019 BCC Left anterior temporal scalp 03/19/2019 BCC Left posterior temporal scalp 03/19/2019 BCC Central forehead 03/12/2019 BCC Left chin 03/12/2019 BCC Right cheek near ala crease 09/05/2017 BCC Right glabella 11/03/2016 BCC Left side of chin 09/22/2016 BCC Right cheek 08/30/2016 BCC Right frontal scalp 08/30/2016 BCC Left forehead 08/30/2016 BCC Left superior antihelix 08/30/2016 BCC Right conchal bowl 08/04/2015 BCC Right nasal ala 01/26/2015 BCC Right scalp s/p excision 08/08/1991 BCC Right scalp inferior s/p excision 08/08/1991 SCC: None at body locations: Melanoma: 2 at body locations: Melanoma in situ - Right chest 03/2021 Melanoma in situ- Left superior shoulder 02/2023- WLE 04/18 - Mohs Atypical moles excised: 3 ATN Left posterior shoulder (mild) 09/13/2023 ATN Right upper abdomen (mild) 09/13/2023 ATN Right chest Atypical junctional lentiginous nevus with mild melanocytic dysplasia and melanoderma. 03/15/2023 ATN Right mid back Atypical compound nevus with mild melanocytic dysplasia and melanoderma 03/15/2023 ATN Right medial heel Atypical junctional nevus with mild melanocytic dysplasia, markedly pigmented 07/23/2021 ATN Right central upper back Atypical junctional nevus with moderate melanocytic dysplasia 03/06/2018 ATN Right lower chest Atypical junctional nevus with moderate melanocytic dysplasia s/p excision 08/08/1991 -Personal history of skin disease: No -History of organ transplant/immunosuppressed: No -History of atypical moles: Yes -Pacemaker or defibrillator: No Specialty Problems Dermatology Problems Benign nevus of skin History of Mohs micrographic surgery for skin cancer Acne vulgaris Actinic keratosis Melanocytic nevi of trunk Basal cell carcinoma (BCC) of left cheek Basal cell carcinoma (BCC) of left forehead Pertinent Family medical history: History of melanoma: No Review of Systems: Constitutional: Denies fever, chills, night sweats, unintentional weight loss. Skin per HPI. No other new/concerning skin growth. Physical Exam: General: well appearing, of stated age, in no acute distress Neurology: alert and oriented times three Psychiatry: normal affect and speech Hernandez skin type: II A skin exam was done of the scalp, face including eyelids and lips, ears, neck, chest, back, abdomen, bilateral upper extremities including digits, bilateral lower extremities and digits, buttocks, nails, except genitals Skin exam normal with the exception of: Well healed scars with no evidence of recurrence Few scattered brown stuck on papules and plaques on the head, trunk and extremities Regular and symmetric brown macules and papules on the head, trunk and extremities Scattered reticulated light bailey macules in sun distribution Scattered small easley red papules throughout Assessment and Plan: 1. History of melanoma and non non melanoma skin cancer - No evidence of recurrence on exam. Continued monitoring. Regular skin exams discussed given increased risk of subsequent cutaneous malignancies. 2. Solar lentigines, Multiple benign nevi, Easley angiomas, Seborrheic Keratoses, Reassurance on benign nature of lesions and recommend routine self-examinations. Recommend observation and encouraged to notify office of changes. Sunscreen (SPF 30 or higher). Sun protective clothing can be used in lieu of sunscreen but must be worn the entire time you are exposed to the sun's rays The ABCDEs of melanoma were reviewed with the patient and the importance of routine self-examination of moles was emphasized. Should any areas change in size, shape or color, bleed or become tender, the patient will contact the office for evaluation sooner than their interval appointment (more content not included)...[facility]08-19-2024 Instructions* Patient Instructions* Cole Levin MA - 07/15/2024 3:09 PM EDT Patient instructions: Avoid sun exposure Recommend protection with broad band UVA/UVB sunscreen spf 30+ daily Recommend UV protective clothing/hats Oral photoprotective antioxidants discussed if applicable ([employer]) Avoid tanning and tanning bed use Recommend UV protective sunglasses Use sunscreen on lips and ears Follow up as directed [facility] History of Present illness Narrative* Stacey Shea MD - 07/08/2024 3:38 PM EDT ESTABLISHED PATIENT OFFICE VISIT F/u CaP on WW. He reports bothersome LUTS increased over the past 6 months. IPSS is 12/2. PVR is 7 cc PSA unchanged at 8.26 LAB RESULTS Creatinine Date Value Ref Range Status 06/12/2015 1.12 0.70 - 1.40 mg/dL Final No results found for: PSA , PSASC GLUCOSE UA (POCT) (mg/dL) Date Value 07/08/2024 Negative BILIRUBIN UA (POCT) (no units) Date Value 07/08/2024 Negative KETONE UA (POCT) (mg/dL) Date Value 07/08/2024 Negative SPECIFIC GRAVITY UA (POCT) (no units) Date Value 07/08/2024 1.025 HEMOGLOBIN/BLOOD UA (POCT) (no units) Date Value 07/08/2024 Negative PH UA (POCT) (no units) Date Value 07/08/2024 6.0 PROTEIN UA (POCT) (mg/dL) Date Value 07/08/2024 30 (A) UROBILINOGEN UA (POCT) (E.U./dL) Date Value 07/08/2024 0.2 NITRITE UA (POCT) (no units) Date Value 07/08/2024 Negative LEUKOCYTES UA (POCT) (no units) Date Value 07/08/2024 Negative COLOR UA (POCT) (no units) Date Value 07/08/2024 Yellow CLARITY UA (POCT) (no units) Date Value 07/08/2024 Clear ] ALLERGIES No Known Allergies MEDICATIONS: furosemide (LASIX) 40 mg tablet 80 mg. atorvastatin (LIPITOR) 40 mg tablet Take by mouth. amLODIPine (NORVASC) 5 mg tablet Take 5 mg by mouth once daily. tamsulosin (FLOMAX) 0.4 mg Take 1 capsule by mouth daily at bedtime. triamcinolone acetonide (KENALOG) 0.1 % ointment Apply to red irritated areas, twice a day as needed Fluorouracil (EFUDEX) 5 % cream Apply affected area once daily for 6 days prior to PDT nitroglycerin sublingual (NITROQUICK) 0.4 mg SL tablet 0.4 mg. isosorbide mononitrate ER (IMDUR) 30 mg 24 hr tablet Take 30 mg by mouth every morning. ketoconazole (NIZORAL) 2 % shampoo Wash scalp 3 times a week hydrocortisone 2.5 % cream Apply to affected skin around nose behind ears twice weekly prn flare hydroCHLOROthiazide 25 mg tablet Take 2 tablets by mouth every afternoon. carvedilol (COREG) 6.25 mg tablet Take 6.25 mg by mouth two times a day with meals. telmisartan (MICARDIS) 80 mg tablet Take 80 mg by mouth once daily. loratadine 10 mg cap Take 10 mg by mouth once daily. aspirin, enteric coated (ASPIRIN, ENTERIC COATED) 81 mg EC tablet Take 81 mg by mouth once daily. bumetanide (BUMEX) 1 mg tablet Take 1 mg by mouth once daily. Niacinamide 500 mg tablet TAKE 1 TABLET BY MOUTH TWICE A DAY WITH MEALS CYANOCOBALAMIN, VITAMIN B-12, (VITAMIN B-12 INJECTION) by INJECTION(UNSPECIFIED PARENTERAL ROUTES) route. Cholecalciferol, Vitamin D3, 50 mcg (2,000 unit) cap Take 1 capsule by mouth once daily. Magnesium 250 mg tab Take 250 mg by mouth once daily. VITAMIN B COMPLEX ORAL Take 1 tablet by mouth once daily. MULTIVIT &MINERALS/FERROUS FUM (MULTI VITAMIN ORAL) Take 1 tablet by mouth once daily. telmisartan (MICARDIS) 80 mg tablet Take 80 mg by mouth once daily. primidone (MYSOLINE) 250 mg tablet Take 250 mg by mouth twice daily. POTASSIUM (POTASSIMIN ORAL) Take 1 tablet by mouth once daily. REVIEW OF SYSTEMS GENERAL:no unintentional weight loss, malaise or fevers. NEUROLOGIC: pt is alert and oriented GASTROINTESTINAL: No nausea, vomiting, or diarrhea GENITOURINARY: See HPI MUSCULOSKELETAL: (+) back and leg pain SKIN: Negative for lesions, rash, and itching. ACTIVE PROBLEM LIST Benign Nevus of Skin History of Mohs Micrographic Surgery for Skin Cancer Actinic Keratosis Acne Vulgaris Melanocytic Nevi of Trunk Prostate Cancer (Hcc) Visit for Wound Check Basal Cell Carcinoma (Bcc) of Left Cheek Basal Cell Carcinoma (Bcc) of Left Forehead HISTORIES PAST MEDICAL HISTORY No date: Basal cell carcinoma No date: Convulsive disorder (HCC) No date: Edema No date: HTN (hypertension) No date: Prostate cancer (HCC) PAST SURGICAL HISTORY No date: OTHER Comment: MOhs for basal cell ca. No date: TONSILLECTOMY HX No family history on file. SOCIAL HISTORY Social History Tobacco Use Smoking status: Former Packs/day: 1 Types: Cigarettes Quit date: 11/27/1978 Years since quittin.6 Smokeless tobacco: Never Substance Use Topics Alcohol use: Not Currently Drug use: Never PHYSICAL EXAMINATION General appearance: Well appearing, alert, in no acute distress, well-hydrated, well nourished Psych Alert and oriented to person, place and time Cardiac: no peripheral edema Pulmonary: normal respiratory effort Genitourinary: MALE EXAM: NO KAYLENE this visit ASSESSMENT/PLAN: 1. Prostate cancer (HCC) - ICD9: 185, ICD10: C61 (primary diagnosis) T1c; GG1 CaP Cont WW Check PSA in 6 months - BLADDER SCAN - PROSTATE-SPECIFIC ANTIGEN DIAGNOSTIC 2. Benign prostatic hyperplasia with urinary frequency - ICD9: 600.01, 788.41, ICD10: N40.1, R35.0 Trial tamsulosin Stacey Shea MD documented in this encounter[facility] History of Present illness Narrative* Jarek Barillas V, MD - 05/17/2024 10:40 AM EDT PHOTODYNAMIC THERAPY CLINIC NOTE (Definition of PDT: a treatment in which a drug is used to target skin lesions, followed by activation with light) First time PDT: No Referred by: Dr. Thais Brand Chief complaint: AK Body site to be treated today: Full face and ears Type of PDT at this visit: Blue light Combination pretreatment done prior to today s visit: Did 5-FU daily for 6 days; last application this morning at 6:30 AM Past treatments for Actinic Keratoses: Cryotherapy, 5-FU, and Blue PDT (last one in 2013) Total number of AK treatments: >10 Did you apply topical retinoid cream, or take doxycycline, in the week before this visit: No (If yes, then discuss increased risk of phototoxicity, may want to postpone) History of facial HSV: No (If yes, then prescribe Acyclovir or Valacyclovir prophylaxis) SKIN CANCER HISTORY BCC: >10 at body locations: BCC Left lateral forehead 11/02/2023 BCC Left medial cheek 11/02/2023 BCC Left denominational 09/13/2023 BCC Right cheek 03/21/2023 BCC Right anterior lower neck 03/21/2023 BCC Left anterior neck 03/15/2023 BCC Right postauricular 07/23/2021 BCC Left anterior neck 07/23/2021 BCC Right mid frontal scalp 04/06/2021 BCC Right denominational 04/06/2021 BCC Right nasal ala 01/20/2020 BCC Right temporal scalp above ear 01/20/2020 BCC Left occipital scalp 01/20/2020 BCC Right temporal scalp 09/19/2019 BCC Right upper cutaneous lip 09/19/2019 BCC Nasal tip 08/29/2019 BCC Left forehead 07/11/2019 BCC Right denominational 07/11/2019 BCC Right parietal scalp 07/11/2019 BCC Left upper back 03/19/2019 BCC Left anterior temporal scalp 03/19/2019 BCC Left posterior temporal scalp 03/19/2019 BCC Central forehead 03/12/2019 BCC Left chin 03/12/2019 BCC Right cheek near ala crease 09/05/2017 BCC Right glabella 11/03/2016 BCC Left side of chin 09/22/2016 BCC Right cheek 08/30/2016 BCC Right frontal scalp 08/30/2016 BCC Left forehead 08/30/2016 BCC Left superior antihelix 08/30/2016 BCC Right conchal bowl 08/04/2015 BCC Right nasal ala 01/26/2015 BCC Right scalp s/p excision 08/08/1991 BCC Right scalp inferior s/p excision 08/08/1991 SCC: None at body locations: Melanoma: 2 at body locations: Melanoma in situ - Right chest 03/2021 Melanoma in situ- Left superior shoulder 02/2023- WLE 04/18 - Mohs Atypical moles excised: 3 ATN Left posterior shoulder (mild) 09/13/2023 ATN Right upper abdomen (mild) 09/13/2023 ATN Right chest Atypical junctional lentiginous nevus with mild melanocytic dysplasia and melanoderma. 03/15/2023 ATN Right mid back Atypical compound nevus with mild melanocytic dysplasia and melanoderma 03/15/2023 ATN Right medial heel Atypical junctional nevus with mild melanocytic dysplasia, markedly pigmented07/23/2021 ATN Right central upper back Atypical junctional nevus with moderate melanocytic dysplasia 03/06/2018 ATN Right lower chest Atypical junctional nevus with moderate melanocytic dysplasia s/p excision 08/08/1991 Family history of skin cancer: none SUN EXPOSURE HISTORY Brief description of sun exposure: As a child spent a lot of time in the sun; had UV light treatments for acne in the s Do you currently use sunscreen: Yes History of transplantation: None Immunosuppressive and skin-cancer promoting medications being taken: None History of lymphoma in remission: No MEDICATIONS Current Outpatient Medications on File Prior to Visit Medication Sig Fluorouracil (EFUDEX) 5 % cream Apply affected area once daily for 6 days prior to PDT nitroglycerin sublingual (NITROQUICK) 0.4 mg SL tablet 0.4 mg. isosorbide mononitrate ER (IMDUR) 30 mg 24 hr tablet Take 30 mg by mouth every morning. ketoconazole (NIZORAL) 2 % shampoo Wash scalp 3 times a week hydrocortisone 2.5 % cream Apply to affected skin around nose behind ears twice weekly prn flare hydroCHLOROthiazide 25 mg tablet Take 2 tablets by mouth every afternoon. carvedilol (COREG) 6.25 mg tablet Take 6.25 mg by mouth two times a day with meals. telmisartan (MICARDIS) 80 mg tablet Take 80 mg by mouth once daily. loratadine 10 mg cap Take 10 mg by mouth once daily. aspirin, enteric coated (ASPIRIN, ENTERIC COATED) 81 mg EC tablet Take 81 mg by mouth once daily. bumetanide (BUMEX) 1 mg tablet Take 1 mg by mouth once daily. Niacinamide 500 mg tablet TAKE 1 TABLET BY MOUTH TWICE A DAY WITH MEALS CYANOCOBALAMIN, VITAMIN B-12, (VITAMIN B-12 INJECTION) by INJECTION(UNSPECIFIED PARENTERAL ROUTES) route. Cholecalciferol, Vitamin D3, 50 mcg (2,000 unit) cap Take 1 capsule by mouth once daily. Magnesium 250 mg tab Take 250 mg by mouth once daily. VITAMIN B COMPLEX ORAL Take 1 tablet by mouth once daily. MULTIVIT &MINERALS/FERROUS FUM (MULTI VITAMIN ORAL) Take 1 tablet by mouth once daily. telmisartan (MICARDIS) 80 mg tablet Take 80 mg by mouth once daily. primidone (MYSOLINE) 250 mg tablet Take 250 mg by mouth twice daily. POTASSIUM (POTASSIMIN ORAL) Take 1 tablet by mouth once daily. No current facility-administered medications on file prior to visit. PAST MEDICAL HISTORY PAST MEDICAL HISTORY Diagnosis Date Basal cell carcinoma Convulsive disorder (HCC) Edema HTN (hypertension) Prostate cancer (HCC) ROS: Feels well, weight stable, no fever; skin as per HPI SKIN EXAM (for AKs and other relevant findings) Hernandez skin type: II Eye color: Brown Hair (scalp) coverage: 25-50% bald Rough gritty papules on : Scalp: 1-4; multiple surgical scars Forehead: 1-4 Temples: 1-4, both sides Cheeks: 1-4, both sides Supralabial: Moustache Nose: 1-4 Ears: None ASSESSMENT/PLAN (1) Nonhypertrophic Actinic Keratoses Treatment with PDT is recommended. Procedure, risks and benefits explained to patient, and patient agrees to proceed. LEVULAN APPLICATION Pretreatment of lesions: Curettage Number of Kerasticks used: 1 Time of application: 11:13 AM Sites painted with Levulan: Scalp, Face, and Ears Length of incubation before starting light (hours): 0 PDT LIGHT Type of light source: Blue light Light dose: Continuous blue (30 minutes) Pain level on a 0-10 scale: During Treatment: 0 Post Treatment: 0 Pain alleviating measures used: None Aftercare medications prescribed Steroid ointment: Yes Acyclovir or Valacyclovir: No Follow up visit recommended with: Dr. Porter When: Annual Jarek Barillas MD documented in this encounter[facility] NoteHNO ID: [id number] Author: JAREK BARILLAS MD Service: ? Author Type: Physician Type: Progress Notes Filed: 05/17/2024 12:47 Note Text: PHOTODYNAMIC THERAPY CLINIC NOTE (Definition of PDT: a treatment in which a drug is used to target skin lesions, followed by activation with light) First time PDT: No Referred by: Dr. Thais Brand Chief complaint: AK Body site to be treated today: Full face and ears Type of PDT at this visit: Blue light Combination pretreatment done prior to today?s visit: Did 5-FU daily for 6 days; last application this morning at 6:30 AM Past treatments for Actinic Keratoses: Cryotherapy, 5-FU, and Blue PDT (last one in 2013) Total number of AK treatments: >10 Did you apply topical retinoid cream, or take doxycycline, in the week before this visit: No (If yes, then discuss increased risk of phototoxicity, may want to postpone) History of facial HSV: No (If yes, then prescribe Acyclovir or Valacyclovir prophylaxis) SKIN CANCER HISTORY BCC: >10 at body locations: BCC Left lateral forehead 11/02/2023 BCC Left medial cheek 11/02/2023 BCC Left denominational 09/13/2023 BCC Right cheek 03/21/2023 BCC Right anterior lower neck 03/21/2023 BCC Left anterior neck 03/15/2023 BCC Right postauricular 07/23/2021 BCC Left anterior neck 07/23/2021 BCC Right mid frontal scalp 04/06/2021 BCC Right denominational 04/06/2021 BCC Right nasal ala 01/20/2020 BCC Right temporal scalp above ear 01/20/2020 BCC Left occipital scalp 01/20/2020 BCC Right temporal scalp 09/19/2019 BCC Right upper cutaneous lip 09/19/2019 BCC Nasal tip 08/29/2019 BCC Left forehead 07/11/2019 BCC Right denominational 07/11/2019 BCC Right parietal scalp 07/11/2019 BCC Left upper back 03/19/2019 BCC Left anterior temporal scalp 03/19/2019 BCC Left posterior temporal scalp 03/19/2019 BCC Central forehead 03/12/2019 BCC Left chin 03/12/2019 BCC Right cheek near ala crease 09/05/2017 BCC Right glabella 11/03/2016 BCC Left side of chin 09/22/2016 BCC Right cheek 08/30/2016 BCC Right frontal scalp 08/30/2016 BCC Left forehead 08/30/2016 BCC Left superior antihelix 08/30/2016 BCC Right conchal bowl 08/04/2015 BCC Right nasal ala 01/26/2015 BCC Right scalp s/p excision 08/08/1991 BCC Right scalp inferior s/p excision 08/08/1991 SCC: None at body locations: Melanoma: 2 at body locations: Melanoma in situ - Right chest 03/2021 Melanoma in situ- Left superior shoulder 02/2023- WLE 04/18 - Mohs Atypical moles excised: 3 ATN Left posterior shoulder (mild) 09/13/2023 ATN Right upper abdomen (mild) 09/13/2023 ATN Right chest Atypical junctional lentiginous nevus with mild melanocytic dysplasia and melanoderma. 03/15/2023 ATN Right mid back Atypical compound nevus with mild melanocytic dysplasia and melanoderma 03/15/2023 ATN Right medial heel Atypical junctional nevus with mild melanocytic dysplasia, markedly pigmented 07/23/2021 ATN Right central upper back Atypical junctional nevus with moderate melanocytic dysplasia 03/06/2018 ATN Right lower chest Atypical junctional nevus with moderate melanocytic dysplasia s/p excision 08/08/1991 Family history of skin cancer: none SUN EXPOSURE HISTORY Brief description of sun exposure: As a child spent a lot of time in the sun; had UV light treatments for acne in the s Do you currently use sunscreen: Yes History of transplantation: None Immunosuppressive and skin-cancer promoting medications being taken: None History of lymphoma in remission: No MEDICATIONS Current Outpatient Medications on File Prior to Visit Medication Sig Fluorouracil (EFUDEX) 5 % cream Apply affected area once daily for 6 days prior to PDT nitroglycerin sublingual (NITROQUICK) 0.4 mg SL tablet 0.4 mg. isosorbide mononitrate ER (IMDUR) 30 mg 24 hr tablet Take 30 mg by mouth every morning. ketoconazole (NIZORAL) 2 % shampoo Wash scalp 3 times a week hydrocortisone 2.5 % cream Apply to affected skin around nose behind ears twice weekly prn flare hydroCHLOROthiazide 25 mg tablet Take 2 tablets by mouth every afternoon. carvedilol (COREG) 6.25 mg tablet Take 6.25 mg by mouth two times a day with meals. telmisartan (MICARDIS) 80 mg tablet Take 80 mg by mouth once daily. loratadine 10 mg cap Take 10 mg by mouth once daily. aspirin, enteric coated (ASPIRIN, ENTERIC COATED) 81 mg EC tablet Take 81 mg by mouth once daily. bumetanide (BUMEX) 1 mg tablet Take 1 mg by mouth once daily. Niacinamide 500 mg tablet TAKE 1 TABLET BY MOUTH TWICE A DAY WITH MEALS CYANOCOBALAMIN, VITAMIN B-12, (VITAMIN B-12 INJECTION) by INJECTION(UNSPECIFIED PARENTERAL ROUTES) route. Cholecalciferol, Vitamin D3, 50 mcg (2,000 unit) cap Take 1 capsule by mouth once daily. Magnesium 250 mg tab Take 250 mg by mouth once daily. VITAMIN B COMPLEX ORAL Take 1 tablet by mouth once daily. MULTIVIT ANDMINERALS/FERROUS FUM (MULTI VITAMIN ORAL) Take 1 tablet by mouth once daily. telmisartan (MICARDIS) 80 m (more content not included)...[facility]06-01-2024 History of Present illness Narrative* April, Indigo Cheng APRN.ADMIN ASSISTANT - 07/15/2024 3:15 PM EDT EST PATIENT Last visit: 05/17/2024 Dr. Jarek Barillas Chief Complaint: 3 month s/p PDT and FBSE History of Present Ilness: Sepideh Gardiner is a 73 year old male presents today for 3 month s/p PDT and FBSE No areas of concern No other concerns today Pertinent Past Medical History: -Personal history of skin cancer: Yes. BCC: >10 at body locations: BCC Left lateral forehead 11/02/2023 BCC Left medial cheek 11/02/2023 BCC Left denominational 09/13/2023 BCC Right cheek 03/21/2023 BCC Right anterior lower neck 03/21/2023 BCC Left anterior neck 03/15/2023 BCC Right postauricular 07/23/2021 BCC Left anterior neck 07/23/2021 BCC Right mid frontal scalp 04/06/2021 BCC Right denominational 04/06/2021 BCC Right nasal ala 01/20/2020 BCC Right temporal scalp above ear 01/20/2020 BCC Left occipital scalp 01/20/2020 BCC Right temporal scalp 09/19/2019 BCC Right upper cutaneous lip 09/19/2019 BCC Nasal tip 08/29/2019 BCC Left forehead 07/11/2019 BCC Right denominational 07/11/2019 BCC Right parietal scalp 07/11/2019 BCC Left upper back 03/19/2019 BCC Left anterior temporal scalp 03/19/2019 BCC Left posterior temporal scalp 03/19/2019 BCC Central forehead 03/12/2019 BCC Left chin 03/12/2019 BCC Right cheek near ala crease 09/05/2017 BCC Right glabella 11/03/2016 BCC Left side of chin 09/22/2016 BCC Right cheek 08/30/2016 BCC Right frontal scalp 08/30/2016 BCC Left forehead 08/30/2016 BCC Left superior antihelix 08/30/2016 BCC Right conchal bowl 08/04/2015 BCC Right nasal ala 01/26/2015 BCC Right scalp s/p excision 08/08/1991 BCC Right scalp inferior s/p excision 08/08/1991 SCC: None at body locations: Melanoma: 2 at body locations: Melanoma in situ - Right chest 03/2021 Melanoma in situ- Left superior shoulder 02/2023- WLE 04/18 - Mohs Atypical moles excised: 3 ATN Left posterior shoulder (mild) 09/13/2023 ATN Right upper abdomen (mild) 09/13/2023 ATN Right chest Atypical junctional lentiginous nevus with mild melanocytic dysplasia and melanoderma. 03/15/2023 ATN Right mid back Atypical compound nevus with mild melanocytic dysplasia and melanoderma 03/15/2023 ATN Right medial heel Atypical junctional nevus with mild melanocytic dysplasia, markedly pigmented07/23/2021 ATN Right central upper back Atypical junctional nevus with moderate melanocytic dysplasia 03/06/2018 ATN Right lower chest Atypical junctional nevus with moderate melanocytic dysplasia s/p excision 08/08/1991 -Personal history of skin disease: No -History of organ transplant/immunosuppressed: No -History of atypical moles: Yes -Pacemaker or defibrillator: No Specialty Problems Dermatology Problems Benign nevus of skin History of Mohs micrographic surgery for skin cancer Acne vulgaris Actinic keratosis Melanocytic nevi of trunk Basal cell carcinoma (BCC) of left cheek Basal cell carcinoma (BCC) of left forehead Pertinent Family medical history: History of melanoma: No Review of Systems: Constitutional: Denies fever, chills, night sweats, unintentional weight loss. Skin per HPI. No other new/concerning skin growth. Physical Exam: General: well appearing, of stated age, in no acute distress Neurology: alert and oriented times three Psychiatry: normal affect and speech Hernandez skin type: II A skin exam was done of the scalp, face including eyelids and lips, ears, neck, chest, back, abdomen, bilateral upper extremities including digits, bilateral lower extremities and digits, buttocks, nails, except genitals Skin exam normal with the exception of: Well healed scars with no evidence of recurrence Few scattered brown stuck on papules and plaques on the head, trunk and extremities Regular and symmetric brown macules and papules on the head, trunk and extremities Scattered reticulated light bailey macules in sun distribution Scattered small easley red papules throughout Assessment and Plan: 1. History of melanoma and non non melanoma skin cancer - No evidence of recurrence on exam. Continued monitoring. Regular skin exams discussed given increased risk of subsequent cutaneous malignancies. 2. Solar lentigines, Multiple benign nevi, Easley angiomas, Seborrheic Keratoses, Reassurance on benign nature of lesions and recommend routine self-examinations. Recommend observation and encouraged to notify office of changes. Sunscreen (SPF 30 or higher). Sun protective clothing can be used in lieu of sunscreen but must be worn the entire time you are exposed to the sun's rays The ABCDEs of melanoma were reviewed with the patient and the importance of routine self-examination of moles was emphasized. Should any areas change in size, shape or color, bleed or become tender, the patient will contact the office for evaluation sooner than their interval appointment. Patient verbalizes understanding and agrees with treatment plan. Follow up: 3 months or sooner if something concerning arises. The documentation for this note was completed by Gilma Heard MA acting as scribe for Indigo Lua APRN.CNP. July 15, 2024 7:01 AM. Gilma Heard MA I agree with the Chief Complaint, ROS, and Past Histories independently gathered by the clinical cad application support specialist and the remaining scribed note accurately describes my personal service to the patient. Indigo Yost APRN.CNP [facility] Telephone encounter Note * Telephone Encounter - Florina Morrow - 04/16/2024 11:50 AM EDT Mailed pt after visit summary instructions for PDT and his upcoming appointments [facility] Work Phone: [phone] Miscellaneous Notes* Telephone Encounter - Florina Morrow - 04/16/2024 11:50 AM EDT Mailed pt after visit summary instructions for PDT and his upcoming appointments documented [facility] encounter[facility] Instructions* Patient Instructions* Thais Nicholas MD - 04/08/2024 3:30 PM EDT PATIENT INSTRUCTIONS: BLUE LIGHT PHOTODYNAMIC THERAPY (PDT) What is PDT? How do conventional PDT and Painless PDT differ? Photodynamic Therapy (PDT) is a procedure for treating Actinic Keratoses (AK) on the face, ears or scalp. AKs are precancerous lesions that occur mostly in sun- exposed areas of the skin. During PDT, a topical drug called Levulan is applied to the skin, and the patient then sits under a blue light to activate the medication and destroy precancer cells. In conventional PDT, Levulan is applied to the skin and left to incubate for ~90-120 minutes before the light is turned on. With that regimen, most patients experience stinging pain during illumination that can sometimes be severe. In the new Painless PDT regimen, Levulan is left on for a very brief time (5 to 15 min) prior to starting the light. The patient feels no pain. Despite this gentler approach, the desired result (gradual inflammation followed by clearance of the precancer lesions) is still achieved. The new regimen was validated in a clinical trial performed at the [facility] [1]. [1] Yung U, Jade M, Minna T, Anirudh L, Ramon M, Rigoberto A, Octavio B, Jimbo CB, Tri EV. A regimento minimize pain during blue light photodynamic therapy of actinic keratoses: bilaterally controlled, randomized trial of simultaneous versus conventional illumination. Journal of [place] [employer] ofDermatology 2019; 82(4):862-868. What to expect during the treatment? The doctor or nurse will prepare the skin with an alcohol wipe to remove any make-up or residual oil. Levulan will be applied to the entire skin of the face or scalp, not just to visible lesions, so that all precancer cells within the sun-damaged area take up the medication and become selectively targeted by the light. You will be given dark eye goggles to wear as you sit in front of the blue light (for ~17 minutes with conventional PDT, or 30 minutes with Painless PDT). During conventional PDT, a fan and ice water may be used to relieve stinging during illumination, whereas during Painless PDT you may experience warmth or tingling but no pain. What to expect after the treatment? By the evening on the day of PDT, there will be some [id number] redness of the treated areas.By the next day you will develop more intense redness which typically lasts for 3-4 days, along with a stretchy feeling followed by some mild peeling, similar to how a sunburn heals. All of these changes are expected to settle down in a week to ten days. Your caregiver can prescribe a medium strength topical steroid, such as triamcinolone, for you to use in the first few days after PDT. This willreduce unnecessary inflammation and will not decrease effectiveness of the therapy. You will also be given a sheet with more detailed aftercare instructions. How long will the visit last? The time you spend in clinic will be different, depending upon whether you are scheduled for painless PDT or for conventional PDT. For the Painless treatment, the visit will take ~1 hour. For conventional PDT, the visit will require ~3 hours. Can I shave before the treatment? Facial hair can interfere with PDT, so we recommend shaving on the morning of your treatment. Aftertreatment, shaving in treated facial areas should be delayed for two or three days until redness subsides. Should I stop taking any medications prior to the treatment? Retinoid-containing creams, and tetracycline antibiotics (such as doxycycline or minocycline) should be stopped 2 weeks before the treatment, since they can make your skin more sensitive to the light. Can PDT cause a flare of cold sores? Occasionally, there might be a flare up of Herpes Simplex infection after PDT. If you have a history of herpes simplex cold sores , please let us know and we can prescribe an oral medication (valacyclovir) for you to take to prevent this. What precautions should I take after the treatment? The most important precaution is that you MUST stay out of direct sunlight, and strong commercial lighting, for 48 hours after the treatment. After you finish the treatment, you will be given an informational flyer which contains detailed aftercare instructions. When should I follow up with dermatology? Your lesions will definitely be improved after PDT. However, lesions may begin to return 6-9 monthsafter PDT, so that people with numerous actinic keratoses may require a second treatment to achievean optimal response. We recommend scheduling a follow-up with your regular inventory control associate at 6-12 months after PDT to assess how well your lesions have responded, and to see whether a repeat treatmentis necessary. Is PDT safe? PDT is generally very safe. It is one of the most popular non-invasive treatments for precancerous lesions. The only major risk is severe sunburn if patients fail to completely avoid any sun exposurefor 48 hours after PDT. We very strongly emphasize sun avoidance. Should I bring anything to my visit? You should bring a broad brim hat to protect your face and scalp from the sun. To listen to music on your smartphone during the treatment, please bring earbuds that will not interfere with the light. Do I need to do anything to prepare my skin for PDT? Sometimes, your provider may recommend a pretreatment to improve the outcome of the PDT treatment. These include: A short course of Efudex (fluorouracil) cream for 7 days immediately prior to PDT. High-dose oral Vitamin D (10,000 units/day) for 7 days immediately prior to PDT. What s new in PDT? We have an active research program on improving PDT treatments for skin cancer. If you are interested in learning more, you can e-mail a request for more information to: Information prepared by Dr. Barillas [facility] Department of Dermatology 04/05/2023 HOME CARE INSTRUCTIONS AFTER PHOTODYNAMIC THERAPY Avoid direct sunlight for 48 hours. The reason is that additional sun exposure will lead to more redness and burning on your skin. (Specifically, stay indoors during the day. If you must go outside briefly, wear a broad brim hat that casts your face in shadow. But once again, it is better to just stay inside). Gently wash the area twice a day with a mild cleanser such as Cetaphil. Do not scrub! After cleansing, gently pat dry with a towel and apply a thin layer of Aquaphor ointment twice daily to keep the area moist and free of crust. Alternatively, petroleum jelly (Vaseline) can be used. If needed for relief of inflammation, redness, and discomfort, you can apply a topical steroid ointment (either triamcinolone 0.1% by prescription, or 1% hydrocortisone [id number]) to the entire treated area. You can do this twice daily for 1-2 weeks, if needed. Apply a very thin layer of thesteroid before applying Aquaphor. Be careful to keep the steroid away from the eyes. Apply cool compresses for comfort, as needed, during the first few days. After day 3, gently exfoliate with a soft washcloth and warm water twice a day. Then apply Aquaphor. If a sunscreen is needed, use any sensitive skin (chemical free) sunscreen with SPF 30 or other titanium-dioxide type of sunscreen since chemical sunscreens may be too irritating. Ibuprofen may be taken for any inflammation, swelling, pain, and discomfort. Over the counter Claritin (loratadine) 10 mg taken in the morning and Benadryl (diphenhydramine) 25-50 mg taken nightly (which may cause drowsiness) can relieve symptoms of itchiness. Please call the office if you have any questions or problems during the healing process. Photodynamic Therapy is available in these locations [facility] * [phone], option 1 [facility] [phone] Emely Ramon [phone] [facility] [phone] [facility] [phone] [place] [phone] [place] [phone] [facility]* [phone] [place] [phone] * Red light available documented in this encounter[facility]-13-2024 NoteHNO ID: [id number] Author: THAIS NICHOLAS MD Service: ? Author Type: Physician Type: Progress Notes Filed: 04/08/2024 15:51 Note Text: VIRTUAL VISIT PROGRESS NOTE This is a virtual visit using Non-Supported Video Platform . It required patient-provider interaction for the medical decision making as documented below. I have communicated my name and active licensure. The patient's identity and physical location were verified at the time of this visit. Either the patient or their legal sales representative [employer] has been informed of the risks and benefits of -- and alternatives to -- treatment through a remote evaluation and consents to proceed with the evaluation remotely. Sepideh Gardiner is a 73 year old male seen for MOHS SURGERY FOLLOW UP VISIT RETURNS FOR: Post op wound check PROCEDURE: s/p Mohs surgery DIAGNOSIS: Basal cell carcinoma x 2 LOCATION: L lateral forehead and L medial cheek DATE OF PROCEDURE: 11/02/24 REPAIR: 2nd intention healing PHOTO TAKEN: yes (with my cellphone) - will send to photo for uploading to [employer]. Pt reports: healing well Particular concerns: Pain: none Scar appearance: not concerned Numbness: none . HISTORY REVIEWED (electronic chart updated): PAST MEDICAL HISTORY Diagnosis Date Basal cell carcinoma Convulsive disorder (HCC) Edema HTN (hypertension) Prostate cancer (HCC) PAST SURGICAL HISTORY Procedure Laterality Date OTHER MOhs for basal cell ca. TONSILLECTOMY HX No family history on file. Social History Tobacco Use Smoking status: Former Packs/day: 1 Types: Cigarettes Quit date: 11/27/1978 Years since quittin.3 Smokeless tobacco: Never Substance Use Topics Alcohol use: Not Currently Drug use: Never Current Outpatient Medications Medication Sig nitroglycerin sublingual (NITROQUICK) 0.4 mg SL tablet 0.4 mg. isosorbide mononitrate ER (IMDUR) 30 mg 24 hr tablet Take 30 mg by mouth every morning. ketoconazole (NIZORAL) 2 % shampoo Wash scalp 3 times a week hydrocortisone 2.5 % cream Apply to affected skin around nose behind ears twice weekly prn flare hydroCHLOROthiazide 25 mg tablet Take 2 tablets by mouth every afternoon. carvedilol (COREG) 6.25 mg tablet Take 6.25 mg by mouth two times a day with meals. telmisartan (MICARDIS) 80 mg tablet Take 80 mg by mouth once daily. loratadine 10 mg cap Take 10 mg by mouth once daily. aspirin, enteric coated (ASPIRIN, ENTERIC COATED) 81 mg EC tablet Take 81 mg by mouth once daily. bumetanide (BUMEX) 1 mg tablet Take 1 mg by mouth once daily. Niacinamide 500 mg tablet TAKE 1 TABLET BY MOUTH TWICE A DAY WITH MEALS CYANOCOBALAMIN, VITAMIN B-12, (VITAMIN B-12 INJECTION) by INJECTION(UNSPECIFIED PARENTERAL ROUTES) route. Cholecalciferol, Vitamin D3, 50 mcg (2,000 unit) cap Take 1 capsule by mouth once daily. Magnesium 250 mg tab Take 250 mg by mouth once daily. VITAMIN B COMPLEX ORAL Take 1 tablet by mouth once daily. MULTIVIT ANDMINERALS/FERROUS FUM (MULTI VITAMIN ORAL) Take 1 tablet by mouth once daily. telmisartan (MICARDIS) 80 mg tablet Take 80 mg by mouth once daily. primidone (MYSOLINE) 250 mg tablet Take 250 mg by mouth twice daily. POTASSIUM (POTASSIMIN ORAL) Take 1 tablet by mouth once daily. No current facility-administered medications for this visit. ALLERGIES No Known Allergies 1. AK (actinic keratosis) Related Procedures PHOTODYNAMIC THERAPY Related Medications Fluorouracil (EFUDEX) 5 % cream Apply affected area once daily for 6 days prior to PDT 2. Scar conditions and fibrosis of skin (2) Left Forehead [place] shiny linear plaque Left Buccal Cheek Depressed oval plaque S/p Mohs surgery for Basal cell carcinoma x 2 - doing well Follow up with Dr Ochoa for routine skin care every 6 months. Continue to stress sun protection. Instructed to RETURN TO CLINIC sooner should they have any particular new concerns. 3. Actinic keratosis Mid Forehead Red papules with gritty adherent scale. Actinic keratosis - Discussed premalignant etiology - Discussed risks and benefits of treatment options including cryotherapy vs Efudex 5% vs. Efudex 5% + calcipotriene vs. Photodynamic Therapy (PDT). - Given diffuse involvement and recommend field therapy with either of the above options. - Patient elects for treatment with PDT: Procedure expectations were discussed with the patient. Risks, benefits, alternatives, complications, and personnel required for PDT were reviewed with the patient. Specifically, the risks of permanent scarring, loss or darkening of skin color, blister, incomplete treatment, and need for future treatments were discussed. The patient will schedule this summer: Blue light - painless with pretreatment. Order placed. FOLLOW UP with Dr Ochoa 3 months after PDT. There are no Patient Instructions on file for this visit. I spent a total of 20 minutes on the date of the service which included preparin (more content not included)...[facility]05-13-2024 History of Present illness Narrative* Thais Nicholas MD - 04/08/2024 3:21 PM EDT VIRTUAL VISIT PROGRESS NOTE This is a virtual visit using Non-Supported Video Platform . It required patient-provider interaction for the medical decision making as documented below. I have communicated my name and active licensure. The patient's identity and physical location wereverified at the time of this visit. Either the patient or their legal sales representative [employer] has been informed of the risks and benefits of -- and alternatives to -- treatment through a remote evaluation andconsents to proceed with the evaluation remotely. Sepideh Gardiner is a 73 year old male seen for MOHS SURGERY FOLLOW UP VISIT RETURNS FOR: Post op wound check PROCEDURE: s/p Mohs surgery DIAGNOSIS: Basal cell carcinoma x 2 LOCATION: L lateral forehead and L medial cheek DATE OF PROCEDURE: 11/02/24 REPAIR: 2nd intention healing PHOTO TAKEN: yes (with my cellphone) - will send to photo for uploading to [employer]. Pt reports: healing well Particular concerns: Pain: none Scar appearance: not concerned Numbness: none . HISTORY REVIEWED (electronic chart updated): PAST MEDICAL HISTORY Diagnosis Date Basal cell carcinoma Convulsive disorder (HCC) Edema HTN (hypertension) Prostate cancer (HCC) PAST SURGICAL HISTORY Procedure Laterality Date OTHER MOhs for basal cell ca. TONSILLECTOMY HX No family history on file. Social History Tobacco Use Smoking status: Former Packs/day: 1 Types: Cigarettes Quit date: 11/27/1978 Years since quittin.3 Smokeless tobacco: Never Substance Use Topics Alcohol use: Not Currently Drug use: Never Current Outpatient Medications Medication Sig nitroglycerin sublingual (NITROQUICK) 0.4 mg SL tablet 0.4 mg. isosorbide mononitrate ER (IMDUR) 30 mg 24 hr tablet Take 30 mg by mouth every morning. ketoconazole (NIZORAL) 2 % shampoo Wash scalp 3 times a week hydrocortisone 2.5 % cream Apply to affected skin around nose behind ears twice weekly prn flare hydroCHLOROthiazide 25 mg tablet Take 2 tablets by mouth every afternoon. carvedilol (COREG) 6.25 mg tablet Take 6.25 mg by mouth two times a day with meals. telmisartan (MICARDIS) 80 mg tablet Take 80 mg by mouth once daily. loratadine 10 mg cap Take 10 mg by mouth once daily. aspirin, enteric coated (ASPIRIN, ENTERIC COATED) 81 mg EC tablet Take 81 mg by mouth once daily. bumetanide (BUMEX) 1 mg tablet Take 1 mg by mouth once daily. Niacinamide 500 mg tablet TAKE 1 TABLET BY MOUTH TWICE A DAY WITH MEALS CYANOCOBALAMIN, VITAMIN B-12, (VITAMIN B-12 INJECTION) by INJECTION(UNSPECIFIED PARENTERAL ROUTES) route. Cholecalciferol, Vitamin D3, 50 mcg (2,000 unit) cap Take 1 capsule by mouth once daily. Magnesium 250 mg tab Take 250 mg by mouth once daily. VITAMIN B COMPLEX ORAL Take 1 tablet by mouth once daily. MULTIVIT &MINERALS/FERROUS FUM (MULTI VITAMIN ORAL) Take 1 tablet by mouth once daily. telmisartan (MICARDIS) 80 mg tablet Take 80 mg by mouth once daily. primidone (MYSOLINE) 250 mg tablet Take 250 mg by mouth twice daily. POTASSIUM (POTASSIMIN ORAL) Take 1 tablet by mouth once daily. No current facility-administered medications for this visit. ALLERGIES No Known Allergies 1. AK (actinic keratosis) Related Procedures PHOTODYNAMIC THERAPY Related Medications Fluorouracil (EFUDEX) 5 % cream Apply affected area once daily for 6 days prior to PDT 2. Scar conditions and fibrosis of skin (2) Left Forehead [place] shiny linear plaque Left Buccal Cheek Depressed oval plaque S/p Mohs surgery for Basal cell carcinoma x 2 - doing well Follow up with Dr Ochoa for routine skin care every 6 months. Continue to stress sun protection. Instructed to RETURN TO CLINIC sooner should they have any particular new concerns. 3. Actinic keratosis Mid Forehead Red papules with gritty adherent scale. Actinic keratosis - Discussed premalignant etiology - Discussed risks and benefits of treatment options including cryotherapy vs Efudex 5% vs. Efudex 5% + calcipotriene vs. Photodynamic Therapy (PDT). - Given diffuse involvement and recommend field therapy with either of the above options. - Patient elects for treatment with PDT: Procedure expectations were discussed with the patient. Risks, benefits, alternatives, complications, and personnel required for PDT were reviewed with the patient. Specifically, the risks of permanent scarring, loss or darkening of skin color, blister, incomplete treatment, and need for future treatments were discussed. The patient will schedule this summer: Blue light - painless with pretreatment. Order placed. FOLLOW UP with Dr Ochoa 3 months after PDT. There are no Patient Instructions on file for this visit. I spent a total of 20 minutes on the date of the service which included preparing to see the patient, [id number] patient care, completing clinical documentation, obtaining and/or reviewing separately obtained history, performing a medically appropriate examination, counseling and educating the pat ient/family/caregiver, and ordering medications, tests, or procedures Thais Brand MD documented in this encounterSelect [facility]24 Miscellaneous Notes* Telephone Encounter - Smith Elder RN - 02/26/2024 3:16 PM EDT Sent [employer] message about appointment specifics per patient request. Smith Elder RN February 26, 2024 3:18 PM documented in this encounterSelect [facility]04-01-2024 Miscellaneous Notes* Telephone Encounter - Smith Elder RN - 02/26/2024 3:14 PM EDT Called patient to inform of 6 week follow up visit on [facility]'s schedule on 04/08 at 1600 (virtual). Patient stated understanding and requested information of appointment sent to him. See MyChart message. Smith Elder RN February 26, 2024 3:15 PM documented in this encounterSelect [facility]04-01-2024 Instructions* Patient Instructions* Smith Elder RN - 02/26/2024 1:58 PM EDT WOUND CARE INSTRUCTIONS FOR SECONDARY INTENTION HEALING WOUND CARE: The dressing you have been sent home with is called a pressure dressing. It should remain in place for 48 hours. To care for the wound: Remove pressure dressing after 48 hours. Tip: wet dressing in the shower to assist with adhesive removal. You can remove adhesive with soap,water, or alcohol pad. Clean with soap and water twice daily. After wound is thoroughly cleansed and dried, apply a thick layer of Vaseline or Aquaphor around the edge and in the wound. Do NOT use polysporin or neosporin Cover surgical site until healed with a bandage For legs and scalps, this may be 8 weeks or longer A type of packing called Gelfoam may be placed in the wound before you go home if so: Please leave the packing in place. Continue to do wound care above packing. The Gelfoam will dissolve and fall out over the course of a few days. Signs and symptoms of infection: Redness streaking away from the wound, swelling, new onset of pain, foul smelling drainage, pus, and generalized fevers/chills BLEEDING: Careful attention has been given to your wound to prevent bleeding. The initial dressing you have on is a pressure dressing to also help prevent bleeding. You may notice a small amount of blood on the edges of the dressing the first day; this is normal. In case of persistent bleeding: Apply firm, steady pressure over the dressing with gauze for 20 minutes. If bleeding persists, please apply pressure for another 30 minutes. Tip #1: use a timer to record the time of pressure held Tip #2: do not peek at wound until time is completed- this will disrupt clotting time of vessel Tip #3: you may also use ice, as this may aid in slowing any bleeding. 2. If bleeding persists, please call the office using the numbers below. We will instruct you on how to proceed. 3. The wound may drain heavily during the first few days. If so, please change the dressing more frequently. If the wound becomes inflamed, painful, or has a foul odor, please contact the Dermatology Department immediately PAIN: What pain can I expect after surgery? You can expect to have some pain after surgery. This is normal. The pain is typically worse for a day or two after surgery, and quickly begins to get better. Most patients are able to manage their pain after surgery with Skmp-xlv-Zeylrys (OTC) medications such as Tylenol (acetaminophen) and Motrin/A dvil (ibuprofen). If you have a condition that does not allow you to take either of these medications, please notify us immediately. How will I manage my pain? The best strategy for controlling your pain after surgery is around the clock pain control with Tylenol (acetaminophen) and Motrin/Advil (ibuprofen). Alternating these medications with each other allows you to maximize your pain control. In addition to Tylenol and Motrin, you can use ice packs on your incisions for 20 minutes each hour for the first two days after surgery to help reduce your painand swelling. After the first two days, you may use a heating pad or warm compress on your incisions and surrounding area. If you have received a graft, please *DO NOT* apply ice directly onto the graft site. How will I alternate my regular strength puek-xse-wmqkmlb pain medication? You will take a dose of pain medication every four hours while you're awake. Start by taking 200-400 mg of Motrin/Advil (ibuprofen) (1-2 pills of 200 mg) 4 hours later, take 500-1000 mg of Tylenol (acetaminophen) (1-2 pills of 500 mg) 4 hours later, take 200-400 mg of Motrin/Advil (ibuprofen) (1-2 pills of 200 mg) 4 hours later, take 500-1000 mg of Tylenol (acetaminophen) (1-2 pills of 500 mg) 4 hours later, take 200-400 mg of Motrin/Advil (ibuprofen) (1-2 pills of 200 mg) We recommend that you follow this schedule ovgduw-jkv-rfqbi for at least 3 days after surgery, or until you feel that it is no longer needed. As an alternative, you can purchase OTC Advil Dual Action, which is a combined pill containing Acetaminophen 250mg and Ibuprofen 125mg. IMPORTANT: Do not take more than 3000mg of Tylenol (acetaminophen) or 3200mg of Motrin/Advil (ibuprofen) in a 24-hour period. Be aware that some chronic pain medications as well as over the counter cold and flu remedies may also contain acetaminophen. Take this into consideration to avoid exceeding the maximum daily dose. Limit alcohol intake. It is recommended to avoid heavy alcohol intake (more than two standard drinks per day for men and one standard drink for women) after surgery and while taking acetaminophen. Drinking alcohol causes the liver to convert more of the acetaminophen you take into toxic byproducts.Alcohol also acts as a blood thinner and can increase your risk for post-operative bleeding. Continue to take all of your prescribed medication. SWELLING: Swelling after surgery is normal and can peak at 48hr after surgery Suggestion: sleep on 1-2 pillows post procedure for 2-3 days to minimize swelling You can do this if you had a procedure on your face, top of head, ears, jaw, eyes, nose, cheeks, etc. Elevate arms and legs at rest to decrease swelling You can wrap your affected extremity by using DONI wrap, coban wrap, or compression stockings to also minimize swelling Please also use ice to decrease swelling. Can use approximately 20 minutes each hour. NOTES: You may have a low-grade fever (99-100 degrees F) for which Tylenol may be used. You may shower regularly after your initial surgery dressing is removed. Continue daily wound care. Return to referring inventory control associate for skin checks every 6 months PHONE NUMBERS: [facility] nurses station: [phone] (Monday-Monday, 8am-5pm) For emergencies only: On-call number: [phone] and ask for the communications operator dermatology surgery fellow documented in this encounterSelect [facility]04-01-2024 History of Present illness Narrative* Thais Nicholas MD - 02/26/2024 11:00 AM EDT MOHS MICROGRAPHIC OPERATIVE REPORT SERVICE DATE: 02/23/2024 SERVICE TIME: 1100 LOCATION: [place] [address] REFERRING PROVIDER: Thais Brand [address] [place] [address] PROCEDURE START TIME: 1100 PROCEDURE END TIME: 1405 SURGEON: Dr. Thais Porter FELLOW: Dr. Eneida Landrum REGISTERED NURSE: Rox Elder Ramsay ANTICOAGULANTS: ASA IMPLANTED DEVICES: None ANTIBIOTIC PROPHYLAXIS: Not required TRANSPLANT PATIENT: No PHOTOS: Photos taken VERIFICATION OF PROCEDURE: Procedure to be Performed: Mohs Surgery Patient Verified By: Name, Medical Record Number, and Date of Site(s) Confirmed: Patient confirmed site from image in the EMR. Patient used mirror(s) to identifysite(s). Patient pointed to site(s). Patient identified site in photo(s) taken during consult or preprocedure then signed photo. Patient verbalized agreement of surgical site(s). Site(s) Marked: Provider marking the site with patient involvement. Provider physically marking the site on or near incision site, with persistent marker, and remains visible once patient prepped. Relevant documentation, images, implants or special equipment present: Yes SIGN IN COMMUNICATION: Completed Time Out: Team Confirms the Correct Patient, Correct Procedure, Correct Site(s) and Site Marked, Correct Position (if applicable). Time: 1100 Affirmation of Time Out: Yes Sign out Discussion: Completed UNIVERSAL PROTOCOL / SAFETY CHECKLIST Procedure to be Performed: MOHS SURGERY Sign In: A Moment of CARE was completed. Personnel directly involved with the procedure wore the appropriate PPE (Personal Protective Equipment). Patient/Surrogate Stated/Verified: PATIENT VERIFIED(optional for EMERGENT procedures): Patient name, Date of , Relevant allergies, and The intended procedure Time Out Communication: Intended patient and procedure match the source documents. Consent documented and matches the intended procedure. Relevant labs, photos, and/or imaging studies have been reviewed. Correct side/site marked and visible. Medications required for procedure verified. Fire risk assessed and interventions discussed. No implant(s) inserted. Sign Out: SIGN OUT (optional for EMERGENT procedures): All specimen containers correctly labeled. All instruments, equipment, possible retained foreign bodies accounted for. Post-procedure follow-up management communicated and Plan of Care Visit completed when applicable. Nafisa Taylor RN LESION #1 Preoperative Diagnosis: BCC Nodular of the left medial cheek Tumor Type: Primary Path Report Available at Bedside: Inside pathology report # [id number] Pre-op Size: 0.6 cm - 1 cm, (0.4 cm X 0.7 cm) Lymphadenopathy: None Indication for Mohs: Anatomic Location where lesion is prone to recur, Proven difficulty with skin cancers, Type of tumor, Ill-defined borders, and Prior radiated skin Location: Area H: (Mask Areas of the Face - Includes Central Face, Eyelids, Inner/Outer [place]hi, Eyebrows, Nose, Chin, Lips, Ears, Periauricular Skin and Episcopalian) Preparation: Chlorhexidine LAYER A The patient was positioned, prepped with alcohol and draped in the usual manner. Anesthesia was obtained with local infiltration. The clinically apparent tumor was then debulked with a curette. A 1-2mm rim of tissue was marked circumferentially around the defect. The area thus outlined was exciseddeep to the subcutis. Hemostasis was achieved with electrocautery. The specimen was oriented, subdivided into 2 sections, A1-A2, chromacoded and submitted for horizontal frozen sections. The patient tolerated the procedure well and no complications were noted. Upon review of the horizontal frozen sections for Layer A, residual superficial BCC was identified in pieces A1. A1 positive. Depth of Invasion:epidermis. A2 negative. SUPERFICIAL BASAL CELL CARCINOMA: Arising from the epidermis and superficial hair follicles are small, superficial, multicentric buds of basaloid keratinocytes. The cells have scant cytoplasm and round dark nuclei. Mitotic figures and apoptotic bodies are evident. The nuclei at the periphery of the islands have a palisaded arrangement. The islands are associated with a fibromyxoid stroma and there is cleft formation between some of the islands and stroma. LAYER B A 1-2 mm rim of tissue was marked to encompass the positive margins noted in the frozen section. The area thus outlined was excised deep to the subcutis. Hemostasis was achieved with electrocautery. The specimen was oriented, subdivided into 1 sections (B1), chromacoded and submitted for horizontalfrozen sections. The patient tolerated the procedure well and no complications were noted. Upon review of the horizontal frozen sections for Layer B, no residual tumor was identified . B1 isnegative. CLOSURE Rationale for Second Intention Healing: Given the patient's preference, the defect was allowed to heal by secondary intent. Diagnosis: Surgical defect secondary to Mohs micrographic surgery on a Primary tumor type from leftmedial cheek (location of tumor). Post-op Defect Size: 1.0 x 0.8 cm SECONDARY INTENTION HEALING CLOSURE: Given the lack of redundant tissue surrounding the defect, thewound was allowed to heal by secondary intention. Final Size: 1.0 x 0.8 cm LESION #2 Preoperative Diagnosis: BCC Nodular and Micronodular of the left lateral forehead Tumor Type: Primary Path Report Available at Bedside: Inside pathology report # [id number] Pre-op Size: 0.6 cm - 1 cm, (0.5 cm X 0.7 cm) Lymphadenopathy: None Indication for Mohs: Anatomic Location where lesion is prone to recur, Proven difficulty with skin cancers, Type of tumor, Size, Ill-defined borders, and Prior radiated skin Location: Area H: (Mask Areas of the Face - Includes Central Face, Eyelids, Inner/Outer [place]hi, Eyebrows, Nose, Chin, Lips, Ears, Periauricular Skin and Episcopalian) Preparation: Chlorhexidine LAYER A The patient was positioned, prepped with alcohol and draped in the usual manner. Anesthesia was obtained with local infiltration. The clinically apparent tumor was then debulked with a curette. A 1-2mm rim of tissue was marked circumferentially around the defect. The area thus outlined was exciseddeep to the subcutis. Hemostasis was achieved with electrocautery. The specimen was oriented, subdivided into 2 sections, A3-A4, chromacoded and submitted for horizontal frozen sections. The patient tolerated the procedure well and no complications were noted. Upon review of the horizontal frozen sections for Layer A, residual BCC - superficial was identified in pieces A3 and A4. A3 and A4 positive. Depth of Invasion:epidermis. SUPERFICIAL BASAL CELL CARCINOMA: Arising from the epidermis and superficial hair follicles are small, superficial, multicentric buds of basaloid keratinocytes. The cells have scant cytoplasm and round dark nuclei. Mitotic figures and apoptotic bodies are evident. The nuclei at the periphery of the islands have a palisaded arrangement. The islands are associated with a fibromyxoid stroma and there is cleft formation between some of the islands and stroma. LAYER B A 1-2 mm rim of tissue was marked to encompass the positive margins noted in the frozen section. The area thus outlined was excised deep to the subcutis. Hemostasis was achieved with electrocautery. The specimen was oriented, subdivided into 1 section, B2, chromacoded and submitted for horizontal frozen sections. The patient tolerated the procedure well and no complications were noted. Upon review of the horizontal frozen sections for Layer B, residual superficial BCC was identified in pieces B2. B2 positive. Depth of Invasion:epidermis. LAYER C A 1-2 mm rim of tissue was marked to encompass the positive margins noted in the frozen section. The area thus outlined was excised deep to the subcutis. Hemostasis was achieved with electrocautery. The specimen was oriented, subdivided into 1 section, C1, chromacoded and submitted for horizontal frozen sections. The patient tolerated the procedure well and no complications were noted. Upon review of the horizontal frozen sections for Layer C, residual BCC - superficial was identified in pieces C1. C1 positive. Depth of Invasion:epidermis Perineural invasion: No LVI: No . LAYER D A 1-2 mm rim of tissue was marked to encompass the positive margins noted in the frozen section. The area thus outlined was excised deep to the subcutis. Hemostasis was achieved with electrocautery. The specimen was oriented, subdivided into 1 section, D1, chromacoded and submitted for horizontal frozen sections. The patient tolerated the procedure well and no complications were noted. Upon review of the horizontal frozen sections for Layer D, no residual tumor was identified . D1 negative. CLOSURE Rationale for Second Intention Healing: Given the superficial nature of the defect, the defect was allowed to heal by secondary intent. Diagnosis: Surgical defect secondary to Mohs micrographic surgery on a Primary tumor type from leftlateral forehead (location of tumor). Post-op Defect Size: 1.8 x 1.4 cm SECONDARY INTENTION HEALING CLOSURE: Given the lack of redundant tissue surrounding the defect, thewound was allowed to heal by secondary intention. Final Size: 1.8 x 1.4 cm LOCAL ANESTHETIC: 7cc 1% Lidocaine HCl with Epinephrine 1:100,000 ESTIMATED BLOOD LOSS: Less Than Minimal Unless Noted Here. COMPLICATIONS: None, patient tolerated procedure well. TOTAL OPERATIVE TIME: 185 Minutes POST OP MEDS: Tylenol 1000 mg every 6-8 hours as needed for pain relief POST OP CARE: Pressure Dressing applied consisting of Contact Layer: Petrolatum ointment, Non stickTelfa pad, and GelFoam Absorbent Layer: Gauze pad Outer Layer: Hypafix MOHS POST OP INSTRUCTIONS GIVEN WITH VERBAL UNDERSTANDING: Yes PATIENT DISCHARGED TO DEVIL DOG/NAME: Self FOLLOW UP: Return for wound care check in 6 weeks I/primary surgeon/proceduralist performed the procedure with assistance. I have seen and examined Speideh Gardiner. I have discussed the case and the management of this patient's care with the Nurse. I also have reviewed and agree with the assessment and plan as stated above and agree with all of its relevant components. I performed the procedures as documented above by the Nurse. I was physically present during the critical portion(s) of this procedure. I agree with the operative note independently gathered by the clinical cad application support specialist and the remaining scribed note accurately describes my personal service to the patient. I/primary surgeon/proceduralist reviewed the specimen(s) and worked as the pathologist. Thais Brand MD March 01, 2024 documented in this encounterSelect Medical [facility]04-01-2024 NoteHNO ID: [id number] Author: THAIS NICHOLAS MD Service: ? Author Type: Physician Type: Progress Notes Filed: 03/01/2024 11:31 Note Text: MOHS MICROGRAPHIC OPERATIVE REPORT SERVICE DATE: 02/23/2024 SERVICE TIME: 1100 LOCATION: [place] [address] REFERRING PROVIDER: Thais Brand [address] [place] [address] PROCEDURE START TIME: 1100 PROCEDURE END TIME: 1405 SURGEON: Dr. Thais Porter FELLOW: Dr. Eneida Landrum REGISTERED NURSE: Rox Elder Ramsay ANTICOAGULANTS: ASA IMPLANTED DEVICES: None ANTIBIOTIC PROPHYLAXIS: Not required TRANSPLANT PATIENT: No PHOTOS: Photos taken VERIFICATION OF PROCEDURE: Procedure to be Performed: Mohs Surgery Patient Verified By: Name, Medical Record Number, and Date of Site(s) Confirmed: Patient confirmed site from image in the EMR. Patient used mirror(s) to identify site(s). Patient pointed to site(s). Patient identified site in photo(s) taken during consult or preprocedure then signed photo. Patient verbalized agreement of surgical site(s). Site(s) Marked: Provider marking the site with patient involvement. Provider physically marking the site on or near incision site, with persistent marker, and remains visible once patient prepped. Relevant documentation, images, implants or special equipment present: Yes SIGN IN COMMUNICATION: Completed Time Out: Team Confirms the Correct Patient, Correct Procedure, Correct Site(s) and Site Marked, Correct Position (if applicable). Time: 1100 Affirmation of Time Out: Yes Sign out Discussion: Completed UNIVERSAL PROTOCOL / SAFETY CHECKLIST Procedure to be Performed: MOHS SURGERY Sign In: A Moment of CARE was completed. Personnel directly involved with the procedure wore the appropriate PPE (Personal Protective Equipment). Patient/Surrogate Stated/Verified: PATIENT VERIFIED(optional for EMERGENT procedures): Patient name, Date of , Relevant allergies, and The intended procedure Time Out Communication: Intended patient and procedure match the source documents. Consent documented and matches the intended procedure. Relevant labs, photos, and/or imaging studies have been reviewed. Correct side/site marked and visible. Medications required for procedure verified. Fire risk assessed and interventions discussed. No implant(s) inserted. Sign Out: SIGN OUT (optional for EMERGENT procedures): All specimen containers correctly labeled. All instruments, equipment, possible retained foreign bodies accounted for. Post-procedure follow-up management communicated and Plan of Care Visit completed when applicable. Nafisa Taylor RN LESION #1 Preoperative Diagnosis: BCC Nodular of the left medial cheek Tumor Type: Primary Path Report Available at Bedside: Inside pathology report # [id number] Pre-op Size: 0.6 cm - 1 cm, (0.4 cm X 0.7 cm) Lymphadenopathy: None Indication for Mohs: Anatomic Location where lesion is prone to recur, Proven difficulty with skin cancers, Type of tumor, Ill-defined borders, and Prior radiated skin Location: Area H: (Mask Areas of the Face - Includes Central Face, Eyelids, Inner/Outer [place]hi, Eyebrows, Nose, Chin, Lips, Ears, Periauricular Skin and Episcopalian) Preparation: Chlorhexidine LAYER A The patient was positioned, prepped with alcohol and draped in the usual manner. Anesthesia was obtained with local infiltration. The clinically apparent tumor was then debulked with a curette. A 1-2 mm rim of tissue was marked circumferentially around the defect. The area thus outlined was excised deep to the subcutis. Hemostasis was achieved with electrocautery. The specimen was oriented, subdivided into 2 sections, A1-A2, chromacoded and submitted for horizontal frozen sections. The patient tolerated the procedure well and no complications were noted. Upon review of the horizontal frozen sections for Layer A, residual superficial BCC was identified in pieces A1. A1 positive. Depth of Invasion:epidermis. A2 negative. SUPERFICIAL BASAL CELL CARCINOMA: Arising from the epidermis and superficial hair follicles are small, superficial, multicentric buds of basaloid keratinocytes. The cells have scant cytoplasm and round dark nuclei. Mitotic figures and apoptotic bodies are evident. The nuclei at the periphery of the islands have a palisaded arrangement. The islands are associated with a fibromyxoid stroma and there is cleft formation between some of the islands and stroma. LAYER B A 1-2 mm rim of tissue was marked to encompass the positive margins noted in the frozen section. The area thus outlined was excised deep to the subcutis. Hemostasis was achieved with electrocautery. The specimen was oriented, subdivided into 1 sections (B1), chromacoded and submitted for horizontal frozen sections. The patient tolerated the pro (more content not included)...[facility]02-05-2024 NoteHNO ID: [id number] Author: STACEY SHEA MD Service: ? Author Type: Physician Type: Progress Notes Filed: 01/01/2024 15:21 Note Text: ESTABLISHED PATIENT OFFICE VISIT F/u CaP. He is having psiatic problems. Moderate LUTS (IPSS 12/3) PSA unchanged at 6.71 LAB RESULTS Creatinine Date Value Ref Range Status 06/12/2015 1.12 0.70 - 1.40 mg/dL Final No results found for: PSA , PSASC GLUCOSE UA (POCT) (mg/dL) Date Value 01/01/2024 Negative BILIRUBIN UA (POCT) (no units) Date Value 01/01/2024 Negative KETONE UA (POCT) (mg/dL) Date Value 01/01/2024 Negative SPECIFIC GRAVITY UA (POCT) (no units) Date Value 01/01/2024 1.025 HEMOGLOBIN/BLOOD UA (POCT) (no units) Date Value 01/01/2024 Negative PH UA (POCT) (no units) Date Value 01/01/2024 5.5 PROTEIN UA (POCT) (mg/dL) Date Value 01/01/2024 Negative UROBILINOGEN UA (POCT) (E.U./dL) Date Value 01/01/2024 0.2 NITRITE UA (POCT) (no units) Date Value 01/01/2024 Negative LEUKOCYTES UA (POCT) (no units) Date Value 01/01/2024 Negative COLOR UA (POCT) (no units) Date Value 01/01/2024 Yellow CLARITY UA (POCT) (no units) Date Value 01/01/2024 Clear ] ALLERGIES No Known Allergies MEDICATIONS: nitroglycerin sublingual (NITROQUICK) 0.4 mg SL tablet 0.4 mg. isosorbide mononitrate ER (IMDUR) 30 mg 24 hr tablet Take 30 mg by mouth every morning. ketoconazole (NIZORAL) 2 % shampoo Wash scalp 3 times a week hydrocortisone 2.5 % cream Apply to affected skin around nose behind ears twice weekly prn flare hydroCHLOROthiazide 25 mg tablet Take 2 tablets by mouth every afternoon. carvedilol (COREG) 6.25 mg tablet Take 6.25 mg by mouth two times a day with meals. telmisartan (MICARDIS) 80 mg tablet Take 80 mg by mouth once daily. loratadine 10 mg cap Take 10 mg by mouth once daily. aspirin, enteric coated (ASPIRIN, ENTERIC COATED) 81 mg EC tablet Take 81 mg by mouth once daily. bumetanide (BUMEX) 1 mg tablet Take 1 mg by mouth once daily. Niacinamide 500 mg tablet TAKE 1 TABLET BY MOUTH TWICE A DAY WITH MEALS CYANOCOBALAMIN, VITAMIN B-12, (VITAMIN B-12 INJECTION) by INJECTION(UNSPECIFIED PARENTERAL ROUTES) route. Cholecalciferol, Vitamin D3, 50 mcg (2,000 unit) cap Take 1 capsule by mouth once daily. Magnesium 250 mg tab Take 250 mg by mouth once daily. VITAMIN B COMPLEX ORAL Take 1 tablet by mouth once daily. MULTIVIT ANDMINERALS/FERROUS FUM (MULTI VITAMIN ORAL) Take 1 tablet by mouth once daily. telmisartan (MICARDIS) 80 mg tablet Take 80 mg by mouth once daily. primidone (MYSOLINE) 250 mg tablet Take 250 mg by mouth twice daily. POTASSIUM (POTASSIMIN ORAL) Take 1 tablet by mouth once daily. REVIEW OF SYSTEMS GENERAL:no unintentional weight loss, malaise or fevers. NEUROLOGIC: pt is alert and oriented GASTROINTESTINAL: No nausea, vomiting, or diarrhea GENITOURINARY: See HPI MUSCULOSKELETAL: see HPI SKIN: Negative for lesions, rash, and itching. ACTIVE PROBLEM LIST Benign Nevus of Skin History of Mohs Micrographic Surgery for Skin Cancer Actinic Keratosis Acne Vulgaris Melanocytic Nevi of Trunk Prostate Cancer (Hcc) Visit for Wound Check HISTORIES PAST MEDICAL HISTORY Diagnosis Date Basal cell carcinoma Convulsive disorder (HCC) Edema HTN (hypertension) Prostate cancer (HCC) PAST SURGICAL HISTORY Procedure Laterality Date OTHER MOhs for basal cell ca. TONSILLECTOMY HX No family history on file. SOCIAL HISTORY Social History Tobacco Use Smoking status: Former Packs/day: 1 Types: Cigarettes Quit date: 11/27/1978 Years since quittin.1 Smokeless tobacco: Never Substance Use Topics Alcohol use: Not Currently Drug use: Never PHYSICAL EXAMINATION General appearance: Well appearing, alert, in no acute distress, well-hydrated, well nourished Psych Alert and oriented to person, place and time Cardiac: no peripheral edema Pulmonary: normal respiratory effort Genitourinary: MALE EXAM: NO KAYLENE today ASSESSMENT/PLAN: 1. Prostate cancer (HCC) - ICD9: 185, ICD10: C61 T1C ; GG! CaP. He has been on . I will switch to watchful waiting. - BLADDER SCAN - PSA/PROSTSPECAG DOLORES Shea, [facility]12-13-2023 Miscellaneous Notes* Telephone Encounter - Mandy Alas - 11/08/2023 1:48 PM EST Sepideh is scheduled- he wanted only. * Telephone Encounter - Mandy Alas - 11/08/2023 1:42 PM EST LVM for pt to call and schedule. * Telephone Encounter - Thais Nicholas MD - 11/08/2023 1:36 PM EST A. Skin, left lateral forehead, shave biopsy: - Basal cell carcinoma, nodular and micronodular types. 3 points B. Skin, left medial cheek, shave biopsy: - Basal cell carcinoma, nodular type. 2 points Mohs order placed. 2 separate appointments please. Patient made aware through . Thais Brand MD documented in [facility] encounter[facility] Instructions* Patient Instructions* Jackeline Lau RN - 11/02/2023 11:26 AM EST CARE FOR YOUR SHAVE BIOPSY SITE Please follow these instructions for daily wound care: 1. Wash the area every day with gentle soap and water. 2. Apply a thin layer of Vaseline or Aquaphor to the wound site to keep the area slightly greasy atall time (this helps to prevent scabbing). Please do not use an old tub of ointment as this can introduce germs into your wound and cause infection. 3. Cover with a bandage and continue this daily process until the wound is healed. Do not leave a soiled or wet bandage on the wound. -Keep the area clean and dry with the bandage in place the day of surgery. -If you experience any bleeding, please apply pressure to the area for approximately 10 minutes. -You may shower, but do not soak in a bathtub, hot tub, pool, reina, etc until after the wound has healed. -DO NOT USE NEOSPORIN OR BACITRACIN as there is a fairly high incidence of allergic response to these products. -You may experience some mild discomfort, redness, swelling, and/or a clear discharge from the wound after your procedure. Severe pain, worsening swelling, and foul-smelling discharge from the site are NOT to be expected. If you have concerns about how your wounds are healing, please send your provider a [employer] message or call . WOUND CARE INSTRUCTIONS WITH DISSOLVABLE SUTURES WOUND CARE: The dressing you have been sent home with is called a pressure dressing. It should remain in place for 48 hours. To care for the wound: Remove pressure dressing after 48 hours. Tip: wet dressing in the shower to assist with adhesive removal. You can remove adhesive with soap,water, or alcohol pad. Clean with gentle soap and water twice daily. Example of gentle soap: Dove, Dial, CeraVe, Cetaphil, Aveeno, or any non-scented bar of soap After wound is thoroughly cleansed and dried, apply a thick layer of Vaseline or Aquaphor to the suture line. Do NOT use polysporin or neosporin on your wound After 72 hours, may leave uncovered as long as it is kept greasy and won t interfere with clothing. You may notice redness along the suture line as the wound heals This is normal- it is your body trying to break down the sutures If redness persists and continues to grow, please call us Signs and symptoms of infection: Redness streaking away from the wound, swelling, new onset of pain, foul smelling drainage, pus, and generalized fevers/chills BLEEDING: Careful attention has been given to your wound to prevent bleeding. The initial dressing you have on is a pressure dressing to also help prevent bleeding. You may notice a small amount of blood on the edges of the dressing the first day; this is normal. In case of persistent bleeding: Apply firm, steady pressure over the dressing with gauze for 20 minutes. If bleeding persists, please apply firm pressure for another 30 minutes. Tip #1: use a timer to record the time of pressure held Tip #2: do not peek at wound until time is completed- this will disrupt clotting time of vessel Tip #3: you may also use ice, as this may aid in slowing any bleeding. 2. If bleeding persists, please call the office using the numbers below. We will instruct you on how to proceed. PAIN: What pain can I expect after surgery? You can expect to have some pain after surgery. This is normal. The pain is typically worse for a day or two after surgery, and quickly begins to get better. Most patients are able to manage their pain after surgery with Ayyk-hlu-Ynjlwuh (OTC) medications such as Tylenol (acetaminophen) and Motrin/A dvil (ibuprofen). If you have a condition that does not allow you to take either of these medications, please notify us immediately. How will I manage my pain? The best strategy for controlling your pain after surgery is around the clock pain control with Tylenol (acetaminophen) and Motrin/Advil (ibuprofen). Alternating these medications with each other allows you to maximize your pain control. In addition to Tylenol and Motrin, you can use ice packs on your incisions for 20 minutes each hour for the first two days after surgery to help reduce your painand swelling. After the first two days, you may use a heating pad or warm compress on your incisions and surrounding area. If you have received a graft, please *DO NOT* apply ice directly onto the graft site. How will I alternate my regular strength dmcv-vun-rmzalfu pain medication? You will take a dose of pain medication every four hours while you're awake. Start by taking 200-400 mg of Motrin/Advil (ibuprofen) (1-2 pills of 200 mg) 4 hours later, take 500-1000 mg of Tylenol (acetaminophen) (1-2 pills of 500 mg) 4 hours later, take 200-400 mg of Motrin/Advil (ibuprofen) (1-2 pills of 200 mg) 4 hours later, take 500-1000 mg of Tylenol (acetaminophen) (1-2 pills of 500 mg) 4 hours later, take 200-400 mg of Motrin/Advil (ibuprofen) (1-2 pills of 200 mg) We recommend that you follow this schedule bxpeve-lux-fvnlf for at least 3 days after surgery, or until you feel that it is no longer needed. As an alternative, you can purchase OTC Advil Dual Action, which is a combined pill containing Acetaminophen 250mg and Ibuprofen 125mg. IMPORTANT: Do not take more than 3000mg of Tylenol (acetaminophen) or 3200mg of Motrin/Advil (ibuprofen) in a 24-hour period. Be aware that some chronic pain medications as well as over the counter cold and flu remedies may also contain acetaminophen. Take this into consideration to avoid exceeding the maximum daily dose. Limit alcohol intake. It is recommended to avoid heavy alcohol intake (more than two standard drinks per day for men and one standard drink for women) after surgery and while taking acetaminophen. Drinking alcohol causes the liver to convert more of the acetaminophen you take into toxic byproducts.Alcohol also acts as a blood thinner and can increase your risk for post-operative bleeding. Continue to take all of your prescribed medication. SWELLING: Swelling after surgery is normal and can peak at 48hr after surgery Suggestion: sleep on 1-2 pillows post procedure for 2-3 days to minimize swelling You can do this if you had a procedure on your face, top of head, ears, jaw, eyes, nose, cheeks, etc. Elevate arms and legs at rest to decrease swelling You can wrap your affected extremity by using DONI wrap, coban wrap, or compression stockings to also minimize swelling Please also use ice to decrease swelling. Can use approximately 20 minutes each hour. NOTES: You may shower regularly after your initial surgery dressing is removed Avoid increasing heart rate or blood pressure for the first 72 hours following surgery (increases bleeding risk) Avoid heavy lifting and strenuous activity for 72 hours following surgery Return to referring inventory control associate for skin checks every 6 months Wear sunscreen PHONE NUMBERS: [facility] nurses station: [phone] (Monday-Monday, 8am-5pm) For emergencies only: On-call number: [phone] and ask for the communications operator dermatology surgery fellow documented in this encounterSelect [facility]12[facility] History of Present illness Narrative* Thais Nicholas MD - 11/02/2023 9:30 AM EST MOHS MICROGRAPHIC OPERATIVE REPORT SERVICE DATE: 11/02/2023 SERVICE TIME: 9:30 LOCATION: [place] [address] REFERRING PROVIDER: Yaritza Spencer ([facility]) [address] [facility] [address] PROCEDURE START TIME: 929 PROCEDURE END TIME: 1144 SURGEON: Dr. Thais Porter FELLOW: Dr. Jody Saunders REGISTERED NURSE: Óscar Baca Coyle ANTICOAGULANTS: None IMPLANTED DEVICES: Heart wires but not connected ANTIBIOTIC PROPHYLAXIS: Not required TRANSPLANT PATIENT: No PHOTOS: Photos taken VERIFICATION OF PROCEDURE: Procedure to be Performed: Mohs Surgery Patient Verified By: Name and Date of Site(s) Confirmed: Patient confirmed site from image in the EMR. Patient used mirror(s) to identifysite(s). Patient pointed to site(s). Patient verbalized agreement of surgical site(s). Site(s) Marked: Provider marking the site with patient involvement. Provider physically marking the site on or near incision site, with persistent marker, and remains visible once patient prepped. Relevant documentation, images, implants or special equipment present: Yes SIGN IN COMMUNICATION: Completed Time Out: Team Confirms the Correct Patient, Correct Procedure, Correct Site(s) and Site Marked, Correct Position (if applicable). Time: 944 Affirmation of Time Out: Yes Sign out Discussion: Completed UNIVERSAL PROTOCOL / SAFETY CHECKLIST Procedure to be Performed: Mohs Surgery Sign In: A Moment of CARE was completed. Personnel directly involved with the procedure wore the appropriate PPE (Personal Protective Equipment). Patient/Surrogate Stated/Verified: PATIENT VERIFIED(optional for EMERGENT procedures): Patient name, Date of , Relevant allergies, and The intended procedure Time Out Communication: Intended patient and procedure match the source documents. Consent documented and matches the intended procedure. Sign Out: SIGN OUT (optional for EMERGENT procedures): All specimen containers correctly labeled. All instruments, equipment, possible retained foreign bodies accounted for. Post-procedure follow-up management communicated and Plan of Care Visit completed when applicable. LESION #1 Preoperative Diagnosis: BCC Nodular of the left denominational Tumor Type: Primary Path Report Available at Bedside: Inside pathology report # [id number] Pre-op Size: 0.6 cm - 1 cm, (0.7 cm X 0.7 cm) Lymphadenopathy: None Indication for Mohs: Anatomic Location where lesion is prone to recur, Proven difficulty with skin cancers, Type of tumor, Age of patient, and Ill-defined borders Location: Area H: (Mask Areas of the Face - Includes Central Face, Eyelids, Inner/Outer Canthi, Eyebrows, Nose, Chin, Lips, Ears, Periauricular Skin and Episcopalian) Preparation: Povidone-iodine LAYER A The patient was positioned, prepped with alcohol and draped in the usual manner. Anesthesia was obtained with local infiltration. The clinically apparent tumor was then debulked with a curette. A 1-2mm rim of tissue was marked circumferentially around the defect. The area thus outlined was exciseddeep to the subcutis. Hemostasis was achieved with electrocautery. The specimen was oriented, subdivided into 2 sections (A1-A2), chromacoded and submitted for horizontal frozen sections. The patienttolerated the procedure well and no complications were noted. Upon review of the horizontal frozen sections for Layer A, residual superficial BCC was identified in pieces B2. A1 negative. Depth of Invasion:epidermis Perineural invasion: No LVI: No . SUPERFICIAL BASAL CELL CARCINOMA: Arising from the epidermis and superficial hair follicles are small, superficial, multicentric buds of basaloid keratinocytes. The cells have scant cytoplasm and round dark nuclei. Mitotic figures and apoptotic bodies are evident. The nuclei at the periphery of the islands have a palisaded arrangement. The islands are associated with a fibromyxoid stroma and there is cleft formation between some of the islands and stroma. LAYER B A 1-2 mm rim of tissue was marked to encompass the positive margins noted in the frozen section. The area thus outlined was excised deep to the subcutis. Hemostasis was achieved with electrocautery. The specimen was oriented, subdivided into 1 sections (B1), chromacoded and submitted for horizontalfrozen sections. The patient tolerated the procedure well and no complications were noted. Upon review of the horizontal frozen sections for Layer B, no residual tumor was identified . B1 negative. CLOSURE Rationale for Primary Closure: Given the location and size of the defect and in order to minimize the pain, bleeding, and infection associated with second intention healing, the wound was closed witha primary linear closure. Diagnosis: Surgical defect secondary to Mohs micrographic surgery on a Primary tumor type from the left denominational (location of tumor). Post-op Defect Size: 1.4 x 1.5 cm INTERMEDIATE CLOSURE: Requiring skin and subcutaneous fat. The beveled edge of the Mohs defect was surgically removed. The wound edges were undermined in all directions to decrease the tension of thewound and facilitate skin edge apposition. Meticulous hemostasis was achieved with electrocautery. Redundant standing cones were removed to allow the wound to be closed without distortion. The deep tissue were opposed with 5-0 Monocryl Absorbant sutures. The epidermal edges were opposed with 5-0 Fast Absorbing sutures. The surgical site was cleansed with saline and covered with a bandage as below. The patient tolerated the procedure well and no complications were noted. Final Size: Linear closure - 3.5 cm SCC Staging N/A N/A LOCAL ANESTHETIC: 8cc 1% Lidocaine HCl with Epinephrine 1:100,000 ESTIMATED BLOOD LOSS: Less Than Minimal Unless Noted Here. COMPLICATIONS: None, patient tolerated procedure well. TOTAL OPERATIVE TIME: 135 Minutes POST OP MEDS: Tylenol 1000 mg every 6 hours as needed for pain relief POST OP CARE: Pressure Dressing applied consisting of Contact Layer: Petrolatum ointment and Non stick Telfa pad Absorbent Layer: Gauze pad Outer Layer: Hypafix MOHS POST OP INSTRUCTIONS GIVEN WITH VERBAL UNDERSTANDING: Yes PATIENT DISCHARGED TO DEVIL DOG/NAME: Self FOLLOW UP: routine full body skin exams, pending pathology Neoplasm of unspecified behavior of skin -Recommend shave biopsy to confirm diagnosis Shave biopsy of lesion to establish and confirm diagnosis: Photo taken: Yes Risks, benefits, alternatives and personnel required for shave biopsy reviewed with patient. Patient and provider agree as to site(s) to be biopsied. Patient verbalizes understanding and wishes to proceed. Site(s) prepped with alcohol and anesthetized with 1% lidocaine with epinephrine. Shave biopsy of lesion(s) performed to the level of the dermis/epidermis The following was sent for histologic evaluation: LESION #1 R/O: NMSC LOC OF LESION: left lateral forhead SIZE: 0.5 x 0.7 CM LESION #2 R/O NMSC LOC OF LESION: left medial cheek SIZE: 1.1 x 0.9 CM EBL: scant 50% ALCL and bandaging applied. Written and verbal wound care instructions provided to patient, understanding verbalized. OK to call with results and OK to release to [facility] The documentation for this note was completed by Jody Baca RN acting as scribe for MD Farhana. November 02, 2023 9:13 AM. Jody Saunders MD served as fellow surgeon and participated in procurement of layer(s) and in the final repair. Fellow took the layer(s), under direct supervision and the remainder of the procedure was performedby the primary surgeon/proceduralist with assistance. I have seen and examined Sepideh Gardiner. I have discussed the case and the management of this patient's care with the Fellow. I also have reviewed and agree with the assessment and plan as statedabove and agree with all of its relevant components. I was present for and supervised the procedures as documented above by the Fellow. I was physically present during the critical portion(s) of this procedure. I agree with the operative note independently gathered by the clinical cad application support specialist and the remaining scribed note accurately describes my personal service to the patient. I/primary surgeon/proceduralist reviewed the specimen(s) and worked as the pathologist. Thais Brand MD November 06, 2023 documented in this encounterSelect Medical [facility]12-07-[facility]23 NoteHNO ID: [id number] Author: Thais Nicholas MD Service: ? Author Type: Physician Type: Progress Notes Filed: 11/06/2023 4:00 PM Note Text: MOHS MICROGRAPHIC OPERATIVE REPORT SERVICE DATE: 11/02/2023 SERVICE TIME: 9:30 LOCATION: [place] [address] REFERRING PROVIDER: Yaritza Spencer ([facility]) [address] [place] [address] PROCEDURE START TIME: 929 PROCEDURE END TIME: 1145 SURGEON: Dr. Thais Porter FELLOW: Dr. Jody Saunders REGISTERED NURSE: Óscar Baca Coyle ANTICOAGULANTS: None IMPLANTED DEVICES: Heart wires but not connected ANTIBIOTIC PROPHYLAXIS: Not required TRANSPLANT PATIENT: No PHOTOS: Photos taken VERIFICATION OF PROCEDURE: Procedure to be Performed: Mohs Surgery Patient Verified By: Name and Date of Site(s) Confirmed: Patient confirmed site from image in the EMR. Patient used mirror(s) to identify site(s). Patient pointed to site(s). Patient verbalized agreement of surgical site(s). Site(s) Marked: Provider marking the site with patient involvement. Provider physically marking the site on or near incision site, with persistent marker, and remains visible once patient prepped. Relevant documentation, images, implants or special equipment present: Yes SIGN IN COMMUNICATION: Completed Time Out: Team Confirms the Correct Patient, Correct Procedure, Correct Site(s) and Site Marked, Correct Position (if applicable). Time: 944 Affirmation of Time Out: Yes Sign out Discussion: Completed UNIVERSAL PROTOCOL / SAFETY CHECKLIST Procedure to be Performed: Mohs Surgery Sign In: A Moment of CARE was completed. Personnel directly involved with the procedure wore the appropriate PPE (Personal Protective Equipment). Patient/Surrogate Stated/Verified: PATIENT VERIFIED(optional for EMERGENT procedures): Patient name, Date of , Relevant allergies, and The intended procedure Time Out Communication: Intended patient and procedure match the source documents. Consent documented and matches the intended procedure. Sign Out: SIGN OUT (optional for EMERGENT procedures): All specimen containers correctly labeled. All instruments, equipment, possible retained foreign bodies accounted for. Post-procedure follow-up management communicated and Plan of Care Visit completed when applicable. LESION #1 Preoperative Diagnosis: BCC Nodular of the left denominational Tumor Type: Primary Path Report Available at Bedside: Inside pathology report # [id number] Pre-op Size: 0.6 cm - 1 cm, (0.7 cm X 0.7 cm) Lymphadenopathy: None Indication for Mohs: Anatomic Location where lesion is prone to recur, Proven difficulty with skin cancers, Type of tumor, Age of patient, and Ill-defined borders Location: Area H: (Mask Areas of the Face - Includes Central Face, Eyelids, Inner/Outer Canthi, Eyebrows, Nose, Chin, Lips, Ears, Periauricular Skin and Episcopalian) Preparation: Povidone-iodine LAYER A The patient was positioned, prepped with alcohol and draped in the usual manner. Anesthesia was obtained with local infiltration. The clinically apparent tumor was then debulked with a curette. A 1-2 mm rim of tissue was marked circumferentially around the defect. The area thus outlined was excised deep to the subcutis. Hemostasis was achieved with electrocautery. The specimen was oriented, subdivided into 2 sections (A1-A2), chromacoded and submitted for horizontal frozen sections. The patient tolerated the procedure well and no complications were noted. Upon review of the horizontal frozen sections for Layer A, residual superficial BCC was identified in pieces B2. A1 negative. Depth of Invasion:epidermis Perineural invasion: No LVI: No . SUPERFICIAL BASAL CELL CARCINOMA: Arising from the epidermis and superficial hair follicles are small, superficial, multicentric buds of basaloid keratinocytes. The cells have scant cytoplasm and round dark nuclei. Mitotic figures and apoptotic bodies are evident. The nuclei at the periphery of the islands have a palisaded arrangement. The islands are associated with a fibromyxoid stroma and there is cleft formation between some of the islands and stroma. LAYER B A 1-2 mm rim of tissue was marked to encompass the positive margins noted in the frozen section. The area thus outlined was excised deep to the subcutis. Hemostasis was achieved with electrocautery. The specimen was oriented, subdivided into 1 sections (B1), chromacoded and submitted for horizontal frozen sections. The patient tolerated the procedure well and no complications were noted. Upon review of the horizontal frozen sections for Layer B, no residual tumor was identified . B1 negative. CLOSURE Rationale for Primary Closure: Given the location and size of the defect and in order to minimize the pain, bleeding, and infection associated with (more content not included)...[facility]10-20-2023 Miscellaneous Notes* Telephone Encounter - Yaritza Spencer MD - 09/15/2023 4:39 PM EDT Biopsies on left posterior shoulder and left upper abdomen were mildly atypical moles-no further treatment is recommended for these at this time Biopsy on left denominational was a BCC-patient will be referred for Mohs for this order placed please continue sun protection and monitoring Yaritza Spencer MD documented in this encounterSelect Medical [facility]10-18-2023 Miscellaneous Notes* Addendum Note - Norma Galdamez LPN - 09/13/2023 4:20 PM EDTAddended by: NORMA GALDAMEZ LPN on: 09/13/2023 04:20 PM Modules accepted: Orders * Addendum Note - Norma Galdamez LPN - 09/13/2023 3:56 PM EDTAddended by: NORMA GALDAMEZ LPN on: 09/13/2023 03:56 PM Modules accepted: Orders documented in this encounterSelect [facility]23 Instructions* Patient Instructions* Norma Galdamez LPN - 09/13/2023 3:08 PM EDT Patient instructions: Avoid sun exposure Recommend protection with broad band UVA/UVB sunscreen spf 30+ daily Recommend UV protective clothing/hats Oral photoprotective antioxidants discussed if applicable ([employer]) Avoid tanning and tanning bed use Recommend UV protective sunglasses Use sunscreen on lips and ears Follow up as directed CARE INSTRUCTIONS AFTER BIOPSY WITHOUT SUTURES 1.) Keep the area clean and dry with the band-aid in place the day of surgery. 2.) The next day you may bathe or shower as usual. Do not wear a wet band-aid on the wound. 3.) Remove the band-aid daily. Wash gently with soap and water and pat dry. Apply vaseline and cover with a band-aid for 5 days. 4.) Then leave the wound open to air, but continue to apply Vaseline for the next few days or untilcompletely healed (could take 2-3 weeks depending on the size of the biopsy site). 5.) DO NOT USE NEOSPORIN as there is a fairly high incidence of allergic response to this product.. documented in this encounterSelect [facility]10-18-[facility]23 History of Present illness Narrative* Yaritza Spencer MD - 09/13/2023 2:15 PM EDT CHIEF COMPLAINT: Patient presents with: Full Body Skin Check Last Dermatology Visit: [facility] - Dr Porter on REFERRAL: self RELEVANT DERMATOLOGY HISTORY: RELEVANT DERMATOLOGY HISTORY: Personal Hx of skin cancer: Yes basal cell CA/scc-- mostly bcc-right nasal ala, right temporal scalp, left occipital scalp, right upper cutaneous lip, nasal tip, left forehead, right denominational, right parietal scalp, left upper back, left anterior temporal scalp, left posterior temporal scalp, central forehead, left chin, right cheek, right glabella, left chin, right frontal scalp, left forehead, left superior helix, right conchal bowl BCC-Right denominational BCC-Right mid frontal scalp BCC-Right postauricular BCC-Left anterior neck BCC- R cheek - Mohs BCC- R anterior lower neck - Mohs Melanoma in situ - r chest 03/2021 Melanoma in situ- 02/2023- WLE 04/18 - Mohs Personal Hx of atypical moles: yes Family Hx of malignant melanoma: no Antibiotics before dental or other procedures: yes Artificial joints: no Pacemaker: no Anticoagulants: ASA DERMATOLOGY PROGRESS NOTE HISTORY: Sepideh Gardiner is a 72 year old male who presents with CC/HPI: Chief Complaint FBSE Location Whole body Duration years Timing constant Severity mild Quality As above Modifying Factors: Top of scalp bumpy and sides of face with scabing and bleeding. Pt wears a CPAP machine. 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 TONSILLECTOMY HX MEDICATIONS: Current Outpatient Medications Medication Sig hydroCHLOROthiazide 25 mg tablet Take 2 tablets by mouth every afternoon. atorvastatin (LIPITOR) 40 mg tablet 40 mg. carvedilol (COREG) 6.25 mg tablet 6.25 mg. telmisartan (MICARDIS) 80 mg tablet 80 mg. loratadine 10 mg cap Take 10 mg by mouth once daily. aspirin, enteric coated (ASPIRIN, ENTERIC COATED) 81 mg EC tablet 81 mg. bumetanide (BUMEX) 1 mg tablet mupirocin (BACTROBAN) 2 % ointment Apply to affected areas twice daily for wound care triamcinolone acetonide (KENALOG) 0.1 % cream Apply to affected skin on left wrist twice a day for 2 weeks Niacinamide 500 mg tablet TAKE 1 TABLET BY MOUTH TWICE A DAY WITH MEALS ketoconazole (NIZORAL) 2 % shampoo WASH AFFECTED AREA DAILY NEEDED Clobetasol Propionate 0.05 % gel APPLY TO AFFECTED AREA ON SCALP 2 TIMES A DAY NEEDED USE 2 WEEKS ON AND 1 WEEK OFF Clobetasol Propionate 0.05 % gel APPLY TO AFFECTED AREA ON SCALP 2 TIMES A DAY NEEDED USE 2 WEEKS ON AND 1 WEEK OFF hydrocortisone 2.5 % ointment Apply to affected area on face two times daily as needed for 1-2 weeks after PDT ketoconazole (NIZORAL) 2 % shampoo Wash affected area daily as needed (Patient not taking: Reportedon 06/12/2023) acetaminophen-codeine (TYLENOL-COD #3) 300-30 mg per tablet Take 1 tablet by mouth every 6 hours asneeded. (Patient not taking: Reported on 06/12/2023) tretinoin (RETIN-A) 0.025 % gel Apply a pea size amount to affected area every other night for 2 weeks then increase to daily as tolerated CYANOCOBALAMIN, VITAMIN B-12, (VITAMIN B-12 INJECTION) by INJECTION(UNSPECIFIED PARENTERAL ROUTES) route. Benzoyl Peroxide 5 % external wash Wash affected area one to two times daily as tolerated Cholecalciferol, Vitamin D3, 50 mcg (2,000 unit) cap Take 3 capsules by mouth once daily. Magnesium 250 mg tab Take 250 mg by mouth once daily. VITAMIN B COMPLEX ORAL Take 1 tablet by mouth once daily. MULTIVIT &MINERALS/FERROUS FUM (MULTI VITAMIN ORAL) Take 1 tablet by mouth once daily. telmisartan (MICARDIS) 80 mg tablet Take 80 mg by mouth once daily. primidone (MYSOLINE) 250 mg tablet Take 250 mg by mouth twice daily. metOLazone (ZAROXOLYN) 2.5 mg tablet Take 2.5 mg by mouth once daily. POTASSIUM (POTASSIMIN ORAL) Take 1 tablet by mouth once daily. No current facility-administered medications for this visit. ALLERGIES: reviewed Patient has no known allergies. 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 No dyspnea, chest pain, abdominal pain, dysuria. All other review of systems is negative FAMILY MEDICAL HISTORY: No family history on file. SOCIAL HISTORY: Social History Tobacco Use Smoking status: Former Packs/day: 1 Types: Cigarettes Quit date: 11/27/1978 Years since quittin.8 Smokeless tobacco: Never Substance Use Topics Alcohol use: Not Currently Drug use: Never PHYSICAL EXAMINATION: GENERAL: Patient is a well appearing, well nourished, and pleasant, male alert and oriented, NAD. SKIN: A full skin exam was performed including the scalp, face, lips, neck, chest, abdomen, back, buttocks, arms and legs. Clear of dermatitis on scalp today very mild greasy scale around nose bilateral postauricular Eroded erythematous pearly papule on left denominational 1 x 1 cm Irregularly pigmented papule left posterior shoulder 0.7 x 0.7 cm Irregularly pigmented papule right upper abdomen 0.5 x 0.5 cm Brown waxy warty stuck on papules on head trunk and extremities Easley red vascular papules on trunk Light brown macules in sun distribution on upper body Multiple symmetric pigmented macules with benign features on trunk extremities No recurrence on previous melanoma and skin cancer sites ASSESSMENT/PLAN: 1. Seborrheic dermatitis - ICD9: 690.10, ICD10: L21.9 (primary diagnosis) - mild - dx rx proper use of medications discussed - KETOCONAZOLE 2 % SHAMPOO - HYDROCORTISONE 2.5 % TOPICAL CREAM twice weekly prn flare 2. Skin neoplasm - ICD9: 239.2, ICD10: D49.2 - bx today as below 3. Seborrheic keratosis - ICD9: 702.19, ICD10: L82.1 - dx reviewed - observe 4. 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 Lentigines - ICD9: 709.09, ICD10: L81.4 -Sun protection 6. Multiple benign nevi - ICD9: 216.9, ICD10: D22.9 -Sun protection and monitoring 7. Hx of malignant melanoma - ICD9: V10.82, ICD10: Z85.820 - Mole/melanoma/dysplastic nevus/skin cancer education given - Recommend sun protection with broad spectrum UVA UVB coverage, spf 30+ every day, reapply every 2-3 hours, use higher SPF 50+ for extended sun activities - Monitoring 8. Hx of nonmelanoma skin cancer - ICD9: V10.83, ICD10: Z85.828 -Continue sun protection and monitoring 9. Hx of atypical nevus - ICD9: V13.89, ICD10: Z87.898 -as above in 8 Yaritza Spencer MD Patient presents with: Full Body Skin Check Sepideh Hauser Dexter Burciaga Medical Record: [id number] Procedure: Shave biopsy Patient is alert oriented 3, not in apparent distress The risks, benefits and anticipated outcomes of the procedure, the risks and benefits of the alternatives to the procedure, and the roles and tasks of the personnel to be involved were discussed withthe patient who consents to the procedure and agrees to proceed. I verify that I personally obtained Sepideh Gardiner's consent. Yaritza Spencer MD DEPARTMENT OF DERMATOLOGY UNIVERSAL PROTOCOL / SAFETY CHECKLIST Procedure to be Performed: shave biopsy Sign In: A Moment of CARE was completed. Personnel directly involved with the procedure wore the appropriate PPE (Personal Protective Equipment). No special equipment needed. Patient/Surrogate Stated/Verified: PATIENT VERIFIED (optional for EMERGENT procedures): Patient name, Date of , Relevant allergies and The intended procedure Time Out Communication: Intended patient and procedure match the source documents. Consent documented and matches the intended procedure. No relevant labs, photos, and/or imaging studies were applicable for review. Correct side/site marked and visible. Medications required for procedure is verified. No fire risk assessment and interventions applicable. No implant(s) inserted. Sign Out: SIGN OUT (optional for EMERGENT procedures): All specimen containers correctly labeled. No instruments, equipment or retained foreign bodies applicable. Post-procedure follow-up management communicated and Plan of Care Visit completed when applicable. Yaritza Spencer MD Discussed with patient the procedure and risks which include bleeding, infection and scarring. The area(s) was/were identified, prepped with alcohol and anesthetized with 1% Lidocaine with epinephrine, total amount of 1.5 ml. A sterile # 15 blade was used to remove a sales representative canvas products portion of the lesion. Hemostasis was achieved with aluminum chloride, the site(s) was(were) dressed with an adhesive dressing. Size of biopsy site was approximately 0.5 cm in diameter each. EBL: none Biopsy site(s): left denominational, left posterior shoulder, right upper abdomen DDx: Rule out BCC for left denominational rule out atypical nevus for left posterior shoulder and right upper abdomen Photo(s) taken with patient's/guardian's permission. Patient tolerated procedure well, without complications and post care instructions were given. Pt will be notified with pathology results. Yaritza Spencer MD RTC pending path The documentation for this note was partially completed by Norma Galdamez LPN acting as scribe Kailey Spencer MD. September 13, 2023 1:20 PM. I agree with the Chief Complaint, ROS, and Past Histories independently gathered by the clinical cad application support specialist and the remaining scribed note accurately describes my personal service to the patient. Norma Spencer MD Return to clinic ppath or fbse q 3-6 months documented in this encounterSelect [facility]-18-[facility]23 NoteHNO ID: [id number] Author: Yaritza Spencer MD Service: ? Author Type: Physician Type: Progress Notes Filed: 09/13/2023 4:22 PM Note Text: CHIEF COMPLAINT: Patient presents with: Full Body Skin Check Last Dermatology Visit: [facility] - Dr Porter on REFERRAL: self RELEVANT DERMATOLOGY HISTORY: RELEVANT DERMATOLOGY HISTORY: Personal Hx of skin cancer: Yes basal cell CA/scc-- mostly bcc-right nasal ala, right temporal scalp, left occipital scalp, right upper cutaneous lip, nasal tip, left forehead, right denominational, right parietal scalp, left upper back, left anterior temporal scalp, left posterior temporal scalp, central forehead, left chin, right cheek, right glabella, left chin, right frontal scalp, left forehead, left superior helix, right conchal bowl BCC-Right denominational BCC-Right mid frontal scalp BCC-Right postauricular BCC-Left anterior neck BCC- R cheek - Mohs BCC- R anterior lower neck - Mohs Melanoma in situ - r chest 03/2021 Melanoma in situ- 02/2023- WLE 04/18 - Mohs Personal Hx of atypical moles: yes Family Hx of malignant melanoma: no Antibiotics before dental or other procedures: yes Artificial joints: no Pacemaker: no Anticoagulants: ASA DERMATOLOGY PROGRESS NOTE HISTORY: Sepideh Gardiner is a 72 year old male who presents with CC/HPI: Chief Complaint FBSE Location Whole body Duration years Timing constant Severity mild Quality As above Modifying Factors: Top of scalp bumpy and sides of face with scabing and bleeding. Pt wears a CPAP machine. 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 TONSILLECTOMY HX MEDICATIONS: Current Outpatient Medications Medication Sig hydroCHLOROthiazide 25 mg tablet Take 2 tablets by mouth every afternoon. atorvastatin (LIPITOR) 40 mg tablet 40 mg. carvedilol (COREG) 6.25 mg tablet 6.25 mg. telmisartan (MICARDIS) 80 mg tablet 80 mg. loratadine 10 mg cap Take 10 mg by mouth once daily. aspirin, enteric coated (ASPIRIN, ENTERIC COATED) 81 mg EC tablet 81 mg. bumetanide (BUMEX) 1 mg tablet mupirocin (BACTROBAN) 2 % ointment Apply to affected areas twice daily for wound care triamcinolone acetonide (KENALOG) 0.1 % cream Apply to affected skin on left wrist twice a day for 2 weeks Niacinamide 500 mg tablet TAKE 1 TABLET BY MOUTH TWICE A DAY WITH MEALS ketoconazole (NIZORAL) 2 % shampoo WASH AFFECTED AREA DAILY NEEDED Clobetasol Propionate 0.05 % gel APPLY TO AFFECTED AREA ON SCALP 2 TIMES A DAY NEEDED USE 2 WEEKS ON AND 1 WEEK OFF Clobetasol Propionate 0.05 % gel APPLY TO AFFECTED AREA ON SCALP 2 TIMES A DAY NEEDED USE 2 WEEKS ON AND 1 WEEK OFF hydrocortisone 2.5 % ointment Apply to affected area on face two times daily as needed for 1-2 weeks after PDT ketoconazole (NIZORAL) 2 % shampoo Wash affected area daily as needed (Patient not taking: Reported on 06/12/2023) acetaminophen-codeine (TYLENOL-COD #3) 300-30 mg per tablet Take 1 tablet by mouth every 6 hours as needed. (Patient not taking: Reported on 06/12/2023) tretinoin (RETIN-A) 0.025 % gel Apply a pea size amount to affected area every other night for 2 weeks then increase to daily as tolerated CYANOCOBALAMIN, VITAMIN B-12, (VITAMIN B-12 INJECTION) by INJECTION(UNSPECIFIED PARENTERAL ROUTES) route. Benzoyl Peroxide 5 % external wash Wash affected area one to two times daily as tolerated Cholecalciferol, Vitamin D3, 50 mcg (2,000 unit) cap Take 3 capsules by mouth once daily. Magnesium 250 mg tab Take 250 mg by mouth once daily. VITAMIN B COMPLEX ORAL Take 1 tablet by mouth once daily. MULTIVIT ANDMINERALS/FERROUS FUM (MULTI VITAMIN ORAL) Take 1 tablet by mouth once daily. telmisartan (MICARDIS) 80 mg tablet Take 80 mg by mouth once daily. primidone (MYSOLINE) 250 mg tablet Take 250 mg by mouth twice daily. metOLazone (ZAROXOLYN) 2.5 mg tablet Take 2.5 mg by mouth once daily. POTASSIUM (POTASSIMIN ORAL) Take 1 tablet by mouth once daily. No current facility-administered medications for this visit. ALLERGIES: reviewed Patient has no known allergies. 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 No dyspnea, chest pain, abdominal pain, dysuria. All other review of systems is negative FAMILY MEDICAL HISTORY: No family history on file. SOCIAL HISTORY: Social History Tobacco Use Smoking status: Former Packs/day: 1 Types: Cigarettes Quit da (more content not included)...[facility]07-17-2023 History of Present illness Narrative* Stacey Shea MD - 06/12/2023 2:02 PM EDT ESTABLISHED PATIENT OFFICE VISIT F/u CaP. He has been under evaluation for dizzieness. He has some bothersome LUTS (urge and frequency). LAB RESULTS Creatinine Date Value Ref Range Status 06/12/2015 1.12 0.70 - 1.40 mg/dL Final No results found for: PSA , PSASC GLUCOSE UA (POCT) (mg/dL) Date Value 06/12/2023 Negative BILIRUBIN UA (POCT) (no units) Date Value 06/12/2023 Negative KETONE UA (POCT) (mg/dL) Date Value 06/12/2023 Negative SPECIFIC GRAVITY UA (POCT) (no units) Date Value 06/12/2023 1.020 HEMOGLOBIN/BLOOD UA (POCT) (no units) Date Value 06/12/2023 Negative PH UA (POCT) (no units) Date Value 06/12/2023 5.5 PROTEIN UA (POCT) (mg/dL) Date Value 06/12/2023 Negative UROBILINOGEN UA (POCT) (E.U./dL) Date Value 06/12/2023 0.2 NITRITE UA (POCT) (no units) Date Value 06/12/2023 Negative LEUKOCYTES UA (POCT) (no units) Date Value 06/12/2023 Negative COLOR UA (POCT) (no units) Date Value 06/12/2023 Yellow CLARITY UA (POCT) (no units) Date Value 06/12/2023 Clear ] ALLERGIES No Known Allergies MEDICATIONS: hydroCHLOROthiazide 25 mg tablet Take 2 tablets by mouth every afternoon. atorvastatin (LIPITOR) 40 mg tablet 40 mg. carvedilol (COREG) 6.25 mg tablet 6.25 mg. loratadine 10 mg cap Take 10 mg by mouth once daily. aspirin, enteric coated (ASPIRIN, ENTERIC COATED) 81 mg EC tablet 81 mg. bumetanide (BUMEX) 1 mg tablet mupirocin (BACTROBAN) 2 % ointment Apply to affected areas twice daily for wound care triamcinolone acetonide (KENALOG) 0.1 % cream Apply to affected skin on left wrist twice a day for 2 weeks Niacinamide 500 mg tablet TAKE 1 TABLET BY MOUTH TWICE A DAY WITH MEALS ketoconazole (NIZORAL) 2 % shampoo WASH AFFECTED AREA DAILY NEEDED Clobetasol Propionate 0.05 % gel APPLY TO AFFECTED AREA ON SCALP 2 TIMES A DAY NEEDED USE 2 WEEKS ON AND 1 WEEK OFF Clobetasol Propionate 0.05 % gel APPLY TO AFFECTED AREA ON SCALP 2 TIMES A DAY NEEDED USE 2 WEEKS ON AND 1 WEEK OFF hydrocortisone 2.5 % ointment Apply to affected area on face two times daily as needed for 1-2 weeks after PDT tretinoin (RETIN-A) 0.025 % gel Apply a pea size amount to affected area every other night for 2 weeks then increase to daily as tolerated CYANOCOBALAMIN, VITAMIN B-12, (VITAMIN B-12 INJECTION) by INJECTION(UNSPECIFIED PARENTERAL ROUTES) route. Benzoyl Peroxide 5 % external wash Wash affected area one to two times daily as tolerated Cholecalciferol, Vitamin D3, 50 mcg (2,000 unit) cap Take 3 capsules by mouth once daily. Magnesium 250 mg tab Take 250 mg by mouth once daily. VITAMIN B COMPLEX ORAL Take 1 tablet by mouth once daily. MULTIVIT &MINERALS/FERROUS FUM (MULTI VITAMIN ORAL) Take 1 tablet by mouth once daily. telmisartan (MICARDIS) 80 mg tablet Take 80 mg by mouth once daily. primidone (MYSOLINE) 250 mg tablet Take 250 mg by mouth twice daily. metOLazone (ZAROXOLYN) 2.5 mg tablet Take 2.5 mg by mouth once daily. POTASSIUM (POTASSIMIN ORAL) Take 1 tablet by mouth once daily. telmisartan (MICARDIS) 80 mg tablet 80 mg. ketoconazole (NIZORAL) 2 % shampoo Wash affected area daily as needed (Patient not taking: Reportedon 06/12/2023) acetaminophen-codeine (TYLENOL-COD #3) 300-30 mg per tablet Take 1 tablet by mouth every 6 hours asneeded. (Patient not taking: Reported on 06/12/2023) REVIEW OF SYSTEMS GENERAL:no unintentional weight loss, malaise or fevers. NEUROLOGIC: pt is alert and oriented GASTROINTESTINAL: No nausea, vomiting, or diarrhea GENITOURINARY: No history of dysuria, frequency or incontinence MUSCULOSKELETAL: Negative for joint pain or swelling, back pain or muscle pain SKIN: Negative for lesions, rash, and itching. ACTIVE PROBLEM LIST Benign Nevus of Skin History of Mohs Micrographic Surgery for Skin Cancer Actinic Keratosis Acne Vulgaris Melanocytic Nevi of Trunk Prostate Cancer (Hcc) Visit for Wound Check HISTORIES PAST MEDICAL HISTORY Diagnosis Date Basal cell carcinoma Convulsive disorder (HCC) Edema HTN (hypertension) Prostate cancer (HCC) History reviewed. No pertinent family history. PAST SURGICAL HISTORY Procedure Laterality Date OTHER MOhs for basal cell ca. TONSILLECTOMY HX SOCIAL HISTORY Social History Tobacco Use Smoking status: Former Packs/day: 1.00 Types: Cigarettes Quit date: 11/27/1978 Years since quittin.5 Smokeless tobacco: Never Substance Use Topics Alcohol use: Not Currently Drug use: Never PHYSICAL EXAMINATION General appearance: Well appearing, alert, in no acute distress, well-hydrated, well nourished Psych Alert and oriented to person, place and time Genitourinary: MALE EXAM: Exam NOT Indicated ASSESSMENT/PLAN: 1. Prostate cancer (HCC) - ICD9: 185, ICD10: C61 Doing well. Cont Check Psa in 6 month 2. BPH with frequency- He wants to observe - BLADDER SCAN - PSA/PROSTSPECAG DIAG Stacey Shea MD documented in this encounterSelect [facility] Miscellaneous Notes* Telephone Encounter - Irlanda Mari - 06/06/2023 1:32 PM EDT faxed * Telephone Encounter - Beata Faith APRN.CNP - 06/06/2023 10:54 AM EDT Done. Thanks, Beata Faith APRN.ILA * Telephone Encounter - KamaljitIrlanda - 06/06/2023 10:42 AM EDT Pt needs PSA placed in chart. Then I will fax to [facility] FAX [phone]. Irlanda Kamaljit documented in this encounterSelect [facility]05-11-[facility]23 Instructions* Patient Instructions* Thais Porter MD - 04/06/2023 9:22 AM EDT WOUND CARE INSTRUCTIONS WITH REMOVABLE SUTURES WOUND CARE: The dressing you have been sent home with is called a pressure dressing. It should remain in place for 48 hours. To care for the wound: Remove pressure dressing after 48 hours. Tip: wet dressing in the shower to assist with adhesive removal. You can remove adhesive with soap,water, or alcohol pad. Clean with gentle soap and water twice daily. If you notice dried blood or scab, please use a small amount of hydrogen peroxide along the suture line Your main form of cleaning will be with soap and water Example of gentle soap: Dove, Dial, CeraVe, Cetaphil, Aveeno, or any non-scented bar of soap After wound is thoroughly cleansed and dried, apply a thick layer of Vaseline or Aquaphor to the suture line. Do NOT use polysporin or neosporin on your wound After 72 hours, may leave uncovered as long as it is kept greasy and won t interfere with clothing. If you need to have stitches removed, please make an appointment to return to the office in [address] Porter will remove stitches in left neck at your appointment next week and evaluate the site onleft shoulder. This will be with a nurse only, unless you have been informed otherwise. Signs and symptoms of infection: Redness streaking away from the wound, swelling, new onset of pain, foul smelling drainage, pus, and generalized fevers/chills BLEEDING: Careful attention has been given to your wound to prevent bleeding. The initial dressing you have on is a pressure dressing to also help prevent bleeding. You may notice a small amount of blood on the edges of the dressing the first day; this is normal. In case of persistent bleeding: Apply firm, steady pressure over the dressing with gauze for 20 minutes. If bleeding persists, please apply firm pressure for another 30 minutes. Tip #1: use a timer to record the time of pressure held Tip #2: do not peek at wound until time is completed- this will disrupt clotting time of vessel Tip #3: you may also use ice, as this may aid in slowing any bleeding. If bleeding persists, please call the office using the numbers below. We will instruct you on how to proceed. PAIN: What pain can I expect after surgery? You can expect to have some pain after surgery. This is normal. The pain is typically worse for a day or two after surgery, and quickly begins to get better. Most patients are able to manage their pain after surgery with Nwow-tai-Jkgurqt (OTC) medications such as Tylenol (acetaminophen) and Motrin/A dvil (ibuprofen). If you have a condition that does not allow you to take either of these medications, please notify us immediately. How will I manage my pain? The best strategy for controlling your pain after surgery is around the clock pain control with Tylenol (acetaminophen) and Motrin/Advil (ibuprofen). Alternating these medications with each other allows you to maximize your pain control. In addition to Tylenol and Motrin, you can use ice packs on your incisions for 20 minutes each hour for the first two days after surgery to help reduce your painand swelling. After the first two days, you may use a heating pad or warm compress on your incisions and surrounding area. If you have received a graft, please *DO NOT* apply ice directly onto the graft site. How will I alternate my regular strength tagn-act-tgeunpw pain medication? You will take a dose of pain medication every four hours while you're awake. Start by taking 200-400 mg of Motrin/Advil (ibuprofen) (1-2 pills of 200 mg) 4 hours later, take 500-1000 mg of Tylenol (acetaminophen) (1-2 pills of 500 mg) 4 hours later, take 200-400 mg of Motrin/Advil (ibuprofen) (1-2 pills of 200 mg) 4 hours later, take 500-1000 mg of Tylenol (acetaminophen) (1-2 pills of 500 mg) 4 hours later, take 200-400 mg of Motrin/Advil (ibuprofen) (1-2 pills of 200 mg) We recommend that you follow this schedule clsifu-ppa-kzyrc for at least 3 days after surgery, or until you feel that it is no longer needed. As an alternative, you can purchase OTC Advil Dual Action, which is a combined pill containing Acetaminophen 250mg and Ibuprofen 125mg. IMPORTANT: Do not take more than 3000mg of Tylenol (acetaminophen) or 3200mg of Motrin/Advil (ibuprofen) in a 24-hour period. Be aware that some chronic pain medications as well as over the counter cold and flu remedies may also contain acetaminophen. Take this into consideration to avoid exceeding the maximum daily dose. Easy on the alcohol. It is recommended to avoid heavy alcohol intake (more than two standard drinksper day for men and one standard drink for women) after surgery and while taking acetaminophen. Drinking alcohol causes the liver to convert more of the acetaminophen you take into toxic byproducts. Alcohol also acts as a blood thinner and can increase your risk for post-operative bleeding. Continue to take all of your prescribed medication. SWELLING: Swelling after surgery is normal and can peak at 48hr after surgery Suggestion: sleep on 1-2 pillows post procedure for 2-3 days to minimize swelling You can do this if you had a procedure on your face, top of head, ears, jaw, eyes, nose, cheeks, etc. Elevate arms and legs at rest to decrease swelling You can wrap your affected extremity by using DONI wrap, coban wrap, or compression stockings to also minimize swelling Please also use ice packs to decrease swelling. Can use approximately 20 minutes each hour. NOTES: You may shower regularly after your initial surgery dressing is removed Avoid increasing heart rate or blood pressure for the first 72 hours following surgery (increases bleeding risk) Avoid heavy lifting and strenuous activity for 72 hours following surgery Return to referring inventory control associate for skin checks every 6 months Wear sunscreen PHONE NUMBERS: (Monday-Monday, 8am-5pm) For emergencies only: On-call number: [phone] and ask for the communications operator dermatology surgery fellow PAINLESS PHOTODYNAMIC THERAPY (Painless PDT) What is Painless PDT? Painless PDT is a procedure for treating Actinic Keratosis (AK) on the face or scalp. AK are precancerous lesions that occur mostly in sun-exposed areas of the skin. A medicated solution called Levulan is applied, and the patient is placed under a blue light to activate the medication and destroy precancer cells. In traditional PDT, Levulan is applied to the skin to incubate for ~1 - 3 hours before the light is turned on; with that regimen, most patients experience stinging pain during illumination which can sometimes be severe. In our new painless regimen, Levulan is only left on for ~15 minprior to starting the light. The patient feels no pain, only a slight warmth. Despite this gentle ap proach, the desired result (gradual inflammation followed by clearance of the precancer lesions) isstill achieved. The new regimen was created and validated in a clinical trial performed by our teamat the [facility] [1]. [1] Yung U, Jade M, Minna T, Anirudh L, Ramon M, Rigoberto A, Octavio B, Jimbo CB, Tri EV. A regimento minimize pain during blue light photodynamic therapy of actinic keratoses: bilaterally controlled, randomized trial of simultaneous versus conventional illumination. Journal of [place] [employer] of[employer]ermatology 2020 February; 82(4):862-868. What to expect during the treatment? The doctor or nurse will prepare the skin with an alcohol swipe to wipe away any make-up or residual oil. Levulan will be painted onto the face or scalp. Levulan is applied to the entire area of skin, not just visible lesions, because precancer cells absorb the drug whereas normal cells do not; this provides a selective (targeted) treatment. After 15 minutes of Levulan incubation, the blue light is turned on and your skin is illuminated for 30 minutes. While the light is on you may experience warmth or tingling in the treatment area, but no pain. No fans nor ice water are needed, unlike with traditional PDT. What to expect after the treatment? By the evening on the day of PDT, there may be some pjub-zh-uxytyqbl redness of the treated areas. A day later, however, you will probably develop more intense redness. This will remain for 3-4 days,along with a stretchy feeling and some mild peeling, similar to a healing sunburn reaction. All of these changes are expected to settle down in a week to ten days. Your caregiver can prescribe a medium strength topical steroid, such as triamcinolone, for you to use in the first few days after PDT. This will reduce unnecessary inflammation and will not decrease effectiveness of the therapy. How long will the visit last? The visit will last between 45 minutes to 1 hour. Can I shave before the treatment? Facial hair can interfere with PDT, so we recommend shaving on the morning of your treatment. Aftertreatment, shaving in treated facial areas should be delayed for two or three days until redness subsides. Should I stop any medications prior to the treatment? Retinoid-containing creams, and tetracycline antibiotics (such as doxycycline or minocycline) should be stopped 2 weeks before the treatment, since they can make your skin more sensitive to the light. Can PDT cause a flare of cold sores? Occasionally, there might be a flare up of Herpes Simplex infection after PDT. If you have a history of herpes simplex cold sores , please let us know and we can prescribe an oral medication (valacyclovir) for you to take to prevent this. What precautions should I take after the treatment? The most important precaution is that you MUST stay out of direct sunlight, and strong commercial lighting, for 48 hours after the treatment. After you finish the treatment, you will be given an informational flyer which contains detailed aftercare instructions. When to follow up with dermatology? Your lesions will definitely be improved several months after PDT. However, many people require a second treatment to achieve an optimal response. We recommend scheduling a clinic appointment with usat ~3-6 months after the treatment to assess how well your actinic keratoses have responded. Is PDT safe? PDT is generally very safe. It is one of the most popular non-invasive treatments for precancerous lesions. Very rarely one might get some tiny blisters on the treated area. Should I bring anything to my visit? You should bring a broad-brim hat to protect your face and scalp from the sun. To listen to music on your smartphone during the treatment, please bring earbuds that will not interfere with the light. What s new in PDT? We have an active research program on improving PDT treatments for skin cancer. If you are interested in learning more, you can e-mail Marky Gabrielle, email address [email or web address], phone number , or Devorah Sanford R.N. at email address [email or web address] for more information. Information prepared by Jimbo Camacho and Tri [facility] Department of Dermatology 04/02/2020 documented in this [facility] History of Present illness Narrative* Thais Porter MD - 04/06/2023 7:30 AM EDT MOHS MICROGRAPHIC OPERATIVE REPORT SERVICE DATE: 04/06/2023 SERVICE TIME: 729 LOCATION: [place] [address] REFERRING PROVIDER: Yaritza Spencer (Fay) [address] [place] [address] PROCEDURE START TIME: 0800 PROCEDURE END TIME: 1030 SURGEON: Dr. Thais Porter FELLOW: Dr. Harsha Lang REGISTERED NURSE: Kristi Nuno Sanchez, [place] ANTICOAGULANTS: ASA IMPLANTED DEVICES: heart wires but not connected ANTIBIOTIC PROPHYLAXIS: unsure if needed TRANSPLANT PATIENT: No PHOTOS: Photos taken VERIFICATION OF PROCEDURE: Procedure to be Performed: Mohs Surgery Patient Verified By: Name and Date of Site(s) Confirmed: Patient confirmed site from image in the EMR. Patient used mirror(s) to identifysite(s). Patient pointed to site(s). Patient identified site in photo(s) taken during consult or preprocedure then signed photo. Patient verbalized agreement of surgical site(s). Site(s) Marked: Provider marking the site with patient involvement. Relevant documentation, images, implants or special equipment present: Yes SIGN IN COMMUNICATION: Completed Time Out: Team Confirms the Correct Patient, Correct Procedure, Correct Site(s) and Site Marked, Correct Position (if applicable). Time: 0815 Affirmation of Time Out: Yes Sign out Discussion: Completed UNIVERSAL PROTOCOL / SAFETY CHECKLIST Procedure to be Performed: Mohs Micrographic Surgery Sign In: A Moment of CARE was completed. Personnel directly involved with the procedure wore the appropriate PPE (Personal Protective Equipment). Patient/Surrogate Stated/Verified: PATIENT VERIFIED(optional for EMERGENT procedures): Patient name, Date of , Relevant allergies, and The intended procedure Time Out Communication: Intended patient and procedure match the source documents. Consent documented and matches the intended procedure. Correct side/site marked and visible. Medications required for procedure verified. Fire risk assessed and interventions discussed. Sign Out: SIGN OUT (optional for EMERGENT procedures): All specimen containers correctly labeled. All instruments, equipment, possible retained foreign bodies accounted for. Post-procedure follow-up management communicated and Plan of Care Visit completed when applicable. Lavell Nuno RN LESION #1 Preoperative Diagnosis: BCC Nodular, Superficial, and Multifocal of the left anterior neck Tumor Type: Primary Path Report Available at Bedside: Inside pathology report # [id number] Pre-op Size: 1.1 cm - 2 cm, (1.1cm X 1.1cm) Lymphadenopathy: None Indication for Mohs: Anatomic Location where lesion is prone to recur, Proven difficulty with skin cancers, Type of tumor, Age of patient, Size, and Ill- defined borders Location: Area M: (Includes Cheeks, Forehead, Scalp, Neck, Jawline and Pretibial Surface) Preparation: Chlorhexidine LAYER A The patient was positioned, prepped with alcohol and draped in the usual manner. Anesthesia was obtained with local infiltration. The clinically apparent tumor was then debulked with a curette. A 1-2mm rim of tissue was marked circumferentially around the defect. The area thus outlined was exciseddeep to the subcutis. Hemostasis was achieved with electrocautery. The specimen was oriented, subdivided into 2 sections, A1 and A2 chromacoded and submitted for horizontal frozen sections. The patient tolerated the procedure well and no complications were noted. Upon review of the horizontal frozen sections for Layer A, residual BCC, superficial was identifiedin pieces A2. Depth of Invasion:epidermis. SUPERFICIAL BASAL CELL CARCINOMA: Arising from the epidermis and superficial hair follicles are small, superficial, multicentric buds of basaloid keratinocytes. The cells have scant cytoplasm and round dark nuclei. Mitotic figures and apoptotic bodies are evident. The nuclei at the periphery of the islands have a palisaded arrangement. The islands are associated with a fibromyxoid stroma and there is cleft formation between some of the islands and stroma. LAYER B A 1-2 mm rim of tissue was marked to encompass the positive margins noted in the frozen section. The area thus outlined was excised deep to the subcutis. Hemostasis was achieved with electrocautery. The specimen was oriented, subdivided into 1 sections, B1 chromacoded and submitted for horizontal frozen sections. The patient tolerated the procedure well and no complications were noted. Upon review of the horizontal frozen sections for Layer B, no residual tumor was identified . CLOSURE Rationale for Primary Closure: Given the location and size of the defect and in order to minimize the pain, bleeding, and infection associated with second intention healing, the wound was closed witha primary linear closure. Diagnosis: Surgical defect secondary to Mohs micrographic surgery on a Primary tumor type from leftanterior neck (location of tumor). Post-op Defect Size: 1.2 X 2.2cm INTERMEDIATE CLOSURE: Requiring skin and subcutaneous fat. The beveled edge of the Mohs defect was surgically removed. The wound edges were undermined in all directions to decrease the tension of thewound and facilitate skin edge apposition. Meticulous hemostasis was achieved with electrocautery. Redundant standing cones were removed to allow the wound to be closed without distortion. The deep tissue were opposed with 5-0 Monocryl Absorbant sutures. The epidermal edges were opposed with 5-0 Prolene sutures. The surgical site was cleansed with saline and covered with a bandage as below. The patient tolerated the procedure well and no complications were noted. Final Size: Linear closure - 3.6 cm SCC Staging N/A N/A LOCAL ANESTHETIC: 11cc 1% Lidocaine HCl with Epinephrine 1:100,000 ESTIMATED BLOOD LOSS: Less Than Minimal Unless Noted Here. COMPLICATIONS: None, patient tolerated procedure well. TOTAL OPERATIVE TIME: 150 Minutes POST OP MEDS: Tylenol 1000 mg every 6 hours as needed for pain relief POST OP CARE: Pressure Dressing applied consisting of Contact Layer: Petrolatum ointment and Non stick Telfa pad Absorbent Layer: Gauze pad Outer Layer: Hypafix [facility] POST OP INSTRUCTIONS GIVEN WITH VERBAL UNDERSTANDING: Yes ANTIGOAGULANTS: Aspirin PACEMAKER: NO ANTIBIOTIC PROPHYLAXIS: unsure SURGERY ROOM:[facility] ([id number]) Dr. Thais Qureshi RN Pre photos taken with consent PROCEDURE NOTES EXCISION WITH CLOSURE UNIVERSAL PROTOCOL / SAFETY CHECKLIST Procedure to be Performed: Excision with Closure Sign In: A Moment of CARE was completed. Personnel directly involved with the procedure wore the appropriate PPE (Personal Protective Equipment). Patient/Surrogate Stated/Verified: PATIENT VERIFIED(optional for EMERGENT procedures): Patient name, Date of , Relevant allergies, and The intended procedure Time Out Communication: Intended patient and procedure match the source documents. Consent documented and matches the intended procedure. Correct side/site marked and visible. Medications required for procedure verified. Fire risk assessed and interventions discussed. Sign Out: SIGN OUT (optional for EMERGENT procedures): All specimen containers correctly labeled. All instruments, equipment, possible retained foreign bodies accounted for. Post-procedure follow-up management communicated and Plan of Care Visit completed when applicable. Lavell Nuno RN Antibiotics Administered if Applicable Safety Precautions Based on Patient History or Medication n/a LOCAL ANESTHETIC: 1% Lidocaine HCl with Epinephrine 1:100,000 A full-thickness excision of the lesion(s) was performed to the level of: Subcutaneous fat LESION # 1 DX: Melanoma In SITU Wide Local Excision for Primary Cutaneous Melanoma - Excision 1 (Shoulder - Left) Operation performed with curative intent Yes Original Breslow thickness of the lesion Melanoma in situ (MIS) Clinical margin width (measured from the edge of the lesion or the prior excision scar) 1 cm Depth of excision Only skin and superficial subcutaneous fat (melanoma in situ) LOC OF LESION: Left superior shoulder, path # [id number] PRE-OP SIZE: 0.9 x 0.5 CM MARGIN: 1.0 CM LYMPHADENOPATHY: None Description: PRIMARY INTERMEDIATE requiring a layered closure of the following; skin and deeper subcutaneous fat CLOSURE: Primary intermediate: Requiring closure of skin and deeper subcutaneous fat. Undermining was performed in all directions at the dermal subcutaneous layer to decrease the tension of the woundand facilitate skin edge apposition. Meticulous hemostasis was achieved with electrocautery. The deeper tissues were apposed with 4-0 Monocryl sutures. The epidermal edges were apposed with 4-0 Prolene sutures. The surgical site was cleansed with saline and covered with a bandage as below. The patient tolerated the procedure well and no complications were noted. Final Size: Linear closure - 5.6 cm COMPLICATIONS: None, patient tolerated procedure well. POST OP MEDS: Tylenol 1000 mg every 8 hours as needed for pain relief POST OP CARE:Pressure Dressing applied consisting of Contact Layer: Petrolatum ointment and Non stick Telfa pad Absorbent Layer: Gauze pad Outer Layer: Hypafix POST OP INSTRUCTIONS GIVEN: Surgical Wound Care COMMENTS: None, patient tolerated procedure well CHARGE CODE: E bill to insurance PATIENT DISCHARGED TO [facility]IL [facility]/NAME: Self FOLLOW UP: Return for suture removal in 7 days for left neck. 14 days for left shoulder (unless otherwise specified by Dr. Porter at appointment in 1 week). ADDENDUM - Patient notes many scaly, crusted areas on the scalp Exam of the scalp notable for: - Many scattered brown waxy stuck on papules and plaques c/w seborrheic keratoses - Multiple gritty pink papules c/w actinic keratoses ASSESSMENT & PLAN: Actinic keratosis Mid Frontal Scalp - Discussed premalignant etiology - Discussed risks and benefits of treatment options including cryotherapy vs Efudex 5% vs. Efudex 5% + calcipotriene vs. Photodynamic Therapy (PDT). - Given diffuse involvement and recommend field therapy with either of the above options. - Patient elects for treatment with PDT: Procedure expectations were discussed with the patient. Risks, benefits, alternatives, complications, and personnel required for PDT were reviewed with the patient. Specifically, the risks of permanent scarring, loss or darkening of skin color, blister, incomplete treatment, and need for future treatments were discussed. The patient will schedule in the fall/winter: Blue light. Related Procedures Painless PDT Order Related Medications Aminolevulinic Acid HCl 20 % soln 2 Each Seborrheic keratosis Mid Frontal Scalp Reassured re: benign nature of lesions. - Discussed treatment options including topical efudex cream vs photodynamic therapy as well as therisks and benefits associated - Patient prefers to treat with PDT Harsha Lang MD served as fellow surgeon in procurement of layer(s) and in the final repair. Fellow took the layer(s), under direct supervision and the remainder of the procedure was performedby the primary surgeon/proceduralist with assistance. EVENT SET UP SPECIALIST: Yulia Qureshi RN and Mary Berry RN I have seen and examined Sepideh Gardiner. I have discussed the case and the management of this patient's care with the Fellow. I also have reviewed and agree with the assessment and plan as statedabove and agree with all of its relevant components. I was present for and supervised the procedures as documented above by the Fellow. I was physically present during the critical portion(s) of this procedure. I agree with the operative note independently gathered by the clinical cad application support specialist and the remaining scribed note accurately describes my personal service to the patient. I/primary surgeon/proceduralist reviewed the specimen(s) and worked as the pathologist. Thais Brand MD April 06, 2023 documented in this encounter[facility] Miscellaneous Notes* Telephone Encounter - Yaritza Spencer MD - 03/23/2023 5:57 PM EDT I personally called patient regarding pathology reports Excoriation on left upper arm He verbalized an understanding of BCC on right cheek right anterior lower neck (pathology needs to be corrected) Melanoma in situ on left superior shoulder He verbalizes an understanding of need for further treatment of melanoma on left superior shoulder and BCCs Referral placed for Mohs for BCC's and excision for melanoma Recommend daily sun protection full-body skin exam every 3 months for the next 2 years then every 6months for 5 years then annually thereafter Yaritza Spencer MD documented in this encounter[facility] Miscellaneous Notes* Addendum Note - Ting Oliver LPN - 03/21/2023 3:19 PM EDTAddended by: TING OLIVER on: 03/21/2023 03:19 PM Modules accepted: Orders documented in this encounterSelect [facility]23 Instructions* Patient Instructions* Yaritza Spencer MD - 03/21/2023 2:48 PM EDT CARE INSTRUCTIONS AFTER BIOPSY WITHOUT SUTURES 1.) Keep the area clean and dry with the band-aid in place the day of surgery. 2.) The next day you may bathe or shower as usual. Do not wear a wet band-aid on the wound. 3.) Remove the band-aid daily. Wash gently with soap and water and pat dry. Apply vaseline and cover with a band-aid for 5 days. 4.) Then leave the wound open to air, but continue to apply Vaseline for the next few days or untilcompletely healed (could take 2-3 weeks depending on the size of the biopsy site). 5.) DO NOT USE NEOSPORIN as there is a fairly high incidence of allergic response to this product.. documented in this encounterSelect [facility] History of Present illness Narrative* Yaritza Spencer MD - 03/21/2023 2:30 PM EDT To be biopsied: right cheek, left upper arm, right anterior lower neck. Patient presents with: Biopsy DERMATOLOGY CLINIC HISTORY: Sepideh Gardiner is a 72 year old male who presents for CC/HPI: Chief Complaint lesion Location L upper arm Duration months Timing constant Severity mild Quality asymptomatic Modifying Factors: Bump no prior tx Not red Here for bxs as well PAST MEDICAL HISTORY: PAST MEDICAL HISTORY Diagnosis Date Basal cell carcinoma Convulsive disorder (HCC) Edema HTN (hypertension) Prostate cancer (HCC) ACTIVE PROBLEM LIST Benign Nevus of Skin Hx of Nonmelanoma Skin Cancer Actinic Keratosis Acne Vulgaris Melanocytic Nevi of Trunk Prostate Cancer (Hcc) PAST SURGICAL HISTORY Procedure Laterality Date OTHER MOhs for basal cell ca. TONSILLECTOMY HX MEDICATIONS: Current Outpatient Medications Medication Sig Dispense Refill aspirin, enteric coated (ASPIRIN, ENTERIC COATED) 81 mg EC tablet 81 mg. bumetanide (BUMEX) 1 mg tablet mupirocin (BACTROBAN) 2 % ointment Apply to affected areas twice daily for wound care 30 g 2 triamcinolone acetonide (KENALOG) 0.1 % cream Apply to affected skin on left wrist twice a day for 2 weeks 28.4 g 1 Niacinamide 500 mg tablet TAKE 1 TABLET BY MOUTH TWICE A DAY WITH MEALS 180 tablet 3 ketoconazole (NIZORAL) 2 % shampoo WASH AFFECTED AREA DAILY NEEDED 120 mL 5 Clobetasol Propionate 0.05 % gel APPLY TO AFFECTED AREA ON SCALP 2 TIMES A DAY NEEDED USE 2 WEEKS ON AND 1 WEEK OFF 60 g 2 Clobetasol Propionate 0.05 % gel APPLY TO AFFECTED AREA ON SCALP 2 TIMES A DAY NEEDED USE 2 WEEKS ON AND 1 WEEK OFF 60 g 2 hydrocortisone 2.5 % ointment Apply to affected area on face two times daily as needed for 1-2 weeks after PDT 30 g 0 ketoconazole (NIZORAL) 2 % shampoo Wash affected area daily as needed 120 mL 5 acetaminophen-codeine (TYLENOL-COD #3) 300-30 mg per tablet Take 1 tablet by mouth every 6 hours asneeded. 15 tablet 0 tretinoin (RETIN-A) 0.025 % gel Apply a pea size amount to affected area every other night for 2 weeks then increase to daily as tolerated 45 g 5 CYANOCOBALAMIN, VITAMIN B-12, (VITAMIN B-12 INJECTION) by INJECTION(UNSPECIFIED PARENTERAL ROUTES) route. Benzoyl Peroxide 5 % external wash Wash affected area one to two times daily as tolerated 1 Bottle 5 Cholecalciferol, Vitamin D3, 50 mcg (2,000 unit) cap Take 3 capsules by mouth once daily. Magnesium 250 mg tab Take 250 mg by mouth once daily. VITAMIN B COMPLEX ORAL Take 1 tablet by mouth once daily. MULTIVIT &MINERALS/FERROUS FUM (MULTI VITAMIN ORAL) Take 1 tablet by mouth once daily. telmisartan (MICARDIS) 80 mg tablet Take 80 mg by mouth once daily. primidone (MYSOLINE) 250 mg tablet Take 250 mg by mouth twice daily. metOLazone (ZAROXOLYN) 2.5 mg tablet Take 2.5 mg by mouth once daily. POTASSIUM (POTASSIMIN ORAL) Take 1 tablet by mouth once daily. No current facility-administered medications for this visit. ALLERGIES: Patient has no known allergies. REVIEW OF SYSTEMS: Patient feels well and denies any recent fevers, chills, or night sweats PHYSICAL EXAMINATION: GENERAL: Patient is a well appearing, well appearing, well nourished, and pleasant and pleasant, male alert and oriented, NAD. SKIN: Skin exam was performed including the scalp, face, neck, chest, abdomen, back, arms Cutaneous freely movable nontender nodule around 2 x 2 centimeter with central punctum no erythema no pain Erythematous scaly papule on right cheek 1 x 1 cm ill-defined erythematous scaly patch on left upper arm 2.5 x 1 cm slightly pigmented scaly patch on right anterior lower neck 1.7 x 1 cm Irregularly pigmented macule on left superior shoulder 0.5 x 0.5 cm New diagnosis of basal cell on left anterior neck ASSESSMENT/PLAN: 1. EIC (epidermal inclusion cyst) - ICD9: 706.2, ICD10: L72.0 (primary diagnosis) -dx treatment options discussed - observe 2. Skin neoplasm - ICD9: 239.2, ICD10: D49.2 Patient presents with: Biopsy Sepideh Gardiner Medical Record: [id number] Procedure: Shave biopsy Patient is alert oriented 3, not in apparent distress The risks, benefits and anticipated outcomes of the procedure, the risks and benefits of the alternatives to the procedure, and the roles and tasks of the personnel to be involved were discussed withthe patient who consents to the procedure and agrees to proceed. I verify that I personally obtained Sepideh Gardiner's consent. Yaritza Spencer MD DEPARTMENT OF DERMATOLOGY UNIVERSAL PROTOCOL / SAFETY CHECKLIST Procedure to be Performed: shave biopsy Sign In: A Moment of CARE was completed. Personnel directly involved with the procedure wore the appropriate PPE (Personal Protective Equipment). No special equipment needed. Patient/Surrogate Stated/Verified: PATIENT VERIFIED (optional for EMERGENT procedures): Patient name, Date of , Relevant allergies and The intended procedure Time Out Communication: Intended patient and procedure match the source documents. Consent documented and matches the intended procedure. No relevant labs, photos, and/or imaging studies were applicable for review. Correct side/site marked and visible. Medications required for procedure is verified. No fire risk assessment and interventions applicable. No implant(s) inserted. Sign Out: SIGN OUT (optional for EMERGENT procedures): All specimen containers correctly labeled. No instruments, equipment or retained foreign bodies applicable. Post-procedure follow-up management communicated and Plan of Care Visit completed when applicable. Yaritza Spencer MD Discussed with patient the procedure and risks which include bleeding, infection and scarring. The area(s) was/were identified, prepped with alcohol and anesthetized with 1% Lidocaine with epinephrine, total amount of 1.5 ml. A sterile # 15 blade was used to remove a sales representative canvas products portion of the lesion. Hemostasis was achieved with aluminum chloride, the site(s) was(were) dressed with an adhesive dressing. Size of biopsy site was approximately 0.5 cm in diameter each. EBL: none Biopsy site(s): Right cheek, left upper arm, right anterior lower neck, left superior shoulder DDx: r/o nmsc for right cheek, left upper arm, right anterior lower neck, rule out atypical nevus for left superior shoulder Photo(s) taken with patient's/guardian's permission. Patient tolerated procedure well, without complications and post care instructions were given. Pt will be notified with pathology results. Yaritza Spencer MD RTC pending path 3. Basal cell carcinoma (BCC) of skin of neck - ICD9: 173.41, ICD10: C44.41 -Pathology treatment options discussed -Mohs referral plan Yaritza Spencer MD The documentation for this note was partially completed by Yaritza Spencer MD acting as scribe for Yaritza Spencer MD. March 21, 2023 2:43 PM. I agree with the Chief Complaint, ROS, and Past Histories independently gathered by the clinical cad application support specialist and the remaining scribed note accurately describes my personal service to the patient. MD Yaritza Parra MD Return to clinic ppath or fbse documented [facility] Miscellaneous Notes* Telephone Encounter - Yaritza Spencer MD - 03/20/2023 7:55 PM EDT Bxs showed mildly atypical moles on r chest and r mid back- no further tx is needed for these at this time Bc on L anterior neck showed a bcc- mohs referral placed for this Please cont. Sun protection and monitoring Yaritza Spencer MD documented in this encounter[facility]19-[facility]23 Instructions* Patient Instructions* Yaritza Spencer MD - 03/15/2023 3:22 PM EDT CARE INSTRUCTIONS AFTER BIOPSY WITHOUT SUTURES 1.) Keep the area clean and dry with the band-aid in place the day of surgery. 2.) The next day you may bathe or shower as usual. Do not wear a wet band-aid on the wound. 3.) Remove the band-aid daily. Wash gently with soap and water and pat dry. Apply vaseline and cover with a band-aid for 5 days. 4.) Then leave the wound open to air, but continue to apply Vaseline for the next few days or untilcompletely healed (could take 2-3 weeks depending on the size of the biopsy site). 5.) DO NOT USE NEOSPORIN as there is a fairly high incidence of allergic response to this product.. AFTERCARE CRYOTHERAPY The skin s response to cryosurgery (freezing) can be mild to more severe, depending on the depth ofthe freeze and location of the area treated. You may have minimal redness and swelling with little discomfort or significant discoloration and blistering with considerable discomfort. A burning sensation in the skin may last from several minutes to several hours after the procedure. Follow these instructions when caring for an area treated by cryosurgery. MINOR RESPONSE 1. Keep the area clean and dry for 24 hours. After 24 hours, the area may be washed gently with soap and water. 2. The area may sting or burn for a short time after treatment. 3. The treated area will be red in color at first then turn brown and flaky as it heals and the upper layer of skin sloughs off. 4. Gently cleanse the area with Q-tips dipped in plain warm water. Pat dry and apply a thin film ofvaseline. Do this at least once a day to prevent infection. MAJOR REPSONSE 1. Follow instructions as stated above for minor response. 2. The area may sting and burn for several hours after treatment. 3. To relieve throbbing and pain, elevate the treatment area. 4. Tylenol (acetaminophen) may be taken every 3 to 4 hours for discomfort. 5. A blister will form in the area of freezing. It may be filled with clear fluid or blood. This response is not unusual. 6. Do not break the blister unless it becomes uncomfortable. You may puncture the blister with a sterile needle or pin to remove the fluid. Leave the skin intact. 7. Cleanse twice a day with plain warm water and apply Vaseline to prevent infection and a thick scab from forming. 8. All treated areas usually heal with 3 to 4 weeks. Patient instructions: Avoid sun exposure Recommend protection with broad band UVA/UVB sunscreen spf 30+ daily Recommend UV protective clothing/hats Oral photoprotective antioxidants discussed if applicable ([employer]) Avoid tanning and tanning bed use Recommend UV protective sunglasses Use sunscreen on lips and ears Follow up as directed documented in this encounter[facility] History of Present illness Narrative* Yaritza Spencer MD - 03/15/2023 2:45 PM EDT CHIEF COMPLAINT: Full body skin exam : not applicable Last menstrual period: not applicable Last Dermatology Visit: 12/09/21 REFERRAL: Self RELEVANT DERMATOLOGY HISTORY: Personal Hx of skin cancer: Yes basal cell CA/scc-- mostly bcc-right nasal ala, right temporal scalp, left occipital scalp, right upper cutaneous lip, nasal tip, left forehead, right denominational, right parietal scalp, left upper back, left anterior temporal scalp, left posterior temporal scalp, central forehead, left chin, right cheek, right glabella, left chin, right frontal scalp, left forehead, left superior helix, right conchal bowl BCC-Right denominational BCC-Right mid frontal scalp BCC-Right postauricular BCC-Left anterior neck Melanoma in situ - r chest 03/2021 Personal Hx of atypical moles: yes Family Hx of malignant melanoma: no Antibiotics before dental or other procedures: yes Artificial joints: no Pacemaker: no Anticoagulants: ASA DERMATOLOGY PROGRESS NOTE HISTORY: Sepideh Gardiner is a 72 year old male who presents with CC/HPI: Chief Complaint lesions Location Body Duration years Timing constant Severity severe Quality Spreading Modifying Factors: H/o skin cancer melanoma as above It is primary caregiver for his had a difficult time getting back and hair has new concerns onface especially Status post radiation and extensive sun exposure to face for acne in his younger yrs PAST MEDICAL HISTORY: PAST MEDICAL HISTORY Diagnosis Date Basal cell carcinoma Convulsive disorder (HCC) Edema HTN (hypertension) Prostate cancer (HCC) ACTIVE PROBLEM LIST Benign Nevus of Skin Hx of Nonmelanoma Skin Cancer Actinic Keratosis Acne Vulgaris Melanocytic Nevi of Trunk Prostate Cancer (Hcc) PAST SURGICAL HISTORY Procedure Laterality Date OTHER MOhs for basal cell ca. TONSILLECTOMY HX MEDICATIONS: Current Outpatient Medications Medication Sig aspirin, enteric coated (ASPIRIN, ENTERIC COATED) 81 mg EC tablet 81 mg. bumetanide (BUMEX) 1 mg tablet mupirocin (BACTROBAN) 2 % ointment Apply to affected areas twice daily for wound care (Patient not taking: Reported on 12/12/2022) triamcinolone acetonide (KENALOG) 0.1 % cream Apply to affected skin on left wrist twice a day for 2 weeks (Patient not taking: Reported on 12/12/2022) Niacinamide 500 mg tablet TAKE 1 TABLET BY MOUTH TWICE A DAY WITH MEALS ketoconazole (NIZORAL) 2 % shampoo WASH AFFECTED AREA DAILY NEEDED (Patient not taking: No sig reported) Clobetasol Propionate 0.05 % gel APPLY TO AFFECTED AREA ON SCALP 2 TIMES A DAY NEEDED USE 2 WEEKS ON AND 1 WEEK OFF (Patient not taking: No sig reported) Clobetasol Propionate 0.05 % gel APPLY TO AFFECTED AREA ON SCALP 2 TIMES A DAY NEEDED USE 2 WEEKS ON AND 1 WEEK OFF (Patient not taking: No sig reported) hydrocortisone 2.5 % ointment Apply to affected area on face two times daily as needed for 1-2 weeks after PDT (Patient not taking: No sig reported) ketoconazole (NIZORAL) 2 % shampoo Wash affected area daily as needed (Patient not taking: No sig reported) acetaminophen-codeine (TYLENOL-COD #3) 300-30 mg per tablet Take 1 tablet by mouth every 6 hours asneeded. tretinoin (RETIN-A) 0.025 % gel Apply a pea size amount to affected area every other night for 2 weeks then increase to daily as tolerated (Patient not taking: Reported on 12/12/2022) CYANOCOBALAMIN, VITAMIN B-12, (VITAMIN B-12 INJECTION) by INJECTION(UNSPECIFIED PARENTERAL ROUTES) route. (Patient not taking: Reported on 12/12/2022) Benzoyl Peroxide 5 % external wash Wash affected area one to two times daily as tolerated (Patient not taking: Reported on 12/12/2022) Cholecalciferol, Vitamin D3, 50 mcg (2,000 unit) cap Take 3 capsules by mouth once daily. Magnesium 250 mg tab Take 250 mg by mouth once daily. VITAMIN B COMPLEX ORAL Take 1 tablet by mouth once daily. MULTIVIT &MINERALS/FERROUS FUM (MULTI VITAMIN ORAL) Take 1 tablet by mouth once daily. telmisartan (MICARDIS) 80 mg tablet Take 80 mg by mouth once daily. primidone (MYSOLINE) 250 mg tablet Take 250 mg by mouth twice daily. metOLazone (ZAROXOLYN) 2.5 mg tablet Take 2.5 mg by mouth once daily. POTASSIUM (POTASSIMIN ORAL) Take 1 tablet by mouth once daily. No current facility-administered medications for this visit. ALLERGIES: Patient has no known allergies. OCCUPATION: n/a REVIEW OF SYSTEMS:No fever, chills, night sweats or changes in weight. No dyspnea, chest pain, abdominal pain, dysuria. All other review of systems is negative FAMILY MEDICAL HISTORY: No family history on file. SOCIAL HISTORY: Social History Tobacco Use Smoking status: Former Packs/day: 1.00 Types: Cigarettes Quit date: 11/27/1978 Years since quittin.3 Smokeless tobacco: Never PHYSICAL EXAMINATION: GENERAL: Patient is a well appearing, well nourished, and obese male alert and oriented, NAD. SKIN: A full skin exam was performed including the scalp, face, lips, neck, chest, abdomen, back, buttocks, arms and legs. Brown waxy warty stuck on papules on trunk and extremities Easley red vascular papules on trunk Light brown macules in sun distribution on upper body Multiple symmetric pigmented macules with benign features on trunk extremities Small erythematous gritty papules scattered on face left chest arms l anterior lower leg Irregularly pigmented macules on right chest 0.5 x 0.5 cm right mid back 0.5 x 0.5 cm left anteriorneck 1 x 1 cm To be biopsied: Erythematous scaly papule on right cheek 1 x 1 cm ill-defined erythematous scaly patch on left upper arm 2.5 x 1 cm slightly pigmented scaly patch on right anterior lower neck 1.7 x 1cm No recurrence on previous skin cancer and melanoma site ASSESSMENT/PLAN: 1. Seborrheic keratosis - ICD9: 702.19, ICD10: L82.1 (primary diagnosis) -dx discussed -Observe 2. 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 Lentigines - ICD9: 709.09, ICD10: L81.4 -Sun protection 4. Multiple benign nevi - ICD9: 216.9, ICD10: D22.9 -Sun protection and monitoring 5. Actinic keratosis - ICD9: 702.0, ICD10: L57.0 -Patient has diffuse actinic damage status post radiation to face -Discussed field treatment after biopsy results are back such as PDT or Efudex Cryosurgery of non-malignant lesion(s) HPI: Patient is here for cryosurgery Patient is alert oriented 3 not in apparent distress [facility] Medical Record: [id number] Date: 03/15/2023 Procedure: Cryosurgery The risks, benefits and anticipated outcomes of the procedure, the risks and benefits of the alternatives to the procedure and the roles and tasks of the personnel to be involved were discussed with the patient and the patient consents to the procedure and agrees to proceed. I verify that I personally obtained Sepideh Gardiner's consent. Yaritza Spencer MD Dept of DERMATOLOGY Cryosurgery performed with Liquid Nitrogen via via cryostat spray gun to Actinic Keratosis. 14 lesion(s) treated face left chest arms l anterior lower leg. Patient tolerated treatment well. Wound care instructions provided, pt verbalizes understanding. Yaritza Spencer MD RTC 6. Skin neoplasm - ICD9: 239.2, ICD10: D49.2 - SURGICAL PATHOLOGY Patient presents with: Full Body Skin Check [facility] Medical Record: [id number] Procedure: Shave biopsy Patient is alert oriented 3, not in apparent distress The risks, benefits and anticipated outcomes of the procedure, the risks and benefits of the alternatives to the procedure, and the roles and tasks of the personnel to be involved were discussed withthe patient who consents to the procedure and agrees to proceed. I verify that I personally obtained Sepideh Gardiner's consent. Yaritza Spencer MD DEPARTMENT OF DERMATOLOGY UNIVERSAL PROTOCOL / SAFETY CHECKLIST Procedure to be Performed: shave biopsy Sign In: A Moment of CARE was completed. Personnel directly involved with the procedure wore the appropriate PPE (Personal Protective Equipment). No special equipment needed. Patient/Surrogate Stated/Verified: PATIENT VERIFIED (optional for EMERGENT procedures): Patient name, Date of , Relevant allergies and The intended procedure Time Out Communication: Intended patient and procedure match the source documents. Consent documented and matches the intended procedure. No relevant labs, photos, and/or imaging studies were applicable for review. Correct side/site marked and visible. Medications required for procedure is verified. No fire risk assessment and interventions applicable. No implant(s) inserted. Sign Out: SIGN OUT (optional for EMERGENT procedures): All specimen containers correctly labeled. No instruments, equipment or retained foreign bodies applicable. Post-procedure follow-up management communicated and Plan of Care Visit completed when applicable. Yaritza Spencer MD Discussed with patient the procedure and risks which include bleeding, infection and scarring. The area(s) was/were identified, prepped with alcohol and anesthetized with 1% Lidocaine w epi, total amount of 1.5 ml. A sterile # 15 blade was used to remove a sales representative canvas products portion of the lesion.Hemostasis was achieved with aluminum chloride, the site(s) was(were) dressed with an adhesive dressing. Size of biopsy site was approximately 0.5 cm in diameter each. EBL: none Biopsy site(s): Right chest, right mid back, left anterior neck DDx: Rule out atypical nevus for right chest right mid back and rule out nonmelanoma skin cancer for left anterior neck Photo(s) taken with patient's/guardian's permission. Patient tolerated procedure well, without complications and post care instructions were given. Pt will be notified with pathology results. Yaritza Spencer MD RTC pending path 7. Personal history of skin cancer - ICD9: V10.83, ICD10: Z85.828 -Sun protection and monitoring -Discussed PDT for face 8. Personal history of malignant melanoma of skin - ICD9: V10.82, ICD10: Z85.820 - Mole/melanoma/dysplastic nevus/skin cancer education given - Recommend sun protection with broad spectrum UVA UVB coverage, spf 30+ every day, reapply every 2-3 hours, use higher SPF 50+ for extended sun activities - Monitoring -Discussed surveillance recommendation status post melanoma [id number] skin exam every 3 months for 2 years then every 6 months for 5 years then annually thereafter Yaritza Spencer MD The documentation for this note was partially completed by Norma Galdamez LPN acting as scribe forYaritza Spencer MD. March 15, 2023 7:53 AM. I agree with the Chief Complaint, ROS, and Past Histories independently gathered by the clinical cad application support specialist and the remaining scribed note accurately describes my personal service to the patient. Norma Spencer MD Return to clinic bxs documented in this [facility] History of Present illness Narrative* Stacey Shea MD - 12/12/2022 8:41 AM EST p * Stacey Shea MD - 12/12/2022 8:40 AM EST ESTABLISHED PATIENT OFFICE VISIT Follow-up prostate cancer. He denies bothersome lower urinary tract symptoms. His PSA was in his range. LAB RESULTS Creatinine Date Value Ref Range Status 06/12/2015 1.12 0.70 - 1.40 mg/dL Final No results found for: PSA, PSASC GLUCOSE UA (POCT) (mg/dL) Date Value 12/12/2022 Negative BILIRUBIN UA (POCT) (no units) Date Value 12/12/2022 Negative KETONE UA (POCT) (mg/dL) Date Value 12/12/2022 Trace SPECIFIC GRAVITY UA (POCT) (no units) Date Value 12/12/2022 >=1.030 HEMOGLOBIN/BLOOD UA (POCT) (no units) Date Value 12/12/2022 Trace-intact (A) PH UA (POCT) (no units) Date Value 12/12/2022 5.5 PROTEIN UA (POCT) (mg/dL) Date Value 12/12/2022 100 (A) UROBILINOGEN UA (POCT) (E.U./dL) Date Value 12/12/2022 0.2 NITRITE UA (POCT) (no units) Date Value 12/12/2022 Negative LEUKOCYTES UA (POCT) (no units) Date Value 12/12/2022 Negative COLOR UA (POCT) (no units) Date Value 12/12/2022 Yellow CLARITY UA (POCT) (no units) Date Value 12/12/2022 Clear ] ALLERGIES No Known Allergies MEDICATIONS: aspirin, enteric coated (ASPIRIN, ENTERIC COATED) 81 mg EC tablet 81 mg. bumetanide (BUMEX) 1 mg tablet Niacinamide 500 mg tablet TAKE 1 TABLET BY MOUTH TWICE A DAY WITH MEALS acetaminophen-codeine (TYLENOL-COD #3) 300-30 mg per tablet Take 1 tablet by mouth every 6 hours asneeded. Cholecalciferol, Vitamin D3, 50 mcg (2,000 unit) cap Take 3 capsules by mouth once daily. Magnesium 250 mg tab Take 250 mg by mouth once daily. VITAMIN B COMPLEX ORAL Take 1 tablet by mouth once daily. MULTIVIT &MINERALS/FERROUS FUM (MULTI VITAMIN ORAL) Take 1 tablet by mouth once daily. telmisartan (MICARDIS) 80 mg tablet Take 80 mg by mouth once daily. primidone (MYSOLINE) 250 mg tablet Take 250 mg by mouth twice daily. metOLazone (ZAROXOLYN) 2.5 mg tablet Take 2.5 mg by mouth once daily. POTASSIUM (POTASSIMIN ORAL) Take 1 tablet by mouth once daily. mupirocin (BACTROBAN) 2 % ointment Apply to affected areas twice daily for wound care (Patient not taking: Reported on 12/12/2022) triamcinolone acetonide (KENALOG) 0.1 % cream Apply to affected skin on left wrist twice a day for 2 weeks (Patient not taking: Reported on 12/12/2022) ketoconazole (NIZORAL) 2 % shampoo WASH AFFECTED AREA DAILY NEEDED (Patient not taking: No sig reported) Clobetasol Propionate 0.05 % gel APPLY TO AFFECTED AREA ON SCALP 2 TIMES A DAY NEEDED USE 2 WEEKS ON AND 1 WEEK OFF (Patient not taking: No sig reported) Clobetasol Propionate 0.05 % gel APPLY TO AFFECTED AREA ON SCALP 2 TIMES A DAY NEEDED USE 2 WEEKS ON AND 1 WEEK OFF (Patient not taking: No sig reported) hydrocortisone 2.5 % ointment Apply to affected area on face two times daily as needed for 1-2 weeks after PDT (Patient not taking: No sig reported) ketoconazole (NIZORAL) 2 % shampoo Wash affected area daily as needed (Patient not taking: No sig reported) tretinoin (RETIN-A) 0.025 % gel Apply a pea size amount to affected area every other night for 2 weeks then increase to daily as tolerated (Patient not taking: Reported on 12/12/2022) CYANOCOBALAMIN, VITAMIN B-12, (VITAMIN B-12 INJECTION) by INJECTION(UNSPECIFIED PARENTERAL ROUTES) route. (Patient not taking: Reported on 12/12/2022) Benzoyl Peroxide 5 % external wash Wash affected area one to two times daily as tolerated (Patient not taking: Reported on 12/12/2022) REVIEW OF SYSTEMS GENERAL: No unintentional weight loss, malaise or fevers. NEUROLOGIC: pt is alert and oriented GASTROINTESTINAL: No nausea, vomiting, or diarrhea GENITOURINARY: No MUSCULOSKELETAL: Negative for joint pain or swelling, back pain or muscle pain SKIN: Negative for lesions, rash, and itching. ACTIVE PROBLEM LIST Benign Nevus of Skin Hx of Nonmelanoma Skin Cancer Actinic Keratosis Acne Vulgaris Melanocytic Nevi of Trunk Prostate Cancer (Hcc) HISTORIES PAST MEDICAL HISTORY Diagnosis Date Basal cell carcinoma Convulsive disorder (HCC) Edema HTN (hypertension) Prostate cancer (HCC) History reviewed. No pertinent family history. PAST SURGICAL HISTORY Procedure Laterality Date OTHER MOhs for basal cell ca. TONSILLECTOMY HX SOCIAL HISTORY Social History Tobacco Use Smoking status: Former Packs/day: 1.00 Types: Cigarettes Quit date: 11/27/1978 Years since quittin.0 Smokeless tobacco: Never PHYSICAL EXAMINATION General appearance: Well appearing, alert, in no acute distress, well-hydrated, well nourished Psych Alert and oriented to person, place and time Genitourinary: MALE EXAM: Rectal exam shows no mass or prostate nodule. This prostate is soft. ASSESSMENT/PLAN: 1. Prostate cancer (HCC) - ICD9: 185, ICD10: C61 Continue active surveillance. I will repeat a PSA in 6 months. - BLADDER SCAN - PSA/PROSTSPECAG DIAG Stacey Shea MD documented in this encounterSelect [facility] Evaluation + Plan note Future Scheduled Tests Radiology* XR Chest 2 Views (PA & Lateral) 11/25/21 [facility] 10-31-2021 Hospital Discharge instructions Patient Education 09/26/2021 12:54:45 8- Open Heart Surgery (Bypass or Valve) 12/2019(CUSTOM) OPEN HEART SURGERY (Bypass or Valve Surgery) General Guidelines for Care After Surgery Please read the instructions below and refer to it during the next few weeks. Recovering from surgery is different for everyone. Some people feel great after 3 or 4 weeks and others take longer depending on their condition before the surgery. These are general guidelines on how to care for yourself but always follow your doctor s instructions. If you have questions or problems after you go home, please call your doctor. MEDICINES You have the list of medicine you need to take at home. Be sure you understand this list and keep acopy with you at all times. Never add or stop medicine unless you check with your doctor first. Call the doctor if you have any of the following problems: If you start throwing up or have stomach pain or diarrhea If you feel dizzy or lightheaded when you stand up If you are confused or have trouble walking If you feel like your heart is racing and beating fast or if you feel like it is beating too slow If you get a rash If you notice bleeding or lots of bruising If you are taking a blood thinner such as warfarin after having valve surgery, please read the handout that has been given to you by the nurse. PAIN AFTER SURGERY You might feel some pain after your heart surgery. Please take your pain medicine if you need it following the directions on the bottle. If your pain becomes worse or if you are having trouble breathing, call your surgeon. As you heal and the pain begins to go away, take your pain medicine less often Pain medicine will sometimes cause you to become constipated. It is OK to take an over the counter stool softener. Eating lots of fruit and vegetables can also help with constipation. CARE OF YOUR INCISIONS Pay attention to your incisions and shower every day after you go home. Some swelling, bruising or redness is normal and will get better with time. Do not take a bath until all of your incisions are healed. Wash the incisions gently with antibacterial soap and water in the shower Use a clean washcloth every day Wash your chest incision first, then wash any arm incision, and last wash leg incisions Wash the rest of your body after cleaning all of your incisions Never use any cream or lotion on your incisions until they are healed all the way. Keep your incisions clean and dry Do not cover the incision with a dressing unless you are having drainage If you have aditi, they will be taken out at the office visit You might notice some swelling or a lump at the top of the chest incision, but this is normal. [place]allyour surgeon right away if you notice clicking in your chest. Your legs might swell after your surgery so follow these tips: Keep legs elevated when sitting. As a rule, it is best to elevate them above the level of your heart. For instance, if you are lying flat on a sofa, place your legs up on the arm of the sofa. Do not cross your legs. Wear your elastic stockings during the day for 4 weeks. Put them on before you get out of bed in the morning and then take them off at night. These will help keep your legs from swelling. ACTIVITY It is important to keep moving after heart surgery, but you will need to take rest periods throughout the day. Every day, increase your activity as you are able. Walk as much as possible, and gradually increase your distance every day. It will be normal to be sore for a couple of weeks after surgery. Get medical attention if your condition seems to be getting worse instead of better No heavy housework or heavy work outdoors You may use the stairs as tolerated Avoid lifting anything greater than 10 pounds Avoid any pushing or pulling with your arms. Avoid overexertion and take rest periods when you get tired Do not drive until your doctor tells you it is OK, typically 4 weeks. It is fine to go upstairs but take it slow and do not pull yourself up with the handrail. Avoid opening windows and opening tight jar lids. Do not bear down with bowel movements and do not hold your breath. Check with the surgeon before returning to work. Waiting 1-3 weeks is recommended for sexual intercourse. When you can walk briskly or climb 2 flights of stairs without pain or shortness of breath, you may be ready for sex. WEIGHT Weigh yourself every morning and write it down on paper. Use the same scale and weigh at the same time each day. Tell your doctor if you gain 2 pounds or more in one day. EATING HEALTHY Your doctor wants you to follow a heart healthy diet which is low in salt and low in fat. Your nurse has given you a book all about the diet you will need to follow. If you are diabetic or overweight, you will be given a calorie restriction too. If constipation is a problem, add more bran or fiber to your diet and you may take a mild tfqv-qmp-srkhnug laxative like Milk of Magnesia . CARDIAC REHABILITATION Getting involved in cardiac rehab after your heart surgery is the best thing that you can do to feel better and stronger at a faster rate. The program is medically supervised to help patients recoverand improve mental and physical function. It also helps reduce stress and can decrease your risk ofhaving more heart problems. Your doctor will let you know when you can begin the program. SMOKING Give up smoking after heart surgery or it may cancel out the value of having your surgery. It may also delay the healing process. If you need help to quit, please call your surgeon or your heart doctor. [facility] also has a free stop smoking program called Give it Up and if you want to attend, pleasecall [phone]). Call the Surgeon If your incisions are red, oozing pus, or bleeding or if the edges are Call if there is a clicking in your sternum. Call if you are more short of breath. Call if you have dizziness Call if you have a fever of 101 or higher. Call if you have more ankle swelling, pain in your leg, or pain in your calf. Call the Heart Doctor (Order Check[employer]er) If your heart beats are irregular or are fast. If you have any questions about your medicine. If you gain 2 or more pounds in one day. If you feel dizzy or lightheaded when you first stand up. If you have any questions about getting help at home after you are discharged. If you have painful, frequent or bloody urination. GET IMMEDIATE MEDICAL HELP IF YOU HAVE: Chest pain, jaw pain, sweating, dizziness or severe shortness of breath, you could be having a heart attack. Please dial 9-1-1 immediately. 09/26/2021 10:46:25 What You Need to Know About Warfarin What You Need to Know About Warfarin Warfarin is a blood thinner (anticoagulant). Anticoagulants help to prevent the formation of blood clots. They also help to stop the growth of blood clots. Who should use warfarin? Warfarin is prescribed for people who are at risk for developing harmful blood clots, such as people who have: Surgically implanted mechanical heart valves. Irregular heart rhythms (atrial fibrillation). Certain clotting disorders. A history of harmful blood clotting in the past. This includes people who have had: ?A stroke. ?Blood clot in the lungs (pulmonary embolism, or PE). ?Blood clot in the legs (deep vein thrombosis, or DVT). An existing blood clot. How is warfarin taken? Warfarin is a medicine that you take by mouth (orally). Warfarin tablets come in different strengths. Each tablet strength is a different color, with the amount of warfarin printed on the tablet. If you get a new prescription filled and the color of your tablet is different than usual, tell your pharmacist or health care provider immediately. What blood tests do I need while taking warfarin? The goal of warfarin therapy is to lessen the clotting tendency of blood, but not to prevent clotting completely. Your health care provider will monitor the anticoagulation effect of warfarin closelyand will adjust your dose as needed. Warfarin is a medicine that needs to be closely monitored, so it is very important to keep all lab visits and follow-up visits with your health care provider. While taking warfarin, you will need to have blood tests (prothrombin tests, or PT tests) regularly to measure your blood clotting time. This type of test can be done with a finger stick or a blood draw. What does the INR test result mean? The PT test results will be reported as the International Normalized Ratio (INR). The INR tells your health care provider whether your dosage of warfarin needs to be changed. The longer it takes yourblood to clot, the higher the INR. Your health care provider will tell you your target INR range. If your INR is not in your target range, your health care provider may adjust your dosage. If your INR is above your target range, there is a risk of bleeding. Your dosage of warfarin may need to be decreased. If your INR is below your target range, there is a risk of clotting. Your dosage of warfarin may need to be increased. How often is the INR test needed? When you first start warfarin, you will usually have your INR checked every few days. You may need to have INR tests done more than once a week until you are taking the correct dosage of warfarin. After you have reached your target INR, your INR will be tested less often. However, you will need to have your INR checked at least once every 4 6 weeks for the entire time you are taking warfarin. What are the side effects of warfarin? Too much warfarin can cause bleeding (hemorrhage) in any part of the body, such as: Bleeding from the gums. Unexplained bruises. Bruises that get larger. Blood in the urine. Bloody or dark stools. Bleeding in the brain (hemorrhagic stroke). A nosebleed that is not easily stopped. Coughing up blood. Vomiting blood. Warfarin use may also cause: Skin rash or irritations Nausea that does not go away. Severe pain in the back or joints. Painful toes that turn blue or purple (purple toe syndrome). Painful ulcers that do not go away (skin necrosis). What are the signs and symptoms of a blood clot? Too little warfarin can increase the risk of blood clots in your legs, lungs, or arms. Signs and symptoms of a DVT in your leg or arm may include: Pain or swelling in your leg or arm. Skin that is red or warm to the touch on your arm or leg. Signs and symptoms of a pulmonary embolism may include: Shortness of breath or difficulty breathing. Chest pain. Unexplained fever. What are the signs and symptoms of a stroke? If you are taking too much or too little warfarin, you can have a stroke. Signs and symptoms of a stroke may include: Weakness or numbness of your face, arm, or leg, especially on one side of your body. Confusion or trouble thinking clearly. Difficulty seeing with one or both eyes. Difficulty walking or moving your arms or legs. Dizziness. Loss of balance or coordination. Trouble speaking, trouble understanding speech, or both (aphasia). Sudden, severe headache with no known cause. Partial or total loss of consciousness. What precautions do I need to take while using warfarin? Take warfarin exactly as told by your health care provider. Doing this helps you avoid bleeding or blood clots that could result in serious injury, pain, or disability. Take your medicine at the same time every day. If you forget to take your dose of warfarin, take itas soon as you remember that day. If you do not remember on that day, do not take an extra dose thenext day. Contact your health care provider if you miss or take an extra dose. Do not change your dosage on your own to make up for missed or extra doses. Wear or carry identification that says that you are taking warfarin. Make sure that all health care providers, including your dentist, know you are taking warfarin. If you need surgery, talk with your health care provider about whether you should stop taking warfarin before your surgery. Avoid situations that cause bleeding. You may bleed more easily while taking warfarin. To limit bleeding, take the following actions: ?Use a softer toothbrush. ?Floss with waxed floss, not unwaxed floss. ?Shave with an electric razor, not with a blade. ?Limit your use of sharp objects. ?Avoid potentially harmful activities, such as contact sports. What do I need to know about warfarin and or ? Warfarin is not recommended during the first trimester of due to an increased risk of defects. In certain situations, a woman may take warfarin after her first trimester of . If you are taking warfarin and you become or plan to become , contact your health care provider right away. If you plan to breastfeed while taking warfarin, talk with your health care provider first. What do I need to know about warfarin and alcohol or drug use? Avoid drinking alcohol, or limit alcohol intake to no more than 1 drink a day for non womenand 2 drinks a day for men. One drink equals 12 oz of beer, 5 oz of wine, or 1 oz of hard liquor. ?If you change the amount of alcohol that you drink, tell your health care provider. Your warfarin dosage may need to be changed. Avoid tobacco products, such as cigarettes, chewing tobacco, and e-cigarettes. If you need help quitting, ask your health care provider. ?If you change the amount of nicotine or tobacco that you use, tell your health care provider. Yourwarfarin dosage may need to be changed. Avoid street drugs while taking warfarin. The effects of street drugs on warfarin are not known. What do I need to know about warfarin and other medicines or supplements? Many prescription and vspj-bgh-vkvtxbd medicines can interfere with warfarin. Talk with your healthcare provider or your pharmacist before starting or stopping any new medicines. This includes rsrw-vnl-ojcxdcu vitamins, dietary supplements, herbal medicines, and pain medicines. Your warfarin dosage may need to be adjusted. Some common uoot-dxe-qvgtojl medicines that may increase the risk of bleeding while taking warfarininclude: ?Acetaminophen. ?Aspirin. ?NSAIDs, such as ibuprofen or naproxen. ?Vitamin E. What do I need to know about warfarin and my diet? It is important to maintain a normal, balanced diet while taking warfarin. Avoid major changes in your diet. If you are going to change your diet, talk with your health care provider before making changes. Your health care provider may recommend that you work with a diet and community nutrition educator (dietitian). Vitamin K decreases the effect of warfarin, and it is found in many foods. Eat a consistent amount of foods that contain vitamin K. For example, you may decide to eat 2 vitamin K-containing foods each day. Most foods that are high in vitamin K are green and leafy. Common foods that contain high amounts of vitamin K include: Kale, raw or cooked. Spinach, raw or cooked. Collards, raw or cooked. Citizen [place] chard, raw or cooked. Mustard greens, raw or cooked. Turnip greens, raw or cooked. Parsley, raw. Broccoli, cooked. Noodles, eggs, and spinach, enriched. Hardy sprouts, raw or cooked. Beet greens, raw or cooked. Endive, raw. Cabbage, cooked. Asparagus, cooked. Foods that contain moderate amounts of vitamin K include: Broccoli, raw. Cabbage, raw. Bok jose, cooked. Green leaf lettuce, raw Prunes, stewed. Pickles. Kiwi. Edamame, cooked. [place] lettuce, raw. Avocado. Tuna, canned in oil. Okra, cooked. Black-eyed peas, cooked. Green beans, cooked or raw. Blueberries, raw. Blackberries, raw. Peas, cooked or raw. Contact a health care provider if: You miss a dose. You take an extra dose. You plan to have any kind of surgery or procedure. You are unable to take your medicine due to nausea, vomiting, or diarrhea. You have any major changes in your diet or you plan to make any major changes in your diet. You start or stop any aril-fkt-mscofix medicine, prescription medicine, or dietary supplement. You become , plan to become , or think you may be . You have menstrual periods that are heavier than usual. You have unusual bruising. Get help right away if: You develop symptoms of an allergic reaction, such as: ?Swelling of the lips, face, tongue, mouth, or throat. ?Rash. ?Itching. ?Itchy, red, swollen areas of skin (hives). ?Trouble breathing. ?Chest tightness. You have: ?Signs or symptoms of a stroke. ?Signs or symptoms of a blood clot. ?A fall or have an accident, especially if you hit your head. ?Blood in your urine. Your urine may look reddish, pinkish, or tea-colored. ?Blood in your stool. Your stool may be black or bright red. ?Bleeding that does not stop after applying pressure to the area for 30 minutes. ?Severe pain in your joints or back. ?Purple or blue toes. ?Skin ulcers that do not go away. You vomit blood or cough up blood. The blood may be bright red, or it may look like coffee grounds. These symptoms may represent a serious problem that is an emergency. Do not wait to see if the symptoms will go away. Get medical help right away. Call your local emergency services (911 in the [place] Do not drive yourself to the hospital. Summary Warfarin needs to be closely monitored with blood tests. It is very important to keep all lab visits and follow-up visits with your health care provider. Make sure that you know your target INR range and your warfarin dosage. Wear or carry identification that says that you are taking warfarin. Take warfarin at the same time every day. Call your health care provider if you miss a dose or if you take an extra dose. Do not change the dosage of warfarin on your own. Know the signs and symptoms of blood clots, bleeding, and a stroke. Know when to get emergency medical help. Tell all health care providers who care for you that you are taking warfarin. Talk with your health care provider or your pharmacist before starting or stopping any new medicines. Monitor how much vitamin K you eat every day. Try to eat the same amount every day. This information is not intended to replace advice given to you by your health care provider. Make sure you discuss any questions you have with your health care provider. Document Released: 11/13/2006 Document Revised: 06/26/2018 Document Reviewed: 02/08/2017 [employer] Patient Education 2020 [employer]. 09/26/2021 10:46:24 Warfarin Coagulopathy Warfarin Coagulopathy Warfarin coagulopathy refers to bleeding that may occur as a complication of the medicine warfarin.Warfarin is a blood thinner (anticoagulant). Anticoagulants prevent dangerous blood clots. Bleedingis the most common and most serious complication of warfarin. While taking warfarin, you will need to have blood tests (prothrombin tests, or PT tests) regularlyto measure your blood clotting time. The PT test results will be reported as the International Normalized Ratio (INR). The INR tells your health care provider whether your dosage of warfarin needs raul changed. The longer it takes your blood to clot, the higher the INR. Your risk of warfarin coagulopathy increases as your INR increases. What are the causes? This condition may be caused by: Taking too much warfarin (overdose). Underlying medical conditions. Changes to your diet. Interactions with medicines, supplements, or alcohol. What are the signs or symptoms? Warfarin coagulopathy may cause bleeding from any tissue or organ. Symptoms may include: Bleeding from the gums. A nosebleed that is not easily stopped. Blood in stool. This may look like bright red, dark, or black, tarry stools. Blood in urine. This may look like pink, red, or brown urine. Unusual bruising or bruising easily. A cut that does not stop bleeding within 10 minutes. Coughing up blood. Vomiting blood. Feeling nauseous for longer than 1 day. Broken blood vessels in the eye (subconjunctival hemorrhage). This may look like a bright red or dark red patch on the white part of the eye. Abdominal or back pain with or without bruising. Sudden, severe headache. Sudden weakness or numbness of the face, arm, or leg, especially on one side of the body. Sudden confusion. Difficulty speaking (aphasia) or understanding speech. Sudden trouble seeing out of one or both eyes. Unexpected difficulty walking. Dizziness. Loss of balance or coordination. Unusual vaginal bleeding. Swelling or pain at an injection site. Skin scarring due to tissue (necrosis) of fatty tissue. This may cause pain in the waist, thighs, or buttocks. This is more common among women. How is this diagnosed? This condition is diagnosed after your health care provider places you on warfarin and then finds out how it affects your blood's ability to clot. Prothrombin time (PT) clotting tests are used to monitor your clotting factor. These tests also help your health care provider to find the warfarin dosethat is best for you. How is this treated? This condition is treated with vitamin K. Vitamin K helps the blood to clot. You may receive vitamin K every 12 hours, or as needed. You may also receive donated plasma (transfusions of fresh frozen plasma). Plasma is the liquid part of blood, and contains substances that help the blood clot. Follow these instructions at home: Medicines Take warfarin exactly as told by your health care provider. This ensures that you avoid bleeding orclots that could result in serious injury, pain, or disability. Take your medicine at the same time every day. If you forget to take your dose of warfarin, take itas soon as you remember on that day. If you do not remember to take it on that day, do not take an extra dose the next day. Contact your health care provider if you miss a dose or take an extra dose. Do not change your dosage on your own to make up for missed or extra doses. Talk with your health care provider or your pharmacist before starting or stopping any new medicines. Many prescription and uugu-fnt-fwnbekx medicines can interfere with warfarin. This includes pofm-gwu-eyfyzjq vitamins, dietary supplements, herbal medicines, and pain medicines. Your warfarin dosage may need to be adjusted. Eating and drinking It is important to maintain a normal, balanced diet while taking warfarin. Avoid major changes in your diet. If you are planning to change your diet, talk with your health care provider before makingchanges. Your health care provider may recommend that you work with a diet and community nutrition educator (dietitian). Vitamin K makes warfarin less effective. It is found in many foods. Eat a consistent amount of foods that contain vitamin K. For example, you may decide to eat 2 vitamin K-containing foods each day. Your warfarin dose is set according to the amount of vitamin K in your blood. Eat a consistent amount of foods that contain vitamin K. Vitamin K makes warfarin less effective, so eating the same amount each day enables your health care provider to set the correct dose of warfarin. You may decide to eat 2 vitamin K-containing foods each day. Tests Make sure to have PT tests at least once every 4 6 weeks for the entire time you are taking warfarin. Ask your health care provider what your target INR range is. Make sure you always know your target range. If your INR is not in your target range, your health care provider may adjust your dosage. Preventing bleeding and injury Some common vmvl-cmo-dykrrca medicines and supplements may increase the risk of bleeding while taking warfarin. They include: ?Acetaminophen. ?Aspirin. ?NSAIDs, such as ibuprofen or naproxen. ?Vitamin E. Avoid situations that cause bleeding. You may bleed more easily while taking warfarin. To limit bleeding, take the following actions: ?Use a softer toothbrush. ?Floss with waxed floss, not unwaxed floss. ?Shave with an electric razor, not with a blade. ?Limit your use of sharp objects. ?Avoid potentially harmful activities, such as contact sports. General instructions Wear or carry identification that says that you are taking warfarin. Make sure that all health care providers, including your dentist, know that you are taking warfarin. If you need surgery, tell your health care provider that you are taking warfarin. You may have to stop taking warfarin before your surgery. If you plan to breastfeed or become while taking warfarin, talk with your health care provider. Avoid alcohol, tobacco, and drugs. ?If your health care provider approves, limit alcohol intake to no more than 1 drink a day for non- women and 2 drinks a day for men. One drink equals 12 oz. of beer, 5 oz. of wine, or 1 oz. of hard liquor. ?If you change the amount of nicotine, tobacco, or alcohol you use, tell your health care provider. Keep all follow-up visits and lab visits as told by your health care provider. This is very important because warfarin is a medicine that needs to be closely monitored. Contact a health care provider if: You miss a dose. You take an extra dose. You plan to have any kind of surgery or procedure. You are unable to take your medicine due to nausea, vomiting, or diarrhea. You have any major changes in your diet, or you plan to make major changes in your diet. You start or stop any rcsr-ywm-xmmqtye medicine, prescription medicine, or dietary supplement. You become , plan to become , or think you may be . You have menstrual periods that are heavier than usual, or unusual vaginal bleeding. You have unusual bruising. You lose your appetite. You have a fever. You have diarrhea that lasts for more than 24 hours. Get help right away if: You develop symptoms of an allergic reaction, such as: ?Swelling of the lips, face, tongue, mouth, or throat. ?Rash. ?Itching. ?Itchy, red, swollen areas of skin (hives). ?Trouble breathing. ?Chest tightness. You have any symptoms of stroke. BEFAST is an easy way to remember the main warning signs of stroke: ?B - Balance. Signs are dizziness, sudden trouble walking, or loss of balance. ?E - Eye. Signs are trouble seeing or a sudden change in vision. ?F - Face. Signs are sudden weakness or numbness of the face, or the face or eyelid drooping on oneside. ?A - Arm. Signs are weakness or numbness in an arm. This happens suddenly and usually on one side of the body. ?S - Speech. Signs are trouble speaking, slurred speech, or trouble understanding speech. ?T - Time. Time to call emergency services. Write down the time your symptoms started. You have other signs of stroke, such as: ?A sudden, severe headache with no known cause. ?Nausea or vomiting. ?Seizure. You have signs or symptoms of a blood clot, such as: ?Pain or swelling in your leg or arm. ?Skin that is red or warm to the touch on your arm or leg. ?Shortness of breath or difficulty breathing. ?Chest pain. ?Unexplained fever. You have: ?A fall or have an accident, especially if you hit your head. ?Blood in your urine. Your urine may look reddish, pinkish, or tea-colored. ?Blood in your stool. Your stool may be black or bright red. ?Bleeding that does not stop after applying pressure to the area for 30 minutes. ?Severe pain in your joints or back. ?Purple or blue toes. ?Skin ulcers that do not go away. You vomit blood or cough up blood. The blood may be bright red, or it may look like coffee grounds. These symptoms may represent a serious problem that is an emergency. Do not wait to see if the symptoms will go away. Get medical help right away. Call your local emergency services (911 in the [place] Do not drive yourself to the hospital. Summary Warfarin needs to be closely monitored with blood tests. It is very important to keep all lab visits and follow-up visits with your health care provider. Make sure you know your target INR range and your warfarin dosage. Monitor how much vitamin K you eat every day. Try to eat the same amount every day. Wear or carry identification that says that you are taking warfarin. Take warfarin at the same time every day. Call your health care provider if you miss a dose or if you take an extra dose. Do not change the dosage of warfarin on your own. Know the signs and symptoms of blood clots, bleeding, and stroke. Know when to get emergency medical help. This information is not intended to replace advice given to you by your health care provider. Make sure you discuss any questions you have with your health care provider. Document Released: 10/22/2007 Document Revised: 10/26/2018 Document Reviewed: 01/31/2018 [employer] Patient Education 2020 [employer]. 09/20/2021 10:43:13 Insulin Resistance Insulin Resistance Insulin is a hormone that helps to control blood sugar (glucose) levels in the body. It is made in the pancreas. Insulin allows glucose to enter cells in the body. Insulin sensitivity refers to how the body responds to insulin. Insulin resistance occurs when cells in the body do not respond properly to insulin made by the pancreas and are not able to absorb glucose from the bloodstream. Insulin resistance results in high blood glucose levels (hyperglycemia) and can lead to problems, including: Prediabetes. Type 2 diabetes (type 2 diabetes mellitus). Heart disease. High blood pressure (hypertension). Stroke. Polycystic ovary syndrome (PCOS). Nonalcoholic fatty liver disease. What are the causes? The exact cause of insulin resistance is not known. What increases the risk? The following factors may make you more likely to develop insulin resistance: Being overweight or obese, especially if a lot of your weight is in your waist area. Having an inactive (sedentary) lifestyle. Using steroids. Being older than age 45. Having sleep apnea. Using tobacco products. What are the signs or symptoms? This condition usually does not cause symptoms. How is this diagnosed? There is no test to diagnose insulin resistance. However, your health care provider may diagnose insulin resistance based on: Your blood glucose levels. Your cholesterol levels. A measurement of the distance around your waist (circumference). A waist circumference of more than35 inches (88.9 cm) for women and more than 40 inches (101.6 cm) for men may be a sign of insulin resistance. Your risk factors. A physical exam. Your medical history. How is this treated? Insulin resistance is treated with nutrition and lifestyle changes. These changes may include: Eating a healthy balance of nutritious foods. Getting more physical activity. Maintaining a healthy weight. Stopping the use of any tobacco products. Your health care provider will work with you to change your nutrition and lifestyle as needed. In some cases, treatment may also include medicine to improve your insulin sensitivity. Follow these instructions at home: Activity Be physically active. Do moderate-intensity physical activity for 30 minutes or more on 5 or more days of the week, or as much as told by your health care provider. This could be brisk walking, biking, or water aerobics. Ask your health care provider what activities are safe for you. A mix of physical activities may bebest, such as walking, swimming, cycling, and strength training. Eating and drinking Follow a healthy meal plan. This includes eating lean proteins, complex carbohydrates, fresh fruitsand vegetables, low-fat dairy products, and healthy fats. Follow instructions from your health care provider about eating or drinking restrictions. Make an appointment to see a diet and community nutrition educator (registered dietitian) to help you create a healthy eating plan. General instructions Check your blood glucose levels as told by your health care provider. Take bgic-mzo-utcgpst and prescription medicines only as told by your health care provider. Lose weight as told by your health care provider. ?Losing 5 7% of your body weight can reverse insulin resistance. ?Your health care provider can determine how much weight loss is best for you and can help you loseweight safely. Do not use any tobacco products, such as cigarettes, chewing tobacco, and e- cigarettes. If you needhelp quitting, ask your health care provider. Keep all follow-up visits as told by your health care provider. This is important. Contact a health care provider if: You have trouble losing weight or maintaining your goal weight. You gain weight. You have trouble following your prescribed meal plan. You have trouble exercising more. Summary Insulin resistance occurs when cells in the body do not respond properly to insulin made by the pancreas and are not able to absorb blood sugar (glucose) from the bloodstream. Your health care provider will work with you to change your nutrition and lifestyle as needed. Treatment may also include medicine to improve your insulin sensitivity. Keep all follow-up visits as told by your health care provider. This is important. This information is not intended to replace advice given to you by your health care provider. Make sure you discuss any questions you have with your health care provider. Document Released: 01/02/2007 Document Revised: 10/26/2018 Document Reviewed: 12/16/2016 [employer] Patient Education 2020 [employer]. 09/20/2021 10:43:12 Prediabetes Eating Plan Prediabetes Eating Plan Prediabetes is a condition that causes blood sugar (glucose) levels to be higher than normal. This increases the risk for developing diabetes. In order to prevent diabetes from developing, your health care provider may recommend a diet and other lifestyle changes to help you: Control your blood glucose levels. Improve your cholesterol levels. Manage your blood pressure. Your health care provider may recommend working with a diet and community nutrition educator (dietitian) tomake a meal plan that is best for you. What are tips for following this plan? Lifestyle Set weight loss goals with the help of your health care team. It is recommended that most people with prediabetes lose 7% of their current body weight. Exercise for at least 30 minutes at least 5 days a week. Attend a support group or seek ongoing support from a mental health counselor. Take nvhw-szi-chopjtc and prescription medicines only as told by your health care provider. Reading food labels Read food labels to check the amount of fat, salt (sodium), and sugar in prepackaged foods. Avoid foods that have: ?Saturated fats. ?Trans fats. ?Added sugars. Avoid foods that have more than 300 milligrams (mg) of sodium per serving. Limit your daily sodium intake to less than 2,300 mg each day. Shopping Avoid buying pre-made and processed foods. Cooking Cook with olive oil. Do not use butter, lard, or ghee. Bake, broil, grill, or boil foods. Avoid frying. Meal planning Work with your dietitian to develop an eating plan that is right for you. This may include: ?Tracking how many calories you take in. Use a food diary, notebook, or mobile application to trackwhat you eat at each meal. ?Using the glycemic index (GI) to plan your meals. The index tells you how quickly a food will raise your blood glucose. Choose low-GI foods. These foods take a longer time to raise blood glucose. Consider following a Mediterranean diet. This diet includes: ?Several servings each day of fresh fruits and vegetables. ?Eating fish at least twice a week. ?Several servings each day of whole grains, beans, nuts, and seeds. ?Using olive oil instead of other fats. ?Moderate alcohol consumption. ?Eating small amounts of red meat and whole-fat dairy. If you have high blood pressure, you may need to limit your sodium intake or follow a diet such as the DASH eating plan. DASH is an eating plan that aims to lower high blood pressure. What foods are recommended? The items listed below may not be a complete list. Talk with your dietitian about what dietary choices are best for you. Grains Whole grains, such as whole-wheat or whole-grain breads, crackers, cereals, and pasta. Unsweetened oatmeal. Bulgur. Barley. Quinoa. Brown rice. Hardaway or whole- wheat flour tortillas or taco shells. Vegetables Lettuce. Spinach. Peas. Beets. Cauliflower. Cabbage. Broccoli. Carrots. Tomatoes. Squash. Eggplant.Herbs. Peppers. Onions. Cucumbers. Hardy sprouts. Fruits Berries. Bananas. Apples. Oranges. Grapes. Papaya. Sam. Pomegranate. Kiwi. Grapefruit. Cherries. Meats and other protein foods Seafood. Poultry without skin. Lean cuts of pork and beef. Tofu. Eggs. Nuts. Beans. Dairy Low-fat or fat-free dairy products, such as yogurt, cottage cheese, and cheese. Beverages Water. Tea. Coffee. Sugar-free or diet soda. Brandt water. Lowfat or no-fat milk. Milk alternatives, such as soy or almond milk. Fats and oils [place] oil. Canola oil. Ryan oil. Grapeseed oil. Avocado. Walnuts. Sweets and desserts Sugar-free or low-fat pudding. Sugar-free or low-fat ice cream and other frozen treats. Seasoning and other foods Herbs. Sodium-free spices. Mustard. Relish. Low-fat, low-sugar ketchup. Low-fat, low-sugar barbecuesauce. Low-fat or fat-free mayonnaise. What foods are not recommended? The items listed below may not be a complete list. Talk with your dietitian about what dietary choices are best for you. Grains Refined white flour and flour products, such as bread, pasta, snack foods, and cereals. Vegetables Canned vegetables. Frozen vegetables with butter or cream sauce. Fruits Fruits canned with syrup. Meats and other protein foods Fatty cuts of meat. Poultry with skin. Breaded or fried meat. Processed meats. Dairy Full-fat yogurt, cheese, or milk. Beverages Sweetened drinks, such as sweet iced tea and soda. Fats and oils Butter. Lard. Ghee. Sweets and desserts Baked goods, such as cake, cupcakes, pastries, cookies, and cheesecake. Seasoning and other foods Spice mixes with added salt. Ketchup. Barbecue sauce. Mayonnaise. Summary To prevent diabetes from developing, you may need to make diet and other lifestyle changes to help control blood sugar, improve cholesterol levels, and manage your blood pressure. Set weight loss goals with the help of your health care team. It is recommended that most people with prediabetes lose 7 percent of their current body weight. Consider following a Mediterranean diet that includes plenty of fresh fruits and vegetables, whole grains, beans, nuts, seeds, fish, lean meat, low-fat dairy, and healthy oils. This information is not intended to replace advice given to you by your health care provider. Make sure you discuss any questions you have with your health care provider. Document Released: 03/29/2016 Document Revised: 03/06/2020 Document Reviewed: 01/17/2018 [employer] Patient Education 2020 [employer] 09/20/2021 10:43:11 Prediabetes Prediabetes Prediabetes is the condition of having a blood sugar (blood glucose) level that is higher than it should be, but not high enough for you to be diagnosed with type 2 diabetes. Having prediabetes puts you at risk for developing type 2 diabetes (type 2 diabetes mellitus). Prediabetes may be called impaired glucose tolerance or impaired fasting glucose. Prediabetes usually does not cause symptoms. Your health care provider can diagnose this condition with blood tests. You may be tested for prediabetes if you are overweight and if you have at least one other risk factor for prediabetes. What is blood glucose, and how is it measured? Blood glucose refers to the amount of glucose in your bloodstream. Glucose comes from eating foods that contain sugars and starches (carbohydrates), which the body breaks down into glucose. Your blood glucose level may be measured in mg/dL (milligrams per deciliter) or mmol/L (millimoles per liter). Your blood glucose may be checked with one or more of the following blood tests: A fasting blood glucose (FBG) test. You will not be allowed to eat (you will fast) for 8 hours or longer before a blood sample is taken. ?A normal range for FBG is 70 100 mg/dl (3.9 5.6 mmol/L). An A1c (hemoglobin A1c) blood test. This test provides information about blood glucose control overthe previous 2?3 months. An oral glucose tolerance test (OGTT). This test measures your blood glucose at two times: ?After fasting. This is your baseline level. ?Two hours after you drink a beverage that contains glucose. You may be diagnosed with prediabetes: If your FBG is 100?125 mg/dL (5.6 6.9 mmol/L). If your A1c level is 5.7?6.4%. If your OGTT result is 140?199 mg/dL (7.8 11 mmol/L). These blood tests may be repeated to confirm your diagnosis. How can this condition affect me? The pancreas produces a hormone (insulin) that helps to move glucose from the bloodstream into cells. When cells in the body do not respond properly to insulin that the body makes (insulin resistance), excess glucose builds up in the blood instead of going into cells. As a result, high blood glucose (hyperglycemia) can develop, which can cause many complications. Hyperglycemia is a symptom of prediabetes. Having high blood glucose for a long time is dangerous. Too much glucose in your blood can damage your nerves and blood vessels. Long-term damage can lead to complications from diabetes, which may include: Heart disease. Stroke. Blindness. Kidney disease. Depression. Poor circulation in the feet and legs, which could lead to surgical removal (amputation) in severe cases. What can increase my risk? Risk factors for prediabetes include: Having a family member with type 2 diabetes. Being overweight or obese. Being older than age 45. Being of , -[place], /, or / descent. Having an inactive (sedentary) lifestyle. Having a history of heart disease. History of gestational diabetes or polycystic ovary syndrome (PCOS), in women. Having low levels of good cholesterol (HDL-C) or high levels of blood fats (triglycerides). Having high blood pressure. What actions can I take to prevent diabetes? Be physically active. ?Do moderate-intensity physical activity for 30 or more minutes on 5 or more days of the week, or as much as told by your health care provider. This could be brisk walking, biking, or water aerobics. ?Ask your health care provider what activities are safe for you. A mix of physical activities may be best, such as walking, swimming, cycling, and strength training. Lose weight as told by your health care provider. ?Losing 5 7% of your body weight can reverse insulin resistance. ?Your health care provider can determine how much weight loss is best for you and can help you loseweight safely. Follow a healthy meal plan. This includes eating lean proteins, complex carbohydrates, fresh fruitsand vegetables, low-fat dairy products, and healthy fats. ?Follow instructions from your health care provider about eating or drinking restrictions. ?Make an appointment to see a diet and community nutrition educator (registered dietitian) to help you create a healthy eating plan that is right for you. Do not smoke or use any tobacco products, such as cigarettes, chewing tobacco, and e-cigarettes. Ifyou need help quitting, ask your health care provider. Take dypr-xpf-cjcyxjs and prescription medicines as told by your health care provider. You may be prescribed medicines that help lower the risk of type 2 diabetes. Keep all follow-up visits as told by your health care provider. This is important. Summary Prediabetes is the condition of having a blood sugar (blood glucose) level that is higher than it should be, but not high enough for you to be diagnosed with type 2 diabetes. Having prediabetes puts you at risk for developing type 2 diabetes (type 2 diabetes mellitus). To help prevent type 2 diabetes, make lifestyle changes such as being physically active and eating a healthy diet. Lose weight as told by your health care provider. This information is not intended to replace advice given to you by your health care provider. Make sure you discuss any questions you have with your health care provider. Document Released: 03/06/2017 Document Revised: 03/06/2020 Document Reviewed: 01/03/2017 [employer] Patient Education 2020 [employer]. 09/20/2021 10:43:10 Carbohydrate Counting for Diabetes Mellitus, Adult Carbohydrate Counting for Diabetes Mellitus, Adult Carbohydrate counting is a method of keeping track of how many carbohydrates you eat. Eating carbohydrates naturally increases the amount of sugar (glucose) in the blood. Counting how many carbohydrates you eat helps keep your blood glucose within normal limits, which helps you manage your diabetes(diabetes mellitus). It is important to know how many carbohydrates you can safely have in each meal. This is different for every person. A diet and community nutrition educator (registered dietitian) can help you make a meal plan and calculate how many carbohydrates you should have at each meal and snack. Carbohydrates are found in the following foods: Grains, such as breads and cereals. Dried beans and soy products. Starchy vegetables, such as potatoes, peas, and corn. Fruit and fruit juices. Milk and yogurt. Sweets and snack foods, such as cake, cookies, candy, chips, and soft drinks. How do I count carbohydrates? There are two ways to count carbohydrates in food. You can use either of the methods or a combination of both. Reading Nutrition Facts on packaged food The Nutrition Facts list is included on the labels of almost all packaged foods and beverages in the [place] It includes: The serving size. Information about nutrients in each serving, including the grams (g) of carbohydrate per serving. To use the Nutrition Facts : Decide how many servings you will have. Multiply the number of servings by the number of carbohydrates per serving. The resulting number is the total amount of carbohydrates that you will be having. Learning standard serving sizes of other foods When you eat carbohydrate foods that are not packaged or do not include Nutrition Facts on the label, you need to measure the servings in order to count the amount of carbohydrates: Measure the foods that you will eat with a food scale or measuring cup, if needed. Decide how many standard-size servings you will eat. Multiply the number of servings by 15. Most carbohydrate-rich foods have about 15 g of carbohydrates per serving. ?For example, if you eat 8 oz (170 g) of strawberries, you will have eaten 2 servings and 30 g of carbohydrates (2 servings x 15 g = 30 g). For foods that have more than one food mixed, such as soups and casseroles, you must count the carbohydrates in each food that is included. The following list contains standard serving sizes of common carbohydrate-rich foods. Each of theseservings has about 15 g of carbohydrates: hamburger bun or [place] muffin. oz (15 mL) syrup. oz (14 g) jelly. 1 slice of bread. 1 six-inch tortilla. 3 oz (85 g) cooked rice or pasta. 4 oz (113 g) cooked dried beans. 4 oz (113 g) starchy vegetable, such as peas, corn, or potatoes. 4 oz (113 g) hot cereal. 4 oz (113 g) mashed potatoes or of a large baked potato. 4 oz (113 g) canned or frozen fruit. 4 oz (120 mL) fruit juice. 4 6 crackers. 6 chicken nuggets. 6 oz (170 g) unsweetened dry cereal. 6 oz (170 g) plain fat-free yogurt or yogurt sweetened with artificial sweeteners. 8 oz (240 mL) milk. 8 oz (170 g) fresh fruit or one small piece of fruit. 24 oz (680 g) popped popcorn. Example of carbohydrate counting Sample meal 3 oz (85 g) chicken breast. 6 oz (170 g) brown rice. 4 oz (113 g) corn. 8 oz (240 mL) milk. 8 oz (170 g) strawberries with sugar-free whipped topping. Carbohydrate calculation 1.Identify the foods that contain carbohydrates: Rice. Hardaway. Milk. Strawberries. 2.Calculate how many servings you have of each food: 2 servings rice. 1 serving corn. 1 serving milk. 1 serving strawberries. 3.Multiply each number of servings by 15 servings rice x 15 g = 30 g. 1 serving corn x 15 g = 15 g. 1 serving milk x 15 g = 15 g. 1 serving strawberries x 15 g = 15 g. 4.Add together all of the amounts to find the total grams of carbohydrates eaten: 30 g + 15 g + 15 g + 15 g = 75 g of carbohydrates total. Summary Carbohydrate counting is a method of keeping track of how many carbohydrates you eat. Eating carbohydrates naturally increases the amount of sugar (glucose) in the blood. Counting how many carbohydrates you eat helps keep your blood glucose within normal limits, which helps you manage your diabetes. A diet and community nutrition educator (registered dietitian) can help you make a meal plan and calculate how many carbohydrates you should have at each meal and snack. This information is not intended to replace advice given to you by your health care provider. Make sure you discuss any questions you have with your health care provider. Document Released: 11/13/2006 Document Revised: 06/07/2018 Document Reviewed: 04/26/2017 [employer] Patient Education 2020 [employer]. Follow Up Care 08/24/2021 09:26:02 With:KAITLIN MENDENHALL DIRECTOR OF [facility] Address: When:09/30/2021 15:00:00 Comments:Have a PA and lateral chest x-ray done here at [place] 1 hour prior to your office visitBMP to be drawn by home health care prior to your office visitStaples will be removed at your office visit With:JOCELYNN CASTRO MD Address: [address] [place] [address]- When:09/27/2021 14:50:00 Comments:THIS APPOINTMENT WILL BE DR WRIGHT With:EDMUNDO BARRETT DIRECTOR OF [facility] Address: [address] [place] [address] [address] [place] [address]- When:10/06/2021 11:30:00 With:[facility] Address: When: Unknown Comments:A home health sales representative [employer] will contact you after discharge to arrange appointment date and time.If you have questions related to home health, call [phone]. With:Plant Operator Helper follow up Address: When: Unknown Comments:Alana Mckenzie, Nurse Plant Operator Helper, will call you and/or your family after your release from the hospital. Office Hours: Monday thru Monday 730am - 4pmPhone: Zsyhc: [email or web address] With:Cardiac Rehab- [facility] Address: [address] [place] [address]- When: Unknown Comments:The Cardiac Rehab department will call you to schedule you for phase 2. We left you a brochure withinformation about cardiac rehab. If you have any questions please call [phone]. [facility] 10-13-2021 Evaluation + Plan noteExtracted from: Title:History and Physical Author:GABRIEL STEPHENS DO Date:09/08/21 Dyspnea on Exertion Abnormal Stress Test Multivessel Coronary Artery Disease -Cardiac cath shows multivessel CAD - Will start patient on ASA 81. - Increase Statin to Lipitor 40 mg - Will switch patient's coreg to Metoprolol succinate 25 daily and uptitrated as appropriate. - Heparin gtt - Monitor on telemetry - Maintain K+> 4.0 and Mg 2+ > 2.0 HTN HLD - Continue home medications BRENT - Stable Assessment and plan was discussed with Dr. Watson. Any changes in assessment/plan, will be added as an addendum to this note by the attending physician. This note was transcribed via voice recognition software. Please forgive any errors or typos resulting from the use of this technology. Diana Stephens DO, MS General Maintenance Technician ([email or web address]) Pager [phone]/ Cortext Future Appointments Appointment Date:09/30/2021 03:00:00 PM Scheduled Provider:KAITLIN MENDENHALL Location:[facility] Appointment Type:CTS OV Post Op Appointment Date:10/06/2021 11:30:00 AM Scheduled Provider:EDMUNDO BARRETT Location:[facility] Appointment Type:CV OV Hospital Follow Up Appointment Date:11/22/2021 10:45:00 AM Scheduled Provider:DEQUAN DRUMMOND Location:[facility] Appointment Type:CV OV Hospital Follow Up Future Scheduled Tests Laboratory* Basic Metabolic Panel 08/24/21 * Complete Blood Count 08/24/21 * Prothrombin Time - Panel 08/24/21 [facility] Evaluation + Plan note Future Appointments Appointment Date:09/08/2021 09:00:00 AM Scheduled Provider: Location:Heart Lab Appointment Type:CV Procedure - Heart Lab/Hybrid OR Future Scheduled Tests Laboratory* Basic Metabolic Panel 08/24/21 * Complete Blood Count 08/24/21 * Prothrombin Time - Panel 08/24/21 [facility] Evaluation + Plan note Future Appointments Appointment Date:10/06/2021 11:30:00 AM Scheduled Provider:EDMUNDO BARRETT Location:[facility] Appointment Type:CV OV Hospital Follow Up Appointment Date:10/12/2021 02:00:00 PM Scheduled Provider:KAITLIN MENDENHALL Location:[facility] Appointment Type:CTS OV Post Op Follow Up Appointment Date:11/22/2021 10:45:00 AM Scheduled Provider:DEQUAN DRUMMOND Location:[facility] Appointment Type:CV OV Hospital Follow Up Future Scheduled Tests Laboratory* Basic Metabolic Panel 08/24/21 * Complete Blood Count 08/24/21 * Prothrombin Time - Panel 08/24/21 Radiology* XR Chest 2 Views (PA & Lateral) 10/14/21 [facility] Evaluation + Plan note Future Appointments Appointment Date:10/26/2021 02:00:00 PM Scheduled Provider:KAITLIN MENDENHALL Location:[facility] Appointment Type:CTS OV Post Op Follow Up Appointment Date:11/16/2021 11:30:00 AM Scheduled Provider:EDMUNDO BARRETT Location:[facility] Appointment Type:CV OV Appointment Date:11/22/2021 10:45:00 AM Scheduled Provider:DEQUAN DRUMMOND Location:[facility] Appointment Type:CV OV Hospital Follow Up Future Scheduled Tests Laboratory* Basic Metabolic Panel 08/24/21 * Complete Blood Count 08/24/21 * Prothrombin Time - Panel 08/24/21 Radiology* XR Chest 2 Views (PA & Lateral) 10/26/21 [facility] Evaluation + Plan note Future Appointments Appointment Date:10/26/2021 02:00:00 PM Scheduled Provider:KAITLIN MENDENHALL Location:[facility] Appointment Type:CTS OV Post Op Follow Up Appointment Date:11/16/2021 11:30:00 AM Scheduled Provider:EDMUNDO BARRETT Location:[facility] Appointment Type:CV OV Appointment Date:11/22/2021 10:45:00 AM Scheduled Provider:DEQUAN DRUMMOND Location:[facility] Appointment Type:CV OV Hospital Follow Up Future Scheduled Tests Laboratory* Basic Metabolic Panel 10/26/21 Radiology* XR Chest 2 Views (PA & Lateral) 10/26/21 [facility] Evaluation + Plan note Future Appointments Appointment Date:12/02/2021 02:00:00 PM Scheduled Provider:KAITLIN MENDENHALL Location:[facility] Appointment Type:CTS OV Post Op Appointment Date:12/08/2021 03:00:00 PM Scheduled Provider: Location:[facility] Appointment Type:CR Phase 2 Initial Appointment Date:01/17/2022 10:00:00 AM Scheduled Provider:EDMUNDO BARRETT Location:[facility] Appointment Type:CV OV Future Scheduled Tests Radiology* XR Chest 2 Views (PA & Lateral) 11/25/21 [facility] Evaluation + Plan note Future Appointments Appointment Date:12/08/2021 03:00:00 PM Scheduled Provider: Location:[facility] Appointment Type:CR Phase 2 Initial Appointment Date:01/17/2022 10:00:00 AM Scheduled Provider:EDMUNDO BARRETT Location:[facility] Appointment Type:CV OV Future Scheduled Tests Radiology* XR Chest 2 Views (PA & Lateral) 11/25/21 [facility] Evaluation + Plan note Future Appointments Appointment Date:10/13/2022 10:00:00 AM Scheduled Provider:EDMUNDO BARRETT Location:[facility] Appointment Type:CV OV Future Scheduled Tests Radiology* XR Chest 2 Views (PA & Lateral) 11/25/21 [facility] evaluation + Plan note Future Appointments Appointment Date:06/09/2023 02:30:00 PM Scheduled Provider: Location:[facility] Appointment Type:MRI Spine Lumbar w/o Contrast Future Scheduled Tests Radiology* MRI Spine Lumbar w/o Contrast 06/09/23 [facility] Evaluation + Plan note Future Appointments Appointment Date:04/17/2024 02:00:00 PM Scheduled Provider:EDMUNDO BARRETT Location:[facility] Appointment Type:CV OV [facility] evaluation + Plan note Future Appointments Appointment Date:07/17/2024 03:00:00 PM Scheduled Provider:EDMUNDO BARRETT Location:[facility] Appointment Type:CV OV Future Scheduled Tests Laboratory* Complete Blood Count 04/17/24 * Lipid Profile 04/17/24 * Complete Metabolic Panel 04/17/24 [facility] Evaluation + Plan note Future Appointments Appointment Date:01/28/2025 02:30:00 PM Scheduled Provider:EDMUNDO BARRETT Location:[facility] Appointment Type:CV OV Future Scheduled Tests Laboratory* Complete Blood Count 04/17/24 * Lipid Profile 04/17/24 * Complete Metabolic Panel 04/17/24 [facility] evaluation note* Diagnosis Prostate cancer (HCC)- Primary Malignant neoplasm of prostate documented in this encounter [facility] note* Diagnosis Seborrheic keratosis- Primary Other seborrheic keratosis Easley angioma Nevus, non-neoplastic Lentigines Other dyschromia Multiple benign nevi Benign neoplasm of skin, site unspecified Actinic keratosis Skin neoplasm Neoplasm of unspecified nature of bone, soft tissue, and skin Personal history of skin cancer Personal history of other malignant neoplasm of skin Personal history of malignant melanoma of skin documented in this encounter [facility] note* Diagnosis Basal cell carcinoma (BCC) of left side of neck- [facility] EIC (epidermal inclusion cyst)- Primary Sebaceous cyst Skin neoplasm Neoplasm of unspecified nature of bone, soft tissue, and skin Basal cell carcinoma (BCC) of skin of neck [facility] Diagnosis Basal cell carcinoma of face- Primary Basal cell carcinoma of skin of other and unspecified parts of face Basal cell carcinoma (BCC) of right side of neck 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) [facility] Diagnosis 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)- Primary Basal cell carcinoma (BCC) of left side of neck Basal cell carcinoma (BCC) of right side of neck Actinic keratosis Seborrheic keratosis Other seborrheic keratosis [facility] Diagnosis Prostate cancer (HCC)- Primary Malignant neoplasm of prostate [facility] Diagnosis Prostate cancer (HCC)- Primary Malignant neoplasm of prostate [facility] Diagnosis Seborrheic dermatitis- Primary Seborrheic dermatitis, unspecified Skin neoplasm Neoplasm of unspecified nature of bone, soft tissue, and skin Seborrheic keratosis Other seborrheic keratosis Easley angioma Nevus, non-neoplastic Lentigines Other dyschromia Multiple benign nevi Benign neoplasm of skin, site unspecified Hx of malignant melanoma Personal history of malignant melanoma of skin Hx of nonmelanoma skin cancer Personal history of other malignant neoplasm of skin Hx of atypical nevus Personal history of diseases of skin and subcutaneous tissue [facility] Diagnosis Basal cell carcinoma of face- Primary Basal cell carcinoma of skin of other and unspecified parts of face [facility] Diagnosis Basal cell carcinoma of left denominational region- Primary Basal cell carcinoma of skin of other and unspecified parts of face Neoplasm of uncertain behavior of skin [facility] Diagnosis Basal cell carcinoma (BCC) of skin of other part of face- Primary [facility] Diagnosis AK (actinic keratosis)- Primary Actinic keratosis Scar conditions and fibrosis of skin Scar condition and fibrosis of skin Actinic keratosis [facility] Diagnosis Actinic keratosis- Primary [facility] Diagnosis Prostate cancer (HCC)- Primary Malignant neoplasm of prostate Benign prostatic hyperplasia with urinary frequency documented in this encounter [facility] note* Diagnosis Lentigines- Primary Other dyschromia Multiple benign nevi Benign neoplasm of skin, site unspecified Angioma of skin Hemangioma of skin and subcutaneous tissue Seborrheic keratoses Other seborrheic keratosis Hx of nonmelanoma skin cancer Personal history of other malignant neoplasm of skin History of melanoma in situ Personal history of malignant melanoma of skin documented in this encounter [facility] note* Diagnosis Basal cell carcinoma (BCC) of left cheek- Primary Basal cell carcinoma (BCC) of left forehead documented in this encounter [facility] course Narrative No data available for this section [facility] Hospital Discharge instructions No data available for this section [facility] Progress note No data available for this section [facility] Summary Purpose Family History No Family History Records Found No data available for this section No data available for this section No data available for this section No data available for this section No data available for this section No Family History Records FoundNo Family History Records Found No data available for this section No Family History Records Found No data available for this section No Family History Records Found Advance Directives No Advanced Directives Records FoundNo Advanced Directives Records FoundNo Advanced Directives Records FoundNo Advanced Directives Records FoundNo Advanced Directives Records Found Reason for Referral Specialty Diagnoses / Procedures Referred By Contac t Referred To Contact Diagnoses 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) Procedures REFERRAL DERMATOLOGY SURGERY OFFICE/OUTPATIENT [facility] MDM 60-74 MINUTES Yaritza Spencer MD [address] [place] [address] Referral ID Status Reason Start Date Expiration Date Visits Requested Visits Authorized [id number] Pending Review PCP Requested Referral 03/23/2023 03/22/2024 1 1 Specialty Diagnoses / Procedures Referred By Contkaron t Referred To Contact Dermatology Diagnoses Basal cell carcinoma of face Basal cell carcinoma (BCC) of right side of neck Procedures MOHS OFFICE/OUTPATIENT [facility] 60-74 MINUTES Yaritza Spencer MD [address] [place] [address] Referral ID Status Reason Start Date Expiration Date Visits Requested Visits Authorized [id number] Pending Review PCP Requested Referral 03/23/2023 03/22/2024 1 1 Specialty Diagnoses / Procedures Referred By Contac t Referred To Contact Dermatology Diagnoses Basal cell carcinoma (BCC) of left side of neck Procedures Yaritza Gill MD [address] [place] [id number] Referral ID Status Reason Start Date Expiration Date Visits Requested Visits Authorized [id number] Ref Not Required PCP Requested Referral 03/20/2023 03/19/2024 1 1 Additional Source Comments (unrecognized sect ion and content) No Status Records FoundNo Status Records FoundNo Status Records FoundNo Status Records FoundNo Status Records Found INFORMATION SOURCE (unrecogn ized section and content) DATE CREATED AUTHOR [facility]/05/2018 [facility] DATE CREATED AUTHOR AUTHOR'S ORGANIZ ATION 07/10/2024 [facility] DATE CREATED AUTHOR AUTHOR'S ORGANIZ ATION 07/16/2024 [facility] DATE CREATED AUTHOR AUTHOR'S ORGANIZ ATION 07/25/2024 [facility] ([place]) DATE CREATED AUTHOR AUTHOR'S ORGANIZ ATION 09/19/2024 [facility] Care Team (unrecognized sect ion and content) Care Team Personnel Name: JOCELYNN CASTRO MD Member Role: Primary Care Physician Address: Address: [address] [place] [address]- Care Team Related Persons Name: KAREN SAUL Name: CARL GERARDO Address: Home [address] [place], [place] [id number] [place] Name: WENDY GERARDO Care Team Personnel Name: JOCELYNN CASTRO MD Member Role: Primary Care Physician Address: Address: [address] [place] [address]- Care Team Related Persons Name: KAREN SAUL Name: CARL GERARDO Address: Home [address] [place] [id number] [place] Name: WENDY GERARDO Care Team Personnel Name: JOCELYNN CASTRO MD Member Role: Primary Care Physician Address: Address: [facility] ISABEL DOCKERY [address] Care Team Related Persons Name: KAREN SAUL Name: CARL GERARDO Address: [place] [address] [place] [phone] [place] Name: WENDY GERARDO Care Team Personnel Name: JOCELYNN CASTRO MD Member Role: Primary Care Physician Address: Address: [address] [place], [place] [address]Will LOVETTBlanka [address] Care Team Related Persons Name: KAREN SAUL Name: CARL GERARDO [place] Address: Home [address] [place] [phone] [place] Name: WENDY GERARDO Care Team Personnel Name: JOCELYNN CASTRO MD Member Role: Primary Care Physician Address: Address: [address] [place], [place] [address]Will LOVETTBlanka DOCKERY [address] Care Team Related Persons Name: KAREN SAUL Name: AKINLUIS ADY [place] Address: [address] [place], [place] [id number] [place] Name: WENDY GERARDO Source Comments (unrecognize d section and content) In the event this informatio n is protected by the Federal Confidentiality of Alcohol and Drug Abuse Patient Records regulations: The Federal rules restrict any use of the information to criminally investigate or prosecute any alcohol or drug abuse patient.[facility] Hospital[facility] the event this information is protected by the Federal Confidentiality of Alcohol and Drug Abuse Patient Records regulations: The Federal rules restrict any use of the information to criminally investigate or prosecute any alcohol or drug abuse patient.[facility] HospitalIn the event this information is protected by the Federal Confidentiality of Alcohol and Drug Abuse Patient Records regulations: The Federal rules restrict any use of the information to criminally investigate or prosecute any alcohol or drug abuse patient.[facility] HospitalIn the event this information is protected by the Federal Confidentiality of Alcohol and Drug Abuse Patient Records regulations: The Federal rules restrict any use of the information to criminally investigate or prosecute any alcohol or drug abuse patient.[facility] HospitalIn the event this information is protected by the Federal Confidentiality of Alcohol and Drug Abuse Patient Records regulations: The Federal rules restrict any use of the information to criminally investigate or prosecute any alcohol or drug abuse patient.[facility] HospitalIn the event this information is protected by the Federal Confidentiality of Alcohol and Drug Abuse Patient Records regulations: The Federal rules restrict any use of the information to criminally investigate or prosecute any alcohol or drug abuse patient.[facility] HospitalIn the event this information is protected by the Federal Confidentiality of Alcohol and Drug Abuse Patient Records regulations: The Federal rules restrict any use of the information to criminally investigate or prosecute any alcohol or drug abuse patient.[facility] HospitalIn the event this information is protected by the Federal Confidentiality of Alcohol and Drug Abuse Patient Records regulations: The Federal rules restrict any use of the information to criminally investigate or prosecute any alcohol or drug abuse patient.[facility] HospitalIn the event this information is protected by the Federal Confidentiality of Alcohol and Drug Abuse Patient Records regulations: The Federal rules restrict any use of the information to criminally investigate or prosecute any alcohol or drug abuse patient.[facility] HospitalIn the event this information is protected by the Federal Confidentiality of Alcohol and Drug Abuse Patient Records regulations: The Federal rules restrict any use of the information to criminally investigate or prosecute any alcohol or drug abuse patient.[facility] HospitalIn the event this information is protected by the Federal Confidentiality of Alcohol and Drug Abuse Patient Records regulations: The Federal rules restrict any use of the information to criminally investigate or prosecute any alcohol or drug abuse patient.[facility] HospitalIn the event this information is protected by the Federal Confidentiality of Alcohol and Drug Abuse Patient Records regulations: The Federal rules restrict any use of the information to criminally investigate or prosecute any alcohol or drug abuse patient.[facility] HospitalIn the event this information is protected by the Federal Confidentiality of Alcohol and Drug Abuse Patient Records regulations: The Federal rules restrict any use of the information to criminally investigate or prosecute any alcohol or drug abuse patient.[facility] HospitalIn the event this information is protected by the Federal Confidentiality of Alcohol and Drug Abuse Patient Records regulations: The Federal rules restrict any use of the information to criminally investigate or prosecute any alcohol or drug abuse patient.[facility] HospitalIn the event this information is protected by the Federal Confidentiality of Alcohol and Drug Abuse Patient Records regulations: The Federal rules restrict any use of the information to criminally investigate or prosecute any alcohol or drug abuse patient.[facility] HospitalIn the event this information is protected by the Federal Confidentiality of Alcohol and Drug Abuse Patient Records regulations: The Federal rules restrict any use of the information to criminally investigate or prosecute any alcohol or drug abuse patient.[facility] HospitalIn the event this information is protected by the Federal Confidentiality of Alcohol and Drug Abuse Patient Records regulations: The Federal rules restrict any use of the information to criminally investigate or prosecute any alcohol or drug abuse patient.[facility] HospitalIn the event this information is protected by the Federal Confidentiality of Alcohol and Drug Abuse Patient Records regulations: The Federal rules restrict any use of the information to criminally investigate or prosecute any alcohol or drug abuse patient.[facility] HospitalIn the event this information is protected by the Federal Confidentiality of Alcohol and Drug Abuse Patient Records regulations: The Federal rules restrict any use of the information to criminally investigate or prosecute any alcohol or drug abuse patient.[facility] HospitalIn the event this information is protected by the Federal Confidentiality of Alcohol and Drug Abuse Patient Records regulations: The Federal rules restrict any use of the information to criminally investigate or prosecute any alcohol or drug abuse patient.[facility] HospitalIn the event this information is protected by the Federal Confidentiality of Alcohol and Drug Abuse Patient Records regulations: The Federal rules restrict any use of the information to criminally investigate or prosecute any alcohol or drug abuse patient.[facility] HospitalIn the event this information is protected by the Federal Confidentiality of Alcohol and Drug Abuse Patient Records regulations: The Federal rules restrict any use of the information to criminally investigate or prosecute any alcohol or drug abuse patient.[facility] Reason for Visit (unrecogniz ed section and content) Reason Comments Follow Up 6 month - PSA on 12-05 was 8.83 ng/ml Reason Comments Full Body Skin Check Reason Comments Pathology Report Reason Comments SKIN CANCER Reason Comments Biopsy Reason Comments SKIN CANCER And melanoma Reason Comments Opened In Error Specialty Diagnoses / Procedures Referred By Contac t Referred To Contact Dermatology Diagnoses Basal cell carcinoma of face Basal cell carcinoma (BCC) of right side of neck Procedures MOHS OFFICE/OUTPATIENT NEW HIGH MDM 60-74 MINUTES Yaritza Spencer MD [address] [place] [address] Referral ID Status Reason Start Date Expiration Date Visits Requested Visits Authorized [id number] Pending Review PCP Requested Referral 03/23/2023 03/22/2024 1 1 Reason Comments Orders Reason Comments Prostate Cancer 6 month follow upPSA on 06/07/23 was 6.15 ng/ml Reason Comments Pathology Report Reason Comments Mohs Specialty Diagnoses / Procedures Referred By Contac t Referred To Contact Dermatology Diagnoses Basal cell carcinoma of face Procedures MOHS OFFICE/OUTPATIENT NEW HIGH MDM 60-[place] [address] [place] [address] Referral ID Status Reason Start Date Expiration Date Visits Requested Visits Authorized [id number] Pending Review PCP Requested Referral 3 09/14/2024 1 1 Reason Comments F/U MOHS Reason Comments instructions for pdt /appointments Reason Comments Actinic Keratosis Reason Comments Prostate Cancer PSA 8.26 on 06/17/24P VR 7 ml Reason Comments Skin Check Specialty Diagnoses / Procedures Referred By Contkaron t Referred To Contact Dermatology Diagnoses Basal cell carcinoma (BCC) of skin of other part of face Procedures MOHS OFFICE/OUTPATIENT NEW HIGH MDM 60-74 MINUTES Thais Nicholas MD [address] [place] [address] Referral ID Status Reason Start Date Expiration Date V isits Requested Visits Authorized [id number] Closed PCP Requested Referral 11/08/2023 11/07/2024 1 1 Care Teams (unrecognized sec tion and content) Embroiderer Relationship Specialty Start Date End Date Maximiliano Pascual MD [address] [place] [phone] PCP - General Internal Medicine 10/26/18 Embroiderer Relationship Specialty Start Date End Date Maximiliano Pascual MD [address] [place] [phone] PCP - General Internal Medicine 10/26/18 Embroiderer Relationship Specialty Start Date End Date Maximiliano Pascual MD [address] [place] [phone] PCP - General Internal Medicine 10/26/18 Embroiderer Relationship Specialty Start Date End Date Maximiliano Pascual MD [address] [place] [phone] PCP - General Internal Medicine 10/26/18 Embroiderer Relationship Specialty Start Date End Date Maximiliano Pascual MD [address] [place] [phone] PCP - General Internal Medicine 10/26/18 Embroiderer Relationship Specialty Start Date End Date Maximiliano Pascual MD [address] [place] [address] [address] [place] [phone] PCP - General Internal Medicine 10/26/18 Embroiderer Relationship Specialty Start Date End Date Maximiliano Pascual MD [address] [facility] [address] [place] [phone] PCP - General Internal Medicine 10/26/18 Embroiderer Relationship Specialty Start Date End Date Maximiliano Pascual MD [address] [facility] [address] [place] [phone] PCP - General Internal Medicine 10/26/18 Embroiderer Relationship Specialty Start Date End Date Maximiliano Pascual MD [address] [facility] [address] [place] [phone] PCP - General Internal Medicine 10/26/18 Embroiderer Relationship Specialty Start Date End Date Maximiliano Pascual MD [address] [facility] [address] [place] [phone] PCP - General Internal Medicine 10/26/18 Embroiderer Relationship Specialty Start Date End Date Maximiliano Pascual MD [address] [facility] [address] [place] [phone] PCP - General Internal Medicine 10/26/18 Embroiderer Relationship Specialty Start Date End Date Maximiliano Pascual MD [address] [facility] [address] [place] [phone] PCP - General Internal Medicine 10/26/18 Embroiderer Relationship Specialty Start Date End Date Maximiliano Pascual MD [address] [facility] [address] [place] [phone] PCP - General Internal Medicine 10/26/18 Embroiderer Relationship Specialty Start Date End Date Maximiliano Pascual MD [address] [facility] [address] [place] [address] PCP - General Internal Medicine 10/26/18 Embroiderer Relationship Specialty Start Date End Date Maximiliano Pascual MD [address] [facility] [address] [place] [phone] PCP - General Internal Medicine 10/26/18 Embroiderer Relationship Specialty Start Date End Date Maximiliano Pascual MD [address] [facility] [address] [place] [phone] PCP - General Internal Medicine 10/26/18 Embroiderer Relationship Specialty Start Date End Date Maximiliano Pascual MD [address] [facility] [address] [place] [phone] PCP - General Internal Medicine 10/26/18 Embroiderer Relationship Specialty Start Date End Date Maximiliano Pascual MD [address] [place] [phone] PCP - General Internal Medicine 10/26/18 FOR RECORDS PERTAINING TO PATIENTS WHO ARE OR HAVE BEEN ENROLLED IN A CHEMICAL DEPENDENCY/SUBSTANCEABUSE PROGRAM, SOME INFORMATION MAY BE OMITTED. This clinical summary was aggregated from multiple sources. Caution should be exercised in using it in the provision of clinical care. This summary normalizes information from multiple sources, and as a consequence, information in this document may materially change the coding, format and clinical context of patient data. In addition, data may be omitted in some cases. CLINICAL DECISIONS SHOULD BE BASED ON THE PRIMARY CLINICAL RECORDS. [facility] [facility]. provides no warranty or guarantee of the accuracy or completeness of information in this document.
== END | disposition home or self-care (01) ==
LOC: BFHLAB 15:29
PROVIDERS: PCP Family Medicine; Referring Provider Family Medicine; Visit Provider Family Medicine
DX: N17.9 Acute kidney failure, unspecified (principal); E83.42 Hypomagnesemia; R73.03 Prediabetes
CPT/HCPCS: 36415; 80048; 83036; 83735

== ENCOUNTER → 2025-03-07 | Outpatient (CLI) | payer MEDICARE, OTHER, SELFPAY ==
[2025-03-07 15:58] LABS: Microalbumin,Random Urine 26.2 mg/L (NO RANGE EST.); Microalbumin:Creatinine Ratio 487.9 mg/g CRE
[2025-03-07 16:00] LABS: Hemoglobin A1c 6.5 % (<=5.6)
[2025-03-07 16:04] LABS: Cholesterol 215 mg/dL (<=200); High Density Lipoprotein 55 mg/dL; Low Density Lipoprotein Calc. 75 mg/dL; Triglycerides 424 mg/dL; Very Low Density Lipoprotein 85 mg/dL (5-40); cholesterol:hdl ratio screen 3.92
[2025-03-07 16:22] LABS: AST(SGOT) 17 U/L (<=37); Alanine Aminotransfer ALT/SGPT 23 U/L (<=46); Albumin, Serum 3.7 g/dL (3.4-4.8); Alkaline Phosphatase 78 U/L (40-129); Bilirubin, Direct 0.09 mg/dL (0.00-0.30); Globulin 2.8 g/dL (2.2-4.2); Protein, Total 6.6 g/dL (5.9-8.4); Total Bilirubin < 0.15 mg/dL (0.00-1.30)
== END | disposition home or self-care (01) ==
LOC: BFHLAB 13:38
PROVIDERS: PCP Family Medicine; Visit Provider Family Medicine
DX: E11.9 Type 2 diabetes mellitus without complications (principal); I10 Essential (primary) hypertension; I25.10 Atherosclerotic heart disease of native coronary artery without angina pectoris
CPT/HCPCS: 36415; 80061; 80076; 82043; 82570; 83036

== ENCOUNTER → 2025-09-17 | Outpatient (CLI) | payer MEDICARE, OTHER, SELFPAY ==
--- NOTE | 2025-09-17 11:24 | RAD_ITS ---
PROCEDURE: CERV SPINE 4 OR 5 VIEWS 09/17/2025 REASON FOR EXAM: CERVICAL SPONDYLOSIS TECHNIQUE: Procedure Code: [facility] Modality: DX Procedure: CERV SPINE 4 OR 5 VIEWS FINDINGS: No evidence of acute fracture or dislocation. Vertebral body heights are maintained. Mild degenerative changes of visualized spine. Normal alignment. RAD/Cerv Spine 4 or 5 Views IMPRESSION: Mild spondylosis. Disclaimer: Reading Location: [id number]
--- NOTE | 2025-09-17 11:24 | RAD_ITS ---
PROCEDURE: SHOULDER MIN 2 VIEWS 09/17/2025 REASON FOR EXAM: PAIN TECHNIQUE: Procedure Code: RADSH Modality: DX Procedure: SHOULDER MIN 2 VIEWS Laterality: Right COMPARISON: None. RAD/Shoulder min 2 Views IMPRESSION: Prior sternotomy partially visualized Mild right acromioclavicular joint degenerative changes are seen. The right glenohumeral joint demonstrates minimal to mild degenerative changes, without significant joint narrowing. No acute fracture or dislocation is seen. Reading Location: [id number]
--- NOTE | 2025-09-17 11:24 | RAD_ITS ---
PROCEDURE: SHOULDER MIN 2 VIEWS 09/17/2025 REASON FOR EXAM: PAIN TECHNIQUE: Procedure Code: RADSH Modality: DX Procedure: SHOULDER MIN 2 VIEWS Laterality: Right COMPARISON: None. RAD/Shoulder min 2 Views IMPRESSION: Prior sternotomy partially visualized Mild right acromioclavicular joint degenerative changes are seen. The right glenohumeral joint demonstrates minimal to mild degenerative changes, without significant joint narrowing. No acute fracture or dislocation is seen. Reading Location: [id number]
--- NOTE | 2025-09-17 11:24 | RAD_ITS ---
PROCEDURE: CERV SPINE 4 OR 5 VIEWS 09/17/2025 REASON FOR EXAM: CERVICAL SPONDYLOSIS TECHNIQUE: Procedure Code: [facility] Modality: DX Procedure: CERV SPINE 4 OR 5 VIEWS FINDINGS: No evidence of acute fracture or dislocation. Vertebral body heights are maintained. Mild degenerative changes of visualized spine. Normal alignment. RAD/Cerv Spine 4 or 5 Views IMPRESSION: Mild spondylosis. Disclaimer: Reading Location: [id number]
== END | disposition home or self-care (01) ==
LOC: RAD 11:23
PROVIDERS: PCP Family Medicine; Referring Provider Anesthesiology; Visit Provider Anesthesiology
DX: M25.511 Pain in right shoulder (principal)
CPT/HCPCS: 72050; 73030

== ENCOUNTER → 2025-10-28 | Outpatient (CLI) | payer MEDICARE, OTHER, SELFPAY ==
[2025-10-28 12:21] LABS: Hematocrit 40.5 % (40-54); Hemoglobin 13.1 g/dL (13.0-16.5); Mean Corp Hgb Conc 32.3 g/dL (32-36); Mean Corpuscular Volume 96.7 fL (80-94); Mean Platelet Vol. 11.2 fl (6.2-12.0); Platelet Count 254 K/mm3 (150-450); RBC Distribution Width CV 13.5 % (11.6-14.6); RBC Distribution Width SD 47.8 fl (35.1-43.9); Red Blood Count 4.19 M/mm3 (4.6-6.2); White Blood Count 6.7 K/mm3 (4.4-11.0)
[2025-10-28 13:01] LABS: AST(SGOT) 17 U/L (<=37); Alanine Aminotransfer ALT/SGPT 19 U/L (<=46); Albumin, Serum 3.9 g/dL (3.4-4.8); Alkaline Phosphatase 78 U/L (40-129); Anion Gap 11 (5-15); BUN 22 mg/dL (4-19); BUN/Creat Ratio 16.4 RATIO (10-20); Calcium,Total 9.3 mg/dL (7.6-11.0); Carbon Dioxide 28.1 mmol/L (21.0-32.0); Chloride 105 mmol/L (98-108); Globulin 2.9 g/dL (2.2-4.2); Glucose 114 mg/dL (70-99); Potassium 3.8 mmol/L (3.3-5.1); Vitamin B12 611 pg/mL (180-914)
[2025-10-29 13:08] LABS: Vitamin D 1,25-Dihydroxy 30.7 pg/mL (24.8-81.5)
[2025-11-01 18:08] LABS: Folate, Hemolysate Test 528.0 ng/mL (Not Estab.); Folate, RBC (Hct) Test 39.7 % (37.5-51.0); Folates, RBC Test 1330 ng/mL (>498); Phenobarbital,Serum 21 ug/mL (15-40); VITAMIN B6 8.3 ug/L (3.4-65.2); Vitamin B1, Thiamine 212.2 nmol/L (66.5-200.0)
== END | disposition home or self-care (01) ==
LOC: MTLAB 10:38
PROVIDERS: PCP Family Medicine; Referring Provider Psychiatry & Neurology Neurology; Visit Provider Psychiatry & Neurology Neurology
DX: G62.9 Polyneuropathy, unspecified (principal); G40.909 Epilepsy, unspecified, not intractable, without status epilepticus; R73.03 Prediabetes; I10 Essential (primary) hypertension
CPT/HCPCS: 36415; 80053; 80184; 80188; 82607; 82652; 82747; 83036; 83883; 84207; 84425; 84443; 85014; 85027

== ENCOUNTER → 2025-10-30 | Outpatient (CLI) | payer MEDICARE, OTHER, SELFPAY ==
--- NOTE | 2025-10-30 14:02 | MRI_ITS ---
PROCEDURE: SPINE LUMBAR (ROUTINE) 10/30/2025 REASON FOR EXAM: GAIT DISORDER; LOW BACK PAIN TECHNIQUE: Procedure Code: MRISPL Modality: MR Procedure: SPINE LUMBAR (ROUTINE) COMPARISON: None available FINDINGS: For the purposes of this report, the most caudal rectangular vertebral body will be designated L5. The next most caudal trapezoidal shaped vertebral body will be designated S1. The intervening disc at the lumbosacral angle is designated L5-S1. The normal lumbar lordosis is maintained. The lumbar vertebral bodies are normal in height. Grade 1 L2-L3 and L3-L4 retrolisthesis. There are a few scattered well-circumscribed T1/T2 hyperintense lesions at the L3 and L4 vertebral bodies most compatible with osseous hemangiomas. The lumbar bone marrow signal is otherwise within normal limits. Multilevel disc desiccation. Intervertebral disc space height loss most prominent at L5-S1. There is no evidence of signal abnormality in the imaged distal spinal cord. The conus medullaris terminates at the level of L1. T12-L1: No significant spinal canal stenosis or neural foraminal narrowing. L1-L2: Disc bulge, bilateral facet arthrosis, and ligamentum flavum hypertrophy. Mild spinal canal stenosis. No significant neural foraminal narrowing. L2-L3: Disc bulge and superimposing left subarticular disc extrusion with mild caudal migration, bilateral facet arthrosis, and ligamentum flavum hypertrophy contribute to mild spinal canal stenosis and subarticular zone narrowing. The bilateral traversing nerve roots abut the disc. Mild bilateral neural foraminal narrowing. L3-L4: Disc bulge, bilateral facet arthrosis, and ligamentum flavum hypertrophy contribute to moderate spinal canal stenosis and subarticular zone narrowing. Mild bilateral neural foraminal narrowing. L4-L5: Disc bulge, bilateral facet arthrosis, ligamentum flavum hypertrophy contribute to [id number]-lh-[id number] spinal canal stenosis. Mild bilateral neural foraminal narrowing. L5-S1: Disc bulge, bilateral facet arthrosis, and ligamentum flavum hypertrophy contribute to mild spinal canal stenosis. Moderate bilateral neural foraminal narrowing. The bilateral L5 exiting nerve roots abut the disc. Fatty atrophy of the posterior paraspinal muscles. Right Tarlov cyst. Left renal cyst. MRI/Spine Lumbar (Routine) IMPRESSION: Lumbar spondylosis most prominent at L3-L4 where there is moderate spinal canal stenosis and at L5-S1 where there is moderate bilateral neural foraminal stenosis predominantly secondary to disc bulge. Add itional details as discussed above. Reading Location: [facility]
--- NOTE | 2025-10-30 14:02 | MRI_ITS ---
PROCEDURE: BRAIN W/WO CONTRAST 10/30/2025 REASON FOR EXAM: HX EPILEPSY TECHNIQUE: Procedure Code: MRIBRWW Modality: MR Procedure: BRAIN W/WO CONTRAST Multiplanar and multisequence images were obtained. CONTRAST: VOLUME: mL FINDINGS: Mild confluence and focal FLAIR hyperintensities throughout the bilateral cerebral white matter are nonspecific but likely represent mild chronic microvascular ischemic changes. Mild generalized atrophy with commensurate mild ventriculomegaly. Encephalomalacia is noted within the anterior inferior medial aspect of the left temporal lobe within the subcortical white matter. 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 Otherwise the brain parenchyma appears unremarkable. The coombs-white matter differentiation is appropriate. No midline shift. The midline structures are intact, specifically the corpus callosum, septum pellucidum, pituitary gland, and cerebellar vermis. The cervicomedullary junction appears unremarkable. The paranasal sinuses and mastoid air cells are clear. Evidence of bilateral cataract surgery. Diffusion-weighted images demonstrate no restricted diffusion. MRI/Brain W/WO Contrast IMPRESSION: 1. 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 Encephalomalacia in the subcortical white matter of the anterior in ferior medial aspect of the left temporal lobe is also noted. 2. Mild nonspecific FLAIR hyperintensities throughout the bilateral cerebral w phil matter, likely representing chronic microvascular ischemic changes. 3. Mild generalized atrophy. Reading Location: [id number]
--- NOTE | 2025-10-30 14:02 | MRI_ITS ---
PROCEDURE: SPINE CERVICAL (ROUTINE) 10/30/2025 REASON FOR EXAM: GAIT DISORDER; NECK PAIN TECHNIQUE: Procedure Code: MRISPC Modality: MR Procedure: SPINE CERVICAL (ROUTINE) Multiplanar and multisequence images were obtained without IV contrast administration. COMPARISON: None available FINDINGS: Motion artifact degrades some images. The visualized posterior fossa contents appear within normal limits. The cervical lordosis is exaggerated. The atlantooccipital and atlantoaxial joints appear normally aligned. The cervical vertebral bodies are normal in height. The cervical vertebral bodies are normal in alignment. The cervical bone marrow signal is within normal limits. Multilevel disc desiccation. There is no evidence of cervical spinal cord signal abnormality. C2-C3: No significant spinal canal stenosis or neural foraminal narrowing. C3-C4: No significant spinal canal stenosis. Bilateral facet arthrosis and uncovertebral spurring contribute to [id number]-fz-[id number] bilateral neural foraminal narrowing. C4-C5: No significant spinal canal stenosis. Bilateral facet arthrosis and uncovertebral spurring contribute to bhjv-gf-nsnathtp bilateral neural foraminal narrowing. C5-C6: No significant spinal canal stenosis. Mild bilateral neural foraminal narrowing secondary to facet arthrosis and uncovertebral spurring. C6-C7: No significant spinal canal stenosis. There is a small right perineural cyst. Bilateral facet arthrosis and uncovertebral spurring. No significant neural foraminal narrowing. C7-T1: No significant spinal canal stenosis or neural foraminal narrowing. MRI/Spine Cervical (Routine) IMPRESSION: 1. Motion artifact limits evaluation. 2. Cervical spondylosis without high-grade spinal canal or neural foraminal barb nosis. Reading Location: [id number]
== END | disposition home or self-care (01) ==
LOC: MRI 13:58
PROVIDERS: PCP Family Medicine; Referring Provider Psychiatry & Neurology Neurology; Visit Provider Psychiatry & Neurology Neurology
DX: G40.909 Epilepsy, unspecified, not intractable, without status epilepticus (principal); R26.9 Unspecified abnormalities of gait and mobility; M54.2 Cervicalgia
CPT/HCPCS: 70553; 72141; 72148; A9575; A4216

== ENCOUNTER 2025-11-05 13:48 | Outpatient (CLI) | payer MEDICARE, OTHER, SELFPAY ==
--- NOTE | 2025-11-05 13:50 | ART_ITS ---
Reason For Study Reason For Study: Absent Rt Pedal Pulse Procedure A bilateral lower extremity continuous wave Doppler with analog waveform analysis and ankle brachial indexes. Left Segmental Pressures Left brachial= 152mmHg. Left posterior tibial artery = 184mmHg. Left dorsalis pedis artery = 151mmHg. Left digit = 117 mmHg. The left posterior tibial artery waveforms are triphasic. The left dorsalis pedis waveforms are biphasic. Right Segmental Pressures Right brachial= 155mmHg. Right posterior tibial artery = 171mmHg. Right dorsalis pedis artery = 172mmHg. Right digit = 99 mmHg. The right posterior tibial artery waveforms are triphasic. The right dorsalis pedis waveforms are triphasic. Indices The right ankle brachial index by the posterior tibial artery is 1.10. The right ankle brachial index by the dorsalis pedis is 1.11. The right digital-brachial index is 0.64. The left ankle brachial index by the posterior tibial artery is 1.19. The left ankle brachial index by the dorsalis pedis is 0.97. The left digital-brachial index is 0.75. VL/Ankle Brachial Index Interpretation Summary Triphasic Doppler waveforms are noted at ankle level on the right. Triphasic an d biphasic Doppler waveforms are noted at ankle level on the left. Pulse-volume recordings appear satisfactory at ankle a nd digital level bilaterally. Resting ankle-brachial indices are normal bilaterally. The right digital-brachial index is mildly diminished. The left digital- brachial index is normal. Arterial flow appears normal at ankle level bilaterally, and at digital level o n the left. There is evidence of mild arterial occlusive disease at digital level on the right. Ordering Physician: Martín Urbano Referring Physician: Jorge Castaneda Performed By: Sebastian Dia, RVT
--- NOTE | 2025-11-05 13:50 | RAD_ITS ---
PROCEDURE: KNEE 4 OR MORE VIEWS 11/05/2025 REASON FOR EXAM: BILATERAL KNEE PAIN TECHNIQUE: Procedure Code: RADKN Modality: DX Procedure: KNEE 4 OR MORE VIEWS Laterality: Left COMPARISON: None FINDINGS: Images of the left knee demonstrate no evidence of fracture or dislocation. There is an intra-articular bone fragment adjacent to the lateral tibial spine measuring 8 x 1 mm. There is no significant arthritis of the patellofemoral joint. There is no significant arthritis of the medial joint space compartment of the knee. There is no significant arthritis of the lateral joint space compartment of the knee. There is no knee joint effusion. There is calcific vascular disease in the distal thigh and proximal calf. RAD/Knee 4 or More Views IMPRESSION: Intra-articular bone fragment. Other findings as noted. Reading Location: [place] [id number]
--- NOTE | 2025-11-05 14:40 | RAD_ITS ---
PROCEDURE: HIPS B/L MIN 2 VIEWS W/ PELVIS 11/05/2025 REASON FOR EXAM: BILATERAL HIP PAIN TECHNIQUE: Procedure Code: RADHPELP Modality: DX Procedure: HIPS B/L MIN 2 VIEWS W/ PELVIS Laterality: Bilateral COMPARISON: None FINDINGS: The bony pelvis is intact. The SI joints are normal. There is mild degenerative disc disease, L3-4 through L5-S1. There are no soft tissue abnormalities. AP and lateral views of the right hip demonstrate no evidence of fracture or dislocation. There is no significant joint space abnormality. The periarticular soft tissues are normal. AP and lateral views of the left hip demonstrate no evidence of fracture or dislocation. There is no significant joint space abnormality. The periarticular soft tissues are normal. RAD/Hips B/L min 2 views w/ Pelvis IMPRESSION: There is no significant abnormality of the pelvis or either hip. Reading Location: [place] [id number]
--- NOTE | 2025-11-05 14:50 | RAD_ITS ---
PROCEDURE: KNEE 4 OR MORE VIEWS 11/05/2025 REASON FOR EXAM: BILATERAL KNEE PAIN TECHNIQUE: Procedure Code: RADKN Modality: DX Procedure: KNEE 4 OR MORE VIEWS Laterality: Right COMPARISON: None FINDINGS: Images of the right knee demonstrate no evidence of fracture or dislocation. There is mild arthritis of the patellofemoral joint. 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 There is no significant arthritis of the medial joint space compartment of the knee. There is no significant arthritis of the lateral joint space compartment of the knee. There is no knee joint effusion. There are vascular calcifications in the distal thigh and proximal calf. There are vascular clips on the medial aspect of the proximal calf consistent with saphenous vein harvesting. RAD/Knee 4 or More Views IMPRESSION: Mild arthritis of the patellofemoral joint. Other findings as noted. Reading Location: [place] [id number]
== END 2025-11-05 23:59 | disposition home or self-care (01) ==
PROVIDERS: PCP Family Medicine; Referring Provider Psychiatry & Neurology Neurology; Visit Provider Psychiatry & Neurology Neurology
DX: R09.89 Other specified symptoms and signs involving the circulatory and respiratory systems (principal); M25.551 Pain in right hip; M25.552 Pain in left hip; M25.561 Pain in right knee; M25.562 Pain in left knee
CPT/HCPCS: 73521; 73564; 93922

== ENCOUNTER → 2025-11-06 | Outpatient (CLI) | payer MEDICARE, OTHER, SELFPAY | END | disposition home or self-care (01) | PROVIDERS: PCP Family Medicine; Referring Provider Psychiatry & Neurology Neurology; Visit Provider Psychiatry & Neurology Neurology | DX: G40.909 Epilepsy, unspecified, not intractable, without status epilepticus (principal) | CPT/HCPCS: 95819 ==